=== PATIENT | male | born 1950 | race Caucasian/White ===

== ENCOUNTER 2017-11-08 01:34 | Inpatient (IN) ==
[2017-11-08] MEDS ORDERED: Acetaminophen 325 MG TABLET PO ONE (02:13)
[2017-11-08] MEDS ORDERED: 0.9 % Sodium Chloride 1,000 ML IVC ONE (02:13)
[2017-11-08 02:28] LABS: Basophils % 0.1 %; Hematocrit 39.6 % (37.5-50.1); Hemoglobin 13.8 g/dL (12.9-16.9); Immature Granulocytes % 0.5 % (0-4); Lymphocytes # 0.6 K/mcL (0.6-4.6); Lymphocytes % 4.3 %; Mean Corpuscular HGB Conc 34.8 g/dL (31.6-35.5); Mean Corpuscular Hemoglobin 30.7 pg (28.0-33.3); Mean Platelet Volume 11.3 fL (9.4-12.4); Monocytes # 0.9 K/mcL (0.0-1.3); Monocytes % 6.1 %; Neutrophils # 13.2 K/mcL (1.6-8.9); Platelet Count 177 K/mcL (140-400); Red Cell Distribution Width 13.4 % (11.5-14.5)
[2017-11-08 02:31] LABS: VBG HCO3 23 mEq/L (21-27); VBG PCO2 37 mmHg (41-51); VBG PO2 38 mmHg (25-50)
[2017-11-08 02:33] LABS: INR 1.2; Prothrombin Time 13.3 Seconds (9.4-12.1)
[2017-11-08 02:37] LABS: Bilirubin,Urine Small (Negative); Blood,Urine Negative (Negative); Clarity,Urine Clear (Clear); Color,Urine Dark Yellow (Yellow); Glucose,Urine (UA) 250 mg/dL (Normal); Ketones,Urine Negative (Negative); Leukocyte Esterase,Urine Negative (Negative); Nitrite,Urine Negative (Negative); Protein,Urine >=300 mg/dL (Neg-Trace); Specific Gravity,Urine 1.018 (1.010-1.025); Urobilinogen,Urine Normal (Normal)
[2017-11-08 02:38] LABS: Bacteria,Urine None Seen per hpf (None-Few); Hyaline Casts,Urine None Seen per lpf (None-Few); Squamous Epithelial Cell,Urine Moderate per lpf (None-Few); WBC,Urine 0-3 per hpf (0-3)
--- NOTE | 2017-11-08 02:38 | Emergency Department Note ---
Disposition Clinical Impression: Left lower lobe pneumonia Qualifiers: Pneumonia type: due to unspecified organism Qualified Code(s): J18.1 - Lobar pneumonia, unspecified organism Disposition: Admitted As Inpatient Condition: Good Referrals: Tano Lee MD [Primary Care Provider] - Forms: ED Satisfaction Letter Time of Disposition: 05:00 General Adult HPI - General Chief complaint: ED Weakness Stated complaint: gen. weakness Time Seen by Provider: 11/08/17 02:10 Source: patient, EMS Limitations: no limitations - History of Present Illness HPI Narrative: This is a 67-year-old male who has had a fever for a little more than 24 hours. He states prior to 24-26 hours ago, he was feeling fine. He reports nausea vomiting and diarrhea, although the diarrhea is not unusual for him. He denies having a cough. He has no dysuria. He has some epigastric abdominal pain, but he states this is unremarkable for him. Pain Scale: 0 - Related Data Home Medications Medication Instructions Recorded Confirmed Aspirin Enteric Coated [Aspirin EC] 81 mg PO QAM 10/21/14 01/02/16 Carvedilol [Coreg] 25 mg PO BID 10/21/14 01/02/16 Fenofibrate 160 mg PO QPM 10/21/14 01/02/16 Folic Acid 1 mg PO BID 10/21/14 01/02/16 Fosinopril Sodium 40 mg PO QPM 10/21/14 01/02/16 Levothyroxine Sodium [Synthroid] 100 mcg PO QAM 10/21/14 01/02/16 Terazosin [Hytrin] 10 mg PO DAILY 10/21/14 01/02/16 Albuterol Sulfate [Albuterol 2 puff IH Q4H PRN 12/12/15 01/02/16 Inhaler] Ergocalciferol (VITAMIN D2) 50,000 unit PO QWEEK 12/12/15 01/02/16 [Vitamin D2 (50,000 UNIT)] Furosemide [Lasix] 40 mg PO BID 12/12/15 01/02/16 Insulin DETEMIR [Levemir] 42 unit SQ BID 12/12/15 01/02/16 Isosorbide MONOnitrate (24 HR) 30 mg PO DAILY 12/12/15 01/02/16 [Imdur] Lactobacillus Acidophilus 1 mg PO DAILY 12/12/15 01/02/16 [Acidophilus Probiotic] Tiotropium [place] [Spiriva 8 gm IH DAILY 12/12/15 01/02/16 Respimat] Linagliptin [Tradjenta] 5 mg PO DAILY 01/02/16 01/02/16 Previous Rx's Medication Instructions Recorded Amlodipine [Norvasc] 10 mg PO QAM #0 tablet 10/22/14 Rosuvastatin [Crestor] 40 mg PO QPM tablet 10/22/14 Azithromycin [Zithromax] 500 mg PO Q24H #5 tablet 01/08/16 Budesonide/Formoterol 160/4.5 2 puff IH BIDR #1 inhaler 01/08/16 [Symbicort 160/4.5] Furosemide [Lasix] 40 mg PO DAILY #30 tab 01/08/16 GuaiFENesin ER [Mucinex] 1,200 mg PO BID #30 tbbp.12hr 01/08/16 Insulin LISPRO [Humalog Kwikpen 20 unit SQ TIDWM #10 insuln.pen 01/08/16 U-100] Ipratropium/Albuterol Neb [Duoneb] 3 ml IH [id number] #30 applic 01/08/16 predniSONE [PredniSONE] 40 mg PO DAILY #20 tablet 01/08/16 Azithromycin [Zithromax] 1 applic PO DAILY #6 tablet 04/19/16 PredniSONE [Deltasone] 20 mg PO DAILY #15 tablet 04/19/16 Azithromycin [Azithromycin 6-Tab 250 mg PO PER PKG DI #6 tab 06/20/17 Pack] predniSONE [PredniSONE] See Taper PO DAILY #18 tablet 06/20/17 Allergies Allergy/AdvReac Type Severity Reaction Status Date / Time niacin AdvReac Nausea Verified 04/08/17 11:17 All systems ED: reviewed and negative except as stated. Constitutional: Reports: fever, weakness Gastrointestinal: Reports: abdominal pain Past Medical History - Past Medical History Medical history: Reports: non-contributory, CHF, COPD, diabetes, hypertension, renal disease, thyroid disease Surgical history: Reports: knee replacement Psychiatric history: Reports: no psych history - Social History Smoking Status: Never smoker Smokeless Tobacco Status: No Alcohol use: Reports: none Drug use: Reports: none Physical Exam - General Limitations: no limitations General appearance: alert, in no apparent distress - Head Head exam: atraumatic, normocephalic, normal inspection - Eye Eye exam: Present: normal appearance, PERRL, EOMI - Chest Chest inspection: Present: normal inspection, symmetric chest wall rise - Respiratory Respiratory exam: Present: normal lung sounds bilaterally - Cardiovascular Cardiovascular exam: Present: regular rate, normal rhythm, normal heart sounds - Abdominal Exam Abdominal exam: Present: soft, tenderness Abdominal tenderness: Present: epigastrium - Extremities Exam Extremities exam: Present: normal inspection, full ROM. Absent: tenderness, pedal edema - Neurological Exam Neurological exam: Present: alert, oriented X3 - Psychiatric Psychiatric exam: Present: normal affect, normal mood - Skin Skin exam: Present: warm, dry, intact, normal color Course Vital Signs Temperature 102.7 F H 11/08/17 01:37 Pulse Rate 76 11/08/17 01:37 Respiratory Rate 28 11/08/17 01:37 Blood Pressure 171/70 11/08/17 01:37 O2 Sat by Pulse Oximetry 92 11/08/17 01:37 Temperature 100.3 F H 11/08/17 03:37 Pulse Rate 70 11/08/17 04:55 Respiratory Rate 1 11/08/17 04:55 Blood Pressure 127/66 11/08/17 04:55 O2 Sat by Pulse Oximetry 95 11/08/17 04:55 Oxygen Delivery Oxygen Delivery Nasal Cannula Medical Decision Making - [facility] Narrative Medical decision making narrative: This is a 67-year-old male with left lower lobe pneumonia has a fever. He was given ceftriaxone and azithromycin. - Lab Data Lab results narrative: CBC shows leukocytosis at 14.8 BMP shows slight hyponatremia but BUN elevated at 29 and creatinine elevated 1.7 Magnesium was low at 1.3 Troponin was slightly elevated at 0.08 Lipase was low UA was unremarkable Result diagrams: 11/08/17 02:00 11/08/17 02:00 Lab Results 11/08/17 11/08/17 11/08/17 Range/Units 02:00 02:00 02:00 WBC 14.8 H (4.3-11.1) K/mcL RBC 4.50 (4.19-5.50) M/mcL Hgb 13.8 (12.9-16.9) g/dL Hct 39.6 (37.5-50.1) % MCV 88.0 (83.0-100.0) fL MCH 30.7 (28.0-33.3) pg MCHC 34.8 (31.6-35.5) g/dL RDW 13.4 (11.5-14.5) % Plt Count 177 (140-400) K/mcL MPV 11.3 (9.4-12.4) fL Immature Gran % 0.5 (0-4) % Seg Neutrophils % 89.0 % Lymphocytes % 4.3 % Monocytes % 6.1 % Eosinophils % 0.0 % Basophils % 0.1 % Neutrophils # 13.2 H (1.6-8.9) K/mcL Lymphocytes # 0.6 (0.6-4.6) K/mcL Monocytes # 0.9 (0.0-1.3) K/mcL Eosinophils # 0.0 (0.0-0.6) K/mcL Basophils # 0.0 (0.0-0.2) K/mcL PT 13.3 H (9.4-12.1) Seconds INR 1.2 VBG pH (7.32-7.42) pH Units VBG pCO2 (41-51) mmHg VBG pO2 (25-50) mmHg VBG HCO3 (21-27) mEq/L Sodium (136-145) mEq/L Potassium (3.5-5.1) mEq/L Chloride (98-107) mEq/L Carbon Dioxide (23-29) mEq/L BUN (8-23) mg/dL Creatinine (0.70-1.30) mg/dL Est GFR ( Amer) (> 60) Est GFR (Non-Af Amer) (> 60) BUN/Creatinine Ratio (6-26) Glucose (70-105) mg/dL Calculated Osmolality (280-300) Lactic Acid 1.9 (0.5-2.2) mmol/L Calcium (8.6-10.3) mg/dL Phosphorus (2.7-4.5) mg/dL Magnesium (1.6-2.6) mg/dL Total Bilirubin (0.3-1.0) mg/dL AST (13-39) Units/L ALT (7-52) Units/L Alkaline Phosphatase (34-104) Units/L Troponin I (< 0.04) ng/mL Serum Total Protein (6.4-8.9) g/dL Albumin (3.5-5.7) g/dL Globulin (2.4-3.5) g/dL Albumin/Globulin Ratio (1.1-2.2) Lipase (11-82) Units/L Urine Color (Yellow) Urine Clarity (Clear) Urine pH (5.0-8.0) pH Units Ur Specific [place] (1.010-1.025) Urine Protein (Neg-Trace) mg/dL Urine Glucose (UA) (Normal) mg/dL Urine Ketones (Negative) mg/dL Urine Blood (Negative) Urine Nitrite (Negative) Urine Bilirubin (Negative) Urine Urobilinogen (Normal) mg/dL Ur Leukocyte Esterase (Negative) Urine Microscopic RBC (0-3) per hpf Urine Microscopic WBC (0-3) per hpf Ur Squamous Epith Cells (None-Few) per lpf Urine Bacteria (None-Few) per hpf Hyaline Casts (None-Few) per lpf Ur Culture Indicated? (NO) 11/08/17 11/08/17 11/08/17 Range/Units 02:00 02:28 02:28 WBC (4.3-11.1) K/mcL RBC (4.19-5.50) M/mcL Hgb (12.9-16.9) g/dL Hct (37.5-50.1) % MCV (83.0-100.0) fL MCH (28.0-33.3) pg MCHC (31.6-35.5) g/dL RDW (11.5-14.5) % Plt Count (140-400) K/mcL MPV (9.4-12.4) fL Immature Gran % (0-4) % Seg Neutrophils % % Lymphocytes % % Monocytes % % Eosinophils % % Basophils % % Neutrophils # (1.6-8.9) K/mcL Lymphocytes # (0.6-4.6) K/mcL Monocytes # (0.0-1.3) K/mcL Eosinophils # (0.0-0.6) K/mcL Basophils # (0.0-0.2) K/mcL PT (9.4-12.1) Seconds INR VBG pH 7.40 (7.32-7.42) pH Units VBG pCO2 37 L (41-51) mmHg VBG pO2 38 (25-50) mmHg VBG HCO3 23 (21-27) mEq/L Sodium 132 L (136-145) mEq/L Potassium 3.6 (3.5-5.1) mEq/L Chloride 100 (98-107) mEq/L Carbon Dioxide 22 L (23-29) mEq/L BUN 29 H (8-23) mg/dL Creatinine 1.79 H (0.70-1.30) mg/dL Est GFR ( Amer) 46 L (> 60) Est GFR (Non-Af Amer) 38 L (> 60) BUN/Creatinine Ratio 16 (6-26) Glucose 230 H (70-105) mg/dL Calculated Osmolality 287 (280-300) Lactic Acid (0.5-2.2) mmol/L Calcium 8.9 (8.6-10.3) mg/dL Phosphorus 2.4 L (2.7-4.5) mg/dL Magnesium 1.3 L (1.6-2.6) mg/dL Total Bilirubin 1.0 (0.3-1.0) mg/dL AST 42 H (13-39) Units/L ALT 27 (7-52) Units/L Alkaline Phosphatase 117 H (34-104) Units/L Troponin I 0.08 H* (< 0.04) ng/mL Serum Total Protein 7.2 (6.4-8.9) g/dL Albumin 3.5 (3.5-5.7) g/dL Globulin 3.7 H (2.4-3.5) g/dL Albumin/Globulin Ratio 0.9 L (1.1-2.2) Lipase 4 L (11-82) Units/L Urine Color Dark Yellow (Yellow) Urine Clarity Clear (Clear) Urine pH 6.0 (5.0-8.0) pH Units Ur Specific [place] 1.018 (1.010-1.025) Urine Protein >=300 H (Neg-Trace) mg/dL Urine Glucose (UA) 250 H (Normal) mg/dL Urine Ketones Negative (Negative) mg/dL Urine Blood Negative (Negative) Urine Nitrite Negative (Negative) Urine Bilirubin Small H (Negative) Urine Urobilinogen Normal (Normal) mg/dL Ur Leukocyte Esterase Negative (Negative) Urine Microscopic RBC 5-15 H (0-3) per hpf Urine Microscopic WBC 0-3 (0-3) per hpf Ur Squamous Epith Cells Moderate H (None-Few) per lpf Urine Bacteria None Seen (None-Few) per hpf Hyaline Casts None Seen (None-Few) per lpf Ur Culture Indicated? NO (NO) - Radiology Data Radiology results reviewed: Yes I reviewed the patient's radiology results. Chest x-ray shows left middle and lower lobe opacities consistent with pneumonia CT abdomen/pelvis with most consistent with left lower lobe pneumonia - EKG Data EKG #1 EKG attestation: Yes I reviewed and interpreted this EKG. EKG results narrative: EKG shows a sinus rhythm, 74 bpm, normal axis , large Q waves in inferior, normal ST and T waves
[2017-11-08 02:50] LABS: Albumin 3.5 g/dL (3.5-5.7); Albumin/Globulin Ratio 0.9 (1.1-2.2); Calcium 8.9 mg/dL (8.6-10.3); Globulin 3.7 g/dL (2.4-3.5); Magnesium 1.3 mg/dL (1.6-2.6); Phosphorous 2.4 mg/dL (2.7-4.5); Potassium 3.6 mEq/L (3.5-5.1); Total Protein 7.2 g/dL (6.4-8.9)
[2017-11-08 02:59] LABS: Troponin I 0.08 ng/mL (< 0.04)
[2017-11-08] MEDS ORDERED: cefTRIAXone 1,000 MG in Water for inj. (sterile) 20 ML 10 ML IVP ONE (04:21)
[2017-11-08] MEDS ORDERED: Azithromycin 250 MG TABLET PO ONE (04:22)
[2017-11-08] MEDS ORDERED: Naloxone 0.4 MG/ML INJ IVP PRN (07:48)
[2017-11-08] MEDS ORDERED: Ringers Solution, Lactated 1,000 ML IVC SCH (08:00)
[2017-11-08] MEDS ORDERED: D5% in Water 1,000 ML IVC PRN (08:17)
[2017-11-08] MEDS ORDERED: *HR* Dextrose 50 % in Water (Syg) 50 ML SYRINGE IVP PRN (08:17)
[2017-11-08] MEDS ORDERED: Dextrose Gel 15 GM/37.5 ML TUBE PO PRN ×2 (08:17)
--- NOTE | 2017-11-08 08:27 | Internal Med History&Physical ---
Date of Encounter: 11/08/17 Time of Encounter: 08:10 Internal Medicine - H&P: HPI Chief complaint: Fever, cough, nausea, vomiting Admitted From: Emergency Dept Plans for Post Hospital Care: Home History of present illness: Mr. Valencia is a 67 year old male patient with history of COPD, CHF, diabetes, hypertension and chronic kidney disease who presented to the ER with complaints of malaise, nausea, vomiting, cough and shortness of breath along with fevers. Symptoms started on Wednesday. Progressively getting worse. He denies any chest pain or palpitations. No sick contacts. No hemoptysis. Patient does have cough with mild sputum production. Denies any abdominal pain. No lower extremity swelling. No orthopnea or PND. Past Med Surg Social Fam HX - Past Medical History Attestation: Yes The following information was validated with the patient. Source: patient, old records reviewed Medical history: non-contributory, CHF, COPD, diabetes, hypertension, renal disease, thyroid disease Additional medical history: hernia Psychiatric history: no psych history - Past Surgical History Surgical History: knee replacement Additional surgical history: cardiac stent placement, finger surgry, hernia repair, iliac stent, colonoscopy, back surgery, wipple procedure - Social History Smoking Status: Never smoker Smokeless Tobacco Status: No Alcohol use: none Drug use: none - Family History Mother Living Status: Hx Family Cardiac Disorders: Yes Hx Family Respiratory Disorders: Yes Hx Family Cancer: No Hx Family GI Disorders: No Hx Family Genitourinary Disorders: No Hx Family Endocrine Disorder: No Hx Family Musculoskeletal Disorders: No Hx Family Neuromuscular Disorders: No Hx Family Neurologic Disorders: No Hx Family HEENT Disorders: No Hx Family Autoimmune Disorders: No Hx Family Reproductive Disorders: No Hx Family Psychosocial Disorders: No Hx Family Medical Disorders: No Father Living Status: Hx Family Cardiac Disorders: Yes Hx Family Respiratory Disorders: No Hx Family Cancer: No Hx Family GI Disorders: No Hx Family Genitourinary Disorders: Yes (dm) Hx Family Endocrine Disorder: No Hx Family Musculoskeletal Disorders: No Hx Family Neuromuscular Disorders: No Hx Family Neurologic Disorders: No Hx Family HEENT Disorders: No Hx Family Autoimmune Disorders: No Hx Family Reproductive Disorders: No Hx Family Psychosocial Disorders: No Hx Family Medical Disorders: No Internal Medicine - H&P: Meds Aspirin Enteric Coated [Aspirin EC] 81 mg PO QAM 10/21/14 [History] Carvedilol [Coreg] 25 mg PO BID 10/21/14 [History] Fenofibrate 160 mg PO QPM 10/21/14 [History] Folic Acid 1 mg PO BID 10/21/14 [History] Fosinopril Sodium 40 mg PO QPM 10/21/14 [History] Levothyroxine Sodium [Synthroid] 100 mcg PO QAM 10/21/14 [History] Terazosin [Hytrin] 10 mg PO DAILY 10/21/14 [History] Amlodipine [Norvasc] 10 mg PO QAM #0 tablet 10/22/14 [Rx] Rosuvastatin [Crestor] 40 mg PO QPM tablet 10/22/14 [Rx] Albuterol Sulfate [Albuterol Inhaler] 2 puff IH Q4H PRN 12/12/15 [History] Ergocalciferol (VITAMIN D2) [Vitamin D2 (50,000 UNIT)] 50,000 unit PO QWEEK [History] Furosemide [Lasix] 40 mg PO BID 12/12/15 [History] Insulin DETEMIR [Levemir] 42 unit SQ BID 12/12/15 [History] Isosorbide MONOnitrate (24 HR) [Imdur] 30 mg PO DAILY 12/12/15 [History] Lactobacillus Acidophilus [Acidophilus Probiotic] 1 mg PO DAILY 12/12/15 [ History] Tiotropium [place] [Spiriva Respimat] 8 gm IH DAILY 12/12/15 [History] Linagliptin [Tradjenta] 5 mg PO DAILY 01/02/16 [History] Azithromycin [Zithromax] 500 mg PO Q24H #5 tablet 01/08/16 [Rx] Budesonide/Formoterol 160/4.5 [Symbicort 160/4.5] 2 puff IH BIDR #1 inhaler [Rx] Furosemide [Lasix] 40 mg PO DAILY #30 tab 01/08/16 [Rx] GuaiFENesin ER [Mucinex] 1,200 mg PO BID #30 tbbp.12hr 01/08/16 [Rx] Insulin LISPRO [Humalog Kwikpen U-100] 20 unit SQ TIDWM #10 insuln.pen 01/08/16 [Rx] Ipratropium/Albuterol Neb [Duoneb] 3 ml IH [id number] #30 applic 01/08/16 [Rx] Azithromycin [Zithromax] 1 applic PO DAILY #6 tablet 04/19/16 [Rx] Azithromycin [Azithromycin 6-Tab Pack] 250 mg PO PER PKG DI #6 tab 06/20/17 [Rx] 3 Allergy/AdvReac Type Severity Reaction Status Date / Time niacin AdvReac Nausea Verified 04/08/17 11:17 All Systems PM: A 10-system review of systems was performed and is negative for pertinent findings except as documented above in the HPI. - Constitutional Constitutional: fever(s), no chills, no night sweats - EENT Eyes: no change in vision, no discharge, no pain, no photophobia Ears: no ear discharge, no ear pain, no tinnitus Nose, mouth and throat: no dysphagia, no nasal discharge, no neck pain, no sore throat - Cardiovascular Cardiovascular ROS IM: no chest pain, no diaphoresis, no dyspnea, no lightheadedness, no palpitations, no syncope - Respiratory Respiratory: cough, dyspnea, no wheezing, no excessive phlegm production - Gastrointestinal Gastrointestinal: nausea, vomiting, no abdominal pain, no diarrhea, no hematemesis, no hematochezia, no melena - Musculoskeletal Musculoskeletal ROS IM: no numbness, no tingling - Integumentary Integumentary IM: no rash, no unusual bruising - Neurological Neurological ROS: no confusion, no convulsions, no focal weakness, no numbness, no tingling, no tremor(s) - Hematologic/Lymphatic Hematologic/Lymphatic: no easy bruising - Constitutional Vitals: Temp Pulse Resp BP Pulse Ox 100 F H 70 16 152/61 94 11/08/17 07:10 11/08/17 07:10 11/08/17 07:10 11/08/17 07:10 11/08/17 07:10 General appearance: Present: cooperative, A&O X 3, answers questions appropriately Exam: . - Neck Neck exam general surgery: Present: supple, trachea midline. Absent: lymphadenopathy - Respiratory Respiratory exam: Present: prolonged expiratory phase, wheezes. Absent: accessory muscle use, rales, rhonchi Additional comments: Coarse breath sounds - Cardiovascular Cardiovascular exam: Present: RRR, +S1, +S2. Absent: diastolic murmur, gallop, rubs, systolic murmur - GI/Abdominal GI/Abdominal exam: Present: normal bowel sounds, soft, no peritoneal signs. Absent: distended, tenderness - Extremities Exam Extremities exam: Present: warm, radial pulses palpable and symmetrical. Absent : calf tenderness, cyanotic, pedal edema - Neurological Exam Neurological exam: Present: alert, CN II-XII intact, oriented X3, no focal deficits. Absent: facial droop, speech deficit Internal Med - H&P Results - Labs CBC & Chem 7: 11/08/17 02:00 11/08/17 02:00 - Impressions Impressions Abdomen CT 11/08/17 02:35 IMPRESSION: Findings suspicious for left lower lobe pneumonia versus aspiration sequela with small parapneumonic effusion. Ectatic abdominal aorta with fusiform aneurysmal dilatation up to around 4 cm. Recommend follow-up CTA in 1 year and vascular consultation if not already being followed. D/ / Paras Polanco / Paras Polanco Interpreting Provider: Paras Polanco Chest X-Ray 11/08/17 02:35 IMPRESSION: Increased opacities are seen within the left mid and lower lung, most consistent for pneumonia. Recommend short-term follow-up to document resolution. D/ / Anamaria Bowers MD / Anamaria Bowers MD Interpreting Provider: Anamaria Bowers MD - Assessment and plan (1) Sepsis Current Visit: Yes Status: Suspected Assessment and plan: Sepsis related to pneumonia and left lower lobe with parapneumonic effusion. Concern for possible aspiration. Will continue ceftriaxone and azithromycin. Add Flagyl. Follow blood culture results. Urine strep and Legionella antigens. Send sputum for culture. O2 supplementation as needed. IV antibiotics. DVT prophylaxis with subcutaneous heparin. Qualifiers: Sepsis type: Pneumococcus Qualified Code(s): A40.3 - Sepsis due to Streptococcus pneumoniae (2) Left lower lobe pneumonia Current Visit: Yes Status: Suspected Assessment and plan: Community-acquired. Concern for possible aspiration per CT findings. Continue IV antibiotics. Add Flagyl. Qualifiers: Pneumonia type: due to Pneumococcus Qualified Code(s): J13 - Pneumonia due to Streptococcus pneumoniae (3) CHF (congestive heart failure) Current Visit: Yes Status: Chronic Assessment and plan: Not in acute exacerbation. Hold Lasix due to worsening renal function. Will resume Lasix as renal function improves. Qualifiers: Heart failure type: diastolic Heart failure chronicity: chronic Qualified Code(s): I50.32 - Chronic diastolic (congestive) heart failure (4) COPD (chronic obstructive pulmonary disease) with emphysema Current Visit: Yes Status: Chronic Assessment and plan: Not in acute exacerbation. Continue bronchodilators. Qualifiers: Emphysema type: panlobular Qualified Code(s): J43.1 - Panlobular emphysema (5) CAD (coronary artery disease) Current Visit: Yes Status: Chronic Assessment and plan: Continue home medications. No chest pain at this time Qualifiers: Coronary Disease-Associated Artery/Lesion type: [place] artery [place] vs. transplanted heart: [place] heart Associated angina: without angina Qualified Code(s): I25.10 - Atherosclerotic heart disease of [place] coronary artery without angina pectoris (6) Chronic kidney disease, stage III (moderate) Current Visit: Yes Status: Chronic Assessment and plan: With slight worsening of renal function. Due to sepsis. Hold Lasix. Gentle IV hydration. (7) DM2 (diabetes mellitus, type 2) Current Visit: Yes Status: Chronic Assessment and plan: Elevated blood sugars. Place patient on sliding scale insulin and Levemir. Diabetic diet. 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 Resume home medications. Monitor blood pressure closely Qualifiers: Hypertension type: essential hypertension Qualified Code(s): I10 - Essential (primary) hypertension - Time Spent With Patient Total time spent is greater than 50% in coordination of care (as documented) at patient's floor/unit and/or counseling patient:
[2017-11-08] MEDS: MetroNIDAZOLE 500 MG/100 ML 500 MG/100 ML BAG IVPB SCH ×3 (09:21→23:09)
[2017-11-08] MEDS: Insulin DETEMIR 100 UNIT/ML X5UNITS SQ SCH ×2 (09:22→21:24)
[2017-11-08] MEDS ORDERED: Ondansetron 4 MG/2 ML VIAL IVP PRN (09:29)
[2017-11-08] MEDS: Aspirin Enteric Coated 81 MG Tablet PO SCH (11:09)
[2017-11-08] MEDS: Isosorbide MONOnitrate (24 HR) 30 MG TAB.ER.24H PO SCH (11:10)
[2017-11-08] MEDS: Folic Acid 1 MG TABLET PO SCH ×2 (11:10→20:10)
[2017-11-08] MEDS: amLODIPine 5 MG TABLET PO SCH (11:10)
[2017-11-08] MEDS: Lactobacillus 1 EACH CAP.SPRINK PO SCH (11:10)
[2017-11-08] MEDS: Budesonide/Formoterol 160/4.5 1 PUFF INH IH SCH ×2 (11:52→20:14)
[2017-11-08] MEDS: Acetaminophen 325 MG TABLET PO PRN ×2 (12:11→23:15)
[2017-11-08] MEDS: Insulin LISPRO 300 UNITS/3 ML VIAL SQ SCH ×3 (12:12→20:10)
[2017-11-08] MEDS: Fenofibrate 54 MG TABLET PO SCH (17:09)
[2017-11-08] MEDS: *HR* Heparin 5,000 UNIT/ML VIAL SQ SCH (17:09)
[2017-11-09] MEDS: *HR* Heparin 5,000 UNIT/ML VIAL SQ SCH ×2 (05:14→16:27)
[2017-11-09 06:48] LABS: Basophils % 0.2 %; Hematocrit 34.2 % (37.5-50.1); Immature Granulocytes % 0.6 % (0-4); Lymphocytes # 0.5 K/mcL (0.6-4.6); Mean Corpuscular HGB Conc 34.2 g/dL (31.6-35.5); Mean Corpuscular Hemoglobin 29.5 pg (28.0-33.3); Mean Corpuscular Volume 86.4 fL (83.0-100.0); Mean Platelet Volume 11.7 fL (9.4-12.4); Monocytes # 0.4 K/mcL (0.0-1.3); Monocytes % 3.7 %; Neutrophils # 10.9 K/mcL (1.6-8.9); Platelet Count 168 K/mcL (140-400); Red Blood Count 3.96 M/mcL (4.19-5.50); Red Cell Distribution Width 13.6 % (11.5-14.5); Segmented Neutrophils % 91.5 %
[2017-11-09 07:10] LABS: Potassium 3.8 mEq/L (3.5-5.1)
[2017-11-09 07:30] LABS: Hemoglobin 11.7 g/dL (12.9-16.9)
[2017-11-09] MEDS: Insulin LISPRO 300 UNITS/3 ML VIAL SQ SCH ×4 (07:52→22:00)
[2017-11-09] MEDS: Budesonide/Formoterol 160/4.5 1 PUFF INH IH SCH ×2 (08:00→19:55)
[2017-11-09] MEDS: Isosorbide MONOnitrate (24 HR) 30 MG TAB.ER.24H PO SCH (08:18)
[2017-11-09] MEDS: Azithromycin 250 MG TABLET PO SCH (08:18)
[2017-11-09] MEDS: Aspirin Enteric Coated 81 MG Tablet PO SCH (08:19)
[2017-11-09] MEDS: Lactobacillus 1 EACH CAP.SPRINK PO SCH (08:19)
[2017-11-09] MEDS: amLODIPine 5 MG TABLET PO SCH (08:19)
[2017-11-09] MEDS: Acetaminophen 325 MG TABLET PO PRN ×3 (08:19→20:44)
[2017-11-09] MEDS: MetroNIDAZOLE 500 MG/100 ML 500 MG/100 ML BAG IVPB SCH (08:19)
[2017-11-09] MEDS: Folic Acid 1 MG TABLET PO SCH ×2 (08:19→20:43)
[2017-11-09] MEDS ORDERED: cefTRIAXone 2,000 MG in 0.9 % Sodium Chloride Mini Bag 100 ML IVPB SCH (09:00)
[2017-11-09] MEDS: Insulin DETEMIR 100 UNIT/ML X5UNITS SQ SCH (09:19)
[2017-11-09] MEDS: Fenofibrate 54 MG TABLET PO SCH (16:27)
--- NOTE | 2017-11-09 17:16 | Internal Med Progress Note ---
Hospitalist Progress Note - Encounter Date of Encounter: 11/09/17 Time of Encounter: 10:10 - Subjective Interval History: Patient was seen and assessed at bedside at 10:10 AM. He is alert, awake, oriented. He is pleasant. He reports he is not sleeping well at night due to constant interruptions in his room, IV pump alarms, noise in the hallway. He denies fever, chills, diarrhea, nausea, vomiting, shortness of breath. He states that he is feeling well, we will revisit discharge tomorrow. - Exam Vitals: Temp Pulse Resp BP Pulse Ox 100.6 F H 70 15 137/61 93 11/09/17 15:33 11/09/17 15:33 11/09/17 15:33 11/09/17 15:33 11/09/17 15:33 Exam: General: Pt resting quietly on bed, no distress. Skin: pwd, no rashes, lesions, redness Neurological: Pt is alert and awake, oriented x 3, Speech is clear, PERRLA, EOMI , no nystagmus, no pronator drift. strength equal x 4 extremities HEENT: mucous mumbranes moist, no conjuctival pallor Neck: supple, no tracheal deviation, no lymphadenopathy, tenderness, no thyromegaly Heart: S1S2 heard without gallops, clicks, murmurs, no bradycardia or tachycardia, pt has no peripheral edema, pedal and radial pulses palpable bilaterally. Lungs: clear throughout with wheezing, and ronchi in posterior eduardo, respirations are unlabored. Abdomen: soft and non tender with bowel sound present, no hepatomegaly. Psych: Normal affect with good eye contact - Assessment and Plan (1) CAD (coronary artery disease) Current Visit: Yes Status: Chronic Assessment and Plan: Chronic. Patient denies chest pain. Continue home medications. Continue telemetry (2) DM2 (diabetes mellitus, type 2) Current Visit: Yes Status: Chronic Assessment and Plan: Chronic. Place patient on sliding scale insulin and Levemir. Diabetic diet. Accu-Cheks before meals at bedtime (3) HTN (hypertension) Current Visit: Yes Status: Chronic Assessment and Plan: Chronic. Well controlled. Resume home medications. (4) COPD (chronic obstructive pulmonary disease) with emphysema Current Visit: Yes Status: Chronic Assessment and Plan: No acute exacerbation. Plan as above pneumonia. (5) Chronic kidney disease, stage III (moderate) Current Visit: Yes Status: Chronic Assessment and Plan: 1.80/38, worsening over baseline, due to sepsis. Hold Lasix. Gentle IVF hydration. Monitor labs and avoid nephrotoxins (6) CHF (congestive heart failure) Current Visit: Yes Status: Chronic Assessment and Plan: No acute exacerbation. Hold Lasix due to worsening renal function. Will resume Lasix as renal function improves. No peripheral edema, lungs with wheezing and ronchi, pt with pneumonia. (7) Left lower lobe pneumonia Current Visit: Yes Status: Suspected Assessment and Plan: Community-acquired. Legionella antigen positive. Flagyl added by prior WOMEN'S STUDIES PROFESSOR after discussing with I.D. Concern for possible aspiration per CT findings. Continue IV antibiotics Rocephin 1gram IV daily, Zithromax 500mg IV daily, and Flagyl 500mg IV TID. Continue 02 as needed to maintain sats > 92%. Sepsis secondary to pneumonia- pt with fever today, leukocytosis is resolving REcheck labs tomorrow. (8) Sepsis Current Visit: Yes Status: Suspected Assessment and Plan: Sepsis related to pneumonia and left lower lobe with parapneumonic effusion. Concern for possible aspiration per CT. Continue ceftriaxone and azithromycin, and Flagyl as above. Follow blood culture results- still pending. Legionella antigen positive. Leukocytosis is resolving, fever mid afternoon today, no tachycardia or tachypnea. Monitor labs and vitals - Time Spent with Patient Total time spent is greater than 50% in coordination of care (as documented) at patient's floor/unit and/or counseling patient: less than 15 minutes Plan of Care Discussed with: patient Internal Medicine: Result - Labs CBC & Chem 7: 11/09/17 05:07 11/09/17 05:07 Labs: Short CBC 11/09/17 Range/Units 05:07 WBC 11.9 H (4.3-11.1) K/mcL Hgb 11.7 L D (12.9-16.9) g/dL Hct 34.2 L (37.5-50.1) % Plt Count 168 (140-400) K/mcL Neutrophils # 10.9 H (1.6-8.9) K/mcL BMP 11/09/17 05:07 Sodium 134 L Potassium 3.8 Chloride 102 Carbon Dioxide 25 BUN 35 H Creatinine 1.80 H Glucose 82 Calcium 8.0 L Cardiac Enzymes 11/08/17 11/09/17 Range/Units 16:55 15:04 Troponin I 0.10 H* 0.06 H* (< 0.04) ng/mL - ABG Interpretation ABG results: PT/INR, D-dimer PT 13.3 Seconds (9.4-12.1) H 11/08/17 02:00 Consult Discharge Plan - Plan Referrals: Tano Lee MD [Primary Care Provider] - 11/19/17 8:30 am (1) CAD (coronary artery disease) Qualifiers: Coronary Disease-Associated Artery/Lesion type: [place] artery [place] vs. transplanted heart: [place] heart Associated angina: without angina Qualified Code(s): I25.10 - Atherosclerotic heart disease of [place] coronary artery without angina pectoris (2) DM2 (diabetes mellitus, type 2) Qualifiers: Diabetes mellitus custodial insulin use: with terminal press operator use Diabetes mellitus complication status: with kidney complications Diabetes mellitus complication detail: with chronic kidney disease Chronic kidney disease stage: stage 3 (moderate) Qualified Code(s): E11.22 - Type 2 diabetes mellitus with diabetic chronic kidney disease; N18.3 - Chronic kidney disease, stage 3 ( moderate); Z79.4 - exterminator (current) use of insulin (3) HTN (hypertension) Qualifiers: Hypertension type: essential hypertension Qualified Code(s): I10 - Essential (primary) hypertension (4) COPD (chronic obstructive pulmonary disease) with emphysema Qualifiers: Emphysema type: panlobular Qualified Code(s): J43.1 - Panlobular emphysema (6) CHF (congestive heart failure) Qualifiers: Heart failure type: diastolic Heart failure chronicity: chronic Qualified Code(s): I50.32 - Chronic diastolic (congestive) heart failure (7) Left lower lobe pneumonia Qualifiers: Pneumonia type: due to Pneumococcus Qualified Code(s): J13 - Pneumonia due to Streptococcus pneumoniae (8) Sepsis Qualifiers: Sepsis type: Pneumococcus Qualified Code(s): A40.3 - Sepsis due to Streptococcus pneumoniae
[2017-11-09] MEDS ORDERED: 0.9 % Sodium Chloride 1,000 ML IVC SCH (17:30)
[2017-11-09] MEDS ORDERED: Acetaminophen IV 500 MG/50 ML INFUS..BTL IVPB ONE (22:37)
[2017-11-10 05:51] LABS: Basophils % 0.1 %; Hematocrit 36.6 % (37.5-50.1); Hemoglobin 12.6 g/dL (12.9-16.9); Immature Granulocytes % 0.7 % (0-4); Lymphocytes # 0.3 K/mcL (0.6-4.6); Lymphocytes % 2.8 %; Mean Corpuscular HGB Conc 34.4 g/dL (31.6-35.5); Mean Corpuscular Hemoglobin 30.1 pg (28.0-33.3); Mean Corpuscular Volume 87.6 fL (83.0-100.0); Mean Platelet Volume 11.6 fL (9.4-12.4); Monocytes # 0.3 K/mcL (0.0-1.3); Monocytes % 2.3 %; Neutrophils # 10.9 K/mcL (1.6-8.9); Platelet Count 196 K/mcL (140-400); Red Blood Count 4.18 M/mcL (4.19-5.50); Red Cell Distribution Width 13.6 % (11.5-14.5); Segmented Neutrophils % 94.1 %
[2017-11-10 06:05] LABS: Calcium 8.3 mg/dL (8.6-10.3); Potassium 3.9 mEq/L (3.5-5.1)
[2017-11-10] MEDS: *HR* Heparin 5,000 UNIT/ML VIAL SQ SCH ×2 (06:28→17:10)
--- NOTE | 2017-11-10 07:55 | Electrocardiograph Report ---
[place] [id number] Test Date: 2017-11-08 Pat Name: Johnson Valencia Department: [id number] Room: 3B35 Gender: M Top Cleaner: : 1950 Requested By: Rozina Brown Order Number: [id number] Reading MD: Mindy Crawley Measurements Intervals [place] Rate: 74 P: 82 WA: 191 QRS: -20 QRSD: 131 T: -12 QT: 393 QTc: 436 Interpretive Statements Sinus rhythm Probable left atrial enlargement Left ventricular hypertrophy Inferior infarct, old Anterior infarct, old Electronically Signed On 11-10-2017 7:54:16 EDT by Mindy Crawley
[2017-11-10] MEDS: Budesonide/Formoterol 160/4.5 1 PUFF INH IH SCH ×2 (08:19→20:41)
[2017-11-10] MEDS: Insulin LISPRO 300 UNITS/3 ML VIAL SQ SCH ×4 (09:15→22:00)
[2017-11-10] MEDS: Isosorbide MONOnitrate (24 HR) 30 MG TAB.ER.24H PO SCH (09:56)
[2017-11-10] MEDS: Folic Acid 1 MG TABLET PO SCH ×2 (09:56→21:49)
[2017-11-10] MEDS: Lactobacillus 1 EACH CAP.SPRINK PO SCH (09:56)
[2017-11-10] MEDS: Aspirin Enteric Coated 81 MG Tablet PO SCH (09:56)
[2017-11-10] MEDS: Azithromycin 250 MG TABLET PO SCH (09:56)
[2017-11-10] MEDS: amLODIPine 5 MG TABLET PO SCH (09:56)
--- NOTE | 2017-11-10 10:03 | Event Note ---
Date of Encounter: 11/10/17 Time of Encounter: 08:00 - Cardiology Event Note Message received from office. requested that cardiology stop by while patient is inpatient. I met with patient. Noted pneumonia, mild troponins. TTE with LVEF preserved. Patient denies chest pain. Patient has outpatient cardiology visit schedule for Wednesday, will re-schedule. Cardiology will continue to monitor patient in outpatient setting.
[2017-11-10] MEDS: Acetaminophen 325 MG TABLET PO PRN ×3 (10:25→23:38)
[2017-11-10] MEDS: Fenofibrate 54 MG TABLET PO SCH (17:08)
--- NOTE | 2017-11-10 18:30 | Internal Med Progress Note ---
Hospitalist Progress Note - Encounter Date of Encounter: 11/10/17 Time of Encounter: 10:50 - Subjective Interval History: Patient was seen and assessed at bedside at 10:50 AM. He is alert, awake, oriented. He is pleasant. Pt states that he wants to go home; we discussed the fact that he is still having fevers, pt was agreeable to stay. is at bedside, questions answered. He denies fever, chills, diarrhea, nausea, vomiting, shortness of breath. He states that he is feeling well, we will revisit discharge tomorrow. - Exam Vitals: Temp Pulse Resp BP Pulse Ox 102.5 F H 71 16 127/62 97 11/10/17 15:24 11/10/17 15:24 11/10/17 15:24 11/10/17 15:24 11/10/17 15:24 Exam: General: Pt resting quietly on bed, no distress. Skin: pwd, no rashes, lesions, redness Neurological: Pt is alert and awake, oriented x 3, Speech is clear, PERRLA, EOMI , no nystagmus, no pronator drift. strength equal x 4 extremities HEENT: mucous mumbranes moist, no conjuctival pallor Neck: supple, no tracheal deviation, no lymphadenopathy, tenderness, no thyromegaly Heart: S1S2 heard without gallops, clicks, murmurs, no bradycardia or tachycardia, pt has no peripheral edema, pedal and radial pulses palpable bilaterally. Lungs: wheezing right posterior lung eduardo, and no ronchi in posterior eduardo, respirations are unlabored. Abdomen: soft and non tender with bowel sound present, no hepatomegaly. Psych: Normal affect with good eye contact - Assessment and Plan (1) CAD (coronary artery disease) Current Visit: Yes Status: Chronic Assessment and Plan: Chronic. Patient denies chest pain. Continue home medications. Continue telemetry (2) DM2 (diabetes mellitus, type 2) Current Visit: Yes Status: Chronic Assessment and Plan: Chronic. Sliding scale insulin, Levemir at bedtime Diabetic diet. Accu-Cheks before meals at bedtime (3) HTN (hypertension) Current Visit: Yes Status: Chronic Assessment and Plan: Chronic. Well controlled. Resume home medications. (4) COPD (chronic obstructive pulmonary disease) with emphysema Current Visit: Yes Status: Chronic Assessment and Plan: No acute exacerbation. Plan as above pneumonia. (5) Chronic kidney disease, stage III (moderate) Current Visit: Yes Status: Chronic Assessment and Plan: 1.79/38, worsening over baseline, due to sepsis. Hold Lasix. Gentle IVF hydration. Monitor labs and avoid nephrotoxins I spoke with Myla Maher CNP, who sees pt in the office for nephrology, she is not concerned with his renal function as long as it is not worsening and pt can keep fluids down. (6) CHF (congestive heart failure) Current Visit: Yes Status: Chronic Assessment and Plan: No acute exacerbation. Continue to hold Lasix for renal function. Will resume Lasix as renal function improves. No peripheral edema, lungs with wheezing and ronchi, pt with pneumonia. (7) Left lower lobe pneumonia Current Visit: Yes Status: Suspected Assessment and Plan: Community-acquired. Legionella antigen positive. Flagyl added by prior ENVIRONMENTAL PROGRAM MANAGER after discussing with I.D, discontinued per recommendation of pharmacy on 11/09. Concern for possible aspiration per CT findings. Continue IV antibiotics Rocephin 1gram IV daily, Zithromax 500mg IV daily Continue 02 as needed to maintain sats > 92%. Sepsis secondary to pneumonia- pt with fever today, leukocytosis is resolving REcheck labs tomorrow. If pt remains stable overnight, will look at discharge tomorrow. (8) Sepsis Current Visit: Yes Status: Resolved Assessment and Plan: Resolved. Sepsis related to pneumonia and left lower lobe with parapneumonic effusion. Concern for possible aspiration per CT. Continue ceftriaxone and azithromycin, and Flagyl as above. Follow blood culture results- still pending. Legionella antigen positive. Leukocytosis is resolving, fever mid afternoon today, no tachycardia or tachypnea. Monitor labs and vitals - Time Spent with Patient Total time spent is greater than 50% in coordination of care (as documented) at patient's floor/unit and/or counseling patient: less than 15 minutes Plan of Care Discussed with: patient Internal Medicine: Result - Labs CBC & Chem 7: 11/10/17 05:02 11/10/17 05:02 Labs: Short CBC 11/10/17 Range/Units 05:02 WBC 11.6 H (4.3-11.1) K/mcL Hgb 12.6 L (12.9-16.9) g/dL Hct 36.6 L (37.5-50.1) % Plt Count 196 (140-400) K/mcL Neutrophils # 10.9 H (1.6-8.9) K/mcL BMP 11/10/17 05:02 Sodium 131 L Potassium 3.9 Chloride 101 Carbon Dioxide 23 BUN 33 H Creatinine 1.79 H Glucose 154 H Calcium 8.3 L - ABG Interpretation ABG results: PT/INR, D-dimer PT 13.3 Seconds (9.4-12.1) H 11/08/17 02:00 Consult Discharge Plan - Plan Referrals: Tano Lee MD [Primary Care Provider] - 11/19/17 8:30 am (1) CAD (coronary artery disease) Qualifiers: Coronary Disease-Associated Artery/Lesion type: [place] artery [place] vs. transplanted heart: [place] heart Associated angina: without angina Qualified Code(s): I25.10 - Atherosclerotic heart disease of [place] coronary artery without angina pectoris (2) DM2 (diabetes mellitus, type 2) Qualifiers: Diabetes mellitus [facility] insulin use: with wire drawing setter use Diabetes mellitus complication status: with kidney complications Diabetes mellitus complication detail: with chronic kidney disease Chronic kidney disease stage: stage 3 (moderate) Qualified Code(s): E11.22 - Type 2 diabetes mellitus with diabetic chronic kidney disease; N18.3 - Chronic kidney disease, stage 3 ( moderate); Z79.4 - penitentiary (current) use of insulin (3) HTN (hypertension) Qualifiers: Hypertension type: essential hypertension Qualified Code(s): I10 - Essential (primary) hypertension (4) COPD (chronic obstructive pulmonary disease) with emphysema Qualifiers: Emphysema type: panlobular Qualified Code(s): J43.1 - Panlobular emphysema (6) CHF (congestive heart failure) Qualifiers: Heart failure type: diastolic Heart failure chronicity: chronic Qualified Code(s): I50.32 - Chronic diastolic (congestive) heart failure (7) Left lower lobe pneumonia Qualifiers: Pneumonia type: due to Pneumococcus Qualified Code(s): J13 - Pneumonia due to Streptococcus pneumoniae (8) Sepsis Qualifiers: Sepsis type: Pneumococcus Qualified Code(s): A40.3 - Sepsis due to Streptococcus pneumoniae
[2017-11-10] MEDS: Pregabalin 50 MG CAPSULE PO SCH (21:49)
[2017-11-11] MEDS: Piperacillin/Tazobactam 3.375 GM in 0.9 % Sodium Chloride Mini Bag 100 ML IVPB SCH ×3 (00:37→15:27)
[2017-11-11 03:53] LABS: ABG Base Excess 0 mEq/L (-2 to 3); ABG HCO3 25 mEq/L (21-27); ABG Oxygen Saturation 85 % (95-98); ABG PCO2 42 mmHg (35-45); ABG PH 7.39 pH Units (7.32-7.45); ABG PO2 51 mmHg (85-104); ABG TCO2 26 mEq/L (20-26)
[2017-11-11] MEDS ORDERED: Furosemide 40 MG/4 ML VIAL IVP ONE (03:59)
[2017-11-11 04:03] LABS: Basophils % 0.1 %; Hematocrit 34.9 % (37.5-50.1); Hemoglobin 12.1 g/dL (12.9-16.9); Immature Granulocytes % 0.7 % (0-4); Lymphocytes # 0.4 K/mcL (0.6-4.6); Lymphocytes % 2.6 %; Mean Corpuscular HGB Conc 34.7 g/dL (31.6-35.5); Mean Corpuscular Hemoglobin 30.4 pg (28.0-33.3); Mean Corpuscular Volume 87.7 fL (83.0-100.0); Mean Platelet Volume 11.5 fL (9.4-12.4); Monocytes # 0.3 K/mcL (0.0-1.3); Monocytes % 2.3 %; Neutrophils # 12.9 K/mcL (1.6-8.9); Platelet Count 202 K/mcL (140-400); Red Blood Count 3.98 M/mcL (4.19-5.50); Red Cell Distribution Width 13.6 % (11.5-14.5); Segmented Neutrophils % 94.3 %
[2017-11-11 04:17] LABS: Calcium 8.3 mg/dL (8.6-10.3); Potassium 3.7 mEq/L (3.5-5.1)
[2017-11-11] MEDS: *HR* Heparin 5,000 UNIT/ML VIAL SQ SCH ×2 (06:15→17:02)
[2017-11-11] MEDS: Budesonide/Formoterol 160/4.5 1 PUFF INH IH SCH ×2 (07:47→20:29)
[2017-11-11] MEDS ORDERED: Isovue-370 500 ML INFUS..BTL IV ONE (07:49)
[2017-11-11] MEDS: Insulin LISPRO 300 UNITS/3 ML VIAL SQ SCH ×4 (08:00→20:29)
[2017-11-11] MEDS: Pregabalin 50 MG CAPSULE PO SCH ×2 (09:18→20:19)
[2017-11-11] MEDS: amLODIPine 5 MG TABLET PO SCH (09:18)
[2017-11-11] MEDS: Lactobacillus 1 EACH CAP.SPRINK PO SCH (09:18)
[2017-11-11] MEDS: Acetaminophen 325 MG TABLET PO PRN (09:18)
[2017-11-11] MEDS: Lisinopril 20 MG TABLET PO SCH (09:18)
[2017-11-11] MEDS: Fenofibrate 54 MG TABLET PO SCH (09:19)
[2017-11-11] MEDS: Azithromycin 250 MG TABLET PO SCH (09:19)
[2017-11-11] MEDS: Isosorbide MONOnitrate (24 HR) 30 MG TAB.ER.24H PO SCH (09:19)
[2017-11-11] MEDS: Aspirin Enteric Coated 81 MG Tablet PO SCH (09:19)
[2017-11-11] MEDS: Folic Acid 1 MG TABLET PO SCH ×2 (09:20→20:20)
--- NOTE | 2017-11-11 09:34 | Internal Med Progress Note ---
Hospitalist Progress Note - Encounter Date of Encounter: 11/11/17 Time of Encounter: 08:05 - Subjective Interval History: Patient was seen and assessed at bedside at 0805 AM. He is alert, awake, oriented and bipap. Overnight, pt began desatting and was placed on bipap, pt denies any change from his standpoint. He denies fever, chills, diarrhea, nausea , vomiting, shortness of breath. - Exam Vitals: Temp Pulse Resp BP Pulse Ox 99.7 F H 76 29 170/78 94 11/11/17 07:17 11/11/17 07:17 11/11/17 07:47 11/11/17 07:17 11/11/17 07:47 Exam: General: Pt resting quietly on bed, no distress, on bipap Skin: pwd, no rashes, lesions, redness Neurological: Pt is alert and awake, oriented x 3, Speech is clear HEENT: mucous mumbranes moist, no conjuctival pallor Neck: supple, no tracheal deviation, no lymphadenopathy, tenderness, no thyromegaly Heart: S1S2 heard without gallops, clicks, murmurs, no bradycardia or tachycardia, pt has no peripheral edema, pedal and radial pulses palpable bilaterally. Lungs: wheezing right posterior lung eduardo, ronchi heard in anterior chest, respirations are unlabored. Abdomen: soft and non tender with bowel sound present, no hepatomegaly. Psych: Normal affect with good eye contact - Assessment and Plan (1) CAD (coronary artery disease) Current Visit: Yes Status: Chronic Assessment and Plan: Chronic. Patient denies chest pain. Continue home medications. Continue telemetry (2) DM2 (diabetes mellitus, type 2) Current Visit: Yes Status: Chronic Assessment and Plan: Chronic. Continue SSI, Levemir at bedtime, diabetic diet, accuchecks achs. (3) HTN (hypertension) Current Visit: Yes Status: Chronic Assessment and Plan: Chronic. Well controlled. Resume home medications. (4) COPD (chronic obstructive pulmonary disease) with emphysema Current Visit: Yes Status: Chronic Assessment and Plan: Plan as above pneumonia. (5) Chronic kidney disease, stage III (moderate) Current Visit: Yes Status: Chronic Assessment and Plan: 11/11-1.54/45, returning to baseline Hold Lasix. Gentle IVF hydration. Monitor labs and avoid nephrotoxins 11/10-I spoke with Myla Maher CNP, who sees pt in the office for nephrology, she is not concerned with his renal function as long as it is not worsening and pt can keep fluids down. (6) CHF (congestive heart failure) Current Visit: Yes Status: Chronic Assessment and Plan: No acute exacerbation. Continue to hold Lasix for renal function. Will resume Lasix as renal function improves. No peripheral edema, lungs with wheezing and ronchi, pt with pneumonia. (7) Left lower lobe pneumonia Current Visit: Yes Status: Suspected Assessment and Plan: Community-acquired. Legionella antigen positive. Flagyl added by prior ONYX CHIP TERRAZZO WORKER after discussing with I.D, discontinued per recommendation of pharmacy on 11/09. Concern for possible aspiration per CT findings. Continue IV antibiotics Zosyn 3.375 mg TID, Zithromax 500mg IV daily Continue 02 as needed to maintain sats > 92%. Sepsis secondary to pneumonia- pt with fever x 24 hours, increased leukocytosis. Increased 02 demands and sats in the 80s overnight with 02. Pt placed on bipap. Chest xray overnight showed worsening opacities in the left lung. ABG WNL and d-dimer elevated. CTA chest completed and results pending. Pulmonology and ID consulted, I appreciate their recommendations. (8) Sepsis Current Visit: Yes Status: Resolved Assessment and Plan: Resolved. Sepsis related to pneumonia and left lower lobe with parapneumonic effusion. 11/11- Pt with fever, leukocytosis and pneumonia. No hypotension or tachycardia. Will continue to monitor pt closely for changes. Continue IV antibiotics, 02, bipap, telemetry, and IVF. - Time Spent with Patient Total time spent is greater than 50% in coordination of care (as documented) at patient's floor/unit and/or counseling patient: less than 15 minutes Plan of Care Discussed with: patient Internal Medicine: Result - Labs CBC & Chem 7: 11/11/17 03:15 11/11/17 03:15 Labs: Short CBC 11/11/17 Range/Units 03:15 WBC 13.6 H (4.3-11.1) K/mcL Hgb 12.1 L (12.9-16.9) g/dL Hct 34.9 L (37.5-50.1) % Plt Count 202 (140-400) K/mcL Neutrophils # 12.9 H (1.6-8.9) K/mcL BMP 11/11/17 03:15 Sodium 130 L Potassium 3.7 Chloride 100 Carbon Dioxide 23 BUN 31 H Creatinine 1.54 H Glucose 125 H Calcium 8.3 L - ABG Interpretation ABG results: ABG ABG pH 7.39 pH Units (7.32-7.45) 11/11/17 03:46 ABG pCO2 42 mmHg (35-45) 11/11/17 03:46 ABG pO2 51 mmHg (85-104) L 11/11/17 03:46 ABG O2 Saturation 85 % (95-98) L 11/11/17 03:46 PT/INR, D-dimer PT 13.3 Seconds (9.4-12.1) H 11/08/17 02:00 D-Dimer 2080 ng/mLFEU (0-500) H 11/11/17 04:21 - Impressions Impressions Chest X-Ray 11/11/17 01:53 IMPRESSION: Interval worsening of airspace opacities in the left lung, likely representing pneumonia. D/ / Anamaria Bowers MD / Anamaria Bowers MD Interpreting Provider: Anamaria Bowers MD Consult Discharge Plan - Plan Referrals: Tano Lee MD [Primary Care Provider] - 11/19/17 8:30 am (1) CAD (coronary artery disease) Qualifiers: Coronary Disease-Associated Artery/Lesion type: [place] artery [place] vs. transplanted heart: [place] heart Associated angina: without angina Qualified Code(s): I25.10 - Atherosclerotic heart disease of [place] coronary artery without angina pectoris (2) DM2 (diabetes mellitus, type 2) Qualifiers: Diabetes mellitus terminal gauger insulin use: with terminal gauger use Diabetes mellitus complication status: with kidney complications Diabetes mellitus complication detail: with chronic kidney disease Chronic kidney disease stage: stage 3 (moderate) Qualified Code(s): E11.22 - Type 2 diabetes mellitus with diabetic chronic kidney disease; N18.3 - Chronic kidney disease, stage 3 ( moderate); Z79.4 - long term (current) use of insulin (3) HTN (hypertension) Qualifiers: Hypertension type: essential hypertension Qualified Code(s): I10 - Essential (primary) hypertension (4) COPD (chronic obstructive pulmonary disease) with emphysema Qualifiers: Emphysema type: panlobular Qualified Code(s): J43.1 - Panlobular emphysema (6) CHF (congestive heart failure) Qualifiers: Heart failure type: diastolic Heart failure chronicity: chronic Qualified Code(s): I50.32 - Chronic diastolic (congestive) heart failure (7) Left lower lobe pneumonia Qualifiers: Pneumonia type: due to Pneumococcus Qualified Code(s): J13 - Pneumonia due to Streptococcus pneumoniae (8) Sepsis Qualifiers: Sepsis type: Pneumococcus Qualified Code(s): A40.3 - Sepsis due to Streptococcus pneumoniae
--- NOTE | 2017-11-11 11:27 | Pulmonology Consult Note ---
<LeegioKvng gorman M - Last Filed: 11/11/17 17:07> Date of Encounter: 11/11/17 Medications and Allergies Aspirin Enteric Coated [Aspirin EC] 81 mg PO QAM 10/21/14 [History] Terazosin [Hytrin] 10 mg PO HS 10/21/14 [History] Isosorbide MONOnitrate (24 HR) [Imdur] 30 mg PO DAILY 12/12/15 [History] Atorvastatin [Lipitor] 40 mg PO DAILY 11/09/17 [History] Carvedilol [Coreg] 25 mg PO BIDWM 11/09/17 [History] Fenofibrate Nanocrystallized [Triglide] 160 mg PO DAILY 11/09/17 [History] Folic Acid [Folic Acid] 0.8 mg PO BID 11/09/17 [History] Insulin Pump Cartridge [Insulin Pump] 1 device SQ AD 11/09/17 [History] Levothyroxine [Synthroid] 100 mcg PO 0630 11/09/17 [History] Lisinopril [Zestril] 40 mg PO DAILY 11/09/17 [History] Metformin HCl [Metformin HCl] 1,000 mg PO BIDWM 11/09/17 [History] Omeprazole [PriLOSEC] 20 mg PO DAILY 11/09/17 [History] Pregabalin [Lyrica] 100 mg PO BID 11/09/17 [History] amLODIPine [Norvasc] 5 mg PO DAILY 11/09/17 [History] 3 Allergy/AdvReac Type Severity Reaction Status Date / Time niacin AdvReac Nausea Verified 11/09/17 13:04 All Systems: The remainder of the systems were reviewed and are negative Physical Examination Vital Signs: Vital Signs, Last 4 Hours Temp Pulse Resp BP Pulse Ox 11/11/17 15:50 97.9 F 60 15 133/68 93 Results - Laboratory Findings CBC and BMP: 11/11/17 03:15 11/11/17 03:15 ABG ABG pH 7.39 pH Units (7.32-7.45) 11/11/17 03:46 ABG pCO2 42 mmHg (35-45) 11/11/17 03:46 ABG pO2 51 mmHg (85-104) L 11/11/17 03:46 ABG O2 Saturation 85 % (95-98) L 11/11/17 03:46 PT/INR, D-dimer PT 13.3 Seconds (9.4-12.1) H 11/08/17 02:00 D-Dimer 2080 ng/mLFEU (0-500) H 11/11/17 04:21 Abnormal lab findings: Abnormal lab results WBC 13.6 K/mcL (4.3-11.1) H 11/11/17 03:15 RBC 3.98 M/mcL (4.19-5.50) L 11/11/17 03:15 Hgb 12.1 g/dL (12.9-16.9) L 11/11/17 03:15 Hct 34.9 % (37.5-50.1) L 11/11/17 03:15 Neutrophils # 12.9 K/mcL (1.6-8.9) H 11/11/17 03:15 Lymphocytes # 0.4 K/mcL (0.6-4.6) L 11/11/17 03:15 PT 13.3 Seconds (9.4-12.1) H 11/08/17 02:00 D-Dimer 2080 ng/mLFEU (0-500) H 11/11/17 04:21 ABG pO2 51 mmHg (85-104) L 11/11/17 03:46 ABG O2 Saturation 85 % (95-98) L 11/11/17 03:46 VBG pCO2 37 mmHg (41-51) L 11/08/17 02:28 Sodium 130 mEq/L (136-145) L 11/11/17 03:15 BUN 31 mg/dL (8-23) H 11/11/17 03:15 Creatinine 1.54 mg/dL (0.70-1.30) H 11/11/17 03:15 Est GFR ( Amer) 55 (> 60) L 11/11/17 03:15 Est GFR (Non-Af Amer) 45 (> 60) L 11/11/17 03:15 Glucose 125 mg/dL (70-105) H 11/11/17 03:15 POC Glucose 149 mg/dL (70-99) H 11/11/17 15:50 Calculated Osmolality 278 (280-300) L 11/11/17 03:15 Calcium 8.3 mg/dL (8.6-10.3) L 11/11/17 03:15 Phosphorus 2.4 mg/dL (2.7-4.5) L 11/08/17 02:00 Magnesium 1.3 mg/dL (1.6-2.6) L 11/08/17 02:00 AST 42 Units/L (13-39) H 11/08/17 02:00 Alkaline Phosphatase 117 Units/L (34-104) H 11/08/17 02:00 Troponin I 0.06 ng/mL (< 0.04) H* 11/09/17 15:04 Globulin 3.7 g/dL (2.4-3.5) H 11/08/17 02:00 Albumin/Globulin Ratio 0.9 (1.1-2.2) L 11/08/17 02:00 Lipase 4 Units/L (11-82) L 11/08/17 02:00 Urine Protein >=300 mg/dL (Neg-Trace) H 11/08/17 02:28 Urine Glucose (UA) 250 mg/dL (Normal) H 11/08/17 02:28 Urine Bilirubin Small (Negative) H 11/08/17 02:28 Urine Microscopic RBC 5-15 per hpf (0-3) H 11/08/17 02:28 Ur Squamous Epith Cells Moderate per lpf (None-Few) H 11/08/17 02:28 - Microbiology Findings Microbiology Findings: Microbiology, Last 48 Hours 11/11/17 15:42 Blood Culture - Preliminary Peripheral Venipuncture Culture is incubating and being continuously monitored for growth. Final report to follow. 11/11/17 15:42 Blood Culture - Preliminary Peripheral Venipuncture Culture is incubating and being continuously monitored for growth. Final report to follow. 11/10/17 19:13 Sputum Culture - Final Sputum - Clinical Findings Intake & Output: Intake & Output 11/11/17 11/11/17 11/11/17 07:59 15:59 23:59 Intake Total 100 / 100 100 / 100 Output Total 150 / 150 Balance 100 / 100 -50 / -50 Weight 79.1 kg Consult Discharge Plan - Plan Referrals: Tano Lee MD [Primary Care Provider] - 11/19/17 8:30 am - Attending Attestation I examined this patient and my medical decision-making was reviewed with the Resident Physician. I agree with the documented findings, disposition and treatment plan as described except to the extent set forth below. Patient seen and examined. Labs, radiology, chart personally reviewed. Agree with resident's history and physical, assessment, plan with following comments: MANAGER TRANSMISSION: Patient follows commands, Pulmonary: Reviewed CT chest personally and there is significant volume loss which is not clear to be the reason however in the differential diagnosis would be mucous plugs, endobronchial lesion and infection and I have explained to the patient about bronchoscopy that is indicated.A bronchoscopy is recommended. The procedure , risks, benefits, complications, and expected outcomes have been reviewed. Benefits of diagnosis, as well as risks to include bleeding, infection , pneumothorax which may require surgical intervention, and in a small population. The patient is aware that sometimes test is nondiagnostic. Discussed with patient and agrees to proceed. I have discussed with primary team to transfer patient to [facility] due to his hypoxia and continue high flow oxygen therapy. Discussed the case with infectious disease team. Thank you for the consultation. <Layo Samano - Last Filed: 11/11/17 18:03> Date of Encounter: 11/11/17 Time of Encounter: 11: Assessment and Plan (1) Left lower lobe pneumonia Current Visit: Yes Status: Acute CXR and CT revealed consolidation in lower left lobe consistent with pneumonia Pt afebrile at time of exam, but was still complaining of chills and was very diaphoretic Positive legionella screen sputum culture not performed due to too many epithelial cells Vanc, zosyn, and azithromycin per ID Plan for bronchoscopy tomorrow Important for pt to clear airway secretions Incentive spirometer ordered Qualifiers: Pneumonia type: due to Pneumococcus Qualified Code(s): J13 - Pneumonia due to Streptococcus pneumoniae (2) COPD (chronic obstructive pulmonary disease) with emphysema Current Visit: Yes Status: Chronic Denies any history of smoking Continue Symbicort and albuterol Bronchoscopy as above for volume loss noted on CT Qualifiers: Emphysema type: panlobular Qualified Code(s): J43.1 - Panlobular emphysema History of Present Illness Consult date: 11/11/17 Requesting physician: Leigh Terry Reason for consult: pneumonia (legionella ) Chief complaint: shortness of breath History of present illness: Mr. Valencia is a 67M with PMH of COPD and CHF with preserved EF at 60% who presented to the ED on 11/08 for fevers, chills, malaise, cough and shortness of breath. CXR revealed opacities consistent with left sided pneumonia. CTA was negative for PE, but the consolidation in the left lower lobe consistent with pneumonia was appreciated again. Screen for legionella was positive. Today pt continue to complain of fever, chills, and diaphoresis. States his SOB and cough remain grossly unchanged at this time since admission to the hospital. Pt states symptoms began Wednesday (11/07) and got worse on Wednesday which lead to the ER. Pt did not have complaints of nausea, vomiting, or diarrhea at this time. It was reported that pt 02 sat decreased overnight and pt was placed on BiPap. Pt said he has a BiPAP at home, but admits to non-compliance as endorsed by his . Past Med Surg Social Fam HX - Past Medical History Medical history: non-contributory, CHF, COPD, diabetes, hypertension, renal disease, thyroid disease Additional medical history: hernia Psychiatric history: no psych history - Past Surgical History Surgical History: knee replacement Additional surgical history: cardiac stent placement, finger surgry, hernia repair, iliac stent, colonoscopy, back surgery, wipple procedure - Social History Smoking Status: Never smoker Smokeless Tobacco Status: No Alcohol use: none Drug use: none - Family History Mother Living Status: Hx Family Cardiac Disorders: Yes Hx Family Respiratory Disorders: Yes Hx Family Cancer: No Hx Family GI Disorders: No Hx Family Genitourinary Disorders: No Hx Family Endocrine Disorder: No Hx Family Musculoskeletal Disorders: No Hx Family Neuromuscular Disorders: No Hx Family Neurologic Disorders: No Hx Family HEENT Disorders: No Hx Family Autoimmune Disorders: No Hx Family Reproductive Disorders: No Hx Family Psychosocial Disorders: No Hx Family Medical Disorders: No Father Living Status: Hx Family Cardiac Disorders: Yes Hx Family Respiratory Disorders: No Hx Family Cancer: No Hx Family GI Disorders: No Hx Family Genitourinary Disorders: Yes (dm) Hx Family Endocrine Disorder: No Hx Family Musculoskeletal Disorders: No Hx Family Neuromuscular Disorders: No Hx Family Neurologic Disorders: No Hx Family HEENT Disorders: No Hx Family Autoimmune Disorders: No Hx Family Reproductive Disorders: No Hx Family Psychosocial Disorders: No Hx Family Medical Disorders: No All Systems: The remainder of the systems were reviewed and are negative - Constitutional Constitutional: chills, fatigue, fever(s) - Cardiovascular Cardiovascular: diaphoresis, dyspnea, no chest pain, no palpitations, no pedal edema - Respiratory Respiratory: cough, dyspnea, no hemoptysis, no wheezing, no excessive phlegm production - Gastrointestinal Gastrointestinal: no abdominal pain, no nausea, no vomiting - Neurological Neurological: no confusion, no dizziness, no numbness, no tingling Physical Examination Vital Signs: Vital Signs, Last 4 Hours Resp Pulse Ox 11/11/17 09:00 94 11/11/17 08:45 25 92 11/11/17 07:47 29 94 General appearance: asleep, other (very diaphoretic ) Eyes: nonicteric ENT: oropharynx moist Neck: supple, no lymphadenopathy, no JVD Effort: normal Inspection: normal Auscultation: left: diminished breath sounds (diminished in lower left lobe ) Percussion: bilateral: not dull Tactile fremitus: bilateral: normal Cardiovascular: regular rate and rhythm Gastrointestinal: soft, non-tender, non-distended Integumentary: normal Extremities: no cyanosis, no edema, no clubbing Musculoskeletal: no deformities normal mental status, non-focal exam mood appropriate Results - Laboratory Findings CBC and BMP: 11/11/17 03:15 11/11/17 03:15 ABG ABG pH 7.39 pH Units (7.32-7.45) 11/11/17 03:46 ABG pCO2 42 mmHg (35-45) 11/11/17 03:46 ABG pO2 51 mmHg (85-104) L 11/11/17 03:46 ABG O2 Saturation 85 % (95-98) L 11/11/17 03:46 PT/INR, D-dimer PT 13.3 Seconds (9.4-12.1) H 11/08/17 02:00 D-Dimer 2080 ng/mLFEU (0-500) H 11/11/17 04:21 Abnormal lab findings: Abnormal lab results WBC 13.6 K/mcL (4.3-11.1) H 11/11/17 03:15 RBC 3.98 M/mcL (4.19-5.50) L 11/11/17 03:15 Hgb 12.1 g/dL (12.9-16.9) L 11/11/17 03:15 Hct 34.9 % (37.5-50.1) L 11/11/17 03:15 Neutrophils # 12.9 K/mcL (1.6-8.9) H 11/11/17 03:15 Lymphocytes # 0.4 K/mcL (0.6-4.6) L 11/11/17 03:15 PT 13.3 Seconds (9.4-12.1) H 11/08/17 02:00 D-Dimer 2080 ng/mLFEU (0-500) H 11/11/17 04:21 ABG pO2 51 mmHg (85-104) L 11/11/17 03:46 ABG O2 Saturation 85 % (95-98) L 11/11/17 03:46 VBG pCO2 37 mmHg (41-51) L 11/08/17 02:28 Sodium 130 mEq/L (136-145) L 11/11/17 03:15 BUN 31 mg/dL (8-23) H 11/11/17 03:15 Creatinine 1.54 mg/dL (0.70-1.30) H 11/11/17 03:15 Est GFR ( Amer) 55 (> 60) L 11/11/17 03:15 Est GFR (Non-Af Amer) 45 (> 60) L 11/11/17 03:15 Glucose 125 mg/dL (70-105) H 11/11/17 03:15 POC Glucose 127 mg/dL (70-99) H 11/11/17 07:16 Calculated Osmolality 278 (280-300) L 11/11/17 03:15 Calcium 8.3 mg/dL (8.6-10.3) L 11/11/17 03:15 Phosphorus 2.4 mg/dL (2.7-4.5) L 11/08/17 02:00 Magnesium 1.3 mg/dL (1.6-2.6) L 11/08/17 02:00 AST 42 Units/L (13-39) H 11/08/17 02:00 Alkaline Phosphatase 117 Units/L (34-104) H 11/08/17 02:00 Troponin I 0.06 ng/mL (< 0.04) H* 11/09/17 15:04 Globulin 3.7 g/dL (2.4-3.5) H 11/08/17 02:00 Albumin/Globulin Ratio 0.9 (1.1-2.2) L 11/08/17 02:00 Lipase 4 Units/L (11-82) L 11/08/17 02:00 Urine Protein >=300 mg/dL (Neg-Trace) H 11/08/17 02:28 Urine Glucose (UA) 250 mg/dL (Normal) H 11/08/17 02:28 Urine Bilirubin Small (Negative) H 11/08/17 02:28 Urine Microscopic RBC 5-15 per hpf (0-3) H 11/08/17 02:28 Ur Squamous Epith Cells Moderate per lpf (None-Few) H 11/08/17 02:28 - Microbiology Findings Microbiology Findings: Microbiology, Last 48 Hours 11/10/17 19:13 Sputum Culture - Final Sputum - Diagnostic Findings Chest x-ray: report reviewed, image reviewed CT scan - chest: report reviewed, image reviewed - Clinical Findings Intake & Output: Intake & Output 11/10/17 11/11/17 11/11/17 23:59 07:59 15:59 Intake Total 100 / 100 Output Total 150 / 150 Balance 100 / 100 -150 / -150 Weight 79.1 kg
--- NOTE | 2017-11-11 14:18 | Infectious Disease Consult ---
Date of Encounter: 11/11/17 Time of Encounter: 11:00 Assessment and Plan (1) Sepsis Status: Acute Assessment and plan: The patient had three SIRS criteria plus ZAID on admission. Likely secondary to PNA. The patient continues to have leukocytosis, fevers, and tachypnea. Blood cultures drawn 11/08/17 are NGTD x 2 sets. Qualifiers: Sepsis type: Pneumococcus Qualified Code(s): A40.3 - Sepsis due to Streptococcus pneumoniae (2) Left lower lobe pneumonia Status: Acute Assessment and plan: Location: Left lower lobe. Causative organism: Likely Legionella, but concern for other organisms given the clinical picture. CXR 11/08/16 showed left middle and left lower lobe pneumonia. CT of the chest 11/11/17 showed left lower lobe infiltrate, negative for PE. Review of the CT scan reveals extensive consolidative changes. The patient had worsening leukocytosis today with hypoxia overnight requiring BIPAP. Legionalla urinary antigen positive. S. pneumo antigen negative. Sputum culture contaminated. Pulmonology consulted. Await recommendations. Not sure if the patient would benefit from bronch. Check RIP. Continue azithromycin 500mg PO Daily. Continue Zosyn 3.375 grams IV Q8H. Start Vancomycin IV. Pharmacy to dose. Goal trough ~15. Duration of treatment depends on the clinical picture. Monitor renal function and for drug toxicity and dose-adjust antibiotics. The patient would likely benefit from transfer to higher level of care, perhaps 2N or ICU, for closer monitoring. Qualifiers: Pneumonia type: due to unspecified organism Qualified Code(s): J18.1 - Lobar pneumonia, unspecified organism (3) Acute kidney injury Status: Resolved Assessment and plan: Likely secondary to sepsis. Appears back to baseline. Continue to trend. Dose-adjust antibiotics. Strict I's and O's. (4) Acute respiratory failure with hypoxia Status: Acute Assessment and plan: Likely secondary to PNA. Pulmonology consulted. Await recommendations. O2 per the pulmonology team. (5) CHF (congestive heart failure) Status: Chronic Qualifiers: Heart failure type: diastolic Heart failure chronicity: chronic Qualified Code(s): I50.32 - Chronic diastolic (congestive) heart failure (6) CAD (coronary artery disease) Status: Chronic Qualifiers: Coronary Disease-Associated Artery/Lesion type: [place] artery [place] vs. transplanted heart: [place] heart Associated angina: without angina Qualified Code(s): I25.10 - Atherosclerotic heart disease of [place] coronary artery without angina pectoris (7) HLD (hyperlipidemia) Status: Acute Qualifiers: Hyperlipidemia type: unspecified Qualified Code(s): E78.5 - Hyperlipidemia , unspecified (8) DM2 (diabetes mellitus, type 2) Status: Chronic Qualifiers: Diabetes mellitus penitentiary insulin use: with penitentiary use Diabetes mellitus complication status: with kidney complications Diabetes mellitus complication detail: with chronic kidney disease Chronic kidney disease stage : stage 3 (moderate) Qualified Code(s): E11.22 - Type 2 diabetes mellitus with diabetic chronic kidney disease; N18.3 - Chronic kidney disease, stage 3 ( moderate); Z79.4 - care home (current) use of insulin (9) Hypothyroidism Status: Chronic Qualifiers: Hypothyroidism type: unspecified Qualified Code(s): E03.9 - Hypothyroidism , unspecified (10) HTN (hypertension) Status: Chronic Qualifiers: Hypertension type: essential hypertension Qualified Code(s): I10 - Essential (primary) hypertension (11) GERD (gastroesophageal reflux disease) Status: Chronic Qualifiers: Esophagitis presence: without esophagitis Qualified Code(s): K21.9 - Gastro -esophageal reflux disease without esophagitis Infectious Disease HPI - Data of Consult Patient: new to practice Consult date: 11/11/17 Requesting Physician: Nasim Santamaria MD Primary Care Provider: Tano Lee MD - Consult Narrative Reason for consult: Legionella Pneumonia History of present illness: Mr. 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 Patient was admitted to the hospital November 08 for left lower lobe pneumonia. We are consulted November 11 for further recommendations for Legionella pneumonia. Briefly, the patient is a 67-year-old male with past medical history as stated above. The patient presented to the emergency department with a one-day history of fever, nausea, vomiting, diarrhea, and generalized weakness. Upon arrival to the ER, the patient was febrile with a temperature 102.7 and he was tachypneic. Her studies revealed a white blood cell count of 14.8 thousand with neutrophilic predominance. Lactic acid was normal. LFTs were normal. His renal function was mildly elevated at 1.79 from his baseline. Troponin was positive at 0.08. Lipase was negative. Urinalysis was negative. He had a chest x-ray that showed a left mid and left lower lobe pneumonia. CT abdomen and pelvis again showed left lower lobe pneumonia versus aspiration with small parapneumonic effusion. He was started empirically on Rocephin and Zithromax and admitted to the hospital for further evaluation. Since admission, the patient's has continued to have intermittent fevers. He had a Legionella urinary antigen that came back positive. Antibiotics were de- escalated to oral Zithromax. He had a sputum culture that was contaminated. Last night, the patient became hypoxic and tachypneic and febrile again with a MAXIMUM TEMPERATURE of 101. He was placed on BiPAP to maintain adequate oxygen saturations. He had a chest x-ray that showed worsening left lung opacities consistent with pneumonia. He has a CTA of the chest that was negative for PE, but did show the left lower lobe infiltrate. Currently, the patient is on IV Zosyn and oral Zithromax. We have been asked to evaluate and make further recommendations. During my exam today, the patient is on BiPAP which makes it difficult for him to provide any information, therefore, most of the information is obtained from his was at the bedside. She states that last Wednesday he was in his usual state of health until about 12:30 when he began to feel very tired and weak. She states he laid down and took a nap and when he woke up he was noted to be febrile. His symptoms continued to worsen through Wednesday, so she called the squad late Wednesday night/early Wednesday morning and brought him to the emergency department. She states that he was not complaining of any headache or neck pain , but was just generally weak. She states she has not had any upper respiratory tract symptoms including congestion, earache, or sore throat. She states she was not complaining of shortness of breath or cough. No chest pain. He began to have some nausea and vomiting on Wednesday and he has intermittent diarrhea related to his previous Whipple procedure that appears to be at baseline. She does tell me that he had C. difficile back in May of unclear etiology and was treated with 14 days of oral medication, but she is not sure which one. She states she is not complaining of any back or flank pain or extremity pain. No rashes or oral thrush. The patient lives at home with his . 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 They do have a dog. They recently traveled to [place] and stayed in a hotel. Patient's states that he was in and out of the pool, but she does not think he got a hot tub and does not think he got the ocean. He does use a nebulizer machine at home. He denies any sick contacts. He has no history of chronic infectious diseases. CC: Nasim Santamaria MD Past Med Surg Social Fam HX - Past Medical History Attestation: Yes The following information was validated with the patient. Source: patient, old records reviewed, nursing notes reviewed Medical history: non-contributory, CHF, COPD, diabetes, hypertension, renal disease, thyroid disease Additional medical history: hernia Psychiatric history: no psych history - Past Surgical History Surgical History: knee replacement Additional surgical history: cardiac stent placement, finger surgry, hernia repair, iliac stent, colonoscopy, back surgery, wipple procedure - Social History Smoking Status: Never smoker Smokeless Tobacco Status: No Alcohol use: none Drug use: none Occupational status: retired Current living situation: Home, With Family Activity Level: Independent ambulation Recent Out of Country Travel Within the Last 8 Weeks: No Exposure or Possible Exposure to Illness During Travel: No - Family History Mother Living Status: Hx Family Cardiac Disorders: Yes Hx Family Respiratory Disorders: Yes Hx Family Cancer: No Hx Family GI Disorders: No Hx Family Genitourinary Disorders: No Hx Family Endocrine Disorder: No Hx Family Musculoskeletal Disorders: No Hx Family Neuromuscular Disorders: No Hx Family Neurologic Disorders: No Hx Family HEENT Disorders: No Hx Family Autoimmune Disorders: No Hx Family Reproductive Disorders: No Hx Family Psychosocial Disorders: No Hx Family Medical Disorders: No Father Living Status: Hx Family Cardiac Disorders: Yes Hx Family Respiratory Disorders: No Hx Family Cancer: No Hx Family GI Disorders: No Hx Family Genitourinary Disorders: Yes (dm) Hx Family Endocrine Disorder: No Hx Family Musculoskeletal Disorders: No Hx Family Neuromuscular Disorders: No Hx Family Neurologic Disorders: No Hx Family HEENT Disorders: No Hx Family Autoimmune Disorders: No Hx Family Reproductive Disorders: No Hx Family Psychosocial Disorders: No Hx Family Medical Disorders: No Infectious Disease-CN:Meds Aspirin Enteric Coated [Aspirin EC] 81 mg PO QAM 10/21/14 [History] Terazosin [Hytrin] 10 mg PO HS 10/21/14 [History] Isosorbide MONOnitrate (24 HR) [Imdur] 30 mg PO DAILY 12/12/15 [History] Atorvastatin [Lipitor] 40 mg PO DAILY 11/09/17 [History] Carvedilol [Coreg] 25 mg PO BIDWM 11/09/17 [History] Fenofibrate Nanocrystallized [Triglide] 160 mg PO DAILY 11/09/17 [History] Folic Acid [Folic Acid] 0.8 mg PO BID 11/09/17 [History] Insulin Pump Cartridge [Insulin Pump] 1 device SQ AD 11/09/17 [History] Levothyroxine [Synthroid] 100 mcg PO 0630 11/09/17 [History] Lisinopril [Zestril] 40 mg PO DAILY 11/09/17 [History] Metformin HCl [Metformin HCl] 1,000 mg PO BIDWM 11/09/17 [History] Omeprazole [PriLOSEC] 20 mg PO DAILY 11/09/17 [History] Pregabalin [Lyrica] 100 mg PO BID 11/09/17 [History] amLODIPine [Norvasc] 5 mg PO DAILY 11/09/17 [History] 3 Allergy/AdvReac Type Severity Reaction Status Date / Time niacin AdvReac Nausea Verified 11/09/17 13:04 All systems: reviewed and no additional remarkable complaints except as stated Exam - Constitutional Vitals: Temp Pulse Resp BP Pulse Ox 98.0 F 57 16 108/57 97 11/11/17 11:50 11/11/17 11:50 11/11/17 11:50 11/11/17 11:50 11/11/17 11:50 General appearance: average body habitus, cooperative, no acute distress - Head Head exam: Present: atraumatic, normal inspection, normocephalic - Eye Eye exam: Present: EOMI, normal appearance, PERRL Pupils: Present: normal accommodation - ENT ENT exam: Present: mucous membranes dry - Neck Neck exam: Present: normal inspection - Respiratory Respiratory exam: Present: CTAB. Absent: rales, respiratory distress, rhonchi, wheezes - Cardiovascular Cardiovascular exam: Present: RRR, +S1, +S2 - GI/Abdominal GI/Abdominal exam: Present: normal bowel sounds, soft. Absent: distended, tenderness - Extremities Exam Extremities exam: Present: normal inspection. Absent: joint swelling, pedal edema, tenderness - Neurological Exam Neurological exam: Present: alert, oriented X3, no focal deficits - Psychiatric Psychiatric exam: Present: normal affect, normal mood - Skin Skin exam: Present: dry, intact, normal color, warm Infectious Disease CN: Results - Labs CBC & Chem 7: 11/12/17 07:35 11/12/17 07:35 Cultures: Cultures 11/10/17 19:13 Sputum Culture - Final Sputum Consult Discharge Plan - Plan Referrals: Tano Lee MD [Primary Care Provider] - 11/19/17 8:30 am - Attending Attestation This is an addendum to original report dictated by Nancy Medina CNP. Please refer to Seth note for full details. Patient is 67-year-old gentleman with past medical history mentioned below presented to [facility] with fevers, nausea, vomiting, diarrhea and generalized weakness. Patient apparently apparently was on vacation at [place] 2 weeks prior to admission. There were no stating tell they were staying time- share [facility]. On admission patient was noted to be septic. There was left lower lobe pneumonia. Urine legionella came back positive. His CT scan was done and it is pretty impressive for left lung findings. I did call pulmonary and discuss the CT with them. At this point for his legionella pneumonia with persistent. And acute kidney injury I recommend: Causative organism: Likely Legionella, but concern for other organisms given the clinical picture. CXR 11/08/16 showed left middle and left lower lobe pneumonia. CT of the chest 11/11/17 showed left lower lobe infiltrate, negative for PE. Review of the CT scan reveals extensive consolidative changes. The patient had worsening leukocytosis today with hypoxia overnight requiring BIPAP. Legionalla urinary antigen positive. S. pneumo antigen negative. Sputum culture contaminated. Pulmonology consulted. Await recommendations. Not sure if the patient would benefit from bronch. Check RIP. Continue azithromycin 500mg PO Daily. Continue Zosyn 3.375 grams IV Q8H. Start Vancomycin IV. Pharmacy to dose. Goal trough ~15. Duration of treatment depends on the clinical picture. Monitor renal function and for drug toxicity and dose-adjust antibiotics. The patient would likely benefit from transfer to higher level of care, perhaps or ICU, for closer monitoring.
[2017-11-11 18:42] LABS: Adenovirus Not Detected (Not Detect); Bordetella Pertussis Not Detected (Not Detect); Chlamydophila pneumoniae Not Detected (Not Detect); Coronavirus 229E Not Detected (Not Detect); Coronavirus HKU1 Not Detected (Not Detect); Coronavirus NL63 Not Detected (Not Detect); Coronavirus OC43 Not Detected (Not Detect); Human Metapneumovirus Not Detected (Not Detect); Human Rhinovirus/Enterovirus Not Detected (Not Detect); Influenza A Subtype 2009 H1 Not Detected (Not Detect); Influenza A Untypeable Not Detected (Not Detect); Influenza B Not Detected (Not Detect); Mycoplasma pneumoniae Not Detected (Not Detect); Parainfluenza Virus 1 Not Detected (Not Detect); Parainfluenza Virus 2 Not Detected (Not Detect); Parainfluenza Virus 3 Not Detected (Not Detect); Parainfluenza Virus 4 Not Detected (Not Detect); Respiratory Syncytial Virus Not Detected (Not Detect)
[2017-11-11] MEDS: *HR* HYDROcodone/Acet 5/325 mg TABLET PO PRN (20:20)
[2017-11-12] MEDS: Piperacillin/Tazobactam 3.375 GM in 0.9 % Sodium Chloride Mini Bag 100 ML IVPB SCH ×3 (00:13→16:29)
[2017-11-12] MEDS: Acetaminophen 325 MG TABLET PO PRN (00:14)
[2017-11-12] MEDS: *HR* HYDROcodone/Acet 5/325 mg TABLET PO PRN ×2 (05:31→20:58)
[2017-11-12 07:48] LABS: Basophils % 0.1 %; Eosinophils % 0.1 %; Hematocrit 36.5 % (37.5-50.1); Hemoglobin 12.8 g/dL (12.9-16.9); Immature Granulocytes % 1.1 % (0-4); Lymphocytes # 0.4 K/mcL (0.6-4.6); Mean Corpuscular HGB Conc 35.1 g/dL (31.6-35.5); Mean Corpuscular Hemoglobin 30.5 pg (28.0-33.3); Mean Corpuscular Volume 86.9 fL (83.0-100.0); Mean Platelet Volume 10.9 fL (9.4-12.4); Monocytes # 0.5 K/mcL (0.0-1.3); Monocytes % 3.8 %; Neutrophils # 11.3 K/mcL (1.6-8.9); Platelet Count 211 K/mcL (140-400); Red Cell Distribution Width 13.7 % (11.5-14.5); Segmented Neutrophils % 91.9 %
[2017-11-12 08:06] LABS: Calcium 8.5 mg/dL (8.6-10.3); Potassium 3.5 mEq/L (3.5-5.1)
[2017-11-12] MEDS: Budesonide/Formoterol 160/4.5 1 PUFF INH IH SCH ×2 (08:27→20:14)
[2017-11-12] MEDS: Insulin LISPRO 300 UNITS/3 ML VIAL SQ SCH ×4 (08:38→21:03)
--- NOTE | 2017-11-12 10:04 | Infectious Disease Progress No ---
Date of Encounter: 11/12/17 Time of Encounter: 08:50 - Assessment and Plan (1) Sepsis Current Visit: Yes Status: Acute The patient had three SIRS criteria plus ZAID on admission. Likely secondary to PNA. Improved. WBC trending down today. Tachypnea improved. Tmax 100.8 in the last 24 hours. Blood cultures drawn 11/08/17 are NGTD x 2 sets. Repeat blood cultures 11/11/17 are pending x 2 sets. Qualifiers: Sepsis type: Pneumococcus Qualified Code(s): A40.3 - Sepsis due to Streptococcus pneumoniae (2) Left lower lobe pneumonia Current Visit: Yes Status: Acute Location: Left lower lobe. Causative organism: Likely Legionella, but concern for other organisms given the clinical picture. CXR 11/08/16 showed left middle and left lower lobe pneumonia. CT of the chest 11/11/17 showed left lower lobe infiltrate, negative for PE. Review of the CT scan reveals extensive consolidative changes. Clinically improved this morning. Currently off BIPAP. Legionalla urinary antigen positive. S. pneumo antigen negative. Sputum culture contaminated. Pulmonology consulted. Planning for bronch later today. Check RIP. --> negative. Continue azithromycin 500mg PO Daily. Continue Zosyn 3.375 grams IV Q8H. Continue Vancomycin IV. Pharmacy to dose. Goal trough ~15. Duration of treatment depends on the clinical picture. Monitor renal function and for drug toxicity and dose-adjust antibiotics. Qualifiers: Pneumonia type: due to unspecified organism Qualified Code(s): J18.1 - Lobar pneumonia, unspecified organism (3) Acute kidney injury Current Visit: No Status: Resolved Likely secondary to sepsis. Appears back to baseline. Continue to trend. Dose-adjust antibiotics. Strict I's and O's. (4) Acute respiratory failure with hypoxia Current Visit: No Status: Acute Likely secondary to PNA. Pulmonology consulted. Bronch later today. O2 per the pulmonology team. (5) CHF (congestive heart failure) Current Visit: Yes Status: Chronic Qualifiers: Heart failure type: diastolic Heart failure chronicity: chronic Qualified Code(s): I50.32 - Chronic diastolic (congestive) heart failure (6) CAD (coronary artery disease) Current Visit: Yes Status: Chronic Qualifiers: Coronary Disease-Associated Artery/Lesion type: three affiliated artery [place] vs. transplanted heart: three affiliated heart Associated angina: without angina Qualified Code(s): I25.10 - Atherosclerotic heart disease of three affiliated coronary artery without angina pectoris (7) HLD (hyperlipidemia) Current Visit: No Status: Acute Qualifiers: Hyperlipidemia type: unspecified Qualified Code(s): E78.5 - Hyperlipidemia , unspecified (8) DM2 (diabetes mellitus, type 2) Current Visit: Yes Status: Chronic Qualifiers: Diabetes mellitus meterman insulin use: with longterm use Diabetes mellitus complication status: with kidney complications Diabetes mellitus complication detail: with chronic kidney disease Chronic kidney disease stage : stage 3 (moderate) Qualified Code(s): E11.22 - Type 2 diabetes mellitus with diabetic chronic kidney disease; N18.3 - Chronic kidney disease, stage 3 ( moderate); Z79.4 - USP (current) use of insulin (9) Hypothyroidism Current Visit: No Status: Chronic Qualifiers: Hypothyroidism type: unspecified Qualified Code(s): E03.9 - Hypothyroidism , unspecified (10) HTN (hypertension) Current Visit: Yes Status: Chronic Qualifiers: Hypertension type: essential hypertension Qualified Code(s): I10 - Essential (primary) hypertension (11) GERD (gastroesophageal reflux disease) Current Visit: No Status: Chronic Qualifiers: Esophagitis presence: without esophagitis Qualified Code(s): K21.9 - Gastro -esophageal reflux disease without esophagitis - Subjective Interval history: Patient seen and examined. No acute events noted overnight. Patient off BIPAP, awake, and alert. States overall he feels better. Reports some fevers overnight , but denies chills or rigors. Denies chest pain or shortness of breath, but does report a moist cough. Denies nausea, vomiting, or diarrhea. Denies abdominal pain or urinary complaints. He is currently NPO for bronch later today , but he does feel hungry. Denies oral thrush or skin lesions. Infect Dis PN-Objective Data - Labs CBC & Chem 7: 11/12/17 07:35 11/12/17 07:35 Labs: Laboratory Results - last 24 hr 11/11/17 11/11/17 11/11/17 11:54 15:50 17:00 WBC RBC Hgb Hct MCV MCH MCHC RDW Plt Count MPV Immature Gran % Seg Neutrophils % Lymphocytes % Monocytes % Eosinophils % Basophils % Neutrophils # Lymphocytes # Monocytes # Eosinophils # Basophils # Sodium Potassium Chloride Carbon Dioxide BUN Creatinine Est GFR ( Amer) Est GFR (Non-Af Amer) BUN/Creatinine Ratio Glucose POC Glucose 147 H 149 H Calculated Osmolality Calcium Chlamy pneumoniae PCR Not Detected Adenovirus (PCR) Not Detected B. pertussis DNA (PCR) Not Detected B.parapertussis DNA PCR Not Detected Coronavirus OC43 (PCR) Not Detected Coronavirus HKU1 (PCR) Not Detected Coronavirus 229E (PCR) Not Detected Coronavirus NL63 (PCR) Not Detected Human Metapneumovir PCR Not Detected Influenza A (H1) PCR Not Detected Influ A (H1N1) PCR Not Detected Influenza A (H3) PCR Not Detected Influenza A Untype (PCR) Not Detected Influenza Type B (PCR) Not Detected M.pneumoniae DNA (PCR) Not Detected Parainfluenza 1 (PCR) Not Detected Parainfluenza 2 (PCR) Not Detected Parainfluenza 3 (PCR) Not Detected Parainfluenza 4 (PCR) Not Detected RSV (PCR) Not Detected Entero/Rhino (PCR) Not Detected 11/11/17 11/11/17 11/12/17 20:09 23:46 07:35 WBC 12.3 H RBC 4.20 Hgb 12.8 L Hct 36.5 L MCV 86.9 MCH 30.5 MCHC 35.1 RDW 13.7 Plt Count 211 MPV 10.9 Immature Gran % 1.1 Seg Neutrophils % 91.9 Lymphocytes % 3.0 Monocytes % 3.8 Eosinophils % 0.1 Basophils % 0.1 Neutrophils # 11.3 H Lymphocytes # 0.4 L Monocytes # 0.5 Eosinophils # 0.0 Basophils # 0.0 Sodium Potassium Chloride Carbon Dioxide BUN Creatinine Est GFR ( Amer) Est GFR (Non-Af Amer) BUN/Creatinine Ratio Glucose POC Glucose 258 H 198 H Calculated Osmolality Calcium Chlamy pneumoniae PCR Adenovirus (PCR) B. pertussis DNA (PCR) B.parapertussis DNA PCR Coronavirus OC43 (PCR) Coronavirus HKU1 (PCR) Coronavirus 229E (PCR) Coronavirus NL63 (PCR) Human Metapneumovir PCR Influenza A (H1) PCR Influ A (H1N1) PCR Influenza A (H3) PCR Influenza A Untype (PCR) Influenza Type B (PCR) M.pneumoniae DNA (PCR) Parainfluenza 1 (PCR) Parainfluenza 2 (PCR) Parainfluenza 3 (PCR) Parainfluenza 4 (PCR) RSV (PCR) Entero/Rhino (PCR) 11/12/17 07:35 WBC RBC Hgb Hct MCV MCH MCHC RDW Plt Count MPV Immature Gran % Seg Neutrophils % Lymphocytes % Monocytes % Eosinophils % Basophils % Neutrophils # Lymphocytes # Monocytes # Eosinophils # Basophils # Sodium 131 L Potassium 3.5 Chloride 98 Carbon Dioxide 25 BUN 35 H Creatinine 1.82 H Est GFR ( Amer) 45 L Est GFR (Non-Af Amer) 37 L BUN/Creatinine Ratio 19 Glucose 178 H POC Glucose Calculated Osmolality 284 Calcium 8.5 L Chlamy pneumoniae PCR Adenovirus (PCR) B. pertussis DNA (PCR) B.parapertussis DNA PCR Coronavirus OC43 (PCR) Coronavirus HKU1 (PCR) Coronavirus 229E (PCR) Coronavirus NL63 (PCR) Human Metapneumovir PCR Influenza A (H1) PCR Influ A (H1N1/09) PCR Influenza A (H3) PCR Influenza A Untype (PCR) Influenza Type B (PCR) M.pneumoniae DNA (PCR) Parainfluenza 1 (PCR) Parainfluenza 2 (PCR) Parainfluenza 3 (PCR) Parainfluenza 4 (PCR) RSV (PCR) Entero/Rhino (PCR) Cultures: Cultures 11/11/17 15:42 Blood Culture - Preliminary Peripheral Venipuncture Culture is incubating and being continuously monitored for growth. Final report to follow. 11/11/17 15:42 Blood Culture - Preliminary Peripheral Venipuncture Culture is incubating and being continuously monitored for growth. Final report to follow. 11/10/17 19:13 Sputum Culture - Final Sputum Serology 11/11/17 Range/Units 17:00 Chlamy pneumoniae PCR Not Detected (Not Detect) Adenovirus (PCR) Not Detected (Not Detect) B. pertussis DNA (PCR) Not Detected (Not Detect) B.parapertussis DNA PCR Not Detected (Not Detect) Coronavirus OC43 (PCR) Not Detected (Not Detect) Coronavirus HKU1 (PCR) Not Detected (Not Detect) Coronavirus 229E (PCR) Not Detected (Not Detect) Coronavirus NL63 (PCR) Not Detected (Not Detect) Human Metapneumovir PCR Not Detected (Not Detect) Influenza A (H1) PCR Not Detected (Not Detect) Influ A (H1N1/09) PCR Not Detected (Not Detect) Influenza A (H3) PCR Not Detected (Not Detect) Influenza A Untype (PCR) Not Detected (Not Detect) Influenza Type B (PCR) Not Detected (Not Detect) M.pneumoniae DNA (PCR) Not Detected (Not Detect) Parainfluenza 1 (PCR) Not Detected (Not Detect) Parainfluenza 2 (PCR) Not Detected (Not Detect) Parainfluenza 3 (PCR) Not Detected (Not Detect) Parainfluenza 4 (PCR) Not Detected (Not Detect) RSV (PCR) Not Detected (Not Detect) Entero/Rhino (PCR) Not Detected (Not Detect) - Impressions Impressions Chest CTA 11/11/17 07:49 IMPRESSION: Negative CTA for pulmonary embolus. Consolidative infiltrate left lower lobe with small pleural effusions slightly larger on the left than the right. 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 Left renal cyst. D/ / 11/11/2017 10:15:37 Antoni Blood MD / Cora Rodriguez Interpreting Provider: Antoni Blood MD Exam - Constitutional Vitals: Temp Pulse Resp BP Pulse Ox 98.2 F 67 16 158/80 96 11/12/17 07:23 11/12/17 07:23 11/12/17 08:31 11/12/17 07:23 11/12/17 08:31 General appearance: average body habitus, cooperative, no acute distress - Head Head exam: Present: atraumatic, normal inspection, normocephalic - Eye Eye exam: Present: EOMI, normal appearance, PERRL Pupils: Present: normal accommodation - ENT ENT exam: Present: mucous membranes moist - Neck Neck exam: Present: normal inspection - Respiratory Respiratory exam: Present: decreased breath sounds (Bilateral bases). Absent: rales, rhonchi, wheezes - Cardiovascular Cardiovascular exam: Present: RRR, +S1, +S2 - GI/Abdominal GI/Abdominal exam: Present: normal bowel sounds, soft. Absent: distended, tenderness - Extremities Exam Extremities exam: Present: normal inspection. Absent: joint swelling, pedal edema, tenderness - Neurological Exam Neurological exam: Present: alert, oriented X3, no focal deficits - Psychiatric Psychiatric exam: Present: normal affect, normal mood - Skin Skin exam: Present: dry, intact, normal color, warm Consult Discharge Plan - Plan Referrals: Tano Lee MD [Primary Care Provider] - 11/19/17 8:30 am - Attending Attestation I examined this patient and my medical decision-making was reviewed with Nancy Medina CNP. I agree with the documented findings, disposition and treatment plan as described except to the extent set forth below.
--- NOTE | 2017-11-12 10:47 | Internal Med Progress Note ---
Hospitalist Progress Note - Encounter Date of Encounter: 11/12/17 Time of Encounter: 10:40 - Subjective Interval History: Today is the first time I have evaluated this patient. Patient seen and evaluated at bedside with the brother. The patient has required intermittent high flow nasal cannula and CPAP overnight. This am pt hypoxic in low to mid 80s on HFNC at 8L. Placed on CPAP at 70% FIO2 with improvement in pulse ox to 88-90 percent. Pt denies any specific complaints. He does not feel short of breath. Denies chest pain, nausea, vomiting, diarrhea. Patient states that he is not actively coughing. Bronchoscopy today scheudled. Discussed with patient if need arrises for intubation the patient is okay with this. - Exam Vitals: Temp Pulse Resp BP Pulse Ox 98.2 F 67 16 158/80 96 11/12/17 07:23 11/12/17 07:23 11/12/17 08:31 11/12/17 07:23 11/12/17 08:31 Exam: Constitutional: No acute distress, Alert appears comfortable Psych: AAO x 3 Cardio: regular rate and rhythm, +s1s2, no murmurs Resp: decreased breath sounds, no wheezes, occasional rhonci LLL Abd: soft, non tender/non distended Extremities: no clubbing/cyanosis/edema appreciated Neuro: no focal deficits appreciated Lymph: no cervical/supraclavicular adenopahty apprecitated - Assessment and Plan (1) Acute respiratory failure with hypoxia Current Visit: Yes Status: Acute Assessment and Plan: Patient with acute hypoxic respiratory failure requiring high flow nasal cannula and noninvasive ventilation -Secondary to severe pneumonia -Repeat ABG now may need to put on BiPAP -Currently on CPAP with pressure of 8 and 70% FIO2 -Continue ABX; vanco/zosyn/azithromycin -Legionella positive -may need ICU if hypoxia worsens -okay with intubation if needed -broncoscopy today -pulm recs appreciated (2) Severe sepsis Current Visit: Yes Status: Acute Assessment and Plan: Patient with severe sepsis with end organ dysfunction involving respiratory and renal dysfunction -Secondary to extensive pneumonia -Legionella positive other cultures negative to date -Remains febrile -Continue vancomycin and Zosyn and azithromycin -ID following (3) Left lower lobe pneumonia Current Visit: Yes Status: Acute Assessment and Plan: - Legionella antigen positive --Concern for possible aspiration per CT findings. -Continue IV antibiotics Zosyn, Zosyn, azithromycin -Continue 02 as needed to maintain sats > 88 in light of COPD hx -Severe sepsis 2/2 pna -Increased 02 demands and sats in the low to mid 80s today -continue HFNC/Non invasive ventilation -CTA revealed LLL consolidation -Pulm and ID followoing, apreciate recs -follow cultures (4) Chronic kidney disease, stage III (moderate) Current Visit: Yes Status: Chronic Assessment and Plan: ZAID with CKD stage III likely 2/2 ATN due to sepsis Cr similar to admission but intially improved and now worsening check bladder scan due to BPH and current workup for possible TURP check UA with urine studies hold lisinopril for now in light of worsening renal fxn pharmacy to renally dose ABX (5) CAD (coronary artery disease) Current Visit: Yes Status: Chronic Assessment and Plan: Chronic. Patient denies chest pain. Continue home medications. Continue telemetry (6) DM2 (diabetes mellitus, type 2) Current Visit: Yes Status: Chronic Assessment and Plan: Chronic. Continue SSI, Levemir at bedtime, diabetic diet, accuchecks achs. (7) HTN (hypertension) Current Visit: Yes Status: Chronic Assessment and Plan: Chronic. Well controlled. Resume home medications. (8) COPD (chronic obstructive pulmonary disease) with emphysema Current Visit: Yes Status: Chronic Assessment and Plan: Plan as above pneumonia. no copd exacerbation (9) CHF (congestive heart failure) Current Visit: Yes Status: Chronic Assessment and Plan: No acute exacerbation. Continue to hold Lasix for renal function. not decompensated DVT Prophylaxis: Heparin SQ - Time Spent with Patient Total time spent is greater than 50% in coordination of care (as documented) at patient's floor/unit and/or counseling patient: 25 - 35 minutes Plan of Care Discussed with: family Internal Medicine: Result - Labs CBC & Chem 7: 11/12/17 07:35 11/12/17 07:35 Labs: Short CBC 11/12/17 Range/Units 07:35 WBC 12.3 H (4.3-11.1) K/mcL Hgb 12.8 L (12.9-16.9) g/dL Hct 36.5 L (37.5-50.1) % Plt Count 211 (140-400) K/mcL Neutrophils # 11.3 H (1.6-8.9) K/mcL BMP 11/12/17 07:35 Sodium 131 L Potassium 3.5 Chloride 98 Carbon Dioxide 25 BUN 35 H Creatinine 1.82 H Glucose 178 H Calcium 8.5 L - ABG Interpretation ABG results: ABG ABG pH 7.39 pH Units (7.32-7.45) 11/11/17 03:46 ABG pCO2 42 mmHg (35-45) 11/11/17 03:46 ABG pO2 51 mmHg (85-104) L 11/11/17 03:46 ABG O2 Saturation 85 % (95-98) L 11/11/17 03:46 PT/INR, D-dimer PT 13.3 Seconds (9.4-12.1) H 11/08/17 02:00 D-Dimer 2080 ng/mLFEU (0-500) H 11/11/17 04:21 Consult Discharge Plan - Plan Referrals: Tano Lee MD [Primary Care Provider] - 11/19/17 8:30 am (3) Left lower lobe pneumonia Qualifiers: Pneumonia type: due to unspecified organism Qualified Code(s): J18.1 - Lobar pneumonia, unspecified organism (5) CAD (coronary artery disease) Qualifiers: Coronary Disease-Associated Artery/Lesion type: [place] artery [place] vs. transplanted heart: [place] heart Associated angina: without angina Qualified Code(s): I25.10 - Atherosclerotic heart disease of [place] coronary artery without angina pectoris (6) DM2 (diabetes mellitus, type 2) Qualifiers: Diabetes mellitus buttermaker insulin use: with buttermaker use Diabetes mellitus complication status: with kidney complications Diabetes mellitus complication detail: with chronic kidney disease Chronic kidney disease stage: stage 3 (moderate) Qualified Code(s): E11.22 - Type 2 diabetes mellitus with diabetic chronic kidney disease; N18.3 - Chronic kidney disease, stage 3 ( moderate); Z79.4 - longterm (current) use of insulin (7) HTN (hypertension) Qualifiers: Hypertension type: essential hypertension Qualified Code(s): I10 - Essential (primary) hypertension (8) COPD (chronic obstructive pulmonary disease) with emphysema Qualifiers: Emphysema type: panlobular Qualified Code(s): J43.1 - Panlobular emphysema (9) CHF (congestive heart failure) Qualifiers: Heart failure type: diastolic Heart failure chronicity: chronic Qualified Code(s): I50.32 - Chronic diastolic (congestive) heart failure
[2017-11-12] MEDS ORDERED: Lidocaine -MPF 2% 2 ML VIAL ONE (11:11)
[2017-11-12] MEDS ORDERED: *HR* Propofol 200 MG/20 ML VIAL IVP ONE (11:11)
[2017-11-12] MEDS ORDERED: Propofol 500 MG/50 ML INFUS..BTL ONE (11:11)
[2017-11-12 11:13] LABS: ABG Base Excess 1 mEq/L (-2 to 3); ABG HCO3 26 mEq/L (21-27); ABG Oxygen Saturation 94 % (95-98); ABG PCO2 40 mmHg (35-45); ABG PH 7.42 pH Units (7.32-7.45); ABG PO2 71 mmHg (85-104); ABG TCO2 27 mEq/L (20-26); Blood Gas PEEP 8 cm H2O
--- NOTE | 2017-11-12 12:21 | Anesthesia Evaluation PreOp ---
Date of Encounter: 11/12/17 Time of Encounter: 13:07 - Past History Planned Operation: BRONCHOSCOPY Cardiac History: CHF, HTN, Cardiac Stent (1998), Other (EXCELLENT EXCERCISE TOLERANCE, PVD, AORTI ILIAC STENTS 2000) Pulmonary History: COPD, Other (LLL PNEUMONIA) GRUBBER History: Denies Any Significant HX Other Medical History: Renal (CKD 3), Diabetes Type II, Thyroid, GERD, Other ( SEVERE SEPSIS) Anesthesia History: No Prior Anesthetic Complications, Past Anesthesia Alcohol Use: none Drug use: none Medications and Allergies Aspirin Enteric Coated [Aspirin EC] 81 mg PO QAM 10/21/14 [History] Terazosin [Hytrin] 10 mg PO HS 10/21/14 [History] Isosorbide MONOnitrate (24 HR) [Imdur] 30 mg PO DAILY 12/12/15 [History] Atorvastatin [Lipitor] 40 mg PO DAILY 11/09/17 [History] Carvedilol [Coreg] 25 mg PO BIDWM 11/09/17 [History] Fenofibrate Nanocrystallized [Triglide] 160 mg PO DAILY 11/09/17 [History] Folic Acid [Folic Acid] 0.8 mg PO BID 11/09/17 [History] Insulin Pump Cartridge [Insulin Pump] 1 device SQ AD 11/09/17 [History] Levothyroxine [Synthroid] 100 mcg PO 0630 11/09/17 [History] Lisinopril [Zestril] 40 mg PO DAILY 11/09/17 [History] Metformin HCl [Metformin HCl] 1,000 mg PO BIDWM 11/09/17 [History] Omeprazole [PriLOSEC] 20 mg PO DAILY 11/09/17 [History] Pregabalin [Lyrica] 100 mg PO BID 11/09/17 [History] amLODIPine [Norvasc] 5 mg PO DAILY 11/09/17 [History] 3 Allergy/AdvReac Type Severity Reaction Status Date / Time niacin AdvReac Nausea Verified 11/09/17 13:04 - Meds/Allergy Pre-op Review Medications Reviewed: Yes Allergies Reviewed: Yes Anesthesia Results - Labs 11/12/17 07:35 11/12/17 07:35 Laboratory Last Values PT 13.3 Seconds (9.4-12.1) H 11/08/17 02:00 INR 1.2 11/08/17 02:00 D-Dimer 2080 ng/mLFEU (0-500) H 11/11/17 04:21 Sample Site R Radial 11/11/17 03:46 ABG pH 7.42 pH Units (7.32-7.45) 11/12/17 11:09 ABG pCO2 40 mmHg (35-45) 11/12/17 11:09 ABG pO2 71 mmHg (85-104) L 11/12/17 11:09 ABG HCO3 26 mEq/L (21-27) 11/12/17 11:09 ABG Total CO2 27 mEq/L (20-26) H 11/12/17 11:09 ABG O2 Saturation 94 % (95-98) L 11/12/17 11:09 ABG Base Excess 1 mEq/L (-2 to 3) 11/12/17 11:09 VBG pH 7.40 pH Units (7.32-7.42) 11/08/17 02:28 VBG pCO2 37 mmHg (41-51) L 11/08/17 02:28 VBG pO2 38 mmHg (25-50) 11/08/17 02:28 VBG HCO3 23 mEq/L (21-27) 11/08/17 02:28 O2 Delivery Device BiPAP 11/12/17 11:09 Inspired O2 70.0 (1-15=lpm [id number]=%) 11/12/17 11:09 PEEP 8 cm H2O 11/12/17 11:09 Est GFR ( Amer) 45 (> 60) L 11/12/17 07:35 Est GFR (Non-Af Amer) 37 (> 60) L 11/12/17 07:35 Lactic Acid 1.9 mmol/L (0.5-2.2) 11/08/17 02:00 Calcium 8.5 mg/dL (8.6-10.3) L 11/12/17 07:35 Phosphorus 2.4 mg/dL (2.7-4.5) L 11/08/17 02:00 Magnesium 1.3 mg/dL (1.6-2.6) L 11/08/17 02:00 Total Bilirubin 1.0 mg/dL (0.3-1.0) 11/08/17 02:00 AST 42 Units/L (13-39) H 11/08/17 02:00 ALT 27 Units/L (7-52) 11/08/17 02:00 Alkaline Phosphatase 117 Units/L (34-104) H 11/08/17 02:00 Troponin I 0.06 ng/mL (< 0.04) H* 11/09/17 15:04 Serum Total Protein 7.2 g/dL (6.4-8.9) 11/08/17 02:00 Albumin 3.5 g/dL (3.5-5.7) 11/08/17 02:00 Globulin 3.7 g/dL (2.4-3.5) H 11/08/17 02:00 Lipase 4 Units/L (11-82) L 11/08/17 02:00 Chlamy pneumoniae PCR Not Detected (Not Detect) 11/11/17 17:00 Adenovirus (PCR) Not Detected (Not Detect) 11/11/17 17:00 B. pertussis DNA (PCR) Not Detected (Not Detect) 11/11/17 17:00 B.parapertussis DNA PCR Not Detected (Not Detect) 11/11/17 17:00 Coronavirus OC43 (PCR) Not Detected (Not Detect) 11/11/17 17:00 Coronavirus HKU1 (PCR) Not Detected (Not Detect) 11/11/17 17:00 Coronavirus 229E (PCR) Not Detected (Not Detect) 11/11/17 17:00 Coronavirus NL63 (PCR) Not Detected (Not Detect) 11/11/17 17:00 Human Metapneumovir PCR Not Detected (Not Detect) 11/11/17 17:00 Influenza A (H1) PCR Not Detected (Not Detect) 11/11/17 17:00 Influ A (H1N1/09) PCR Not Detected (Not Detect) 11/11/17 17:00 Influenza A (H3) PCR Not Detected (Not Detect) 11/11/17 17:00 Influenza A Untype (PCR) Not Detected (Not Detect) 11/11/17 17:00 Influenza Type B (PCR) Not Detected (Not Detect) 11/11/17 17:00 M.pneumoniae DNA (PCR) Not Detected (Not Detect) 11/11/17 17:00 Parainfluenza 1 (PCR) Not Detected (Not Detect) 11/11/17 17:00 Parainfluenza 2 (PCR) Not Detected (Not Detect) 11/11/17 17:00 Parainfluenza 3 (PCR) Not Detected (Not Detect) 11/11/17 17:00 Parainfluenza 4 (PCR) Not Detected (Not Detect) 11/11/17 17:00 RSV (PCR) Not Detected (Not Detect) 11/11/17 17:00 Entero/Rhino (PCR) Not Detected (Not Detect) 11/11/17 17:00 - Imaging Additional studies: CT CHEST 11/11: Consolidative infiltrate left lower lobe with small pleural effusions slightly larger on the left than the right. TTE 11/08: LVEF 60%. Normal LV chamber size and function. Mild segmental left ventricular systolic dysfunction. Pseudnormal left ventricular diastolic function. Normal right ventricular structure and function. Unable to estimate RVSP due to lack of TR jet. No obvious significant valvular dysfunction. Anesthesia Exam Vital Signs/O2 Sat/Glucose, Most Recent Temp Pulse Resp BP Pulse Ox 98.0 F 76 18 142/75 92 11/12/17 11:13 11/12/17 11:13 11/12/17 11:13 11/12/17 11:13 11/12/17 11:13 Blood Glucose* 176 Height: 1.78 m Weight: 82 kg NPO (# of Hours): 8 - HEENT Pupil (Motor): Pupils equal Mallampati: II Teeth: Normal Oral Opening: Greater than 3 - Cardiac Rhythm: Regular - Pulmonary Breath Sounds: bilateral Clear Respiratory Effort: Asymmetrical (DECREASED BREATH SOUNDS LLL, LML) Anesthesia Assess/Plan ASA Score: 4 Modified Vaibhav Scale for Level of Consciousness: Cooperative, oriented, and tranquil Anesthetic Plan: General Monitoring Plan: Standard Monitors Recovery Plan: PACU
[2017-11-12] MEDS ORDERED: Dexamethasone 4 MG/ML VIAL ONE (12:23)
[2017-11-12] MEDS ORDERED: *HR* Succinylcholine 200 MG/10 ML VIAL IVP ONE (12:23)
[2017-11-12] MEDS ORDERED: Ondansetron 4 MG/2 ML VIAL ONE (12:23)
[2017-11-12] MEDS ORDERED: Lidocaine Viscous Oral Soln 15 ML SOLUTION ONE (12:39)
[2017-11-12] MEDS: Pregabalin 50 MG CAPSULE PO SCH ×2 (13:46→20:57)
[2017-11-12] MEDS: Folic Acid 1 MG TABLET PO SCH ×2 (13:46→20:58)
[2017-11-12] MEDS ORDERED: Levalbuterol Neb 1.25 MG/3 ML IH ONE (14:08)
[2017-11-12] MEDS ORDERED: Ipratropium/Albuterol Neb 3 ML IH ONE (14:58)
[2017-11-12] MEDS ORDERED: Ipratropium/Albuterol Neb 3 ML ONE (14:58)
--- NOTE | 2017-11-12 15:27 | Anesthesia Evaluation Post Op ---
Date of Encounter: 11/12/17 Time of Encounter: 15:25 - Vital Signs Vital Signs: Vital Signs/O2 Sat, Most Current Temp Pulse Resp BP Pulse Ox 101.8 F H 73 24 134/76 87 11/12/17 14:33 11/12/17 14:53 11/12/17 14:53 11/12/17 14:53 11/12/17 14:53 - Lungs Lungs: Clear Ascult./Percussion - Airway Airway: Non-obstructed - Cardiovascular Regular Rate, Baseline Rhythm - Mental Status Mental Status: Alert & Oriented, Answers Appropriately - Pain Pain Scale: 0 Pain Scale used: Numeric (1 - 10) - Nausea Vomiting Nausea Vomiting: Not Present - Hydration Hydration: Tolerates oral liquids, Ice chips, Has not voided Notes: 11/12/17 15:26 8 liters o2, baseline 02 saturation - Discharge PostOp Status: Transfer Patient to floor
[2017-11-12] MEDS: Fenofibrate 54 MG TABLET PO SCH (16:27)
[2017-11-12] MEDS: amLODIPine 5 MG TABLET PO SCH (16:28)
[2017-11-12] MEDS: Aspirin Enteric Coated 81 MG Tablet PO SCH (16:28)
[2017-11-12] MEDS: Lactobacillus 1 EACH CAP.SPRINK PO SCH (16:28)
[2017-11-12] MEDS: Azithromycin 250 MG TABLET PO SCH (16:28)
[2017-11-12] MEDS: Isosorbide MONOnitrate (24 HR) 30 MG TAB.ER.24H PO SCH (16:29)
[2017-11-12 21:56] LABS: Bilirubin,Urine Negative (Negative); Blood,Urine Negative (Negative); Clarity,Urine Clear (Clear); Color,Urine Yellow (Yellow); Glucose,Urine (UA) 250 mg/dL (Normal); Ketones,Urine Negative (Negative); Leukocyte Esterase,Urine Negative (Negative); Nitrite,Urine Negative (Negative); Protein,Urine 100 mg/dL (Neg-Trace); Specific Gravity,Urine > 1.030 (1.010-1.025); Urobilinogen,Urine Normal (Normal)
[2017-11-12 22:02] LABS: Bacteria,Urine None Seen per hpf (None-Few); Hyaline Casts,Urine None Seen per lpf (None-Few); Protein/Creatinine Ratio,Urine 0.97 mg/mg (0.00-0.20); Sodium, Urine 16.4 mEq/L; Squamous Epithelial Cell,Urine Moderate per lpf (None-Few); WBC,Urine 0-3 per hpf (0-3)
[2017-11-12] MEDS ORDERED: 0.9 % Sodium Chloride 1,000 ML IVC ONE (23:59)
--- NOTE | 2017-11-13 00:40 | Event Note ---
Date of Encounter: 11/13/17 Time of Encounter: 00:32 67-year-old male admitted for multifocal pneumonia secondary to Legionella. Was contacted as patient's temperature was 95.4 degrees. Blood pressure was 101 /51, heart rate 48. Patient is on BiPAP setting 98%. Went downstairs to assess patient he is alert and awake oriented 3 reports he is fatigued. Otherwise he does not have any complaints. Patient was sinus bradycardic on exam and had rhonchi bilaterally and lungs. Abdomen is soft nontender nondistended. He did not have lower extremity edema. EKG was ordered and showed sinus bradycardia without ST-T wave changes. Patient likely has hypothermia secondary to sepsis from pneumonia. Ordered bear hugger and 1 L normal saline, lactic acid.
[2017-11-13 00:46] LABS: Basophils % 0.1 %; Hematocrit 33.2 % (37.5-50.1); Hemoglobin 11.5 g/dL (12.9-16.9); Immature Granulocytes % 3.5 % (0-4); Lymphocytes # 0.4 K/mcL (0.6-4.6); Lymphocytes % 4.4 %; Mean Corpuscular HGB Conc 34.6 g/dL (31.6-35.5); Mean Corpuscular Hemoglobin 30.3 pg (28.0-33.3); Mean Corpuscular Volume 87.4 fL (83.0-100.0); Mean Platelet Volume 10.8 fL (9.4-12.4); Monocytes # 0.4 K/mcL (0.0-1.3); Monocytes % 4.4 %; Neutrophils # 7.2 K/mcL (1.6-8.9); Platelet Count 227 K/mcL (140-400); Red Cell Distribution Width 13.9 % (11.5-14.5); Segmented Neutrophils % 87.6 %
[2017-11-13 01:04] LABS: Albumin 2.3 g/dL (3.5-5.7); Albumin/Globulin Ratio 0.8 (1.1-2.2); Bilirubin,Direct 0.3 mg/dL (0.0-0.2); Bilirubin,Indirect 0.2 mg/dL (0.0-1.2); Bilirubin,Total 0.5 mg/dL (0.3-1.0); Calcium 8.3 mg/dL (8.6-10.3); Globulin 2.8 g/dL (2.4-3.5); Magnesium 1.9 mg/dL (1.6-2.6); Potassium 3.5 mEq/L (3.5-5.1); Total Protein 5.1 g/dL (6.4-8.9)
[2017-11-13] MEDS: Piperacillin/Tazobactam 3.375 GM in 0.9 % Sodium Chloride Mini Bag 100 ML IVPB SCH ×3 (03:29→16:22)
[2017-11-13] MEDS: *HR* Heparin 5,000 UNIT/ML VIAL SQ SCH ×2 (05:39→16:56)
[2017-11-13] MEDS: Azithromycin 250 MG TABLET PO SCH (08:09)
[2017-11-13] MEDS: Lactobacillus 1 EACH CAP.SPRINK PO SCH (08:09)
[2017-11-13] MEDS: Pregabalin 50 MG CAPSULE PO SCH ×2 (08:09→20:53)
[2017-11-13] MEDS: Fenofibrate 54 MG TABLET PO SCH (08:09)
[2017-11-13] MEDS: Isosorbide MONOnitrate (24 HR) 30 MG TAB.ER.24H PO SCH (08:10)
[2017-11-13] MEDS: amLODIPine 5 MG TABLET PO SCH (08:10)
[2017-11-13] MEDS: Folic Acid 1 MG TABLET PO SCH ×2 (08:10→20:53)
[2017-11-13] MEDS: Aspirin Enteric Coated 81 MG Tablet PO SCH (08:10)
[2017-11-13] MEDS: Insulin LISPRO 300 UNITS/3 ML VIAL SQ SCH ×4 (08:10→20:53)
[2017-11-13] MEDS: Budesonide/Formoterol 160/4.5 1 PUFF INH IH SCH ×2 (08:36→20:29)
--- NOTE | 2017-11-13 10:34 | Internal Med Progress Note ---
Hospitalist Progress Note - Encounter Date of Encounter: 11/13/17 Time of Encounter: 10:31 - Subjective Interval History: Today is the first time I have evaluated this patient. Patient seen and evaluated at bedside with the brother. The patient continues to alternate between BiPAP and high flow nasal cannula between 8 and 10 L/m. Upon evaluation the patient had his oxygen off to shave and pulse ox was 85% I put his oxygen back on with increase in saturation to 90%. Overnight the patient had sinus bradycardia and hypothermia. He was evaluated and given 1 L of IV fluids and had a lactic checked which was normal and was put on Haritha hugger. Patient's beta angel was held and heart rate is currently improved. Patient's temperature is normal on Haritha hugger. Patient states he feels much better than yesterday after bronchoscopy. Patient states he continues to cough but is not producing much sputum. Patient denies any chest pain, nausea, vomiting, abdominal pain, chills, headache or neck pain. - Exam Vitals: Temp Pulse Resp BP Pulse Ox 97.5 F L 52 20 121/59 91 11/13/17 07:01 11/13/17 07:01 11/13/17 07:01 11/13/17 07:01 11/13/17 08:27 Exam: Constitutional: No acute distress, Alert appears comfortable on high flow nasal cannula, initially with oxygen removed when I entered room Psych: AAO x 3 Cardio: regular rate and rhythm, +s1s2, no murmurs Resp: Increased air movement with rhonchi throughout worse in left lobe Abd: soft, non tender/non distended Extremities: no clubbing/cyanosis/edema appreciated Neuro: no focal deficits appreciated Lymph: no cervical/supraclavicular adenopahty apprecitated - Assessment and Plan (1) Acute respiratory failure with hypoxia Current Visit: Yes Status: Acute Assessment and Plan: Patient with acute hypoxic respiratory failure requiring high flow nasal cannula and noninvasive ventilation -Secondary to severe pneumonia -Currently on HFNC @ 10lmp; alternating between HFNC and BPAP -Continue ABX; vanco/zosyn/azithromycin -Legionella positive -bronchoscopy yesterday with large amount of mucus removed and cx sent; gram stain negative; lots of WBCs but no bacteria -appears clinically improved however oxygen requriment up to 10L on HFNC -may need to move to ICU if decompenates; okay with intubation if needed (2) Severe sepsis Current Visit: Yes Status: Acute Assessment and Plan: Patient with severe sepsis with end organ dysfunction involving respiratory and renal dysfunction -Secondary to extensive pneumonia -Legionella positive other cultures negative to date -Remains febrile -Continue vancomycin and Zosyn and azithromycin -ID following -follow bronch culture -hypothermic overnight; resolved with IVF and haritha hugger (3) Left lower lobe pneumonia Current Visit: Yes Status: Acute Assessment and Plan: - Legionella antigen positive --Concern for possible aspiration per CT findings. -Continue IV antibiotics Zosyn, Zosyn, azithromycin -Continue 02 as needed to maintain sats > 88 in light of COPD hx -Severe sepsis 2/2 pna -Increased 02 demands up to 10LMP HFNC currently -continue HFNC/Non invasive ventilation; wean as tolerated -CTA revealed LLL consolidation -Pulm and ID followoing, apreciate recs -follow cultures; bronch gram stain negative (4) Chronic kidney disease, stage III (moderate) Current Visit: Yes Status: Chronic Assessment and Plan: -ZAID with CKD stage III -likely 2/2 ATN due to sepsis -Cr similar to admission but intially improved with worsening and slight improvement again today to 1.62 -FeNa pre renal at 0.2%; given IVF overnight -Non nephrotic range proteinuria -check UA with urine studies -continue to hold lisinopril for now in light of worsening renal fxn -pharmacy to renally dose ABX (5) CAD (coronary artery disease) Current Visit: Yes Status: Chronic (6) DM2 (diabetes mellitus, type 2) Current Visit: Yes Status: Chronic Assessment and Plan: Chronic. Continue SSI, Levemir at bedtime, diabetic diet, accuchecks achs. (7) HTN (hypertension) Current Visit: Yes Status: Chronic Assessment and Plan: Chronic. -lisinopril held 2/2 worsening renal fxn -BB held 2/2 bradycardia (8) COPD (chronic obstructive pulmonary disease) with emphysema Current Visit: Yes Status: Chronic Assessment and Plan: Plan as above pneumonia. no copd exacerbation (9) CHF (congestive heart failure) Current Visit: Yes Status: Chronic Assessment and Plan: -No acute exacerbation. -Continue to hold Lasix for renal function. -not decompensated -echo with ef 60% - Time Spent with Patient Total time spent is greater than 50% in coordination of care (as documented) at patient's floor/unit and/or counseling patient: 25 - 35 minutes Plan of Care Discussed with: family Internal Medicine: Result - Labs CBC & Chem 7: 11/13/17 00:33 11/13/17 00:33 Labs: Short CBC 11/13/17 Range/Units 00:33 WBC 8.3 (4.3-11.1) K/mcL Hgb 11.5 L (12.9-16.9) g/dL Hct 33.2 L (37.5-50.1) % Plt Count 227 (140-400) K/mcL Neutrophils # 7.2 (1.6-8.9) K/mcL BMP 11/13/17 00:33 Sodium 131 L Potassium 3.5 Chloride 100 Carbon Dioxide 25 BUN 34 H Creatinine 1.62 H Glucose 351 H Calcium 8.3 L Liver Function 11/13/17 Range/Units 00:33 Total Bilirubin 0.5 (0.3-1.0) mg/dL Direct Bilirubin 0.3 H (0.0-0.2) mg/dL AST 55 H (13-39) Units/L ALT 34 (7-52) Units/L Alkaline Phosphatase 188 H (34-104) Units/L Albumin 2.3 L (3.5-5.7) g/dL Urine 11/12/17 Range/Units 21:41 Urine Color Yellow (Yellow) Urine Clarity Clear (Clear) Urine pH 6.0 (5.0-8.0) pH Units Ur Specific [place] > 1.030 H (1.010-1.025) Urine Protein 100 H (Neg-Trace) mg/dL Urine Glucose (UA) 250 H (Normal) mg/dL - ABG Interpretation ABG results: ABG ABG pH 7.42 pH Units (7.32-7.45) 11/12/17 11:09 ABG pCO2 40 mmHg (35-45) 11/12/17 11:09 ABG pO2 71 mmHg (85-104) L 11/12/17 11:09 ABG O2 Saturation 94 % (95-98) L 11/12/17 11:09 PT/INR, D-dimer PT 13.3 Seconds (9.4-12.1) H 11/08/17 02:00 D-Dimer 2080 ng/mLFEU (0-500) H 11/11/17 04:21 - Impressions Impressions Chest X-Ray 11/12/17 14:35 IMPRESSION: Progressive opacification of the left hemithorax with leftward mediastinal shift, likely due to combination of effusion and atelectasis. D/ / Teddy Saavedra MD / Teddy Saavedra MD Interpreting Provider: Teddy Saavedra MD Consult Discharge Plan - Plan Referrals: Tano Lee MD [Primary Care Provider] - 11/19/17 8:30 am (3) Left lower lobe pneumonia Qualifiers: Pneumonia type: due to unspecified organism Qualified Code(s): J18.1 - Lobar pneumonia, unspecified organism (5) CAD (coronary artery disease) Qualifiers: Coronary Disease-Associated Artery/Lesion type: [place] artery [place] vs. transplanted heart: [place] heart Associated angina: without angina Qualified Code(s): I25.10 - Atherosclerotic heart disease of [place] coronary artery without angina pectoris (6) DM2 (diabetes mellitus, type 2) Qualifiers: Diabetes mellitus intermediate insulin use: with aerospace quality engineer use Diabetes mellitus complication status: with kidney complications Diabetes mellitus complication detail: with chronic kidney disease Chronic kidney disease stage: stage 3 (moderate) Qualified Code(s): E11.22 - Type 2 diabetes mellitus with diabetic chronic kidney disease; N18.3 - Chronic kidney disease, stage 3 ( moderate); Z79.4 - bed and breakfast cook (current) use of insulin (7) HTN (hypertension) Qualifiers: Hypertension type: essential hypertension Qualified Code(s): I10 - Essential (primary) hypertension (8) COPD (chronic obstructive pulmonary disease) with emphysema Qualifiers: Emphysema type: panlobular Qualified Code(s): J43.1 - Panlobular emphysema (9) CHF (congestive heart failure) Qualifiers: Heart failure type: diastolic Heart failure chronicity: chronic Qualified Code(s): I50.32 - Chronic diastolic (congestive) heart failure
--- NOTE | 2017-11-13 10:52 | Pulmonology Progress Note ---
Date of Encounter: 11/13/17 Time of Encounter: 08:25 Assessment and Plan (1) Acute respiratory failure with hypoxia Current Visit: No Status: Acute This is multifactorial and he has consolidative changes with atelectasis of the left lower lobe which is causing shunting and hypoxemia. Status post bronchoscopy with removal of mucous plugs and clinically feels better even though patient is requiring high flow oxygen. Patient was encouraged to participate with aggressive incentive spirometry and mobilization is recommended. Bronchodilators. Chest x-ray tomorrow. (2) Left lower lobe pneumonia Current Visit: Yes Status: Acute Qualifiers: Pneumonia type: due to unspecified organism Qualified Code(s): J18.1 - Lobar pneumonia, unspecified organism (3) Multiple tracheobronchial mucus plugs Current Visit: Yes Status: Resolved Subjective Principal diagnosis: Dyspnea Interval history: Patient is feeling better this morning after bronchoscopy. However he continue requiring high flow oxygen. Objective PUL Vital signs: Last Vital Signs Temp 97.5 F L 11/13/17 07:01 Pulse 52 11/13/17 07:01 Resp 20 11/13/17 07:01 BP 121/59 11/13/17 07:01 Pulse Ox 90 11/13/17 10:39 General: Patient is in no acute distress. HEENT: Normocephalic atraumatic, pupils are equal round and reactive to light and accommodation, anicteric sclera, nares is patent, mucous membranes moist, no JVD, trachea is midline Cardiovascular: Normal sinus rhythm, S1 and S2 audible, no murmur or rubs Respiratory: Clear to auscultation right side, diminished but better air movement in the left side. No acute distress. No wheezing. Patient not using accessory muscles. Abdomen: Soft, nontender, nondistended, positive bowel sounds in all 4 quadrants Extremities: Warm, dry, trace lower extremity edema. Normal capillary refill. Neuro: Alert and oriented and follows commands. Grossly no neuro deficits. Skin: Warm to touch : No obvious abnormalities. Psych: Normal Results - Laboratory Findings CBC and BMP: 11/13/17 00:33 11/13/17 00:33 ABG ABG pH 7.42 pH Units (7.32-7.45) 11/12/17 11:09 ABG pCO2 40 mmHg (35-45) 11/12/17 11:09 ABG pO2 71 mmHg (85-104) L 11/12/17 11:09 ABG O2 Saturation 94 % (95-98) L 11/12/17 11:09 PT/INR, D-dimer PT 13.3 Seconds (9.4-12.1) H 11/08/17 02:00 D-Dimer 2080 ng/mLFEU (0-500) H 11/11/17 04:21 Abnormal lab findings: Abnormal lab results RBC 3.80 M/mcL (4.19-5.50) L 11/13/17 00:33 Hgb 11.5 g/dL (12.9-16.9) L 11/13/17 00:33 Hct 33.2 % (37.5-50.1) L 11/13/17 00:33 Lymphocytes # 0.4 K/mcL (0.6-4.6) L 11/13/17 00:33 PT 13.3 Seconds (9.4-12.1) H 11/08/17 02:00 D-Dimer 2080 ng/mLFEU (0-500) H 11/11/17 04:21 ABG pO2 71 mmHg (85-104) L 11/12/17 11:09 ABG Total CO2 27 mEq/L (20-26) H 11/12/17 11:09 ABG O2 Saturation 94 % (95-98) L 11/12/17 11:09 VBG pCO2 37 mmHg (41-51) L 11/08/17 02:28 Sodium 131 mEq/L (136-145) L 11/13/17 00:33 BUN 34 mg/dL (8-23) H 11/13/17 00:33 Creatinine 1.62 mg/dL (0.70-1.30) H 11/13/17 00:33 Est GFR ( Amer) 52 (> 60) L 11/13/17 00:33 Est GFR (Non-Af Amer) 43 (> 60) L 11/13/17 00:33 Glucose 351 mg/dL (70-105) H 11/13/17 00:33 POC Glucose 176 mg/dL (70-99) H 11/12/17 11:33 Calcium 8.3 mg/dL (8.6-10.3) L 11/13/17 00:33 Direct Bilirubin 0.3 mg/dL (0.0-0.2) H 11/13/17 00:33 AST 55 Units/L (13-39) H 11/13/17 00:33 Alkaline Phosphatase 188 Units/L (34-104) H 11/13/17 00:33 Troponin I 0.06 ng/mL (< 0.04) H* 11/09/17 15:04 Serum Total Protein 5.1 g/dL (6.4-8.9) L 11/13/17 00:33 Albumin 2.3 g/dL (3.5-5.7) L 11/13/17 00:33 Albumin/Globulin Ratio 0.8 (1.1-2.2) L 11/13/17 00:33 Lipase 4 Units/L (11-82) L 11/08/17 02:00 Ur Specific [place] > 1.030 (1.010-1.025) H 11/12/17 21:41 Urine Protein 100 mg/dL (Neg-Trace) H 11/12/17 21:41 Urine Glucose (UA) 250 mg/dL (Normal) H 11/12/17 21:41 Urine Microscopic RBC 3-5 per hpf (0-3) H 11/12/17 21:41 Ur Squamous Epith Cells Moderate per lpf (None-Few) H 11/12/17 21:41 Protein/Creatinin Ratio 0.97 mg/mg (0.00-0.20) H 11/12/17 21:41 Urine Total Protein 100 mg/dL (1-14) H 11/12/17 21:41 - Microbiology Findings Microbiology Findings: Microbiology, Last 48 Hours 11/12/17 13:46 Respiratory Culture - Preliminary Left Lower Lobe Lung 11/11/17 15:42 Blood Culture - Preliminary Peripheral Venipuncture Culture is incubating and being continuously monitored for growth. Final report to follow. 11/11/17 15:42 Blood Culture - Preliminary Peripheral Venipuncture Culture is incubating and being continuously monitored for growth. Final report to follow. - Clinical Findings Intake & Output: Intake & Output 11/12/17 11/13/17 11/13/17 23:59 07:59 15:59 Intake Total 100 / 100 100 / 100 240 / 240 Output Total 200 / 200 200 / 200 Balance -100 / -100 -100 / -100 240 / 240 Weight 82.9 kg Consult Discharge Plan - Plan Referrals: Tano Lee MD [Primary Care Provider] - 11/19/17 8:30 am
[2017-11-13] MEDS: Lisinopril 20 MG TABLET PO SCH (19:18)
[2017-11-14] MEDS: Piperacillin/Tazobactam 3.375 GM in 0.9 % Sodium Chloride Mini Bag 100 ML IVPB SCH ×4 (00:16→23:37)
[2017-11-14] MEDS ORDERED: Saline Nasal Spray 44 ML BOTTLE NS PRN (00:37)
[2017-11-14] MEDS: *HR* Heparin 5,000 UNIT/ML VIAL SQ SCH ×2 (05:45→16:45)
[2017-11-14 06:56] LABS: Basophils % 0.1 %; Eosinophils % 0.3 %; Hematocrit 36.3 % (37.5-50.1); Hemoglobin 12.6 g/dL (12.9-16.9); Immature Granulocytes % 1.3 % (0-4); Lymphocytes # 0.7 K/mcL (0.6-4.6); Lymphocytes % 5.9 %; Mean Corpuscular HGB Conc 34.7 g/dL (31.6-35.5); Mean Corpuscular Hemoglobin 30.2 pg (28.0-33.3); Mean Corpuscular Volume 87.1 fL (83.0-100.0); Mean Platelet Volume 10.9 fL (9.4-12.4); Monocytes # 0.8 K/mcL (0.0-1.3); Monocytes % 6.3 %; Neutrophils # 10.3 K/mcL (1.6-8.9); Platelet Count 309 K/mcL (140-400); Red Blood Count 4.17 M/mcL (4.19-5.50); Segmented Neutrophils % 86.1 %
[2017-11-14] MEDS: Insulin LISPRO 300 UNITS/3 ML VIAL SQ SCH ×4 (09:25→20:51)
[2017-11-14 09:26] LABS: BUN/Creatinine Ratio 21 (6-26); Blood Urea Nitrogen 27 mg/dL (8-23); Calcium 8.6 mg/dL (8.6-10.3); Carbon Dioxide 28 mEq/L (23-29); Chloride 103 mEq/L (98-107); Glucose 222 mg/dL (70-105); Osmolality,Calculated 294 (280-300); Potassium 3.6 mEq/L (3.5-5.1); Sodium 136 mEq/L (136-145); eGFR For Non-African Americans 56 (> 60)
[2017-11-14] MEDS: Azithromycin 250 MG TABLET PO SCH (09:27)
[2017-11-14] MEDS: Fenofibrate 54 MG TABLET PO SCH (09:27)
[2017-11-14] MEDS: amLODIPine 5 MG TABLET PO SCH (09:27)
[2017-11-14] MEDS: Aspirin Enteric Coated 81 MG Tablet PO SCH (09:27)
[2017-11-14] MEDS: Lactobacillus 1 EACH CAP.SPRINK PO SCH (09:27)
[2017-11-14] MEDS: Pregabalin 50 MG CAPSULE PO SCH ×2 (09:29→20:51)
[2017-11-14] MEDS: Isosorbide MONOnitrate (24 HR) 30 MG TAB.ER.24H PO SCH (09:29)
[2017-11-14] MEDS: Folic Acid 1 MG TABLET PO SCH ×2 (09:29→20:51)
--- NOTE | 2017-11-14 10:36 | Pulmonology Progress Note ---
Date of Encounter: 11/14/17 Time of Encounter: 10:05 Assessment and Plan (1) Acute respiratory failure with hypoxia Current Visit: No Status: Acute This is multifactorial and he has consolidative changes with atelectasis of the left lower lobe which is causing shunting and hypoxemia. Status post bronchoscopy with removal of mucous plugs and clinically feels better even though patient is requiring high flow oxygen. Patient was encouraged to participate with aggressive incentive spirometry and mobilization is recommended. Bronchodilators. Chest x-ray tomorrow. 11/14 patient clinically and also chest x-ray looks better, however he continue requiring higher level of FiO2. Explained to the respiratory therapist to try high flow oxygen and hopefully that way he will be able to mobilize which will improve atelectasis and his hypoxia. Continue non-invasive ventilation in between and incentive spirometry. (2) Left lower lobe pneumonia Current Visit: Yes Status: Acute Patient is on broad-spectrum antibiotics and hopefully next 24 hours and stop some antibiotics tapered down. Qualifiers: Pneumonia type: due to unspecified organism Qualified Code(s): J18.1 - Lobar pneumonia, unspecified organism (3) Multiple tracheobronchial mucus plugs Current Visit: Yes Status: Resolved Subjective Principal diagnosis: Dyspnea Interval history: Overall patient denies any significant changes and is able to breathe better and he wants to walk and move around. Patient still requiring noninvasive ventilation for hypoxia. Objective PUL Vital signs: Last Vital Signs Temp 97.9 F 11/14/17 07:32 Pulse 70 11/14/17 09:40 Resp 18 11/14/17 07:32 BP 145/83 11/14/17 07:32 Pulse Ox 88 11/14/17 07:32 General: Patient is in no acute distress. HEENT: Normocephalic atraumatic, pupils are equal round and reactive to light and accommodation, anicteric sclera, nares is patent, mucous membranes moist, no JVD, trachea is midline Cardiovascular: Normal sinus rhythm, S1 and S2 audible, no murmur or rubs Respiratory: Clear to auscultation in the right side and some improvement in air movement in the left side. No acute distress. No wheezing. Patient not using accessory muscles. Abdomen: Soft, nontender, nondistended, positive bowel sounds in all 4 quadrants Extremities: Warm, dry, trace lower extremity edema. Normal capillary refill. Neuro: Alert and oriented and follows commands. Grossly no neuro deficits. Skin: Warm to touch : No obvious abnormalities. Psych: Normal Results - Laboratory Findings CBC and BMP: 11/14/17 06:10 11/14/17 06:10 ABG ABG pH 7.42 pH Units (7.32-7.45) 11/12/17 11:09 ABG pCO2 40 mmHg (35-45) 11/12/17 11:09 ABG pO2 71 mmHg (85-104) L 11/12/17 11:09 ABG O2 Saturation 94 % (95-98) L 11/12/17 11:09 PT/INR, D-dimer PT 13.3 Seconds (9.4-12.1) H 11/08/17 02:00 D-Dimer 2080 ng/mLFEU (0-500) H 11/11/17 04:21 Abnormal lab findings: Abnormal lab results WBC 11.9 K/mcL (4.3-11.1) H 11/14/17 06:10 RBC 4.17 M/mcL (4.19-5.50) L 11/14/17 06:10 Hgb 12.6 g/dL (12.9-16.9) L 11/14/17 06:10 Hct 36.3 % (37.5-50.1) L 11/14/17 06:10 Neutrophils # 10.3 K/mcL (1.6-8.9) H 11/14/17 06:10 PT 13.3 Seconds (9.4-12.1) H 11/08/17 02:00 D-Dimer 2080 ng/mLFEU (0-500) H 11/11/17 04:21 ABG pO2 71 mmHg (85-104) L 11/12/17 11:09 ABG Total CO2 27 mEq/L (20-26) H 11/12/17 11:09 ABG O2 Saturation 94 % (95-98) L 11/12/17 11:09 VBG pCO2 37 mmHg (41-51) L 11/08/17 02:28 BUN 27 mg/dL (8-23) H 11/14/17 06:10 Est GFR (Non-Af Amer) 56 (> 60) L 11/14/17 06:10 Glucose 222 mg/dL (70-105) H 11/14/17 06:10 POC Glucose 249 mg/dL (70-99) H 11/13/17 20:41 Direct Bilirubin 0.3 mg/dL (0.0-0.2) H 11/13/17 00:33 AST 55 Units/L (13-39) H 11/13/17 00:33 Alkaline Phosphatase 188 Units/L (34-104) H 11/13/17 00:33 Troponin I 0.06 ng/mL (< 0.04) H* 11/09/17 15:04 Serum Total Protein 5.1 g/dL (6.4-8.9) L 11/13/17 00:33 Albumin 2.3 g/dL (3.5-5.7) L 11/13/17 00:33 Albumin/Globulin Ratio 0.8 (1.1-2.2) L 11/13/17 00:33 Lipase 4 Units/L (11-82) L 11/08/17 02:00 Ur Specific [place] > 1.030 (1.010-1.025) H 11/12/17 21:41 Urine Protein 100 mg/dL (Neg-Trace) H 11/12/17 21:41 Urine Glucose (UA) 250 mg/dL (Normal) H 11/12/17 21:41 Urine Microscopic RBC 3-5 per hpf (0-3) H 11/12/17 21:41 Ur Squamous Epith Cells Moderate per lpf (None-Few) H 11/12/17 21:41 Protein/Creatinin Ratio 0.97 mg/mg (0.00-0.20) H 11/12/17 21:41 Urine Total Protein 100 mg/dL (1-14) H 11/12/17 21:41 Vancomycin Trough 11 mcg/mL (5-10) H 11/13/17 15:04 - Microbiology Findings Microbiology Findings: Microbiology, Last 48 Hours 11/12/17 13:46 Acid Fast Stain - Final Left Lower Lobe Lung 11/12/17 13:46 Respiratory Culture - Preliminary Left Lower Lobe Lung - Diagnostic Findings Chest x-ray: report reviewed, image reviewed - Clinical Findings Intake & Output: Intake & Output 11/13/17 11/14/17 11/14/17 23:59 07:59 15:59 Intake Total 340 / 340 450 / 450 360 / 360 Output Total 200 / 200 175 / 175 150 / 150 Balance 140 / 140 275 / 275 210 / 210 Weight 83.4 kg Consult Discharge Plan - Plan Referrals: Tano Lee MD [Primary Care Provider] - 11/19/17 8:30 am
--- NOTE | 2017-11-14 10:38 | Internal Med Progress Note ---
Hospitalist Progress Note - Encounter Date of Encounter: 11/14/17 Time of Encounter: 10:36 - Subjective Interval History: Patient seen and examined at bedside. Patient had no acute overnight events . Upon evaluation the patient's oxygen saturation was 80% however the patient had removed his oxygen again to blow his nose. I emphasized again that the patient should not remove his oxygen and how dangerous this could be. The patient was put back on oxygen and saturations improved to 85% and was put back on BiPAP. Patient was later this am transitioned to high flow oxygen therapy. Patient states that he feels better and is coughing frequently but not producing much sputum. Patient denies any chest pain, nausea, vomiting, diarrhea, fevers, chills. Discussed with pulmonology who agreed with hi flow oxygen therapy. - Exam Vitals: Temp Pulse Resp BP Pulse Ox 97.9 F 70 18 145/83 88 11/14/17 07:32 11/14/17 09:40 11/14/17 07:32 11/14/17 07:32 11/14/17 07:32 Exam: Constitutional: No acute distress, Alert appears comfortable Psych: AAO x 3 Cardio: regular rate and rhythm, +s1s2, no murmurs Resp: ronchi throughout especially in left lower lobe; good air movement Abd: soft, non tender/non distended Extremities: no clubbing/cyanosis/edema appreciated Neuro: no focal deficits appreciated - Assessment and Plan (1) Acute respiratory failure with hypoxia Current Visit: Yes Status: Acute Assessment and Plan: Patient with acute hypoxic respiratory failure requiring high flow nasal cannula and noninvasive ventilation -Secondary to severe pneumonia -remained on HFNC yesterday at 10lpm -put on bibap briefly this AM; now on hi flow oxygen thereapy with fio2 of 40% -Continue ABX; vanco/zosyn/azithromycin -Legionella positive -bronchoscopy yesterday with large amount of mucus removed and cx sent; gram stain negative; lots of WBCs but no bacteria -cxr reviewed today improved from prior but still with significant opacification of left hemithorax but better aeration of upper lobes; read as improved by radiology -cxr in am -pulm following -incetive spirometry encouraged (2) Severe sepsis Current Visit: Yes Status: Acute Assessment and Plan: Patient with severe sepsis with end organ dysfunction involving respiratory and renal dysfunction -Secondary to extensive pneumonia -Legionella positive other cultures negative to date -Continue vancomycin and Zosyn and azithromycin -ID following -bronch cx with no growth -now afebrile and hypothermia has resolved (3) Left lower lobe pneumonia Current Visit: Yes Status: Acute Assessment and Plan: - Legionella antigen positive --Concern for possible aspiration per CT findings. -Continue IV antibiotics Zosyn, Zosyn, azithromycin -Continue 02 as needed to maintain sats > 88 in light of COPD hx -Severe sepsis 2/2 pna -Increased 02 demands; now on hi flow oxygen therapy -continue HFNC/Non invasive ventilation; wean as tolerated -CTA revealed LLL consolidation -Pulm and ID followoing, apreciate recs -cultures remain negative -cxr today slightly improved; check in am -encouraged incentive spirometry and ambulation (4) Chronic kidney disease, stage III (moderate) Current Visit: Yes Status: Chronic Assessment and Plan: -ZAID with CKD stage III -likely 2/2 ATN due to sepsis -Cr similar to admission but intially improved with worsening; improved to 1.29 today -FeNa pre renal at 0.2%; given IVF -Non nephrotic range proteinuria -continue to hold lisinopril for now in light of worsening renal fxn -pharmacy to renally dose ABX (5) CAD (coronary artery disease) Current Visit: Yes Assessment and Plan: Chronic. Patient denies chest pain. Continue home medications. Continue telemetry (6) DM2 (diabetes mellitus, type 2) Current Visit: Yes Status: Chronic Assessment and Plan: Chronic. Continue SSI, Levemir at bedtime, diabetic diet, accuchecks achs. (7) HTN (hypertension) Current Visit: Yes Status: Chronic Assessment and Plan: Chronic. -lisinopril held 2/2 worsening renal fxn -BB held 2/2 bradycardia (8) COPD (chronic obstructive pulmonary disease) with emphysema Current Visit: Yes Status: Chronic Assessment and Plan: Plan as above pneumonia. no copd exacerbation (9) CHF (congestive heart failure) Current Visit: Yes Status: Chronic Assessment and Plan: -No acute exacerbation. -Continue to hold Lasix for renal function. -not decompensated -echo with ef 60% DVT Prophylaxis: Heparin SQ - Summary of Assessment and Plan Summary of Assessment and Plan: -Discussed with pulmonology; chest x-ray with slight improvement but still significant left-sided opacification. Encourage incentive spirometry and ambulation. -hi flow oxygen therapy and BiPAP if needed -Remains very high risk for complications and deterioration -Monitor very closely - Time Spent with Patient Total time spent is greater than 50% in coordination of care (as documented) at patient's floor/unit and/or counseling patient: 25 - 35 minutes Plan of Care Discussed with: patient Internal Medicine: Result - Labs CBC & Chem 7: 11/14/17 06:10 11/14/17 06:10 Labs: Short CBC 11/14/17 Range/Units 06:10 WBC 11.9 H (4.3-11.1) K/mcL Hgb 12.6 L (12.9-16.9) g/dL Hct 36.3 L (37.5-50.1) % Plt Count 309 (140-400) K/mcL Neutrophils # 10.3 H (1.6-8.9) K/mcL BMP 11/14/17 06:10 Sodium 136 Potassium 3.6 Chloride 103 Carbon Dioxide 28 BUN 27 H Creatinine 1.29 Glucose 222 H Calcium 8.6 - ABG Interpretation ABG results: ABG ABG pH 7.42 pH Units (7.32-7.45) 11/12/17 11:09 ABG pCO2 40 mmHg (35-45) 11/12/17 11:09 ABG pO2 71 mmHg (85-104) L 11/12/17 11:09 ABG O2 Saturation 94 % (95-98) L 11/12/17 11:09 PT/INR, D-dimer PT 13.3 Seconds (9.4-12.1) H 11/08/17 02:00 D-Dimer 2080 ng/mLFEU (0-500) H 11/11/17 04:21 - Impressions Impressions Chest X-Ray 11/14/17 07:00 IMPRESSION: Improving multifocal airspace opacification and pleural effusion in the left hemithorax. Improving airspace disease along the right hemidiaphragm Developing airspace disease right apex Continued follow-up recommended. D/ / Anthony Jay / Anthony Jay Interpreting Provider: Anthony Jay Consult Discharge Plan - Plan Referrals: Tano Lee MD [Primary Care Provider] - 11/19/17 8:30 am (3) Left lower lobe pneumonia Qualifiers: Qualified Code(s): J18.1 - Lobar pneumonia, unspecified organism (5) CAD (coronary artery disease) Qualifiers: Qualified Code(s): I25.10 - Atherosclerotic heart disease of [place] coronary artery without angina pectoris (6) DM2 (diabetes mellitus, type 2) Qualifiers: Qualified Code(s): E11.22 - Type 2 diabetes mellitus with diabetic chronic kidney disease; N18.3 - Chronic kidney disease, stage 3 (moderate); Z79.4 - intermediate (current) use of insulin (7) HTN (hypertension) Qualifiers: Qualified Code(s): I10 - Essential (primary) hypertension (8) COPD (chronic obstructive pulmonary disease) with emphysema Qualifiers: Qualified Code(s): J43.1 - Panlobular emphysema (9) CHF (congestive heart failure) Qualifiers: Qualified Code(s): I50.32 - Chronic diastolic (congestive) heart failure
[2017-11-14] MEDS: Budesonide/Formoterol 160/4.5 1 PUFF INH IH SCH ×2 (11:46→20:31)
[2017-11-15 03:15] LABS: Basophils % 0.1 %; Eosinophils # 0.1 K/mcL (0.0-0.6); Eosinophils % 1.3 %; Hematocrit 35.1 % (37.5-50.1); Hemoglobin 12.1 g/dL (12.9-16.9); Immature Granulocytes % 1.7 % (0-4); Lymphocytes # 0.8 K/mcL (0.6-4.6); Lymphocytes % 8.9 %; Mean Corpuscular HGB Conc 34.5 g/dL (31.6-35.5); Mean Corpuscular Hemoglobin 29.4 pg (28.0-33.3); Mean Corpuscular Volume 85.4 fL (83.0-100.0); Mean Platelet Volume 10.5 fL (9.4-12.4); Monocytes # 0.8 K/mcL (0.0-1.3); Monocytes % 9.6 %; Neutrophils # 6.8 K/mcL (1.6-8.9); Platelet Count 298 K/mcL (140-400); Red Blood Count 4.11 M/mcL (4.19-5.50); Red Cell Distribution Width 13.7 % (11.5-14.5); Segmented Neutrophils % 78.4 %
[2017-11-15 03:35] LABS: BUN/Creatinine Ratio 18 (6-26); Blood Urea Nitrogen 21 mg/dL (8-23); Calcium 8.2 mg/dL (8.6-10.3); Carbon Dioxide 26 mEq/L (23-29); Chloride 102 mEq/L (98-107); Glucose 196 mg/dL (70-105); Magnesium 1.5 mg/dL (1.6-2.6); Osmolality,Calculated 286 (280-300); Phosphorous 1.9 mg/dL (2.7-4.5); Potassium 3.3 mEq/L (3.5-5.1); Sodium 134 mEq/L (136-145); eGFR For Non-African Americans > 60 (> 60)
[2017-11-15] MEDS: *HR* Heparin 5,000 UNIT/ML VIAL SQ SCH ×2 (06:38→16:17)
[2017-11-15] MEDS: Budesonide/Formoterol 160/4.5 1 PUFF INH IH SCH ×2 (07:41→20:06)
[2017-11-15] MEDS: Azithromycin 250 MG TABLET PO SCH (09:10)
[2017-11-15] MEDS: Pregabalin 50 MG CAPSULE PO SCH ×2 (09:10→21:41)
[2017-11-15] MEDS: Fenofibrate 54 MG TABLET PO SCH (09:10)
[2017-11-15] MEDS: Aspirin Enteric Coated 81 MG Tablet PO SCH (09:10)
[2017-11-15] MEDS: Isosorbide MONOnitrate (24 HR) 30 MG TAB.ER.24H PO SCH (09:10)
[2017-11-15] MEDS: amLODIPine 5 MG TABLET PO SCH (09:10)
[2017-11-15] MEDS: Lactobacillus 1 EACH CAP.SPRINK PO SCH (09:11)
[2017-11-15] MEDS: Insulin LISPRO 300 UNITS/3 ML VIAL SQ SCH ×4 (09:11→21:40)
[2017-11-15] MEDS: Folic Acid 1 MG TABLET PO SCH ×2 (09:11→21:42)
[2017-11-15] MEDS: Piperacillin/Tazobactam 3.375 GM in 0.9 % Sodium Chloride Mini Bag 100 ML IVPB SCH ×2 (09:12→16:17)
[2017-11-15] MEDS ORDERED: Magnesium Oxide 400 MG TABLET PO ONE (11:00)
--- NOTE | 2017-11-15 11:38 | Pulmonology Progress Note ---
Date of Encounter: 11/15/17 Time of Encounter: 11:37 Assessment and Plan (1) Acute respiratory failure with hypoxia Current Visit: Yes Status: Acute Continue high flow nasal cannula oxygen I suspect that both the right and FiO2 can be weaned over the course of the day and I have instructed the staff to decrease this as long as oxygen saturation is above 88% (2) Left lower lobe pneumonia Current Visit: Yes Status: Acute The patient had a urine antigen positive for Legionella and has been on atypical coverage with azithromycin which is appropriate. He will need at least 7 days of treatment for this and possibly longer based upon clinical course. I would not stop atypical coverage at this time He was brought in because of severity of pneumonia in 2 Zosyn and vancomycin. He is status post bronchoscopy and cultures from that were negative for any organism as of yet. Because of these results I recommend stopping vancomycin as is no clear indication of the patient has MRSA infection. In my estimation is just is reasonable to continue respiratory fluoroquinolone ( levaquin) at this point for a total treatment of 8-10 days from initiation of antimicrobials as opposed to having to antibiotics (or 3) given of the cultures have been negative and his overall improvement. Would be helpful to get the recommendations from the infectious disease service regarding this. Qualifiers: Pneumonia type: due to unspecified organism Qualified Code(s): J18.1 - Lobar pneumonia, unspecified organism (3) COPD (chronic obstructive pulmonary disease) with emphysema Current Visit: Yes Status: Chronic Continue bronchodilators and Symbicort. Qualifiers: Emphysema type: panlobular Qualified Code(s): J43.1 - Panlobular emphysema (4) Multiple tracheobronchial mucus plugs Current Visit: Yes Status: Resolved Continue aggressive bronchopulmonary toileting will add chest percussive therapy today to the left side Subjective Principal diagnosis: Dyspnea Interval history: Mr Valencia states that in general he is feeling better. In fact he is asking when he can "go home" he remains on high flow nasal cannula delivery at the 50s 60 L and minutes, 60% FiO2 and oxygen saturation has been 96-98% while I was in the room.. He is able to get out of the bed and into the chair yesterday and his been diligent about using incentive spirometer which I encouraged him to continue to use Objective PUL Vital signs: Last Vital Signs Temp 98.0 F 11/15/17 11:25 Pulse 73 11/15/17 11:25 Resp 20 11/15/17 11:25 BP 126/67 11/15/17 11:25 Pulse Ox 95 11/15/17 11:25 General appearance: no acute distress Eyes: nonicteric ENT: oropharynx moist Auscultation: left: diminished breath sounds, bilateral: rhonchi Cardiovascular: regular rate and rhythm Gastrointestinal: normoactive bowel sounds Integumentary: normal Extremities: no cyanosis, no edema, no clubbing Musculoskeletal: no deformities normal mental status, non-focal exam mood appropriate Results - Laboratory Findings CBC and BMP: 11/15/17 02:55 11/15/17 02:55 ABG ABG pH 7.42 pH Units (7.32-7.45) 11/12/17 11:09 ABG pCO2 40 mmHg (35-45) 11/12/17 11:09 ABG pO2 71 mmHg (85-104) L 11/12/17 11:09 ABG O2 Saturation 94 % (95-98) L 11/12/17 11:09 PT/INR, D-dimer PT 13.3 Seconds (9.4-12.1) H 11/08/17 02:00 D-Dimer 2080 ng/mLFEU (0-500) H 11/11/17 04:21 Abnormal lab findings: Abnormal lab results RBC 4.11 M/mcL (4.19-5.50) L 11/15/17 02:55 Hgb 12.1 g/dL (12.9-16.9) L 11/15/17 02:55 Hct 35.1 % (37.5-50.1) L 11/15/17 02:55 PT 13.3 Seconds (9.4-12.1) H 11/08/17 02:00 D-Dimer 2080 ng/mLFEU (0-500) H 11/11/17 04:21 ABG pO2 71 mmHg (85-104) L 11/12/17 11:09 ABG Total CO2 27 mEq/L (20-26) H 11/12/17 11:09 ABG O2 Saturation 94 % (95-98) L 11/12/17 11:09 VBG pCO2 37 mmHg (41-51) L 11/08/17 02:28 Sodium 134 mEq/L (136-145) L 11/15/17 02:55 Potassium 3.3 mEq/L (3.5-5.1) L 11/15/17 02:55 Glucose 196 mg/dL (70-105) H 11/15/17 02:55 POC Glucose 223 mg/dL (70-99) H 11/14/17 19:57 Calcium 8.2 mg/dL (8.6-10.3) L 11/15/17 02:55 Phosphorus 1.9 mg/dL (2.7-4.5) L 11/15/17 02:55 Magnesium 1.5 mg/dL (1.6-2.6) L 11/15/17 02:55 Direct Bilirubin 0.3 mg/dL (0.0-0.2) H 11/13/17 00:33 AST 55 Units/L (13-39) H 11/13/17 00:33 Alkaline Phosphatase 188 Units/L (34-104) H 11/13/17 00:33 Troponin I 0.06 ng/mL (< 0.04) H* 11/09/17 15:04 Serum Total Protein 5.1 g/dL (6.4-8.9) L 11/13/17 00:33 Albumin 2.3 g/dL (3.5-5.7) L 11/13/17 00:33 Albumin/Globulin Ratio 0.8 (1.1-2.2) L 11/13/17 00:33 Lipase 4 Units/L (11-82) L 11/08/17 02:00 Ur Specific [place] > 1.030 (1.010-1.025) H 11/12/17 21:41 Urine Protein 100 mg/dL (Neg-Trace) H 11/12/17 21:41 Urine Glucose (UA) 250 mg/dL (Normal) H 11/12/17 21:41 Urine Microscopic RBC 3-5 per hpf (0-3) H 11/12/17 21:41 Ur Squamous Epith Cells Moderate per lpf (None-Few) H 11/12/17 21:41 Protein/Creatinin Ratio 0.97 mg/mg (0.00-0.20) H 11/12/17 21:41 Urine Total Protein 100 mg/dL (1-14) H 11/12/17 21:41 Vancomycin Trough 20 mcg/mL (5-10) H 11/15/17 02:55 - Microbiology Findings Microbiology Findings: Microbiology, Last 48 Hours 11/12/17 13:46 Respiratory Culture - Final Left Lower Lobe Lung 11/12/17 13:46 Acid Fast Stain - Final Left Lower Lobe Lung - Diagnostic Findings Chest x-ray: report reviewed, image reviewed - Clinical Findings Intake & Output: Intake & Output 11/14/17 11/15/17 11/15/17 23:59 07:59 15:59 Intake Total 1390 / 1390 340 / 340 Output Total 250 / 250 795 / 795 Balance 1140 / 1140 -455 / -455 Weight 84.1 kg Consult Discharge Plan - Plan Referrals: Tano Lee MD [Primary Care Provider] - 11/19/17 8:30 am
--- NOTE | 2017-11-15 12:53 | Internal Med Progress Note ---
Hospitalist Progress Note - Encounter Date of Encounter: 11/15/17 Time of Encounter: 12:50 - Subjective Interval History: Patient seen and examined at bedside. Patient had no acute overnight events . Remains on high flow oxygen therapy. on 50-60 lpm and 60% fio2 earlier this am; now at 40lpm and 50% fio2 with saturation of 97%. Patient states that he feels much better this morning. Patient sitting in chair and has been ambulating in room. Patient states he has been using incentive spirometer frequently. Patient admits to cough with very little sputum production. Patient denies chest pain, nausea, vomiting, diarrhea. Patient's been afebrile. - Exam Vitals: Temp Pulse Resp BP Pulse Ox 98.0 F 73 20 126/67 95 11/15/17 11:25 11/15/17 11:25 11/15/17 11:25 11/15/17 11:25 11/15/17 11:25 Exam: Constitutional: No acute distress, Alert appears comfortable Psych: AAO x 3 Cardio: regular rate and rhythm, +s1s2, no murmurs Resp: Coarse breath sounds throughout vastly Improved from yesterday Abd: soft, non tender/non distended Extremities: no clubbing/cyanosis/edema appreciated Neuro: no focal deficits appreciated - Assessment and Plan (1) Acute respiratory failure with hypoxia Current Visit: Yes Status: Acute Assessment and Plan: Patient with acute hypoxic respiratory failure requiring high flow nasal cannula and noninvasive ventilation -Secondary to severe pneumonia -doing well on hi flow oxygen thereapy with fio2 of 50% currently with flow of 40lpm; titrate down to saturation of 88-92% -Continue ABX; vanco/zosyn/azithromycin- likely change to levaquin alone soon; all culutres negative -Legionella positive -bronchoscopy 11/13 with large amount of mucus removed and cx sent; gram stain negative; lots of WBCs but no bacteria -cxr reviewed today improved from prior but still with significant opacification of left hemithorax -pulm following -incetive spirometry encouraged (2) Severe sepsis Current Visit: Yes Status: Acute Assessment and Plan: Patient with severe sepsis with end organ dysfunction involving respiratory and renal dysfunction -Secondary to extensive pneumonia -Legionella positive other cultures negative to date -Continue vancomycin and Zosyn and azithromycin; possibly change to levquin alone soon; d/w ID tomorrow -ID following -bronch cx with no growth -now afebrile and hypothermia has resolved (3) Left lower lobe pneumonia Current Visit: Yes Status: Acute Assessment and Plan: - Legionella antigen positive --Concern for possible aspiration per CT findings. -Continue IV antibiotics Zosyn, Zosyn, azithromycin; consider deesclation soon -Continue 02 as needed to maintain sats > 88 in light of COPD hx -Severe sepsis 2/2 pna -now on hi flow oxygen therapy with decreasing oxygen requirments -CTA revealed LLL consolidation -Pulm and ID followoing, apreciate recs -cultures remain negative -cxr today slightly improved; check in am -encouraged incentive spirometry and ambulation (4) Chronic kidney disease, stage III (moderate) Current Visit: Yes Status: Chronic Assessment and Plan: -ZAID with CKD stage III -likely 2/2 ATN due to sepsis -Cr similar to admission but intially improved with worsening; improved to 1.14 today -FeNa pre renal at 0.2%; given IVF -Non nephrotic range proteinuria -continue to hold lisinopril for now -pharmacy to renally dose ABX (5) CAD (coronary artery disease) Current Visit: Yes Assessment and Plan: Chronic. Patient denies chest pain. Continue home medications. Continue telemetry (6) DM2 (diabetes mellitus, type 2) Current Visit: Yes Status: Chronic Assessment and Plan: Chronic. Continue SSI, Levemir at bedtime, diabetic diet, accuchecks achs. (7) HTN (hypertension) Current Visit: Yes Status: Chronic Assessment and Plan: Chronic. -lisinopril held 2/2 worsening renal fxn -BB held 2/2 bradycardia (8) COPD (chronic obstructive pulmonary disease) with emphysema Current Visit: Yes Status: Chronic Assessment and Plan: Plan as above pneumonia. no copd exacerbation (9) CHF (congestive heart failure) Current Visit: Yes Status: Chronic Assessment and Plan: -No acute exacerbation. -Continue to hold Lasix for renal function. -not decompensated -echo with ef 60% DVT Prophylaxis: Heparin SQ - Summary of Assessment and Plan Summary of Assessment and Plan: -Deescalate Abx soon -Encourage incentive spirometry and ambulation. -hi flow oxygen therapy and wean as tolerated; oxygen requirements improving -Remains very high risk for complications and deterioration - Time Spent with Patient Total time spent is greater than 50% in coordination of care (as documented) at patient's floor/unit and/or counseling patient: 25 - 35 minutes Plan of Care Discussed with: family Internal Medicine: Result - Labs CBC & Chem 7: 11/15/17 02:55 11/15/17 02:55 Labs: Short CBC 11/15/17 Range/Units 02:55 WBC 8.6 (4.3-11.1) K/mcL Hgb 12.1 L (12.9-16.9) g/dL Hct 35.1 L (37.5-50.1) % Plt Count 298 (140-400) K/mcL Neutrophils # 6.8 (1.6-8.9) K/mcL BMP 11/15/17 02:55 Sodium 134 L Potassium 3.3 L Chloride 102 Carbon Dioxide 26 BUN 21 Creatinine 1.14 Glucose 196 H Calcium 8.2 L - ABG Interpretation ABG results: ABG ABG pH 7.42 pH Units (7.32-7.45) 11/12/17 11:09 ABG pCO2 40 mmHg (35-45) 11/12/17 11:09 ABG pO2 71 mmHg (85-104) L 11/12/17 11:09 ABG O2 Saturation 94 % (95-98) L 11/12/17 11:09 PT/INR, D-dimer PT 13.3 Seconds (9.4-12.1) H 11/08/17 02:00 D-Dimer 2080 ng/mLFEU (0-500) H 11/11/17 04:21 - Impressions Impressions Chest X-Ray 11/15/17 06:00 IMPRESSION: Slightly improved aeration of the left upper lobe. Majority of the left hemithorax remains opacified. Continued follow-up is recommended. D/ / 11/15/2017 09:10:43 Tarik Chavarria MD / Cora Rodriguez Interpreting Provider: Tarik Chavarria MD Consult Discharge Plan - Plan Referrals: Tano Lee MD [Primary Care Provider] - 11/19/17 8:30 am (3) Left lower lobe pneumonia Qualifiers: Pneumonia type: due to unspecified organism Qualified Code(s): J18.1 - Lobar pneumonia, unspecified organism (5) CAD (coronary artery disease) Qualifiers: Coronary Disease-Associated Artery/Lesion type: [place] artery [place] vs. transplanted heart: [place] heart Associated angina: without angina Qualified Code(s): I25.10 - Atherosclerotic heart disease of [place] coronary artery without angina pectoris (6) DM2 (diabetes mellitus, type 2) Qualifiers: Diabetes mellitus [employer] insulin use: with [employer] use Diabetes mellitus complication status: with kidney complications Diabetes mellitus complication detail: with chronic kidney disease Chronic kidney disease stage: stage 3 (moderate) Qualified Code(s): E11.22 - Type 2 diabetes mellitus with diabetic chronic kidney disease; N18.3 - Chronic kidney disease, stage 3 ( moderate); Z79.4 - [place] (current) use of insulin (7) HTN (hypertension) Qualifiers: Hypertension type: essential hypertension Qualified Code(s): I10 - Essential (primary) hypertension (8) COPD (chronic obstructive pulmonary disease) with emphysema Qualifiers: Emphysema type: panlobular Qualified Code(s): J43.1 - Panlobular emphysema (9) CHF (congestive heart failure) Qualifiers: Heart failure type: diastolic Heart failure chronicity: chronic Qualified Code(s): I50.32 - Chronic diastolic (congestive) heart failure
[2017-11-16] MEDS: Piperacillin/Tazobactam 3.375 GM in 0.9 % Sodium Chloride Mini Bag 100 ML IVPB SCH ×4 (00:19→23:53)
[2017-11-16 04:29] LABS: Basophils % 0.2 %; Eosinophils # 0.2 K/mcL (0.0-0.6); Eosinophils % 1.9 %; Hematocrit 34.5 % (37.5-50.1); Immature Granulocytes % 1.8 % (0-4); Lymphocytes # 0.8 K/mcL (0.6-4.6); Lymphocytes % 8.4 %; Mean Corpuscular HGB Conc 34.8 g/dL (31.6-35.5); Mean Corpuscular Hemoglobin 29.4 pg (28.0-33.3); Mean Corpuscular Volume 84.6 fL (83.0-100.0); Mean Platelet Volume 10.6 fL (9.4-12.4); Monocytes # 0.7 K/mcL (0.0-1.3); Monocytes % 7.8 %; Neutrophils # 7.3 K/mcL (1.6-8.9); Platelet Count 295 K/mcL (140-400); Red Blood Count 4.08 M/mcL (4.19-5.50); Red Cell Distribution Width 13.6 % (11.5-14.5); Segmented Neutrophils % 79.9 %
[2017-11-16 04:44] LABS: BUN/Creatinine Ratio 17 (6-26); Blood Urea Nitrogen 16 mg/dL (8-23); Calcium 8.1 mg/dL (8.6-10.3); Carbon Dioxide 26 mEq/L (23-29); Chloride 102 mEq/L (98-107); Glucose 200 mg/dL (70-105); Magnesium 1.4 mg/dL (1.6-2.6); Osmolality,Calculated 289 (280-300); Phosphorous 2.4 mg/dL (2.7-4.5); Potassium 3.3 mEq/L (3.5-5.1); Sodium 136 mEq/L (136-145); eGFR For Non-African Americans > 60 (> 60)
[2017-11-16] MEDS: *HR* Heparin 5,000 UNIT/ML VIAL SQ SCH ×2 (06:33→16:16)
[2017-11-16] MEDS: Budesonide/Formoterol 160/4.5 1 PUFF INH IH SCH ×2 (07:57→19:39)
[2017-11-16] MEDS: Isosorbide MONOnitrate (24 HR) 30 MG TAB.ER.24H PO SCH (08:39)
[2017-11-16] MEDS: amLODIPine 5 MG TABLET PO SCH (08:39)
[2017-11-16] MEDS: Pregabalin 50 MG CAPSULE PO SCH ×2 (08:39→20:51)
[2017-11-16] MEDS: Aspirin Enteric Coated 81 MG Tablet PO SCH (08:39)
[2017-11-16] MEDS: Lactobacillus 1 EACH CAP.SPRINK PO SCH (08:39)
[2017-11-16] MEDS: Folic Acid 1 MG TABLET PO SCH ×2 (08:40→20:52)
[2017-11-16] MEDS: Azithromycin 250 MG TABLET PO SCH (08:40)
[2017-11-16] MEDS: Fenofibrate 54 MG TABLET PO SCH (08:46)
[2017-11-16] MEDS: Insulin LISPRO 300 UNITS/3 ML VIAL SQ SCH ×4 (08:48→16:40)
--- NOTE | 2017-11-16 08:51 | Pulmonology Progress Note ---
<Kvng Mcclure M - Last Filed: 11/16/17 11:33> Date of Encounter: 11/16/17 Assessment and Plan (1) Acute respiratory failure with hypoxia Current Visit: No Status: Acute (2) Left lower lobe pneumonia Current Visit: Yes Status: Acute Qualifiers: Pneumonia type: due to unspecified organism Qualified Code(s): J18.1 - Lobar pneumonia, unspecified organism (3) Multiple tracheobronchial mucus plugs Current Visit: Yes Status: Resolved Objective PUL Vital signs: Last Vital Signs Temp 98.1 F 11/16/17 11:08 Pulse 64 11/16/17 11:08 Resp 16 11/16/17 11:08 BP 141/85 11/16/17 11:08 Pulse Ox 94 11/16/17 11:08 Results - Laboratory Findings CBC and BMP: 11/16/17 03:59 11/16/17 03:59 ABG ABG pH 7.42 pH Units (7.32-7.45) 11/12/17 11:09 ABG pCO2 40 mmHg (35-45) 11/12/17 11:09 ABG pO2 71 mmHg (85-104) L 11/12/17 11:09 ABG O2 Saturation 94 % (95-98) L 11/12/17 11:09 PT/INR, D-dimer PT 13.3 Seconds (9.4-12.1) H 11/08/17 02:00 D-Dimer 2080 ng/mLFEU (0-500) H 11/11/17 04:21 Abnormal lab findings: Abnormal lab results RBC 4.08 M/mcL (4.19-5.50) L 11/16/17 03:59 Hgb 12.0 g/dL (12.9-16.9) L 11/16/17 03:59 Hct 34.5 % (37.5-50.1) L 11/16/17 03:59 PT 13.3 Seconds (9.4-12.1) H 11/08/17 02:00 D-Dimer 2080 ng/mLFEU (0-500) H 11/11/17 04:21 ABG pO2 71 mmHg (85-104) L 11/12/17 11:09 ABG Total CO2 27 mEq/L (20-26) H 11/12/17 11:09 ABG O2 Saturation 94 % (95-98) L 11/12/17 11:09 VBG pCO2 37 mmHg (41-51) L 11/08/17 02:28 Potassium 3.3 mEq/L (3.5-5.1) L 11/16/17 03:59 Glucose 200 mg/dL (70-105) H 11/16/17 03:59 POC Glucose 269 mg/dL (70-99) H 11/15/17 15:33 Calcium 8.1 mg/dL (8.6-10.3) L 11/16/17 03:59 Phosphorus 2.4 mg/dL (2.7-4.5) L 11/16/17 03:59 Magnesium 1.4 mg/dL (1.6-2.6) L 11/16/17 03:59 Direct Bilirubin 0.3 mg/dL (0.0-0.2) H 11/13/17 00:33 AST 55 Units/L (13-39) H 11/13/17 00:33 Alkaline Phosphatase 188 Units/L (34-104) H 11/13/17 00:33 Troponin I 0.06 ng/mL (< 0.04) H* 11/09/17 15:04 Serum Total Protein 5.1 g/dL (6.4-8.9) L 11/13/17 00:33 Albumin 2.3 g/dL (3.5-5.7) L 11/13/17 00:33 Albumin/Globulin Ratio 0.8 (1.1-2.2) L 11/13/17 00:33 Lipase 4 Units/L (11-82) L 11/08/17 02:00 Ur Specific [place] > 1.030 (1.010-1.025) H 11/12/17 21:41 Urine Protein 100 mg/dL (Neg-Trace) H 11/12/17 21:41 Urine Glucose (UA) 250 mg/dL (Normal) H 11/12/17 21:41 Urine Microscopic RBC 3-5 per hpf (0-3) H 11/12/17 21:41 Ur Squamous Epith Cells Moderate per lpf (None-Few) H 11/12/17 21:41 Protein/Creatinin Ratio 0.97 mg/mg (0.00-0.20) H 11/12/17 21:41 Urine Total Protein 100 mg/dL (1-14) H 11/12/17 21:41 Vancomycin Trough 20 mcg/mL (5-10) H 11/15/17 02:55 - Microbiology Findings Microbiology Findings: Microbiology, Last 48 Hours 11/12/17 13:46 Acid Fast Stain - Final Left Lower Lobe Lung 11/12/17 13:46 Respiratory Culture - Final Left Lower Lobe Lung - Clinical Findings Intake & Output: Intake & Output 11/15/17 11/16/17 11/16/17 23:59 07:59 15:59 Intake Total 100 / 100 200 / 200 490 / 490 Output Total 900 / 900 1400 / 1400 200 / 200 Balance -800 / -800 -1200 / -1200 290 / 290 Consult Discharge Plan - Plan Referrals: Tano Lee MD [Primary Care Provider] - 11/19/17 8:30 am - Attending Attestation I examined this patient and my medical decision-making was reviewed with the Resident Physician. I agree with the documented findings, disposition and treatment plan as described except to the extent set forth below. Patient seen and examined. Labs, radiology, chart personally reviewed. Agree with resident's history and physical, assessment, plan with following comments: PIPE COVERER: Patient follows commands, Pulmonary: Acceptable oxygenation and ventilation and clinically patient had some improvement we will continue to wean off FiO2 and encourage mobilization. Incentive spirometry is important. Cardiovascular: stable Heme: DVT prophylaxis per routine ID: Continue antibiotics and plan to de-escalation. Infectious disease is following up and I believe de-escalation will be reasonable. We will continue follow-up and reviewed chest x-ray with improvement in aeration. <Layo Samano - Last Filed: 11/16/17 14:27> Date of Encounter: 11/16/17 Time of Encounter: 08:49 Assessment and Plan (1) Acute and chronic respiratory failure with hypoxia Current Visit: No Status: Acute Pt currently on high flow NC with FiO2 at 40% Continue to wean with SpO2 target >88% to regular NC at home. Discussed this with both pt and nurse. Discussed using home O2 in a short term maintenance capacity upon discharge rather than as rescue (2) Left lower lobe pneumonia Current Visit: Yes Status: Acute s/p bronchoscopy on 11/12 AFB and GMS cultures negative CXR fron 11/15 showed mild improvement of aeration on Left side with continued lower opacification Day 9 of Azithromycin Day 6 of Vancomycin Day 6 of Zosyn abx per infectious disease recommendations Continue chest percussive therapy to left side Qualifiers: Pneumonia type: due to unspecified organism Qualified Code(s): J18.1 - Lobar pneumonia, unspecified organism (3) COPD (chronic obstructive pulmonary disease) with emphysema Current Visit: Yes Status: Chronic Continue Symbicort and Albuterol Qualifiers: Emphysema type: panlobular Qualified Code(s): J43.1 - Panlobular emphysema Subjective Principal diagnosis: Dyspnea Interval history: No acute events overnight. Pt states he is feeling much better and wants to go home. Tolerating FiO2 weaning well. Currently at 40% during this encounter. Pt denies any chest pain, fever, chills, nausea, vomiting, numbness, or tingling. States he uses O2 at home intermittently when he feels he needs to use it. Objective PUL Vital signs: Last Vital Signs Temp 98.4 F 11/16/17 07:11 Pulse 67 11/16/17 07:11 Resp 16 11/16/17 07:57 BP 176/86 11/16/17 07:11 Pulse Ox 95 11/16/17 07:57 General appearance: no acute distress Eyes: nonicteric ENT: oropharynx moist Neck: supple, no lymphadenopathy, no JVD Effort: normal Auscultation: left: diminished breath sounds (left lower ), bilateral: rales ( upper lobes bilaterally ) Percussion: bilateral: not dull Tactile fremitus: bilateral: normal Cardiovascular: regular rate and rhythm, murmur noted (+2 systolic murmur) Gastrointestinal: soft, non-tender, non-distended Integumentary: normal Extremities: no cyanosis, no edema, no clubbing, pink and warm Musculoskeletal: no deformities normal mental status, non-focal exam mood appropriate, affect normal Results - Laboratory Findings CBC and BMP: 11/16/17 03:59 11/16/17 03:59 ABG ABG pH 7.42 pH Units (7.32-7.45) 11/12/17 11:09 ABG pCO2 40 mmHg (35-45) 11/12/17 11:09 ABG pO2 71 mmHg (85-104) L 11/12/17 11:09 ABG O2 Saturation 94 % (95-98) L 11/12/17 11:09 PT/INR, D-dimer PT 13.3 Seconds (9.4-12.1) H 11/08/17 02:00 D-Dimer 2080 ng/mLFEU (0-500) H 11/11/17 04:21 Abnormal lab findings: Abnormal lab results RBC 4.08 M/mcL (4.19-5.50) L 11/16/17 03:59 Hgb 12.0 g/dL (12.9-16.9) L 11/16/17 03:59 Hct 34.5 % (37.5-50.1) L 11/16/17 03:59 PT 13.3 Seconds (9.4-12.1) H 11/08/17 02:00 D-Dimer 2080 ng/mLFEU (0-500) H 11/11/17 04:21 ABG pO2 71 mmHg (85-104) L 11/12/17 11:09 ABG Total CO2 27 mEq/L (20-26) H 11/12/17 11:09 ABG O2 Saturation 94 % (95-98) L 11/12/17 11:09 VBG pCO2 37 mmHg (41-51) L 11/08/17 02:28 Potassium 3.3 mEq/L (3.5-5.1) L 11/16/17 03:59 Glucose 200 mg/dL (70-105) H 11/16/17 03:59 POC Glucose 269 mg/dL (70-99) H 11/15/17 15:33 Calcium 8.1 mg/dL (8.6-10.3) L 11/16/17 03:59 Phosphorus 2.4 mg/dL (2.7-4.5) L 11/16/17 03:59 Magnesium 1.4 mg/dL (1.6-2.6) L 11/16/17 03:59 Direct Bilirubin 0.3 mg/dL (0.0-0.2) H 11/13/17 00:33 AST 55 Units/L (13-39) H 11/13/17 00:33 Alkaline Phosphatase 188 Units/L (34-104) H 11/13/17 00:33 Troponin I 0.06 ng/mL (< 0.04) H* 11/09/17 15:04 Serum Total Protein 5.1 g/dL (6.4-8.9) L 11/13/17 00:33 Albumin 2.3 g/dL (3.5-5.7) L 11/13/17 00:33 Albumin/Globulin Ratio 0.8 (1.1-2.2) L 11/13/17 00:33 Lipase 4 Units/L (11-82) L 11/08/17 02:00 Ur Specific [place] > 1.030 (1.010-1.025) H 11/12/17 21:41 Urine Protein 100 mg/dL (Neg-Trace) H 11/12/17 21:41 Urine Glucose (UA) 250 mg/dL (Normal) H 11/12/17 21:41 Urine Microscopic RBC 3-5 per hpf (0-3) H 11/12/17 21:41 Ur Squamous Epith Cells Moderate per lpf (None-Few) H 11/12/17 21:41 Protein/Creatinin Ratio 0.97 mg/mg (0.00-0.20) H 11/12/17 21:41 Urine Total Protein 100 mg/dL (1-14) H 11/12/17 21:41 Vancomycin Trough 20 mcg/mL (5-10) H 11/15/17 02:55 - Microbiology Findings Microbiology Findings: Microbiology, Last 48 Hours 11/12/17 13:46 Acid Fast Stain - Final Left Lower Lobe Lung 11/12/17 13:46 Respiratory Culture - Final Left Lower Lobe Lung - Diagnostic Findings Chest x-ray: report reviewed, image reviewed - Clinical Findings Intake & Output: Intake & Output 11/15/17 11/16/17 11/16/17 23:59 07:59 15:59 Intake Total 100 / 100 100 / 100 Output Total 900 / 900 1400 / 1400 Balance -800 / -800 -1300 / -1300
[2017-11-16] MEDS ORDERED: Potassium Chloride Elixir 20 MEQ/15 ML UDC PO ONE (15:15)
--- NOTE | 2017-11-16 15:44 | Internal Med Progress Note ---
Hospitalist Progress Note - Encounter Date of Encounter: 11/16/17 Time of Encounter: 15:36 - Subjective Interval History: Patient seen and evaluated at bedside. Reports improvement in his respiratory status, still requiring high flow at 40%. Denies shortness of breath, chest pain. Lightheadedness, dizziness, blood in the stool or in the sputum. - Exam Vitals: Temp Pulse Resp BP Pulse Ox 98.1 F 64 16 141/85 94 11/16/17 11:25 11/16/17 11:25 11/16/17 11:25 11/16/17 11:11/16/17 11:25 Exam: General: Alert and oriented. No acute distress Cardiovascular: Normal S1 & S2, no rubs, murmurs or gallops. No JVD. Lungs: Rales and crackles on auscultation in the left lower lobe. Clear to auscultation the right lung. Abdomen: Soft, non-tender, no rigidity. Extremities: No edema or tenderness, no joint swelling or clubbing. Neurological: Normal cognition and motor skills. Rest of the physical exam is non contributory - Assessment and Plan (1) Acute respiratory failure with hypoxia Current Visit: Yes Status: Acute Assessment and Plan: Patient is to be on high flow 40%. O2 sat of 94%. No respiratory distress. Plan: - Continue with high flow oxygen. Titrate as per toy mechanic recommendation. - 6 minute walk. (2) Left lower lobe pneumonia Current Visit: Yes Status: Acute Assessment and Plan: Legionella positive in the urine. Plan: - Patient on multiple antibiotics, vancomycin, Azythromycin, ceftriaxone. - We will discuss with ID de-escalating to levofloxacin. - Chest PT. - Continue incentive spirometry - Repeat chest x-ray in the morning - Follow up final blood cultures result (3) CAD (coronary artery disease) Current Visit: Yes Assessment and Plan: Plan: -On aspirin, statin and fenofibrate (4) DM2 (diabetes mellitus, type 2) Current Visit: Yes Status: Chronic Assessment and Plan: Blood sugars sub-optimally controlled. Patient at home on an insulin pump. Plan: - Will start patient on Levemir 5 units - Continue lispro sliding scale - Lispro 3 units before meals - will monitor for adjustment if needed (5) HTN (hypertension) Current Visit: Yes Status: Chronic Assessment and Plan: Blood pressure suboptimally controlled Plan: - On amlodipine 5 mg by mouth daily - will start low-dose furosemide 20 mg BID (6) COPD (chronic obstructive pulmonary disease) with emphysema Current Visit: Yes Status: Chronic Assessment and Plan: Crackles on the left lower lobe. Most likely due to resolving pneumonia. Plan: - Continue Symbicort - On guaifenesin (7) Chronic kidney disease, stage III (moderate) Current Visit: Yes Status: Resolved Assessment and Plan: Kidney function has improved. Plan: - Avoid nephrotoxic medications - Started on low dose lasix for better BP control (8) CHF (congestive heart failure) Current Visit: Yes Status: Chronic Assessment and Plan: Not in acute exacerbation Plan: - Continue carvedilol and isosorbide. (9) Hypokalemia Current Visit: Yes Status: Acute Assessment and Plan: Plan: - Electrolytes replace. (10) Hypomagnesemia Current Visit: Yes Status: Acute Assessment and Plan: Plan: - Electrolyte replaced DVT Prophylaxis: Chemical and mechanical DVT prophylaxis. On heparin 5000 unit subcutaneous every 12 hours - Summary of Assessment and Plan Summary of Assessment and Plan: Hypoxemic respiratory failure requiring high flow of 40%. With O2 sat 92%. - Time Spent with Patient Total time spent is greater than 50% in coordination of care (as documented) at patient's floor/unit and/or counseling patient: Greater than 35 minutes Plan of Care Discussed with: patient Internal Medicine: Result - Labs CBC & Chem 7: 11/16/17 03:59 11/16/17 03:59 Labs: Short CBC 11/16/17 Range/Units 03:59 WBC 9.1 (4.3-11.1) K/mcL Hgb 12.0 L (12.9-16.9) g/dL Hct 34.5 L (37.5-50.1) % Plt Count 295 (140-400) K/mcL Neutrophils # 7.3 (1.6-8.9) K/mcL BMP 11/16/17 03:59 Sodium 136 Potassium 3.3 L Chloride 102 Carbon Dioxide 26 BUN 16 Creatinine 0.94 Glucose 200 H Calcium 8.1 L - ABG Interpretation ABG results: ABG ABG pH 7.42 pH Units (7.32-7.45) 11/12/17 11:09 ABG pCO2 40 mmHg (35-45) 11/12/17 11:09 ABG pO2 71 mmHg (85-104) L 11/12/17 11:09 ABG O2 Saturation 94 % (95-98) L 11/12/17 11:09 PT/INR, D-dimer PT 13.3 Seconds (9.4-12.1) H 11/08/17 02:00 D-Dimer 2080 ng/mLFEU (0-500) H 11/11/17 04:21 - Impressions Impressions Chest X-Ray 11/15/17 06:00 IMPRESSION: Slightly improved aeration of the left upper lobe. Majority of the left hemithorax remains opacified. Continued follow-up is recommended. D/ / 11/15/2017 09:10:43 Tarik Chavarria MD / Cora Rodriguez Interpreting Provider: Tarik Chavarria MD Consult Discharge Plan - Plan Referrals: Tano Lee MD [Primary Care Provider] - 11/19/17 8:30 am (2) Left lower lobe pneumonia Qualifiers: Pneumonia type: due to unspecified organism Qualified Code(s): J18.1 - Lobar pneumonia, unspecified organism (3) CAD (coronary artery disease) Qualifiers: Coronary Disease-Associated Artery/Lesion type: [place] artery [place] vs. transplanted heart: [place] heart Associated angina: without angina Qualified Code(s): I25.10 - Atherosclerotic heart disease of [place] coronary artery without angina pectoris (4) DM2 (diabetes mellitus, type 2) Qualifiers: Diabetes mellitus assisted insulin use: with oysterman use Diabetes mellitus complication status: with kidney complications Diabetes mellitus complication detail: with chronic kidney disease Chronic kidney disease stage: stage 3 (moderate) Qualified Code(s): E11.22 - Type 2 diabetes mellitus with diabetic chronic kidney disease; N18.3 - Chronic kidney disease, stage 3 ( moderate); Z79.4 - MCC (current) use of insulin (5) HTN (hypertension) Qualifiers: Hypertension type: essential hypertension Qualified Code(s): I10 - Essential (primary) hypertension (6) COPD (chronic obstructive pulmonary disease) with emphysema Qualifiers: Emphysema type: panlobular Qualified Code(s): J43.1 - Panlobular emphysema (8) CHF (congestive heart failure) Qualifiers: Heart failure type: diastolic Heart failure chronicity: chronic Qualified Code(s): I50.32 - Chronic diastolic (congestive) heart failure
--- NOTE | 2017-11-16 18:27 | Infectious Disease Progress No ---
Date of Encounter: 11/16/17 Time of Encounter: 10:25 - Assessment and Plan (1) Sepsis Current Visit: Yes Status: Acute The patient had three SIRS criteria plus ZAID on admission. Likely secondary to PNA. Improved. WBC normal. Tachypnea improved. Afebrile. Blood cultures drawn 11/08/17 are negative x 2 sets. Repeat blood cultures 11/11/17 are NGTD x 2 sets. Qualifiers: Sepsis type: Pneumococcus Qualified Code(s): A40.3 - Sepsis due to Streptococcus pneumoniae (2) Left lower lobe pneumonia Current Visit: Yes Status: Acute Location: Left lower lobe. Causative organism: Likely Legionella, but concern for other organisms given the clinical picture. CXR 11/08/16 showed left middle and left lower lobe pneumonia. CT of the chest 11/11/17 showed left lower lobe infiltrate, negative for PE. Review of the CT scan reveals extensive consolidative changes. Clinically improved this morning. Currently off BIPAP. Legion[place] urinary antigen positive. S. pneumo antigen negative. Sputum culture contaminated. Pulmonology consulted. Status post bronch 11/12/17. Procedure note reviewed. Copious mucopurulent secretions and mucous plugs. BAL cultures are negative. Check RIP. --> negative. Continue azithromycin 500mg PO Daily. Continue Zosyn 3.375 grams IV Q8H. Continue Vancomycin IV. Pharmacy to dose. Goal trough ~15. Duration of treatment depends on the clinical picture. Monitor renal function and for drug toxicity and dose-adjust antibiotics. Qualifiers: Pneumonia type: due to unspecified organism Qualified Code(s): J18.1 - Lobar pneumonia, unspecified organism (3) Acute kidney injury Current Visit: No Status: Resolved Likely secondary to sepsis. Appears back to baseline. Continue to trend. Dose-adjust antibiotics. Strict I's and O's. (4) Acute respiratory failure with hypoxia Current Visit: No Status: Acute Likely secondary to PNA. Pulmonology consulted. Status post bronch 11/12/17. O2 per the pulmonology team. (5) CHF (congestive heart failure) Current Visit: Yes Status: Chronic Qualifiers: Heart failure type: diastolic Heart failure chronicity: chronic Qualified Code(s): I50.32 - Chronic diastolic (congestive) heart failure (6) CAD (coronary artery disease) Current Visit: Yes Status: Chronic Qualifiers: Coronary Disease-Associated Artery/Lesion type: [place] artery [place] vs. transplanted heart: [place] heart Associated angina: without angina Qualified Code(s): I25.10 - Atherosclerotic heart disease of [place] coronary artery without angina pectoris (7) HLD (hyperlipidemia) Current Visit: No Status: Acute Qualifiers: Hyperlipidemia type: unspecified Qualified Code(s): E78.5 - Hyperlipidemia , unspecified (8) DM2 (diabetes mellitus, type 2) Current Visit: Yes Status: Chronic Qualifiers: Diabetes mellitus group home insulin use: with group home use Diabetes mellitus complication status: with kidney complications Diabetes mellitus complication detail: with chronic kidney disease Chronic kidney disease stage : stage 3 (moderate) Qualified Code(s): E11.22 - Type 2 diabetes mellitus with diabetic chronic kidney disease; N18.3 - Chronic kidney disease, stage 3 ( moderate); Z79.4 - terminal operator (current) use of insulin (9) Hypothyroidism Current Visit: No Status: Chronic Qualifiers: Hypothyroidism type: unspecified Qualified Code(s): E03.9 - Hypothyroidism , unspecified (10) HTN (hypertension) Current Visit: Yes Status: Chronic Qualifiers: Hypertension type: essential hypertension Qualified Code(s): I10 - Essential (primary) hypertension (11) GERD (gastroesophageal reflux disease) Current Visit: No Status: Chronic Qualifiers: Esophagitis presence: without esophagitis Qualified Code(s): K21.9 - Gastro -esophageal reflux disease without esophagitis - Subjective Interval history: Patient seen and examined. No acute events noted overnight. Patient currently on HFNCO2. States overall he feels better. Denies fevers, chills or rigors. States he is tired and isn't getting much sleep. Denies chest pain or shortness of breath, but does report a moist cough. Denies nausea, vomiting, or diarrhea. Denies abdominal pain or urinary complaints. Reports appetite is improved. Denies oral thrush or skin lesions. Infect Dis PN-Objective Data - Labs CBC & Chem 7: 11/16/17 03:59 11/16/17 03:59 Labs: Laboratory Results - last 24 hr 11/15/17 11/15/17 11/16/17 07:27 11:24 03:59 WBC 9.1 RBC 4.08 L Hgb 12.0 L Hct 34.5 L MCV 84.6 MCH 29.4 MCHC 34.8 RDW 13.6 Plt Count 295 MPV 10.6 Immature Gran % 1.8 Seg Neutrophils % 79.9 Lymphocytes % 8.4 Monocytes % 7.8 Eosinophils % 1.9 Basophils % 0.2 Neutrophils # 7.3 Lymphocytes # 0.8 Monocytes # 0.7 Eosinophils # 0.2 Basophils # 0.0 Sodium Potassium Chloride Carbon Dioxide BUN Creatinine Est GFR ( Amer) Est GFR (Non-Af Amer) BUN/Creatinine Ratio Glucose POC Glucose 194 H 265 H Calculated Osmolality Calcium Phosphorus Magnesium 11/16/17 11/16/17 03:59 16:06 WBC RBC Hgb Hct MCV MCH MCHC RDW Plt Count MPV Immature Gran % Seg Neutrophils % Lymphocytes % Monocytes % Eosinophils % Basophils % Neutrophils # Lymphocytes # Monocytes # Eosinophils # Basophils # Sodium 136 Potassium 3.3 L Chloride 102 Carbon Dioxide 26 BUN 16 Creatinine 0.94 Est GFR ( Amer) > 60 Est GFR (Non-Af Amer) > 60 BUN/Creatinine Ratio 17 Glucose 200 H POC Glucose 319 H Calculated Osmolality 289 Calcium 8.1 L Phosphorus 2.4 L Magnesium 1.4 L Cultures: Cultures 11/11/17 15:42 Blood Culture - Final Peripheral Venipuncture No growth. Final report. 11/11/17 15:42 Blood Culture - Final Peripheral Venipuncture No growth. Final report. 11/12/17 13:46 Acid Fast Stain - Final Left Lower Lobe Lung 11/12/17 13:46 Respiratory Culture - Final Left Lower Lobe Lung 11/10/17 19:13 Sputum Culture - Final Sputum Serology 11/12/17 11/12/17 11/11/17 Range/Units 21:41 21:41 17:00 Urine Color Yellow (Yellow) Urine Clarity Clear (Clear) Urine pH 6.0 (5.0-8.0) pH Units Ur Specific [place] > 1.030 H (1.010-1.025) Urine Protein 100 H (Neg-Trace) mg/dL Urine Glucose (UA) 250 H (Normal) mg/dL Urine Ketones Negative (Negative) mg/dL Urine Blood Negative (Negative) Urine Nitrite Negative (Negative) Urine Bilirubin Negative (Negative) Urine Urobilinogen Normal (Normal) mg/dL Ur Leukocyte Esterase Negative (Negative) Urine Microscopic RBC 3-5 H (0-3) per hpf Urine Microscopic WBC 0-3 (0-3) per hpf Ur Squamous Epith Cells Moderate H (None-Few) per lpf Urine Bacteria None Seen (None-Few) per hpf Hyaline Casts None Seen (None-Few) per lpf Urine Creatinine 103 mg/dL Protein/Creatinin Ratio 0.97 H (0.00-0.20) mg/mg Urine Sodium 16.4 mEq/L Urine Total Protein 100 H (1-14) mg/dL Chlamy pneumoniae PCR Not Detected (Not Detect) Adenovirus (PCR) Not Detected (Not Detect) B. pertussis DNA (PCR) Not Detected (Not Detect) B.parapertussis DNA PCR Not Detected (Not Detect) Coronavirus OC43 (PCR) Not Detected (Not Detect) Coronavirus HKU1 (PCR) Not Detected (Not Detect) Coronavirus 229E (PCR) Not Detected (Not Detect) Coronavirus NL63 (PCR) Not Detected (Not Detect) Human Metapneumovir PCR Not Detected (Not Detect) Influenza A (H1) PCR Not Detected (Not Detect) Influ A (H1N1/09) PCR Not Detected (Not Detect) Influenza A (H3) PCR Not Detected (Not Detect) Influenza A Untype (PCR) Not Detected (Not Detect) Influenza Type B (PCR) Not Detected (Not Detect) M.pneumoniae DNA (PCR) Not Detected (Not Detect) Parainfluenza 1 (PCR) Not Detected (Not Detect) Parainfluenza 2 (PCR) Not Detected (Not Detect) Parainfluenza 3 (PCR) Not Detected (Not Detect) Parainfluenza 4 (PCR) Not Detected (Not Detect) RSV (PCR) Not Detected (Not Detect) Entero/Rhino (PCR) Not Detected (Not Detect) - Impressions Impressions Chest X-Ray 11/15/17 06:00 IMPRESSION: Slightly improved aeration of the left upper lobe. Majority of the left hemithorax remains opacified. Continued follow-up is recommended. D/ / 11/15/2017 09:10:43 Tarik Chavarria MD / Cora Rodriguez Interpreting Provider: Tarik Chavarria MD Exam - Constitutional Vitals: Temp Pulse Resp BP Pulse Ox 98.8 F 80 17 129/87 93 11/16/17 16:30 11/16/17 16:30 11/16/17 16:30 11/16/17 16:30 11/16/17 16:30 General appearance: average body habitus, cooperative, no acute distress - Head Head exam: Present: atraumatic, normal inspection, normocephalic - Eye Eye exam: Present: EOMI, normal appearance, PERRL Pupils: Present: normal accommodation - ENT ENT exam: Present: mucous membranes moist - Neck Neck exam: Present: normal inspection - Respiratory Respiratory exam: Present: rhonchi (throughout). Absent: rales, respiratory distress, tachypnea - Cardiovascular Cardiovascular exam: Present: RRR, +S1, +S2 - GI/Abdominal GI/Abdominal exam: Present: normal bowel sounds, soft. Absent: distended, tenderness - Extremities Exam Extremities exam: Present: normal inspection. Absent: joint swelling, pedal edema, tenderness - Neurological Exam Neurological exam: Present: alert, oriented X3, no focal deficits - Psychiatric Psychiatric exam: Present: normal affect, normal mood - Skin Skin exam: Present: dry, intact, normal color, warm Consult Discharge Plan - Plan Referrals: Tano Lee MD [Primary Care Provider] - 11/19/17 8:30 am
[2017-11-16] MEDS: Furosemide 20 MG TABLET PO SCH (18:56)
[2017-11-16] MEDS: Magnesium Oxide 400 MG TABLET PO SCH (20:52)
[2017-11-16] MEDS ORDERED: Insulin DETEMIR 100 UNIT/ML X5UNITS SQ SCH (21:00)
--- NOTE | 2017-11-16 22:03 | Electrocardiograph Report ---
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
[2017-11-17 05:49] LABS: Basophils % 0.1 %; Eosinophils # 0.2 K/mcL (0.0-0.6); Eosinophils % 2.3 %; Hematocrit 35.7 % (37.5-50.1); Hemoglobin 12.6 g/dL (12.9-16.9); Immature Granulocytes % 3.2 % (0-4); Lymphocytes # 0.9 K/mcL (0.6-4.6); Lymphocytes % 9.1 %; Mean Corpuscular HGB Conc 35.3 g/dL (31.6-35.5); Mean Corpuscular Hemoglobin 30.2 pg (28.0-33.3); Mean Corpuscular Volume 85.6 fL (83.0-100.0); Mean Platelet Volume 10.4 fL (9.4-12.4); Monocytes # 0.8 K/mcL (0.0-1.3); Monocytes % 7.9 %; Neutrophils # 7.4 K/mcL (1.6-8.9); Platelet Count 326 K/mcL (140-400); Red Blood Count 4.17 M/mcL (4.19-5.50); Red Cell Distribution Width 13.6 % (11.5-14.5); Segmented Neutrophils % 77.4 %
[2017-11-17 06:10] LABS: BUN/Creatinine Ratio 17 (6-26); Blood Urea Nitrogen 15 mg/dL (8-23); Calcium 8.4 mg/dL (8.6-10.3); Carbon Dioxide 30 mEq/L (23-29); Chloride 100 mEq/L (98-107); Glucose 209 mg/dL (70-105); Magnesium 1.5 mg/dL (1.6-2.6); Osmolality,Calculated 287 (280-300); Potassium 3.3 mEq/L (3.5-5.1); Sodium 135 mEq/L (136-145); eGFR For Non-African Americans > 60 (> 60)
[2017-11-17] MEDS: Furosemide 20 MG TABLET PO SCH (06:17)
[2017-11-17] MEDS: *HR* Heparin 5,000 UNIT/ML VIAL SQ SCH (06:18)
[2017-11-17] MEDS ORDERED: Potassium Chloride Elixir 20 MEQ/15 ML UDC PO ONE (07:31)
[2017-11-17] MEDS: Budesonide/Formoterol 160/4.5 1 PUFF INH IH SCH (07:38)
[2017-11-17] MEDS ORDERED: Insulin DETEMIR 100 UNIT/ML X5UNITS SQ SCH (07:45)
--- NOTE | 2017-11-17 08:26 | Pulmonology Progress Note ---
<Layo Samano - Last Filed: 11/17/17 09:41> Date of Encounter: 11/17/17 Time of Encounter: 09:41 Assessment and Plan (1) Acute and chronic respiratory failure with hypoxia Current Visit: No Status: Acute Pt currently on 3lpm via NC which is what he uses intermittently at home Discussed using home O2 in a short term maintenance capacity upon discharge rather than as rescue Pt expressed concerns about what to do if his home compressor breaks, 6 minute walk test to qualify for home O2 could be considered (2) Left lower lobe pneumonia Current Visit: Yes Status: Acute s/p bronchoscopy on 11/12 AFB and GMS cultures negative CXR fron 11/15 showed mild improvement of aeration on Left side with continued lower opacification CXR from 11/17 showed no interval change Blood cultures 11/08 and 11/11 x2 are negative Sputum culture 11/10 negative AFB and GMS from bronch negative Day 10 of Azithromycin Day 7 of Vancomycin Day 7 of Zosyn abx per infectious disease recommendations Lung sounds improved with increased air movement Continue chest percussive therapy to left side Qualifiers: Pneumonia type: due to unspecified organism Qualified Code(s): J18.1 - Lobar pneumonia, unspecified organism (3) COPD (chronic obstructive pulmonary disease) with emphysema Current Visit: Yes Status: Chronic Continue Symbicort and Albuterol Qualifiers: Emphysema type: panlobular Qualified Code(s): J43.1 - Panlobular emphysema Subjective Principal diagnosis: Dyspnea Interval history: No acute events overnight. Pt states he is feeling much better and wants to go home. Tolerated O2 weaning well. Currently on 3lpm via NC during this encounter with O2 sat at 92%. Pt denies any chest pain, fever, chills, nausea, vomiting, numbness, or tingling. Objective PUL Vital signs: Last Vital Signs Temp 99.3 F 11/17/17 07:36 Pulse 75 11/17/17 07:36 Resp 16 11/17/17 07:39 BP 167/93 11/17/17 07:36 Pulse Ox 95 11/17/17 07:39 General appearance: no acute distress Eyes: nonicteric ENT: oropharynx moist Neck: supple, no lymphadenopathy, no JVD Effort: normal Auscultation: bilateral: rales (upper>lower ) Percussion: bilateral: not dull Tactile fremitus: bilateral: normal Cardiovascular: murmur noted (+2 systolic murmur) Integumentary: normal Extremities: no cyanosis, no edema, no clubbing, pink and warm Musculoskeletal: no deformities, ROM normal Gait: normal posture normal mental status, non-focal exam mood appropriate, affect normal Results - Laboratory Findings CBC and BMP: 11/17/17 04:47 11/17/17 04:47 ABG ABG pH 7.42 pH Units (7.32-7.45) 11/12/17 11:09 ABG pCO2 40 mmHg (35-45) 11/12/17 11:09 ABG pO2 71 mmHg (85-104) L 11/12/17 11:09 ABG O2 Saturation 94 % (95-98) L 11/12/17 11:09 PT/INR, D-dimer PT 13.3 Seconds (9.4-12.1) H 11/08/17 02:00 D-Dimer 2080 ng/mLFEU (0-500) H 11/11/17 04:21 Abnormal lab findings: Abnormal lab results RBC 4.17 M/mcL (4.19-5.50) L 11/17/17 04:47 Hgb 12.6 g/dL (12.9-16.9) L 11/17/17 04:47 Hct 35.7 % (37.5-50.1) L 11/17/17 04:47 PT 13.3 Seconds (9.4-12.1) H 11/08/17 02:00 D-Dimer 2080 ng/mLFEU (0-500) H 11/11/17 04:21 ABG pO2 71 mmHg (85-104) L 11/12/17 11:09 ABG Total CO2 27 mEq/L (20-26) H 11/12/17 11:09 ABG O2 Saturation 94 % (95-98) L 11/12/17 11:09 VBG pCO2 37 mmHg (41-51) L 11/08/17 02:28 Sodium 135 mEq/L (136-145) L 11/17/17 04:47 Potassium 3.3 mEq/L (3.5-5.1) L 11/17/17 04:47 Carbon Dioxide 30 mEq/L (23-29) H 11/17/17 04:47 Glucose 209 mg/dL (70-105) H 11/17/17 04:47 POC Glucose 231 mg/dL (70-99) H 11/16/17 19:36 Calcium 8.4 mg/dL (8.6-10.3) L 11/17/17 04:47 Phosphorus 2.4 mg/dL (2.7-4.5) L 11/16/17 03:59 Magnesium 1.5 mg/dL (1.6-2.6) L 11/17/17 04:47 Direct Bilirubin 0.3 mg/dL (0.0-0.2) H 11/13/17 00:33 AST 55 Units/L (13-39) H 11/13/17 00:33 Alkaline Phosphatase 188 Units/L (34-104) H 11/13/17 00:33 Troponin I 0.06 ng/mL (< 0.04) H* 11/09/17 15:04 Serum Total Protein 5.1 g/dL (6.4-8.9) L 11/13/17 00:33 Albumin 2.3 g/dL (3.5-5.7) L 11/13/17 00:33 Albumin/Globulin Ratio 0.8 (1.1-2.2) L 11/13/17 00:33 Lipase 4 Units/L (11-82) L 11/08/17 02:00 Ur Specific [place] > 1.030 (1.010-1.025) H 11/12/17 21:41 Urine Protein 100 mg/dL (Neg-Trace) H 11/12/17 21:41 Urine Glucose (UA) 250 mg/dL (Normal) H 11/12/17 21:41 Urine Microscopic RBC 3-5 per hpf (0-3) H 11/12/17 21:41 Ur Squamous Epith Cells Moderate per lpf (None-Few) H 11/12/17 21:41 Protein/Creatinin Ratio 0.97 mg/mg (0.00-0.20) H 11/12/17 21:41 Urine Total Protein 100 mg/dL (1-14) H 11/12/17 21:41 Vancomycin Trough 20 mcg/mL (5-10) H 11/15/17 02:55 - Microbiology Findings Microbiology Findings: Microbiology, Last 48 Hours 11/11/17 15:42 Blood Culture - Final Peripheral Venipuncture No growth. Final report. 11/11/17 15:42 Blood Culture - Final Peripheral Venipuncture No growth. Final report. 11/12/17 13:46 Acid Fast Stain - Final Left Lower Lobe Lung 11/12/17 13:46 Respiratory Culture - Final Left Lower Lobe Lung - Diagnostic Findings Chest x-ray: report reviewed, image reviewed - Clinical Findings Intake & Output: Intake & Output 11/16/17 11/17/17 11/17/17 23:59 07:59 15:59 Intake Total 670 / 670 Output Total 1090 / 1090 750 / 750 Balance -420 / -420 -750 / -750 Weight 83.7 kg Consult Discharge Plan - Plan Instructions: Azithromycin (By mouth), Magnesium Oxide (By mouth), Chronic Obstructive Pulmonary Disease (DC), Sepsis (DC) Referrals: Kvng Mcclure MD [Partnered Physician] - (Office will call you with appt. ) Sarah Pruitt [Advanced Practice Nurse] - 11/25/17 2:30 pm Prescriptions: Azithromycin [Zithromax] 500 mg PO DAILY 5 Days #5 tablet Magnesium Oxide [Magnesium] 400 mg PO BID 10 Days #20 tablet <Kvng Mcclure - Last Filed: 11/17/17 16:04> Date of Encounter: 11/17/17 Assessment and Plan (1) Acute respiratory failure with hypoxia Current Visit: No Status: Acute (2) Left lower lobe pneumonia Current Visit: Yes Status: Acute Qualifiers: Qualified Code(s): J18.1 - Lobar pneumonia, unspecified organism (3) Multiple tracheobronchial mucus plugs Current Visit: Yes Status: Resolved Objective PUL Vital signs: Last Vital Signs Temp 97.8 F 11/17/17 12:15 Pulse 77 11/17/17 12:15 Resp 16 11/17/17 12:15 BP 135/85 11/17/17 12:15 Pulse Ox 97 11/17/17 15:23 Results - Laboratory Findings CBC and BMP: 11/17/17 04:47 11/17/17 04:47 ABG ABG pH 7.42 pH Units (7.32-7.45) 11/12/17 11:09 ABG pCO2 40 mmHg (35-45) 11/12/17 11:09 ABG pO2 71 mmHg (85-104) L 11/12/17 11:09 ABG O2 Saturation 94 % (95-98) L 11/12/17 11:09 PT/INR, D-dimer PT 13.3 Seconds (9.4-12.1) H 11/08/17 02:00 D-Dimer 2080 ng/mLFEU (0-500) H 11/11/17 04:21 Abnormal lab findings: Abnormal lab results RBC 4.17 M/mcL (4.19-5.50) L 11/17/17 04:47 Hgb 12.6 g/dL (12.9-16.9) L 11/17/17 04:47 Hct 35.7 % (37.5-50.1) L 11/17/17 04:47 PT 13.3 Seconds (9.4-12.1) H 11/08/17 02:00 D-Dimer 2080 ng/mLFEU (0-500) H 11/11/17 04:21 ABG pO2 71 mmHg (85-104) L 11/12/17 11:09 ABG Total CO2 27 mEq/L (20-26) H 11/12/17 11:09 ABG O2 Saturation 94 % (95-98) L 11/12/17 11:09 VBG pCO2 37 mmHg (41-51) L 11/08/17 02:28 Sodium 135 mEq/L (136-145) L 11/17/17 04:47 Potassium 3.3 mEq/L (3.5-5.1) L 11/17/17 04:47 Carbon Dioxide 30 mEq/L (23-29) H 11/17/17 04:47 Glucose 209 mg/dL (70-105) H 11/17/17 04:47 POC Glucose 231 mg/dL (70-99) H 11/16/17 19:36 Calcium 8.4 mg/dL (8.6-10.3) L 11/17/17 04:47 Phosphorus 2.4 mg/dL (2.7-4.5) L 11/16/17 03:59 Magnesium 1.5 mg/dL (1.6-2.6) L 11/17/17 04:47 Direct Bilirubin 0.3 mg/dL (0.0-0.2) H 11/13/17 00:33 AST 55 Units/L (13-39) H 11/13/17 00:33 Alkaline Phosphatase 188 Units/L (34-104) H 11/13/17 00:33 Troponin I 0.06 ng/mL (< 0.04) H* 11/09/17 15:04 Serum Total Protein 5.1 g/dL (6.4-8.9) L 11/13/17 00:33 Albumin 2.3 g/dL (3.5-5.7) L 11/13/17 00:33 Albumin/Globulin Ratio 0.8 (1.1-2.2) L 11/13/17 00:33 Lipase 4 Units/L (11-82) L 11/08/17 02:00 Ur Specific [place] > 1.030 (1.010-1.025) H 11/12/17 21:41 Urine Protein 100 mg/dL (Neg-Trace) H 11/12/17 21:41 Urine Glucose (UA) 250 mg/dL (Normal) H 11/12/17 21:41 Urine Microscopic RBC 3-5 per hpf (0-3) H 11/12/17 21:41 Ur Squamous Epith Cells Moderate per lpf (None-Few) H 11/12/17 21:41 Protein/Creatinin Ratio 0.97 mg/mg (0.00-0.20) H 11/12/17 21:41 Urine Total Protein 100 mg/dL (1-14) H 11/12/17 21:41 Vancomycin Trough 20 mcg/mL (5-10) H 11/15/17 02:55 - Microbiology Findings Microbiology Findings: Microbiology, Last 48 Hours 11/11/17 15:42 Blood Culture - Final Peripheral Venipuncture No growth. Final report. 11/11/17 15:42 Blood Culture - Final Peripheral Venipuncture No growth. Final report. 11/12/17 13:46 Acid Fast Stain - Final Left Lower Lobe Lung - Clinical Findings Intake & Output: Intake & Output 11/17/17 11/17/17 11/17/17 07:59 15:59 23:59 Intake Total 100 / 100 950 / 950 Output Total 750 / 750 325 / 325 Balance -650 / -650 625 / 625 Weight 83.7 kg - Attending Attestation I examined this patient and my medical decision-making was reviewed with the Resident Physician. I agree with the documented findings, disposition and treatment plan as described except to the extent set forth below. Patient seen and examined. Labs, radiology, chart personally reviewed. 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 Discussed with primary team that patient to be modified for oxygen with 6 minute walk and continue incentive spirometry when he is discharged home. I have also explained to patient can follow-up as outpatient and if he does not feel better then we can see him sooner in the clinic. Otherwise follow-up in 1-2 months would be reasonable. Thank you for consultation.
[2017-11-17] MEDS: Piperacillin/Tazobactam 3.375 GM in 0.9 % Sodium Chloride Mini Bag 100 ML IVPB SCH (08:51)
[2017-11-17] MEDS: Magnesium Oxide 400 MG TABLET PO SCH (08:51)
[2017-11-17] MEDS: amLODIPine 5 MG TABLET PO SCH (08:52)
[2017-11-17] MEDS: Folic Acid 1 MG TABLET PO SCH (08:52)
[2017-11-17] MEDS: Fenofibrate 54 MG TABLET PO SCH (08:52)
[2017-11-17] MEDS: Isosorbide MONOnitrate (24 HR) 30 MG TAB.ER.24H PO SCH (08:52)
[2017-11-17] MEDS: Azithromycin 250 MG TABLET PO SCH (08:52)
[2017-11-17] MEDS: Pregabalin 50 MG CAPSULE PO SCH (08:53)
[2017-11-17] MEDS: Aspirin Enteric Coated 81 MG Tablet PO SCH (08:53)
[2017-11-17] MEDS: Lactobacillus 1 EACH CAP.SPRINK PO SCH (08:53)
[2017-11-17] MEDS: Insulin LISPRO 300 UNITS/3 ML VIAL SQ SCH ×4 (09:00→12:15)
[2017-11-17] MEDS ORDERED: Lisinopril 20 MG TABLET PO SCH (11:15)
[2017-11-17 11:21] VITALS: BP 135/85
--- NOTE | 2017-11-17 15:05 | Discharge Summary ---
- NOTES TO OUTPATIENT PROVIDER Notes to Outpatient Provider: Follow-up with primary care within a week. Repeat chest x-ray after 1 month of completing antibiotic therapy. Follow-up with pulmonology within a month Orders not resulted at time of discharge: Pending orders 11/12/17 12:00 BAL Flow Cytometry Routine 11/12/17 13:46 AFB Culture, Respiratory [TB] Routine AFB Smear [TB] Routine Fungal Culture [MYC] Routine Date of Encounter: 11/17/17 Time of Encounter: 15:02 - Discharge Diagnosis (1) Left lower lobe pneumonia Priority: Primary Status: Acute Qualifiers: Pneumonia type: due to unspecified organism Qualified Code(s): J18.1 - Lobar pneumonia, unspecified organism (2) Acute respiratory failure with hypoxia Priority: Secondary Status: Resolved Assessment and Plan: On litter of O2 by nasal cannula (3) CAD (coronary artery disease) Priority: Secondary Qualifiers: Coronary Disease-Associated Artery/Lesion type: [place] artery [place] vs. transplanted heart: [place] heart Associated angina: without angina Qualified Code(s): I25.10 - Atherosclerotic heart disease of [place] coronary artery without angina pectoris (4) DM2 (diabetes mellitus, type 2) Priority: Secondary Status: Chronic Qualifiers: Diabetes mellitus marketing development specialist insulin use: with snf use Diabetes mellitus complication status: with kidney complications Diabetes mellitus complication detail: with chronic kidney disease Chronic kidney disease stage : stage 3 (moderate) Qualified Code(s): E11.22 - Type 2 diabetes mellitus with diabetic chronic kidney disease; N18.3 - Chronic kidney disease, stage 3 ( moderate); Z79.4 - senior care (current) use of insulin (5) HTN (hypertension) Priority: Secondary Status: Chronic Qualifiers: Hypertension type: essential hypertension Qualified Code(s): I10 - Essential (primary) hypertension (6) COPD (chronic obstructive pulmonary disease) with emphysema Priority: Secondary Status: Chronic Qualifiers: Emphysema type: panlobular Qualified Code(s): J43.1 - Panlobular emphysema (7) CHF (congestive heart failure) Priority: Secondary Status: Chronic Qualifiers: Heart failure type: diastolic Heart failure chronicity: chronic Qualified Code(s): I50.32 - Chronic diastolic (congestive) heart failure (8) Hypokalemia Priority: Secondary Status: Resolved (9) Hypomagnesemia Priority: Secondary Status: Resolved (10) Acute kidney injury Priority: Secondary Status: Resolved (11) Chronic respiratory failure with hypoxia Priority: Secondary Status: Chronic Assessment and Plan: On 2 L of home oxygen. Hospital course: Mr. Valencia is a 67 year old male significant for CHF, COPD, diabetes, hypertension , renal disease, and thyroid disease. Patient presented to the emergency room complaining of productive cough associated with shortness of breath, malaise. Patient found to have a left lung collapse. Underwent bronchoscopy. Tested for TB. afB negative 3. Patient treated for pneumonia with broad-spectrum antibiotic. Urine positive for Legionella. Left lung collapse resoled after bronchoscopy. Patient saturating more than 97 % on 2 L of oxygen by nasal cannula. Discussed with pulmonology and they agree on patient being discharged home on following up with them within a month. Patient to continue Zithromax for 5 more days. Patient hemodynamically stable to be discharged home. - Time Spent with Patient Total time spent providing and/or coordinating discharge services: Greater than 30 minutes - Discharge Medications Prescriptions: Azithromycin [Zithromax] 500 mg PO DAILY 5 Days #5 tablet Magnesium Oxide [Magnesium] 400 mg PO BID 10 Days #20 tablet Home Medications: Aspirin Enteric Coated [Aspirin EC] 81 mg PO QAM 10/21/14 [History] Terazosin [Hytrin] 10 mg PO HS 10/21/14 [History] Isosorbide MONOnitrate (24 HR) [Imdur] 30 mg PO DAILY 12/12/15 [History] Atorvastatin [Lipitor] 40 mg PO DAILY 11/09/17 [History] Carvedilol [Coreg] 25 mg PO BIDWM 11/09/17 [History] Fenofibrate Nanocrystallized [Triglide] 160 mg PO DAILY 11/09/17 [History] Folic Acid [Folic Acid] 0.8 mg PO BID 11/09/17 [History] Insulin Pump Cartridge [Insulin Pump] 1 device SQ AD 11/09/17 [History] Levothyroxine [Synthroid] 100 mcg PO 0630 11/09/17 [History] Lisinopril [Zestril] 40 mg PO DAILY 11/09/17 [History] Metformin HCl [Metformin HCl] 1,000 mg PO BIDWM 11/09/17 [History] Omeprazole [PriLOSEC] 20 mg PO DAILY 11/09/17 [History] Pregabalin [Lyrica] 100 mg PO BID 11/09/17 [History] amLODIPine [Norvasc] 5 mg PO DAILY 11/09/17 [History] Azithromycin [Zithromax] 500 mg PO DAILY 5 Days #5 tablet 11/17/17 [Rx] Magnesium Oxide [Magnesium] 400 mg PO BID 10 Days #20 tablet 11/17/17 [Rx] Saline Nasal [place] [[place] Nasal [place]] 2 spray NS Q2H PRN bottle 11/17/17 [Rx] Allergies/Adverse Reactions: 3 Allergy/AdvReac Type Severity Reaction Status Date / Time niacin AdvReac Nausea Verified 11/09/17 13:04 Date of admission: 11/08/17 10:22 Primary care physician: Tano Lee MD Consults: 11/11/17 09:28 Consult to Pulmonology [CONS] Routine Consulting Provider: [facility] [place] Reason for Consult: Legionella pneumonia. Pt has been getting IV Zithromax, Flagyl was started and discontinued. Zosyn added last evening. Pt has been febrile since yesterday and began desatting overnight. He is on bipap now. Elevated d- dimer this a.m., Chest CTA completed and results pending. Recommendations, please. Time Notified: 09:30 Call Completed: Yes 11/11/17 10:55 Consult to Infectious Diseases [CONS] Routine Consulting Provider: Infectious Disease [place] Reason for Consult: Legionella Time Notified: 10:55 Call Completed: Yes - Constitutional Vitals: Temp Pulse Resp BP Pulse Ox 97.8 F 77 16 135/85 97 11/17/17 12:15 11/17/17 12:15 11/17/17 12:15 11/17/17 12:15 11/17/17 12:15 General appearance: Present: cooperative, A&O X 3, answers questions appropriately Exam: General: Alert and oriented. No acute distress Cardiovascular: Normal S1 & S2, no rubs, murmurs or gallops. No JVD. Lungs: Clear to auscultation bilaterally, no crackles, wheezing, or rales. Good air entry bilaterally. Abdomen: Soft, non-tender, no rigidity. Extremities: No edema or tenderness, no joint swelling or clubbing. Neurological: Normal cognition and motor skills. Rest of the physical exam is non contributory - Patient Status Disposition: Home, Self-Care Condition: Good Functional capacity at discharge: independent ambulation Overall status at discharge: patient is progressing back to baseline - Discharge Instructions Follow Up With: Sarah Pruitt [Advanced Practice Nurse] - 11/25/17 2:30 pm - Diet and Activity Activity: resume usual activities as tolerated Diet: advance to your usual diet, diabetic diet
[2017-11-17] MEDS ORDERED: Aminoglycoside Consult 1 EACH MC ONE (15:59)
--- NOTE | 2017-11-17 16:04 | Infectious Disease Progress No ---
Date of Encounter: 11/17/17 Time of Encounter: 11:30 - Assessment and Plan (1) Sepsis Status: Acute The patient had three SIRS criteria plus ZAID on admission. Likely secondary to PNA. Improved. WBC normal. Tachypnea improved. Afebrile. Blood cultures drawn 11/08/17 are negative x 2 sets. Repeat blood cultures 11/11/17 are negative x 2 sets. Qualifiers: Sepsis type: Pneumococcus Qualified Code(s): A40.3 - Sepsis due to Streptococcus pneumoniae (2) Left lower lobe pneumonia Status: Acute Location: Left lower lobe. Causative organism: Likely Legionella. CXR 11/08/16 showed left middle and left lower lobe pneumonia. CT of the chest 11/11/17 showed left lower lobe infiltrate, negative for PE. Review of the CT scan reveals extensive consolidative changes. Clinically improved this morning. Currently on nasal cannula at 2LPM. Legionalla urinary antigen positive. S. pneumo antigen negative. Sputum culture contaminated. Pulmonology consulted. Status post bronch 11/12/17. Procedure note reviewed. Copious mucopurulent secretions and mucous plugs. BAL cultures are negative. Check RIP. --> negative. Repeat CXR shows some improvement. Recommend continued follow-up with pulmonary. Continue azithromycin 500mg PO Daily. (day 9) Discontinue Vanc and Zosyn. Duration of treatment depends on the clinical picture, but likely a total of 14 days of azithromycin. Monitor renal function and for drug toxicity and dose-adjust antibiotics. Qualifiers: Pneumonia type: due to unspecified organism Qualified Code(s): J18.1 - Lobar pneumonia, unspecified organism (3) Acute kidney injury Status: Resolved Likely secondary to sepsis. Appears back to baseline. Continue to trend. Dose-adjust antibiotics. Strict I's and O's. (4) Acute respiratory failure with hypoxia Status: Acute Likely secondary to PNA. Pulmonology consulted. Status post bronch 11/12/17. O2 per the pulmonology team. (5) CHF (congestive heart failure) Status: Chronic Qualifiers: Heart failure type: diastolic Heart failure chronicity: chronic Qualified Code(s): I50.32 - Chronic diastolic (congestive) heart failure (6) CAD (coronary artery disease) Status: Chronic Qualifiers: Coronary Disease-Associated Artery/Lesion type: [place] artery [place] vs. transplanted heart: [place] heart Associated angina: without angina Qualified Code(s): I25.10 - Atherosclerotic heart disease of [place] coronary artery without angina pectoris (7) HLD (hyperlipidemia) Status: Acute Qualifiers: Hyperlipidemia type: unspecified Qualified Code(s): E78.5 - Hyperlipidemia , unspecified (8) DM2 (diabetes mellitus, type 2) Status: Chronic Qualifiers: Diabetes mellitus shelter insulin use: with shelter use Diabetes mellitus complication status: with kidney complications Diabetes mellitus complication detail: with chronic kidney disease Chronic kidney disease stage : stage 3 (moderate) Qualified Code(s): E11.22 - Type 2 diabetes mellitus with diabetic chronic kidney disease; N18.3 - Chronic kidney disease, stage 3 ( moderate); 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 No acute events noted overnight. Patient currently on nasal cannula at 2LPM. States overall he feels better. Denies fevers, chills or rigors. States he is tired and isn't getting much sleep. Denies chest pain or shortness of breath or cough. Denies nausea, vomiting, or constipation. Reports chronically loose stools that are at baseline. Denies abdominal pain or urinary complaints. Reports appetite is improved. Denies oral thrush or skin lesions. Infect Dis PN-Objective Data - Labs CBC & Chem 7: 11/17/17 04:47 11/17/17 04:47 Labs: Laboratory Results - last 24 hr 11/15/17 11/16/17 11/16/17 21:17 07:15 11:11 WBC RBC Hgb Hct MCV MCH MCHC RDW Plt Count MPV Immature Gran % Seg Neutrophils % Lymphocytes % Monocytes % Eosinophils % Basophils % Neutrophils # Lymphocytes # Monocytes # Eosinophils # Basophils # Sodium Potassium Chloride Carbon Dioxide BUN Creatinine Est GFR ( Amer) Est GFR (Non-Af Amer) BUN/Creatinine Ratio Glucose POC Glucose 183 H 175 H 259 H Calculated Osmolality Calcium Magnesium 11/16/17 11/16/17 11/17/17 16:06 19:36 04:47 WBC 9.5 RBC 4.17 L Hgb 12.6 L Hct 35.7 L MCV 85.6 MCH 30.2 MCHC 35.3 RDW 13.6 Plt Count 326 MPV 10.4 Immature Gran % 3.2 Seg Neutrophils % 77.4 Lymphocytes % 9.1 Monocytes % 7.9 Eosinophils % 2.3 Basophils % 0.1 Neutrophils # 7.4 Lymphocytes # 0.9 Monocytes # 0.8 Eosinophils # 0.2 Basophils # 0.0 Sodium Potassium Chloride Carbon Dioxide BUN Creatinine Est GFR ( Amer) Est GFR (Non-Af Amer) BUN/Creatinine Ratio Glucose POC Glucose 319 H 231 H Calculated Osmolality Calcium Magnesium 11/17/17 04:47 WBC RBC Hgb Hct MCV MCH MCHC RDW Plt Count MPV Immature Gran % Seg Neutrophils % Lymphocytes % Monocytes % Eosinophils % Basophils % Neutrophils # Lymphocytes # Monocytes # Eosinophils # Basophils # Sodium 135 L Potassium 3.3 L Chloride 100 Carbon Dioxide 30 H BUN 15 Creatinine 0.88 Est GFR ( Amer) > 60 Est GFR (Non-Af Amer) > 60 BUN/Creatinine Ratio 17 Glucose 209 H POC Glucose Calculated Osmolality 287 Calcium 8.4 L Magnesium 1.5 L Cultures: Cultures 11/11/17 15:42 Blood Culture - Final Peripheral Venipuncture No growth. Final report. 11/11/17 15:42 Blood Culture - Final Peripheral Venipuncture No growth. Final report. 11/12/17 13:46 Acid Fast Stain - Final Left Lower Lobe Lung 11/12/17 13:46 Respiratory Culture - Final Left Lower Lobe Lung 11/10/17 19:13 Sputum Culture - Final Sputum Serology 11/12/17 11/12/17 11/11/17 Range/Units 21:41 21:41 17:00 Urine Color Yellow (Yellow) Urine Clarity Clear (Clear) Urine pH 6.0 (5.0-8.0) pH Units Ur Specific [place] > 1.030 H (1.010-1.025) Urine Protein 100 H (Neg-Trace) mg/dL Urine Glucose (UA) 250 H (Normal) mg/dL Urine Ketones Negative (Negative) mg/dL Urine Blood Negative (Negative) Urine Nitrite Negative (Negative) Urine Bilirubin Negative (Negative) Urine Urobilinogen Normal (Normal) mg/dL Ur Leukocyte Esterase Negative (Negative) Urine Microscopic RBC 3-5 H (0-3) per hpf Urine Microscopic WBC 0-3 (0-3) per hpf Ur Squamous Epith Cells Moderate H (None-Few) per lpf Urine Bacteria None Seen (None-Few) per hpf Hyaline Casts None Seen (None-Few) per lpf Urine Creatinine 103 mg/dL Protein/Creatinin Ratio 0.97 H (0.00-0.20) mg/mg Urine Sodium 16.4 mEq/L Urine Total Protein 100 H (1-14) mg/dL Chlamy pneumoniae PCR Not Detected (Not Detect) Adenovirus (PCR) Not Detected (Not Detect) B. pertussis DNA (PCR) Not Detected (Not Detect) B.parapertussis DNA PCR Not Detected (Not Detect) Coronavirus OC43 (PCR) Not Detected (Not Detect) Coronavirus HKU1 (PCR) Not Detected (Not Detect) Coronavirus 229E (PCR) Not Detected (Not Detect) Coronavirus NL63 (PCR) Not Detected (Not Detect) Human Metapneumovir PCR Not Detected (Not Detect) Influenza A (H1) PCR Not Detected (Not Detect) Influ A (H1N1/09) PCR Not Detected (Not Detect) Influenza A (H3) PCR Not Detected (Not Detect) Influenza A Untype (PCR) Not Detected (Not Detect) Influenza Type B (PCR) Not Detected (Not Detect) M.pneumoniae DNA (PCR) Not Detected (Not Detect) Parainfluenza 1 (PCR) Not Detected (Not Detect) Parainfluenza 2 (PCR) Not Detected (Not Detect) Parainfluenza 3 (PCR) Not Detected (Not Detect) Parainfluenza 4 (PCR) Not Detected (Not Detect) RSV (PCR) Not Detected (Not Detect) Entero/Rhino (PCR) Not Detected (Not Detect) - Impressions Impressions Chest X-Ray 11/17/17 04:00 IMPRESSION: No significant interval change in dense airspace consolidation of the majority of the left lung, and a small left pleural effusion. D/ / Josr Trujillo MD / Josr Trujillo MD Interpreting Provider: Josr Trujillo MD Exam - Constitutional Vitals: Temp Pulse Resp BP Pulse Ox 97.8 F 77 16 135/85 97 11/17/17 12:15 11/17/17 12:15 11/17/17 12:15 11/17/17 12:15 11/17/17 15:23 General appearance: average body habitus, cooperative, no acute distress - Head Head exam: Present: atraumatic, normal inspection, normocephalic - Eye Eye exam: Present: EOMI, normal appearance, PERRL Pupils: Present: normal accommodation - ENT ENT exam: Present: mucous membranes moist - Neck Neck exam: Present: normal inspection - Respiratory Respiratory exam: Present: rales (left base). Absent: respiratory distress, rhonchi, wheezes - Cardiovascular Cardiovascular exam: Present: RRR, +S1, +S2 - GI/Abdominal GI/Abdominal exam: Present: normal bowel sounds, soft. Absent: distended, tenderness - Extremities Exam Extremities exam: Present: normal inspection. Absent: joint swelling, pedal edema, tenderness - Neurological Exam Neurological exam: Present: alert, oriented X3, no focal deficits - Psychiatric Psychiatric exam: Present: normal affect, normal mood - Skin Skin exam: Present: dry, intact, normal color, warm Consult Discharge Plan - Plan Instructions: Azithromycin (By mouth), Magnesium Oxide (By mouth), Chronic Obstructive Pulmonary Disease (DC), Sepsis (DC) Referrals: Kvng Mcclure MD [Partnered Physician] - (Office will call you with appt. ) Sarah Pruitt [Advanced Practice Nurse] - 11/25/17 2:30 pm Prescriptions: Azithromycin [Zithromax] 500 mg PO DAILY 5 Days #5 tablet Magnesium Oxide [Magnesium] 400 mg PO BID 10 Days #20 tablet - Attending Attestation I examined this patient and my medical decision-making was reviewed with the Resident Physician. I agree with the documented findings, disposition and treatment plan as described except to the extent set forth below.
== END 2017-11-17 16:00 | disposition home or self-care (01) | DRG 853 ==
LOC: EMEROOARM 01:34 → 3BNU 01:34 → SUATTDRO 10:22 → 2NNU 11-11 19:12
PROVIDERS: ADMIT Family Medicine; ATTEND Internal Medicine

== ENCOUNTER 2018-12-22 10:36 | Inpatient (IN) ==
[2018-12-22] MEDS ORDERED: CeFAZolin Syr 2,000MG/20 ML 2,000 MG/20 ML SYRINGE IVPB ONE (11:16)
[2018-12-22] MEDS ORDERED: *HR* Remifentanil 2 MG VIAL IVP ONE (11:27)
[2018-12-22] MEDS ORDERED: *HR* Propofol 200 MG/20 ML VIAL IVP ONE (11:27)
[2018-12-22] MEDS ORDERED: *HR* Midazolam HCl 2 MG/2 ML VIAL ONE (11:27)
[2018-12-22] MEDS ORDERED: *HR* FentaNYL (PF) 100 MCG/2 ML VIAL ONE ×2 (11:27→13:58)
[2018-12-22] MEDS ORDERED: Ondansetron 4 MG/2 ML VIAL ONE ×2 (11:28→16:34)
[2018-12-22] MEDS ORDERED: Lidocaine -MPF 2% 2 ML VIAL ONE (11:28)
[2018-12-22] MEDS ORDERED: EPHEDrine 50 MG/ML VIAL ONE (11:28)
[2018-12-22] MEDS ORDERED: *HR* Phenylephrine 10 MG/ML VIAL ONE (11:28)
[2018-12-22] MEDS ORDERED: *HR* Heparin 5,000 UNIT/ML VIAL ONE (11:28)
[2018-12-22] MEDS ORDERED: *HR* Rocuronium Bromide 50 MG/5 ML VIAL ONE ×2 (11:28→15:04)
[2018-12-22] MEDS ORDERED: Lidocaine HCL 4 ML Topical Solution (Laryng-O-Jet Kit Sterile Pak) TP ONE (11:28)
[2018-12-22] MEDS ORDERED: Ringers Solution, Lactated 1,000 ML IVC SCH (11:30)
[2018-12-22] MEDS ORDERED: Heparin 1,000 UNITS/500 mL 0 ML ONE (11:52)
[2018-12-22] MEDS ORDERED: Acetaminophen IV 1,000 MG/100 ML INFUS..BTL IVPB ONE (11:56)
[2018-12-22] MEDS ORDERED: *HR* Labetalol 20 MG/4 ML SYRINGE IVP PRN ×2 (11:56→18:19)
[2018-12-22] MEDS ORDERED: Famotidine 20 MG/2 ML VIAL IVP ONE (11:56)
[2018-12-22] MEDS ORDERED: *HR* Promethazine 25 MG/ML VIAL IVP PRN (11:56)
[2018-12-22] MEDS ORDERED: *HR* HYDROmorphone (PF) 1 MG/ML SYRINGE IVP PRN (11:56)
[2018-12-22] MEDS ORDERED: Albuterol 2.5 MG/3 ML NEBULIZER IH PRN (11:56)
[2018-12-22] MEDS ORDERED: *HR* OxyCODONE Immed Rel 5 MG TABLET PO PRN ×2 (11:56→18:19)
[2018-12-22] MEDS ORDERED: Ondansetron 4 MG/2 ML VIAL IVP ONE (11:56)
[2018-12-22] MEDS ORDERED: Bupivacaine-MPF 0.25% 10 ML VIAL ONE (13:10)
[2018-12-22] MEDS ORDERED: Protamine Sulfate 50 MG/5 ML VIAL IVP ONE (13:10)
[2018-12-22] MEDS ORDERED: Heparin 1,000 UNITS/500 mL 1,000 ML ONE (13:11)
[2018-12-22] MEDS ORDERED: Vancomycin 1,000 MG, Sodium Chloride IRRigation 1,000 ML IR ONE (14:00)
[2018-12-22] MEDS ORDERED: Calcium Gluconate 1,000 MG/10 ML VIAL ONE (14:15)
[2018-12-22] MEDS ORDERED: Neostigmine Methylsulfate 3 MG/3 ML SYRINGE ONE (16:29)
[2018-12-22] MEDS ORDERED: Ondansetron 4 MG/2 ML VIAL IVP PRN (18:19)
[2018-12-22] MEDS ORDERED: D5% in Water 1,000 ML IVC PRN (18:19)
[2018-12-22] MEDS ORDERED: Acetaminophen 325 MG TABLET PO PRN (18:19)
[2018-12-22] MEDS ORDERED: Dextrose Gel 15 GM/37.5 ML TUBE PO PRN ×2 (18:19)
[2018-12-22] MEDS ORDERED: Naloxone 0.4 MG/ML INJ IVP PRN (18:19)
[2018-12-22] MEDS ORDERED: *HR* HYDROcodone/Acet 5/325 mg TABLET PO PRN (18:19)
[2018-12-22] MEDS ORDERED: *HR* Dextrose 50 % in Water (Syg) 50 ML SYRINGE IVP PRN (18:19)
[2018-12-22] MEDS ORDERED: 0.9 % Sodium Chloride 1,000 ML IVC SCH (18:19)
[2018-12-22] MEDS: *HR* Metoprolol 5 MG/5 ML VIAL IVP SCH ×2 (18:54→23:23)
[2018-12-22 19:37] LABS: Basophils % 0.6 %; Eosinophils # 0.2 K/mcL (0.0-0.6); Eosinophils % 2.7 %; Hematocrit 32.4 % (37.5-50.1); Hemoglobin 10.5 g/dL (12.9-16.9); Immature Granulocytes % 0.4 % (0-4); Lymphocytes # 1.6 K/mcL (0.6-4.6); Lymphocytes % 23.1 %; Mean Corpuscular HGB Conc 32.4 g/dL (31.6-35.5); Mean Corpuscular Hemoglobin 28.6 pg (28.0-33.3); Mean Corpuscular Volume 88.3 fL (83.0-100.0); Mean Platelet Volume 11.2 fL (9.4-12.4); Monocytes # 0.6 K/mcL (0.0-1.3); Neutrophils # 4.6 K/mcL (1.6-8.9); Platelet Count 145 K/mcL (140-400); Red Blood Count 3.67 M/mcL (4.19-5.50); Red Cell Distribution Width 16.2 % (11.5-14.5); Segmented Neutrophils % 65.2 %
[2018-12-22] MEDS: Insulin LISPRO 300 UNITS/3 ML VIAL SQ SCH (19:48)
[2018-12-22] MEDS: Pregabalin 50 MG CAPSULE PO SCH (20:07)
[2018-12-22] MEDS: Folic Acid 1 MG TABLET PO SCH (20:07)
[2018-12-22] MEDS ORDERED: Insulin LISPRO 300 UNITS/3 ML VIAL SQ SCH (21:00)
[2018-12-23] MEDS: *HR* Metoprolol 5 MG/5 ML VIAL IVP SCH (05:36)
[2018-12-23] MEDS ORDERED: *HR* Heparin 5,000 UNIT/ML VIAL SQ SCH ×2 (06:00)
[2018-12-23 07:25] VITALS: BP 146/87
[2018-12-23] MEDS: Insulin LISPRO 300 UNITS/3 ML VIAL SQ SCH (08:36)
[2018-12-23] MEDS: Folic Acid 1 MG TABLET PO SCH (08:41)
[2018-12-23] MEDS: Pregabalin 50 MG CAPSULE PO SCH (08:41)
[2018-12-23] MEDS ORDERED: Lisinopril 20 MG TABLET PO SCH (09:00)
[2018-12-23] MEDS ORDERED: Aspirin Enteric Coated 81 MG Tablet PO SCH (09:00)
[2018-12-23] MEDS ORDERED: Isosorbide MONOnitrate (24 HR) 30 MG TAB.ER.24H PO SCH (09:00)
[2018-12-23] MEDS ORDERED: amLODIPine 5 MG TABLET PO SCH (09:00)
== END 2018-12-23 11:09 | disposition home or self-care (01) | DRG 38 ==
LOC: SAMDAY 10:36 → 2NNU 18:50
PROVIDERS: ADMIT Surgery; ATTEND Surgery

== ENCOUNTER 2019-01-27 11:34 | Inpatient (IN) ==
[2019-01-27 12:29] LABS: Basophils # 0.1 K/mcL (0.0-0.2); Basophils % 0.8 %; Eosinophils # 0.2 K/mcL (0.0-0.6); Eosinophils % 3.2 %; Hemoglobin 12.8 g/dL (12.9-16.9); Immature Granulocytes % 0.4 % (0-4); Lymphocytes # 1.2 K/mcL (0.6-4.6); Lymphocytes % 16.4 %; Mean Corpuscular HGB Conc 33.7 g/dL (31.6-35.5); Mean Corpuscular Hemoglobin 28.9 pg (28.0-33.3); Mean Corpuscular Volume 85.8 fL (83.0-100.0); Mean Platelet Volume 12.1 fL (9.4-12.4); Monocytes # 0.6 K/mcL (0.0-1.3); Monocytes % 7.7 %; Neutrophils # 5.3 K/mcL (1.6-8.9); Platelet Count 170 K/mcL (140-400); Red Blood Count 4.43 M/mcL (4.19-5.50); Segmented Neutrophils % 71.5 %; White Blood Count 7.4 K/mcL (4.3-11.1)
[2019-01-27 12:54] LABS: BUN/Creatinine Ratio 21 (6-26); Blood Urea Nitrogen 29 mg/dL (8-23); Calcium 9.1 mg/dL (8.6-10.3); Carbon Dioxide 22 mEq/L (23-29); Chloride 107 mEq/L (98-107); Glucose 169 mg/dL (70-105); Osmolality,Calculated 298 (280-300); Potassium 4.3 mEq/L (3.5-5.1); Sodium 139 mEq/L (136-145); Troponin I 0.03 ng/mL (< 0.04); eGFR For African Americans > 60 (> 60); eGFR For Non-African Americans 51 (> 60)
[2019-01-27] MEDS ORDERED: Nitroglycerin 1 INCH/GM PACKET TP ONE (14:19)
[2019-01-27] MEDS ORDERED: Furosemide 40 MG/4 ML VIAL IVP ONE (14:19)
[2019-01-27] MEDS ORDERED: Naloxone 0.4 MG/ML INJ IVP PRN (14:44)
[2019-01-27] MEDS ORDERED: Ondansetron 4 MG/2 ML VIAL IVP PRN (14:44)
[2019-01-27] MEDS ORDERED: Ondansetron ODT 4 MG TAB.RAPDIS SL PRN (14:44)
[2019-01-27] MEDS ORDERED: *HR* Dextrose 50 % in Water (Syg) 50 ML SYRINGE IVP PRN (21:30)
[2019-01-27] MEDS ORDERED: D5% in Water 1,000 ML IVC PRN (21:30)
[2019-01-27] MEDS ORDERED: Dextrose Gel 15 GM/37.5 ML TUBE PO PRN ×2 (21:30)
[2019-01-27] MEDS: Pregabalin 50 MG CAPSULE PO SCH (22:07)
[2019-01-28 06:40] LABS: Basophils # 0.1 K/mcL (0.0-0.2); Basophils % 1.1 %; Eosinophils # 0.3 K/mcL (0.0-0.6); Eosinophils % 4.8 %; Hematocrit 33.8 % (37.5-50.1); Immature Granulocytes % 0.2 % (0-4); Lymphocytes # 1.2 K/mcL (0.6-4.6); Lymphocytes % 19.1 %; Mean Corpuscular HGB Conc 32.2 g/dL (31.6-35.5); Mean Corpuscular Hemoglobin 28.5 pg (28.0-33.3); Mean Corpuscular Volume 88.3 fL (83.0-100.0); Mean Platelet Volume 11.8 fL (9.4-12.4); Monocytes # 0.6 K/mcL (0.0-1.3); Monocytes % 9.9 %; Neutrophils # 4.2 K/mcL (1.6-8.9); Platelet Count 134 K/mcL (140-400); Red Blood Count 3.83 M/mcL (4.19-5.50); Red Cell Distribution Width 15.9 % (11.5-14.5); Segmented Neutrophils % 64.9 %; White Blood Count 6.4 K/mcL (4.3-11.1)
[2019-01-28 06:41] LABS: Hemoglobin 10.9 g/dL (12.9-16.9)
[2019-01-28 06:58] LABS: BUN/Creatinine Ratio 20 (6-26); Blood Urea Nitrogen 29 mg/dL (8-23); Calcium 8.5 mg/dL (8.6-10.3); Carbon Dioxide 26 mEq/L (23-29); Chloride 106 mEq/L (98-107); Glucose 160 mg/dL (70-105); Osmolality,Calculated 297 (280-300); Potassium 3.7 mEq/L (3.5-5.1); Sodium 139 mEq/L (136-145); eGFR For African Americans > 60 (> 60); eGFR For Non-African Americans 50 (> 60)
[2019-01-28] MEDS: Insulin LISPRO 300 UNITS/3 ML VIAL SQ SCH ×4 (08:08→21:38)
[2019-01-28] MEDS: amLODIPine 5 MG TABLET PO SCH (08:08)
[2019-01-28] MEDS: Aspirin Enteric Coated 81 MG Tablet PO SCH (08:09)
[2019-01-28] MEDS: Isosorbide MONOnitrate (24 HR) 30 MG TAB.ER.24H PO SCH (08:09)
[2019-01-28] MEDS: Pregabalin 50 MG CAPSULE PO SCH ×2 (08:09→21:43)
[2019-01-28] MEDS ORDERED: Furosemide 40 MG/4 ML VIAL IVP SCH (09:00)
[2019-01-28] MEDS: *HR* Heparin 5,000 UNIT/ML VIAL SQ SCH (17:40)
[2019-01-28] MEDS: INSULIN PUMP PO SCH (17:42)
[2019-01-29] MEDS: *HR* Heparin 5,000 UNIT/ML VIAL SQ SCH ×2 (06:16→16:41)
[2019-01-29] MEDS: Insulin LISPRO 300 UNITS/3 ML VIAL SQ SCH ×4 (08:48→21:43)
[2019-01-29] MEDS: amLODIPine 5 MG TABLET PO SCH (08:49)
[2019-01-29] MEDS: Pregabalin 50 MG CAPSULE PO SCH ×2 (08:50→21:47)
[2019-01-29] MEDS: Aspirin Enteric Coated 81 MG Tablet PO SCH (08:50)
[2019-01-29] MEDS: Isosorbide MONOnitrate (24 HR) 30 MG TAB.ER.24H PO SCH (08:50)
[2019-01-29] MEDS: hydrALAZINE 25 MG TABLET PO SCH ×2 (08:51→16:45)
[2019-01-29] MEDS: INSULIN PUMP PO SCH (08:52)
[2019-01-29] MEDS ORDERED: Spironolactone 25 MG TABLET PO SCH (11:30)
[2019-01-29 13:02] LABS: Calcium 8.5 mg/dL (8.6-10.3); Magnesium 1.7 mg/dL (1.6-2.6); Potassium 4.2 mEq/L (3.5-5.1)
[2019-01-29] MEDS: Ipratropium/Albuterol Neb 3 ML IH SCH ×2 (18:17→22:20)
[2019-01-30 03:02] LABS: Calcium 8.2 mg/dL (8.6-10.3); Magnesium 1.8 mg/dL (1.6-2.6)
[2019-01-30] MEDS: Ipratropium/Albuterol Neb 3 ML IH SCH ×2 (03:50→09:49)
[2019-01-30] MEDS: *HR* Heparin 5,000 UNIT/ML VIAL SQ SCH (05:53)
[2019-01-30] MEDS: hydrALAZINE 25 MG TABLET PO SCH ×2 (05:53→11:30)
[2019-01-30] MEDS: Insulin LISPRO 300 UNITS/3 ML VIAL SQ SCH (08:59)
[2019-01-30 11:27] VITALS: BP 174/77
[2019-01-30] MEDS: amLODIPine 5 MG TABLET PO SCH (11:30)
[2019-01-30] MEDS: Aspirin Enteric Coated 81 MG Tablet PO SCH (11:30)
[2019-01-30] MEDS: Isosorbide MONOnitrate (24 HR) 30 MG TAB.ER.24H PO SCH (11:30)
[2019-01-30] MEDS: Pregabalin 50 MG CAPSULE PO SCH (11:30)
== END 2019-01-30 14:23 | disposition home or self-care (01) | DRG 286 ==
LOC: EMEROOARM 11:34 → 3BNU 11:34 → SUATTDRO 14:39 → 3BNU 15:09
PROVIDERS: ADMIT Internal Medicine; ATTEND Internal Medicine

== ENCOUNTER 2019-02-24 09:00 | Observation (INO) ==
[2019-02-24 09:45] LABS: Hematocrit 34.6 % (37.5-50.1); Hemoglobin 10.9 g/dL (12.9-16.9); Mean Corpuscular HGB Conc 31.5 g/dL (31.6-35.5); Mean Corpuscular Hemoglobin 28.5 pg (28.0-33.3); Mean Corpuscular Volume 90.6 fL (83.0-100.0); Mean Platelet Volume 11.9 fL (9.4-12.4); Platelet Count 147 K/mcL (140-400); Red Blood Count 3.82 M/mcL (4.19-5.50); Red Cell Distribution Width 15.5 % (11.5-14.5); White Blood Count 6.7 K/mcL (4.3-11.1)
[2019-02-24 09:55] LABS: Alanine Aminotransferase 19 Units/L (7-52); Albumin 3.5 g/dL (3.5-5.7); Albumin/Globulin Ratio 1.2 (1.1-2.2); Alkaline Phosphatase 358 Units/L (34-104); Aspartate Amino Transferase 23 Units/L (13-39); BUN/Creatinine Ratio 22 (6-26); Bilirubin,Total 0.6 mg/dL (0.3-1.0); Blood Urea Nitrogen 35 mg/dL (8-23); Calcium 8.5 mg/dL (8.6-10.3); Carbon Dioxide 25 mEq/L (23-29); Chloride 107 mEq/L (98-107); Globulin 2.9 g/dL (2.4-3.5); Glucose 151 mg/dL (70-105); Osmolality,Calculated 301 (280-300); Potassium 4.2 mEq/L (3.5-5.1); Sodium 140 mEq/L (136-145); Total Protein 6.4 g/dL (6.4-8.9); eGFR For African Americans 53 (> 60); eGFR For Non-African Americans 43 (> 60)
[2019-02-24 10:40] LABS: Troponin I < 0.03 ng/mL (< 0.04)
[2019-02-24] MEDS ORDERED: Aspirin 81 MG TAB.CHEW PO ONE (10:41)
[2019-02-24] MEDS ORDERED: Naloxone 0.4 MG/ML INJ IVP PRN (10:55)
[2019-02-24] MEDS ORDERED: *HR* Dextrose 50 % in Water (Syg) 50 ML SYRINGE IVP PRN (12:11)
[2019-02-24] MEDS ORDERED: Dextrose Gel 15 GM/37.5 ML TUBE PO PRN ×2 (12:11)
[2019-02-24] MEDS ORDERED: D5% in Water 1,000 ML IVC PRN (12:11)
[2019-02-24] MEDS ORDERED: NON-FORMULARY MEDICATION 1 EACH EACH (Subcutaneous Insulin Pump [T:Slim] 1 EACH) MC SCH (13:30)
[2019-02-24] MEDS: hydrALAZINE 25 MG TABLET PO SCH ×2 (15:31→23:35)
[2019-02-24] MEDS: carvediloL 25 MG TABLET PO SCH (15:33)
[2019-02-24] MEDS ORDERED: FOLIC ACID 800 MCG PO SCH (21:00)
[2019-02-24] MEDS: Ketorolac OPTH Soln 5 ML BOTTLE BOTH EYES SCH (23:36)
[2019-02-24] MEDS: PrednisoLONE Acetate 1% Opth 5 ML BOTTLE BOTH EYES SCH (23:36)
[2019-02-24] MEDS: Pregabalin 50 MG CAPSULE PO SCH (23:40)
[2019-02-25] MEDS ORDERED: Furosemide 20 MG/2 ML VIAL IVP ONE (00:07)
[2019-02-25] MEDS ORDERED: *HR* Heparin 5,000 UNIT/ML VIAL SQ SCH (06:00)
[2019-02-25 06:20] LABS: Basophils # 0.1 K/mcL (0.0-0.2); Basophils % 0.9 %; Eosinophils # 0.2 K/mcL (0.0-0.6); Eosinophils % 2.8 %; Hematocrit 31.1 % (37.5-50.1); Hemoglobin 9.8 g/dL (12.9-16.9); Immature Granulocytes % 0.3 % (0-4); Lymphocytes # 1.1 K/mcL (0.6-4.6); Lymphocytes % 17.1 %; Mean Corpuscular HGB Conc 31.5 g/dL (31.6-35.5); Mean Corpuscular Hemoglobin 28.2 pg (28.0-33.3); Mean Corpuscular Volume 89.6 fL (83.0-100.0); Mean Platelet Volume 12.4 fL (9.4-12.4); Monocytes # 0.8 K/mcL (0.0-1.3); Neutrophils # 4.2 K/mcL (1.6-8.9); Platelet Count 137 K/mcL (140-400); Red Blood Count 3.47 M/mcL (4.19-5.50); Red Cell Distribution Width 15.6 % (11.5-14.5); Segmented Neutrophils % 65.9 %; White Blood Count 6.3 K/mcL (4.3-11.1)
[2019-02-25 06:41] LABS: Calcium 8.1 mg/dL (8.6-10.3); Potassium 4.2 mEq/L (3.5-5.1)
[2019-02-25] MEDS: hydrALAZINE 25 MG TABLET PO SCH (08:42)
[2019-02-25] MEDS: carvediloL 25 MG TABLET PO SCH (08:42)
[2019-02-25] MEDS: Ketorolac OPTH Soln 5 ML BOTTLE BOTH EYES SCH (08:42)
[2019-02-25] MEDS: PrednisoLONE Acetate 1% Opth 5 ML BOTTLE BOTH EYES SCH (08:43)
[2019-02-25] MEDS: Pregabalin 50 MG CAPSULE PO SCH (08:46)
[2019-02-25] MEDS ORDERED: Aspirin Enteric Coated 81 MG Tablet PO SCH ×2 (09:00)
[2019-02-25] MEDS ORDERED: Furosemide 40 MG TABLET PO SCH (09:00)
[2019-02-25] MEDS ORDERED: Isosorbide MONOnitrate (24 HR) 30 MG TAB.ER.24H PO SCH (09:00)
[2019-02-25] MEDS ORDERED: Folic Acid 1 MG TABLET PO SCH (09:00)
[2019-02-25] MEDS ORDERED: amLODIPine 5 MG TABLET PO SCH (09:00)
[2019-02-25] MEDS ORDERED: Aspirin 81 MG TAB.CHEW PO ONE (10:41)
[2019-02-25 11:10] LABS: Chol/HDL Ratio 1.9 (0-4.9); Cholesterol 86 mg/dL (< 200); HDL Cholesterol 45 mg/dL (40-59); LDL Cholesterol,Calculated 27 mg/dL (0-99); Triglycerides 72 mg/dL (< 150)
[2019-02-25 11:13] VITALS: BP 140/71
[2019-02-25 11:30] LABS: Estimated Average Glucose 157 mg/dl
== END 2019-02-25 15:06 | disposition home or self-care (01) ==
LOC: EMEROOARM 09:00 → 2ANU 09:00 → SUATTDRO 10:58 → 2ANU 11:43
PROVIDERS: ADMIT Internal Medicine; ATTEND Internal Medicine

== ENCOUNTER 2019-03-09 08:33 | Inpatient (IN) ==
[2019-03-09 09:12] LABS: Basophils % 0.5 %; Eosinophils # 0.2 K/mcL (0.0-0.6); Eosinophils % 2.5 %; Hematocrit 33.5 % (37.5-50.1); Hemoglobin 10.6 g/dL (12.9-16.9); Immature Granulocytes % 0.7 % (0-4); Lymphocytes # 0.7 K/mcL (0.6-4.6); Lymphocytes % 11.7 %; Mean Corpuscular HGB Conc 31.6 g/dL (31.6-35.5); Mean Corpuscular Hemoglobin 28.2 pg (28.0-33.3); Mean Corpuscular Volume 89.1 fL (83.0-100.0); Mean Platelet Volume 12.1 fL (9.4-12.4); Monocytes # 0.5 K/mcL (0.0-1.3); Monocytes % 8.7 %; Neutrophils # 4.5 K/mcL (1.6-8.9); Platelet Count 113 K/mcL (140-400); Red Blood Count 3.76 M/mcL (4.19-5.50); Red Cell Distribution Width 15.4 % (11.5-14.5); Segmented Neutrophils % 75.9 %
[2019-03-09 09:33] LABS: Calcium 8.7 mg/dL (8.6-10.3); Potassium 4.4 mEq/L (3.5-5.1); Troponin I 0.03 ng/mL (< 0.04)
[2019-03-09] MEDS ORDERED: Furosemide 40 MG/4 ML VIAL IVP ONE (10:27)
[2019-03-09] MEDS ORDERED: Naloxone 0.4 MG/ML INJ IVP PRN (13:29)
[2019-03-09] MEDS ORDERED: Ondansetron 4 MG/2 ML VIAL IVP PRN (13:29)
[2019-03-09] MEDS ORDERED: Azithromycin 500 MG in D5% in Water 250 ML IVPB SCH (14:00)
[2019-03-09] MEDS: Nitroglycerin 0.4 MG TAB.SUBL SL SCH ×2 (14:40→14:56)
[2019-03-09] MEDS: predniSONE 20 MG TABLET PO SCH (14:42)
[2019-03-09] MEDS: hydrALAZINE 25 MG TABLET PO SCH ×2 (14:43→20:32)
[2019-03-09] MEDS ORDERED: D5% in Water 1,000 ML IVC PRN (15:07)
[2019-03-09] MEDS ORDERED: *HR* Dextrose 50 % in Water (Syg) 50 ML SYRINGE IVP PRN (15:07)
[2019-03-09] MEDS ORDERED: Dextrose Gel 15 GM/37.5 ML TUBE PO PRN ×2 (15:07)
[2019-03-09] MEDS: Ipratropium/Albuterol Neb 3 ML IH SCH ×2 (16:24→21:20)
[2019-03-09] MEDS ORDERED: Insulin LISPRO 300 UNITS/3 ML VIAL SQ SCH ×2 (16:30→21:00)
[2019-03-09 16:32] LABS: ABG Base Excess 3 mEq/L (-2 to 3); ABG HCO3 31 mEq/L (21-27); ABG Oxygen Saturation 82 % (95-98); ABG PCO2 67 mmHg (35-45); ABG PH 7.28 pH Units (7.32-7.45); ABG PO2 54 mmHg (85-104); ABG TCO2 33 mEq/L (20-26)
[2019-03-09] MEDS: *HR* Heparin 5,000 UNIT/ML VIAL SQ SCH (18:58)
[2019-03-09] MEDS: carvediloL 25 MG TABLET PO SCH (18:58)
[2019-03-09] MEDS: Pregabalin 50 MG CAPSULE PO SCH (20:31)
[2019-03-09] MEDS: Folic Acid 1 MG TABLET PO SCH (20:32)
[2019-03-09] MEDS: Ketorolac OPTH Soln 5 ML BOTTLE BOTH EYES SCH (20:34)
[2019-03-09] MEDS: PrednisoLONE Acetate 1% Opth 5 ML BOTTLE BOTH EYES SCH (20:34)
[2019-03-09] MEDS ORDERED: Furosemide 40 MG/4 ML VIAL IVP SCH (21:00)
[2019-03-09] MEDS: Budesonide/Formoterol 80/4.5 1 PUFF INH IH SCH (21:19)
[2019-03-10] MEDS: Ipratropium/Albuterol Neb 3 ML IH SCH ×4 (03:36→21:48)
[2019-03-10] MEDS: *HR* Heparin 5,000 UNIT/ML VIAL SQ SCH ×2 (06:37→17:33)
[2019-03-10 06:59] LABS: Basophils % 0.2 %; Hematocrit 29.5 % (37.5-50.1); Hemoglobin 9.4 g/dL (12.9-16.9); Immature Granulocytes % 0.6 % (0-4); Lymphocytes # 0.7 K/mcL (0.6-4.6); Lymphocytes % 13.8 %; Mean Corpuscular HGB Conc 31.9 g/dL (31.6-35.5); Mean Corpuscular Volume 87.8 fL (83.0-100.0); Mean Platelet Volume 12.8 fL (9.4-12.4); Monocytes # 0.6 K/mcL (0.0-1.3); Monocytes % 11.2 %; Neutrophils # 3.6 K/mcL (1.6-8.9); Platelet Count 103 K/mcL (140-400); Red Blood Count 3.36 M/mcL (4.19-5.50); Red Cell Distribution Width 15.1 % (11.5-14.5); Segmented Neutrophils % 74.2 %; White Blood Count 4.9 K/mcL (4.3-11.1)
[2019-03-10 07:08] LABS: Albumin/Globulin Ratio 1.1 (1.1-2.2); Bilirubin,Total 0.4 mg/dL (0.3-1.0); Calcium 8.2 mg/dL (8.6-10.3); Globulin 2.8 g/dL (2.4-3.5); Potassium 4.4 mEq/L (3.5-5.1); Total Protein 5.8 g/dL (6.4-8.9)
[2019-03-10] MEDS: Pregabalin 50 MG CAPSULE PO SCH ×2 (08:03→23:08)
[2019-03-10] MEDS: Aspirin Enteric Coated 81 MG Tablet PO SCH (08:03)
[2019-03-10] MEDS: Isosorbide MONOnitrate (24 HR) 30 MG TAB.ER.24H PO SCH (08:03)
[2019-03-10] MEDS: hydrALAZINE 25 MG TABLET PO SCH ×3 (08:03→23:08)
[2019-03-10] MEDS: predniSONE 20 MG TABLET PO SCH (08:03)
[2019-03-10] MEDS: Folic Acid 1 MG TABLET PO SCH ×2 (08:04→23:08)
[2019-03-10] MEDS: carvediloL 25 MG TABLET PO SCH ×2 (08:04→17:33)
[2019-03-10 08:50] LABS: VBG HCO3 28 mEq/L (21-27); VBG PCO2 62 mmHg (41-51); VBG PH 7.27 pH Units (7.32-7.42); VBG PO2 112 mmHg (25-50)
[2019-03-10] MEDS ORDERED: Furosemide 40 MG/4 ML VIAL IVP SCH (09:00)
[2019-03-10] MEDS: Budesonide/Formoterol 80/4.5 1 PUFF INH IH SCH ×2 (10:31→21:48)
[2019-03-10] MEDS: PrednisoLONE Acetate 1% Opth 5 ML BOTTLE BOTH EYES SCH ×2 (13:02→23:14)
[2019-03-10] MEDS: Ketorolac OPTH Soln 5 ML BOTTLE BOTH EYES SCH ×2 (13:02→23:16)
[2019-03-10] MEDS: Azithromycin 250 MG TABLET PO SCH (13:05)
[2019-03-10] MEDS: Subcutaneous Insulin Pump SQ SCH (20:03)
[2019-03-11 00:35] LABS: ABG Base Excess 3 mEq/L (-2 to 3); ABG HCO3 29 mEq/L (21-27); ABG Oxygen Saturation 83 % (95-98); ABG PCO2 50 mmHg (35-45); ABG PH 7.36 pH Units (7.32-7.45); ABG PO2 49 mmHg (85-104); ABG TCO2 30 mEq/L (20-26)
[2019-03-11 02:11] LABS: Calcium 8.4 mg/dL (8.6-10.3); Magnesium 1.8 mg/dL (1.6-2.6); Potassium 4.2 mEq/L (3.5-5.1)
[2019-03-11] MEDS: Ipratropium/Albuterol Neb 3 ML IH SCH ×4 (04:00→22:43)
[2019-03-11] MEDS: *HR* Heparin 5,000 UNIT/ML VIAL SQ SCH ×2 (06:36→18:10)
[2019-03-11] MEDS: Isosorbide MONOnitrate (24 HR) 30 MG TAB.ER.24H PO SCH (09:43)
[2019-03-11] MEDS: hydrALAZINE 25 MG TABLET PO SCH ×3 (09:43→20:10)
[2019-03-11] MEDS: predniSONE 20 MG TABLET PO SCH (09:43)
[2019-03-11] MEDS: carvediloL 25 MG TABLET PO SCH ×2 (09:43→18:09)
[2019-03-11] MEDS: Pregabalin 50 MG CAPSULE PO SCH ×2 (09:43→20:10)
[2019-03-11] MEDS: Folic Acid 1 MG TABLET PO SCH ×2 (09:43→20:10)
[2019-03-11] MEDS: Furosemide 40 MG/4 ML VIAL IVP SCH ×2 (09:44→18:09)
[2019-03-11] MEDS: Azithromycin 250 MG TABLET PO SCH (09:44)
[2019-03-11] MEDS: Aspirin Enteric Coated 81 MG Tablet PO SCH (09:44)
[2019-03-11] MEDS: Subcutaneous Insulin Pump SQ SCH (09:49)
[2019-03-11] MEDS: PrednisoLONE Acetate 1% Opth 5 ML BOTTLE BOTH EYES SCH ×2 (10:27→20:12)
[2019-03-11] MEDS: Ketorolac OPTH Soln 5 ML BOTTLE BOTH EYES SCH ×2 (10:27→20:12)
[2019-03-11] MEDS: Budesonide/Formoterol 80/4.5 1 PUFF INH IH SCH ×2 (10:58→22:43)
[2019-03-12] MEDS: Ipratropium/Albuterol Neb 3 ML IH SCH ×4 (04:00→22:20)
[2019-03-12] MEDS: *HR* Heparin 5,000 UNIT/ML VIAL SQ SCH ×2 (05:27→17:16)
[2019-03-12 06:51] LABS: Hematocrit 29.9 % (37.5-50.1); Hemoglobin 9.4 g/dL (12.9-16.9); Mean Corpuscular HGB Conc 31.4 g/dL (31.6-35.5); Mean Corpuscular Hemoglobin 27.7 pg (28.0-33.3); Mean Corpuscular Volume 88.2 fL (83.0-100.0); Mean Platelet Volume 12.9 fL (9.4-12.4); Platelet Count 111 K/mcL (140-400); Red Blood Count 3.39 M/mcL (4.19-5.50); Red Cell Distribution Width 14.6 % (11.5-14.5); White Blood Count 5.8 K/mcL (4.3-11.1)
[2019-03-12 07:15] LABS: Calcium 8.7 mg/dL (8.6-10.3); Potassium 3.8 mEq/L (3.5-5.1)
[2019-03-12] MEDS: Budesonide/Formoterol 80/4.5 1 PUFF INH IH SCH ×2 (08:48→22:20)
[2019-03-12] MEDS: Azithromycin 250 MG TABLET PO SCH (09:08)
[2019-03-12] MEDS: predniSONE 20 MG TABLET PO SCH (09:09)
[2019-03-12] MEDS: Isosorbide MONOnitrate (24 HR) 30 MG TAB.ER.24H PO SCH (09:09)
[2019-03-12] MEDS: Furosemide 40 MG/4 ML VIAL IVP SCH ×2 (09:09→17:16)
[2019-03-12] MEDS: Folic Acid 1 MG TABLET PO SCH ×2 (09:09→21:55)
[2019-03-12] MEDS: Aspirin Enteric Coated 81 MG Tablet PO SCH (09:09)
[2019-03-12] MEDS: hydrALAZINE 25 MG TABLET PO SCH ×3 (09:09→21:56)
[2019-03-12] MEDS: Pregabalin 50 MG CAPSULE PO SCH ×2 (09:09→21:54)
[2019-03-12] MEDS: PrednisoLONE Acetate 1% Opth 5 ML BOTTLE BOTH EYES SCH ×2 (09:10→21:58)
[2019-03-12] MEDS: Ketorolac OPTH Soln 5 ML BOTTLE BOTH EYES SCH ×2 (09:10→21:56)
[2019-03-12] MEDS: carvediloL 25 MG TABLET PO SCH ×2 (09:10→17:17)
[2019-03-12] MEDS: Subcutaneous Insulin Pump SQ SCH ×2 (09:11→15:19)
[2019-03-12] MEDS ORDERED: Insulin Human Regular 10 UNIT in 0.9 % Sodium Chloride 10 ML IV ONE (22:40)
[2019-03-13] MEDS ORDERED: Insulin DETEMIR 100 UNIT/ML X5UNITS SQ ONE (01:22)
[2019-03-13 02:07] LABS: Calcium 8.4 mg/dL (8.6-10.3); Potassium 3.6 mEq/L (3.5-5.1)
[2019-03-13] MEDS ORDERED: Insulin Human Regular 10 UNIT in 0.9 % Sodium Chloride 10 ML IV ONE (03:25)
[2019-03-13] MEDS: Ipratropium/Albuterol Neb 3 ML IH SCH ×4 (03:25→21:25)
[2019-03-13] MEDS: *HR* Heparin 5,000 UNIT/ML VIAL SQ SCH ×2 (05:41→17:04)
[2019-03-13] MEDS ORDERED: Furosemide 40 MG/4 ML VIAL IVP SCH (08:00)
[2019-03-13] MEDS ORDERED: Furosemide 40 MG/4 ML VIAL IVP ONE (08:59)
[2019-03-13] MEDS: Azithromycin 250 MG TABLET PO SCH (09:04)
[2019-03-13] MEDS: Pregabalin 50 MG CAPSULE PO SCH ×2 (09:06→19:50)
[2019-03-13] MEDS: predniSONE 20 MG TABLET PO SCH (09:06)
[2019-03-13] MEDS: Isosorbide MONOnitrate (24 HR) 30 MG TAB.ER.24H PO SCH (09:06)
[2019-03-13] MEDS: Aspirin Enteric Coated 81 MG Tablet PO SCH (09:07)
[2019-03-13] MEDS: hydrALAZINE 25 MG TABLET PO SCH ×3 (09:07→19:50)
[2019-03-13] MEDS: carvediloL 25 MG TABLET PO SCH ×2 (09:07→17:03)
[2019-03-13] MEDS: Folic Acid 1 MG TABLET PO SCH ×2 (09:07→19:50)
[2019-03-13] MEDS: PrednisoLONE Acetate 1% Opth 5 ML BOTTLE BOTH EYES SCH ×2 (09:13→19:49)
[2019-03-13] MEDS: Ketorolac OPTH Soln 5 ML BOTTLE BOTH EYES SCH ×2 (09:28→19:49)
[2019-03-13] MEDS: Budesonide/Formoterol 80/4.5 1 PUFF INH IH SCH ×2 (10:29→21:25)
[2019-03-13] MEDS: Subcutaneous Insulin Pump SQ SCH (13:50)
[2019-03-13] MEDS: Furosemide 40 MG TABLET PO SCH (17:03)
[2019-03-14] MEDS: Ipratropium/Albuterol Neb 3 ML IH SCH ×2 (03:47→09:27)
[2019-03-14] MEDS: *HR* Heparin 5,000 UNIT/ML VIAL SQ SCH (06:11)
[2019-03-14 07:52] LABS: Calcium 8.8 mg/dL (8.6-10.3); Magnesium 1.9 mg/dL (1.6-2.6); Potassium 3.5 mEq/L (3.5-5.1)
[2019-03-14] MEDS: Furosemide 40 MG TABLET PO SCH (08:19)
[2019-03-14] MEDS: Azithromycin 250 MG TABLET PO SCH (08:19)
[2019-03-14] MEDS: Pregabalin 50 MG CAPSULE PO SCH (08:19)
[2019-03-14] MEDS: Folic Acid 1 MG TABLET PO SCH (08:19)
[2019-03-14] MEDS: hydrALAZINE 25 MG TABLET PO SCH (08:19)
[2019-03-14] MEDS: predniSONE 20 MG TABLET PO SCH (08:19)
[2019-03-14] MEDS: carvediloL 25 MG TABLET PO SCH (08:19)
[2019-03-14] MEDS: Aspirin Enteric Coated 81 MG Tablet PO SCH (08:20)
[2019-03-14] MEDS: Isosorbide MONOnitrate (24 HR) 30 MG TAB.ER.24H PO SCH (08:20)
[2019-03-14] MEDS: PrednisoLONE Acetate 1% Opth 5 ML BOTTLE BOTH EYES SCH (08:22)
[2019-03-14] MEDS: Ketorolac OPTH Soln 5 ML BOTTLE BOTH EYES SCH (08:22)
[2019-03-14] MEDS: Budesonide/Formoterol 80/4.5 1 PUFF INH IH SCH (09:28)
[2019-03-14 09:39] VITALS: BP 163/77
== END 2019-03-14 11:22 | disposition home or self-care (01) | DRG 291 ==
LOC: 2ANU 08:33 → EMEROOARM 08:33 → SUATTDRO 11:21 → 2ANU 12:05
PROVIDERS: ADMIT Internal Medicine; ATTEND Internal Medicine

== ENCOUNTER 2019-05-10 09:51 | Inpatient (IN) ==
[2019-05-10] MEDS ORDERED: methylPREDNISolone 125 MG/2 ML VIAL IVP ONE (10:07)
[2019-05-10] MEDS ORDERED: Ipratropium/Albuterol Neb 3 ML IH ONE (10:07)
[2019-05-10] MEDS ORDERED: Albuterol 2.5 MG/3 ML NEBULIZER IH ONE (10:07)
[2019-05-10 10:41] LABS: Basophils % 0.3 %; Eosinophils # 0.1 K/mcL (0.0-0.6); Eosinophils % 0.9 %; Hematocrit 33.1 % (37.5-50.1); Hemoglobin 10.2 g/dL (12.9-16.9); Immature Granulocytes % 0.6 % (0-4); Lymphocytes # 0.8 K/mcL (0.6-4.6); Lymphocytes % 9.3 %; Mean Corpuscular HGB Conc 30.8 g/dL (31.6-35.5); Mean Corpuscular Hemoglobin 25.3 pg (28.0-33.3); Mean Corpuscular Volume 82.1 fL (83.0-100.0); Mean Platelet Volume 11.8 fL (9.4-12.4); Monocytes # 0.9 K/mcL (0.0-1.3); Monocytes % 10.5 %; Neutrophils # 6.9 K/mcL (1.6-8.9); Platelet Count 132 K/mcL (140-400); Red Blood Count 4.03 M/mcL (4.19-5.50); Red Cell Distribution Width 15.8 % (11.5-14.5); Segmented Neutrophils % 78.4 %; White Blood Count 8.8 K/mcL (4.3-11.1)
[2019-05-10 11:02] LABS: Albumin 3.7 g/dL (3.5-5.7); Bilirubin,Direct 0.3 mg/dL (0.0-0.2); Bilirubin,Indirect 0.4 mg/dL (0.0-1.0); Bilirubin,Total 0.7 mg/dL (0.3-1.0); Globulin 3.7 g/dL (2.4-3.5); Potassium 3.9 mEq/L (3.5-5.1); Total Protein 7.4 g/dL (6.4-8.9); Troponin I 0.03 ng/mL (< 0.04)
[2019-05-10] MEDS ORDERED: cefTRIAXone 1,000 MG in Water for inj. (sterile) 10 ML IVP ONE (11:18)
[2019-05-10] MEDS ORDERED: Azithromycin 500 MG in 0.9 % Sodium Chloride 250 ML IVPB ONE (11:57)
[2019-05-10] MEDS ORDERED: Naloxone 0.4 MG/ML INJ IVP PRN (12:09)
[2019-05-10] MEDS ORDERED: Ondansetron 4 MG/2 ML VIAL IVP PRN (12:09)
[2019-05-10] MEDS ORDERED: Dextrose Gel 15 GM/37.5 ML TUBE PO PRN ×2 (12:27)
[2019-05-10] MEDS ORDERED: D5% in Water 1,000 ML IVC PRN (12:27)
[2019-05-10] MEDS ORDERED: *HR* Dextrose 50 % in Water (Syg) 50 ML SYRINGE IVP PRN (12:27)
[2019-05-10 15:12] LABS: Adenovirus Not Detected (Not Detect); Bordetella Pertussis Not Detected (Not Detect); Chlamydophila pneumoniae Not Detected (Not Detect); Coronavirus 229E Not Detected (Not Detect); Coronavirus HKU1 Not Detected (Not Detect); Coronavirus NL63 Not Detected (Not Detect); Coronavirus OC43 Not Detected (Not Detect); Human Metapneumovirus Not Detected (Not Detect); Human Rhinovirus/Enterovirus DETECTED (Not Detect); Influenza A Subtype 2009 H1 Not Detected (Not Detect); Influenza B Not Detected (Not Detect); Mycoplasma pneumoniae Not Detected (Not Detect); Parainfluenza Virus 1 Not Detected (Not Detect); Parainfluenza Virus 2 Not Detected (Not Detect); Parainfluenza Virus 3 Not Detected (Not Detect); Parainfluenza Virus 4 Not Detected (Not Detect); Respiratory Syncytial Virus Not Detected (Not Detect)
[2019-05-10] MEDS: Ipratropium/Albuterol Neb 3 ML IH SCH ×2 (15:28→20:17)
[2019-05-10] MEDS ORDERED: Insulin LISPRO 300 UNITS/3 ML VIAL SQ SCH (16:30)
[2019-05-10] MEDS: carvediloL 25 MG TABLET PO SCH (16:53)
[2019-05-10] MEDS: hydrALAZINE 25 MG TABLET PO SCH ×2 (16:53→20:55)
[2019-05-10] MEDS: MethylPREDNISolone 40 MG/ML VIAL IVP SCH (16:54)
[2019-05-10] MEDS: Furosemide 40 MG TABLET PO SCH (16:54)
[2019-05-10] MEDS: *HR* Heparin 5,000 UNIT/ML VIAL SQ SCH (16:54)
[2019-05-10] MEDS: Ketorolac OPTH Soln 5 ML BOTTLE BOTH EYES SCH (16:55)
[2019-05-10] MEDS: PrednisoLONE Acetate 1% Opth 5 ML BOTTLE BOTH EYES SCH (16:56)
[2019-05-10] MEDS: Budesonide/Formoterol 80/4.5 1 PUFF INH IH SCH (20:17)
[2019-05-10] MEDS: Pregabalin 50 MG CAPSULE PO SCH (20:56)
[2019-05-10] MEDS ORDERED: Insulin DETEMIR 100 UNIT/ML X5UNITS SQ SCH (21:00)
[2019-05-11] MEDS: Ipratropium/Albuterol Neb 3 ML IH SCH ×7 (00:03→23:22)
[2019-05-11] MEDS: MethylPREDNISolone 40 MG/ML VIAL IVP SCH ×2 (04:52→17:58)
[2019-05-11] MEDS: *HR* Heparin 5,000 UNIT/ML VIAL SQ SCH ×2 (04:53→17:57)
[2019-05-11 07:06] LABS: Hematocrit 28.5 % (37.5-50.1); Immature Granulocytes % 0.7 % (0-4); Lymphocytes # 0.4 K/mcL (0.6-4.6); Lymphocytes % 5.7 %; Mean Corpuscular HGB Conc 31.6 g/dL (31.6-35.5); Mean Corpuscular Hemoglobin 26.1 pg (28.0-33.3); Mean Corpuscular Volume 82.6 fL (83.0-100.0); Mean Platelet Volume 12.4 fL (9.4-12.4); Monocytes # 0.2 K/mcL (0.0-1.3); Monocytes % 2.3 %; Neutrophils # 6.2 K/mcL (1.6-8.9); Platelet Count 116 K/mcL (140-400); Red Blood Count 3.45 M/mcL (4.19-5.50); Red Cell Distribution Width 15.6 % (11.5-14.5); Segmented Neutrophils % 91.3 %; White Blood Count 6.8 K/mcL (4.3-11.1)
[2019-05-11] MEDS: Budesonide/Formoterol 80/4.5 1 PUFF INH IH SCH ×2 (07:21→19:43)
[2019-05-11 07:26] LABS: Calcium 8.5 mg/dL (8.6-10.3); Magnesium 1.9 mg/dL (1.6-2.6); Potassium 4.3 mEq/L (3.5-5.1)
[2019-05-11] MEDS: cefTRIAXone 1,000 MG in Water for inj. (sterile) 10 ML IVP SCH (09:46)
[2019-05-11] MEDS: hydrALAZINE 25 MG TABLET PO SCH ×3 (09:46→20:42)
[2019-05-11] MEDS: Furosemide 40 MG TABLET PO SCH ×2 (09:46→17:56)
[2019-05-11] MEDS: lisinopriL 5 MG TABLET PO SCH (09:46)
[2019-05-11] MEDS: Azithromycin 250 MG TABLET PO SCH (09:47)
[2019-05-11] MEDS: Pregabalin 50 MG CAPSULE PO SCH ×2 (09:47→20:42)
[2019-05-11] MEDS: carvediloL 25 MG TABLET PO SCH ×2 (09:47→17:56)
[2019-05-11] MEDS: amLODIPine 5 MG TABLET PO SCH (09:47)
[2019-05-11] MEDS: Isosorbide MONOnitrate (24 HR) 30 MG TAB.ER.24H PO SCH (09:47)
[2019-05-11] MEDS: Insulin LISPRO 300 UNITS/3 ML VIAL SQ SCH ×2 (09:47→14:09)
[2019-05-11] MEDS: Ketorolac OPTH Soln 5 ML BOTTLE BOTH EYES SCH ×2 (09:48→20:46)
[2019-05-11] MEDS: PrednisoLONE Acetate 1% Opth 5 ML BOTTLE BOTH EYES SCH ×2 (09:48→20:46)
[2019-05-11 10:31] LABS: Acinetobacter baumannii by PCR Not Detected (Not Detect); Candida albicans by PCR Not Detected (Not Detect); Candida glabrata by PCR Not Detected (Not Detect); Enterobacter cloacae Cmplx PCR Not Detected (Not Detect); Enterobacteriaceae by PCR Not Detected (Not Detect); Enterococcus by PCR Not Detected (Not Detect); Escherichia coli by PCR Not Detected (Not Detect); Klebsiella oxytoca by PCR Not Detected (Not Detect); Klebsiella pneumoniae by PCR Not Detected (Not Detect); Proteus by PCR Not Detected (Not Detect); Pseudomonas aeruginosa by PCR Not Detected (Not Detect); Serratia marcescens by PCR Not Detected (Not Detect); Streptococcus agalactiae(B)PCR Not Detected (Not Detect); Streptococcus by PCR Not Detected (Not Detect); Streptococcus pneumoniae PCR Not Detected (Not Detect); Streptococcus pyogenes (A) PCR Not Detected (Not Detect); blaKPC Carbapenem-Resist Gene Not Detected (Not Detect); mecA Methicillin-Resist Gene Not Detected (Not Detect); vanA/B Vancomycin-Resist Genes Not Detected (Not Detect)
[2019-05-11 10:32] LABS: Candida krusei by PCR Not Detected (Not Detect); Candida parapsilosis by PCR Not Detected (Not Detect); Candida tropicalis by PCR Not Detected (Not Detect)
[2019-05-11] MEDS ORDERED: Insulin DETEMIR 100 UNIT/ML X5UNITS SQ ONE (14:49)
[2019-05-11] MEDS ORDERED: Insulin LISPRO 300 UNITS/3 ML VIAL SQ SCH (21:00)
[2019-05-12] MEDS: Ipratropium/Albuterol Neb 3 ML IH SCH ×5 (03:45→20:13)
[2019-05-12 04:44] LABS: Basophils % 0.1 %; Hematocrit 29.7 % (37.5-50.1); Hemoglobin 9.1 g/dL (12.9-16.9); Immature Granulocytes % 0.8 % (0-4); Lymphocytes # 0.4 K/mcL (0.6-4.6); Lymphocytes % 3.7 %; Mean Corpuscular HGB Conc 30.6 g/dL (31.6-35.5); Mean Corpuscular Hemoglobin 25.2 pg (28.0-33.3); Mean Corpuscular Volume 82.3 fL (83.0-100.0); Mean Platelet Volume 12.1 fL (9.4-12.4); Monocytes # 0.5 K/mcL (0.0-1.3); Monocytes % 3.9 %; Platelet Count 126 K/mcL (140-400); Red Blood Count 3.61 M/mcL (4.19-5.50); Red Cell Distribution Width 15.4 % (11.5-14.5); Segmented Neutrophils % 91.5 %
[2019-05-12 04:45] LABS: Neutrophils # 10.6 K/mcL (1.6-8.9); White Blood Count 11.6 K/mcL (4.3-11.1)
[2019-05-12 05:08] LABS: Albumin 3.2 g/dL (3.5-5.7); Albumin/Globulin Ratio 1.1 (1.1-2.2); Bilirubin,Total 0.3 mg/dL (0.3-1.0); Calcium 8.4 mg/dL (8.6-10.3); Phosphorous 5.1 mg/dL (2.7-4.5); Potassium 4.1 mEq/L (3.5-5.1); Total Protein 6.2 g/dL (6.4-8.9)
[2019-05-12] MEDS: *HR* Heparin 5,000 UNIT/ML VIAL SQ SCH ×3 (05:15→21:12)
[2019-05-12] MEDS: Budesonide/Formoterol 80/4.5 1 PUFF INH IH SCH ×2 (07:34→20:13)
[2019-05-12 07:53] LABS: Staphylococcus aureus by PCR Not Detected (Not Detect); Staphylococcus by PCR DETECTED (Not Detect)
[2019-05-12] MEDS: PrednisoLONE Acetate 1% Opth 5 ML BOTTLE BOTH EYES SCH ×2 (09:00→20:50)
[2019-05-12] MEDS: Ketorolac OPTH Soln 5 ML BOTTLE BOTH EYES SCH ×2 (09:22→20:49)
[2019-05-12] MEDS: cefTRIAXone 1,000 MG in Water for inj. (sterile) 10 ML IVP SCH (09:42)
[2019-05-12] MEDS: Insulin LISPRO 300 UNITS/3 ML VIAL SQ SCH ×4 (09:43→20:53)
[2019-05-12] MEDS: lisinopriL 5 MG TABLET PO SCH (09:44)
[2019-05-12] MEDS: predniSONE 20 MG TABLET PO SCH (09:44)
[2019-05-12] MEDS: hydrALAZINE 25 MG TABLET PO SCH ×3 (09:44→20:53)
[2019-05-12] MEDS: Furosemide 40 MG TABLET PO SCH ×2 (09:44→18:15)
[2019-05-12] MEDS: Azithromycin 250 MG TABLET PO SCH (09:45)
[2019-05-12] MEDS: carvediloL 25 MG TABLET PO SCH ×2 (09:45→18:15)
[2019-05-12] MEDS: Pregabalin 50 MG CAPSULE PO SCH ×2 (09:45→20:53)
[2019-05-12] MEDS: Isosorbide MONOnitrate (24 HR) 30 MG TAB.ER.24H PO SCH (09:45)
[2019-05-12] MEDS: amLODIPine 5 MG TABLET PO SCH (09:45)
[2019-05-13] MEDS: Ipratropium/Albuterol Neb 3 ML IH SCH ×6 (00:01→20:02)
[2019-05-13] MEDS: Insulin LISPRO 300 UNITS/3 ML VIAL SQ SCH ×7 (00:17→23:46)
[2019-05-13 06:47] LABS: Basophils % 0.1 %; Hematocrit 32.1 % (37.5-50.1); Immature Granulocytes % 1.2 % (0-4); Lymphocytes # 0.8 K/mcL (0.6-4.6); Lymphocytes % 6.7 %; Mean Corpuscular HGB Conc 31.2 g/dL (31.6-35.5); Mean Corpuscular Hemoglobin 25.7 pg (28.0-33.3); Mean Corpuscular Volume 82.5 fL (83.0-100.0); Mean Platelet Volume 12.9 fL (9.4-12.4); Monocytes # 0.6 K/mcL (0.0-1.3); Monocytes % 5.1 %; Neutrophils # 9.9 K/mcL (1.6-8.9); Nucleated Red Blood Cells 0.2 /100 WBC (0); Platelet Count 145 K/mcL (140-400); Red Blood Count 3.89 M/mcL (4.19-5.50); Red Cell Distribution Width 15.5 % (11.5-14.5); Segmented Neutrophils % 86.9 %; White Blood Count 11.4 K/mcL (4.3-11.1)
[2019-05-13 07:04] LABS: Calcium 8.9 mg/dL (8.6-10.3); Magnesium 1.8 mg/dL (1.6-2.6); Phosphorous 4.4 mg/dL (2.7-4.5); Potassium 3.7 mEq/L (3.5-5.1)
[2019-05-13] MEDS: Budesonide/Formoterol 80/4.5 1 PUFF INH IH SCH ×2 (07:36→20:01)
[2019-05-13] MEDS: Azithromycin 250 MG TABLET PO SCH (08:03)
[2019-05-13] MEDS: hydrALAZINE 25 MG TABLET PO SCH ×3 (08:04→21:26)
[2019-05-13] MEDS: Pregabalin 50 MG CAPSULE PO SCH ×2 (08:04→21:26)
[2019-05-13] MEDS: lisinopriL 5 MG TABLET PO SCH (08:04)
[2019-05-13] MEDS: amLODIPine 5 MG TABLET PO SCH (08:04)
[2019-05-13] MEDS: predniSONE 20 MG TABLET PO SCH (08:04)
[2019-05-13] MEDS: Furosemide 40 MG TABLET PO SCH (08:04)
[2019-05-13] MEDS: cefTRIAXone 1,000 MG in Water for inj. (sterile) 10 ML IVP SCH (08:05)
[2019-05-13] MEDS: Isosorbide MONOnitrate (24 HR) 30 MG TAB.ER.24H PO SCH (08:05)
[2019-05-13] MEDS: carvediloL 25 MG TABLET PO SCH ×2 (08:05→17:34)
[2019-05-13] MEDS: Ketorolac OPTH Soln 5 ML BOTTLE BOTH EYES SCH ×2 (08:24→21:24)
[2019-05-13] MEDS: PrednisoLONE Acetate 1% Opth 5 ML BOTTLE BOTH EYES SCH ×2 (08:24→21:24)
[2019-05-13] MEDS: *HR* Heparin 5,000 UNIT/ML VIAL SQ SCH ×2 (17:29→21:24)
[2019-05-14] MEDS: Ipratropium/Albuterol Neb 3 ML IH SCH ×3 (03:48→07:45)
[2019-05-14] MEDS: Insulin LISPRO 300 UNITS/3 ML VIAL SQ SCH ×2 (04:04→08:18)
[2019-05-14 07:28] VITALS: BP 126/72
[2019-05-14 07:33] LABS: Basophils % 0.2 %; Eosinophils % 0.1 %; Hematocrit 31.2 % (37.5-50.1); Hemoglobin 9.6 g/dL (12.9-16.9); Lymphocytes % 10.4 %; Mean Corpuscular HGB Conc 30.8 g/dL (31.6-35.5); Mean Corpuscular Hemoglobin 25.3 pg (28.0-33.3); Mean Corpuscular Volume 82.3 fL (83.0-100.0); Mean Platelet Volume 12.5 fL (9.4-12.4); Monocytes # 0.8 K/mcL (0.0-1.3); Monocytes % 8.6 %; Neutrophils # 7.7 K/mcL (1.6-8.9); Nucleated Red Blood Cells 0.2 /100 WBC (0); Platelet Count 129 K/mcL (140-400); Red Blood Count 3.79 M/mcL (4.19-5.50); Red Cell Distribution Width 15.6 % (11.5-14.5); Segmented Neutrophils % 78.7 %; White Blood Count 9.7 K/mcL (4.3-11.1)
[2019-05-14] MEDS: Budesonide/Formoterol 80/4.5 1 PUFF INH IH SCH (07:45)
[2019-05-14 07:54] LABS: Calcium 8.5 mg/dL (8.6-10.3); Potassium 4.4 mEq/L (3.5-5.1)
[2019-05-14] MEDS: Pregabalin 50 MG CAPSULE PO SCH (08:07)
[2019-05-14] MEDS: hydrALAZINE 25 MG TABLET PO SCH (08:07)
[2019-05-14] MEDS: Azithromycin 250 MG TABLET PO SCH (08:08)
[2019-05-14] MEDS: amLODIPine 5 MG TABLET PO SCH (08:08)
[2019-05-14] MEDS: carvediloL 25 MG TABLET PO SCH (08:08)
[2019-05-14] MEDS: predniSONE 20 MG TABLET PO SCH (08:08)
[2019-05-14] MEDS: Isosorbide MONOnitrate (24 HR) 30 MG TAB.ER.24H PO SCH (08:08)
[2019-05-14] MEDS: Ketorolac OPTH Soln 5 ML BOTTLE BOTH EYES SCH (08:21)
[2019-05-14] MEDS: PrednisoLONE Acetate 1% Opth 5 ML BOTTLE BOTH EYES SCH (08:21)
[2019-05-14] MEDS ORDERED: Aminoglycoside Consult 1 EACH MC ONE (11:01)
== END 2019-05-14 11:02 | disposition home or self-care (01) ==
LOC: 3BNU 09:51 → EMEROOARM 09:51 → SUATTDRO 12:09 → 3BNU 13:44
PROVIDERS: ADMIT Internal Medicine; ATTEND Internal Medicine

== ENCOUNTER 2019-09-19 10:51 | Inpatient (IN) ==
[2019-09-19 11:56] LABS: Hematocrit 36.9 % (37.5-50.1); Hemoglobin 11.3 g/dL (12.9-16.9); Immature Platelets 7.6 % (1.1-6.1); Mean Corpuscular HGB Conc 30.6 g/dL (31.6-35.5); Mean Corpuscular Hemoglobin 26.7 pg (28.0-33.3); Mean Corpuscular Volume 87.2 fL (83.0-100.0); Platelet Count 105 K/mcL (140-400); Red Blood Count 4.23 M/mcL (4.19-5.50); Red Cell Distribution Width 24.6 % (11.5-14.5); White Blood Count 5.5 K/mcL (4.3-11.1)
[2019-09-19 12:20] LABS: BUN/Creatinine Ratio 28 (6-26); Blood Urea Nitrogen 52 mg/dL (8-23); Carbon Dioxide 26 mEq/L (23-29); Chloride 108 mEq/L (98-107); Glucose 121 mg/dL (70-105); Osmolality,Calculated 305 (280-300); Potassium 4.8 mEq/L (3.5-5.1); Sodium 140 mEq/L (136-145); Troponin I < 0.03 ng/mL (< 0.04); eGFR For African Americans 44 (> 60); eGFR For Non-African Americans 36 (> 60)
[2019-09-19 12:31] LABS: Anisocytosis 3+ (Not Present); Hypochromasia Present (Not Present); Monocytes # 0.6 K/mcL (0.0-1.3); Platelet Estimate Decreased (Normal); Target Cells 1+ (Not Present)
[2019-09-19] MEDS ORDERED: Furosemide 40 MG/4 ML VIAL IVP ONE (12:53)
[2019-09-19] MEDS ORDERED: Naloxone 0.4 MG/ML INJ IVP PRN (16:03)
[2019-09-19 17:03] LABS: INR 1.1; Prothrombin Time 12.8 Seconds (9.4-12.1)
[2019-09-19 17:18] LABS: Albumin 3.2 g/dL (3.5-5.7); Albumin/Globulin Ratio 1.1 (1.1-2.2); Bilirubin,Total 0.5 mg/dL (0.3-1.0); Globulin 2.8 g/dL (2.4-3.5); Potassium 4.6 mEq/L (3.5-5.1)
[2019-09-19] MEDS: Pregabalin 50 MG CAPSULE PO SCH (19:49)
[2019-09-19] MEDS: Furosemide 40 MG/4 ML VIAL IVP SCH (19:49)
[2019-09-19] MEDS: hydrALAZINE 25 MG TABLET PO SCH (19:49)
[2019-09-19] MEDS: carvediloL 25 MG TABLET PO SCH (20:00)
[2019-09-19] MEDS ORDERED: Furosemide 40 MG in 0.9 % Sodium Chloride 50 ML IV SCH (21:00)
[2019-09-20 03:25] LABS: Basophils % 0.8 %; Eosinophils # 0.2 K/mcL (0.0-0.6); Eosinophils % 3.7 %; Hematocrit 35.4 % (37.5-50.1); Hemoglobin 10.8 g/dL (12.9-16.9); Immature Granulocytes % 0.4 % (0-4); Immature Platelets 7.4 % (1.1-6.1); Lymphocytes # 0.9 K/mcL (0.6-4.6); Lymphocytes % 17.4 %; Mean Corpuscular HGB Conc 30.5 g/dL (31.6-35.5); Mean Corpuscular Volume 88.5 fL (83.0-100.0); Mean Platelet Volume 11.5 fL (9.4-12.4); Monocytes # 0.5 K/mcL (0.0-1.3); Monocytes % 10.5 %; Neutrophils # 3.5 K/mcL (1.6-8.9); Red Cell Distribution Width 24.6 % (11.5-14.5); Segmented Neutrophils % 67.2 %; White Blood Count 5.2 K/mcL (4.3-11.1)
[2019-09-20 03:42] LABS: Platelet Count 97 K/mcL (140-400)
[2019-09-20 03:45] LABS: Calcium 8.2 mg/dL (8.6-10.3); Potassium 4.3 mEq/L (3.5-5.1)
[2019-09-20 03:53] LABS: Anisocytosis 1+ (Not Present); Hypochromasia Present (Not Present); Platelet Estimate Slight Decrease (Normal)
[2019-09-20] MEDS: *HR* Heparin 5,000 UNIT/ML VIAL SQ SCH ×2 (05:39→16:57)
[2019-09-20] MEDS: Furosemide 40 MG/4 ML VIAL IVP SCH ×2 (09:01→23:54)
[2019-09-20] MEDS: carvediloL 25 MG TABLET PO SCH ×2 (09:01→20:56)
[2019-09-20] MEDS: Pregabalin 50 MG CAPSULE PO SCH (09:02)
[2019-09-20] MEDS: hydrALAZINE 25 MG TABLET PO SCH ×3 (09:03→21:34)
[2019-09-20] MEDS: amLODIPine 5 MG TABLET PO SCH (09:03)
[2019-09-20] MEDS: Isosorbide MONOnitrate (24 HR) 30 MG TAB.ER.24H PO SCH (09:03)
[2019-09-20] MEDS ORDERED: Furosemide 40 MG/4 ML VIAL IVP ONE (09:10)
[2019-09-20] MEDS ORDERED: *HR* Dextrose 50 % in Water (Vial) 50 ML VIAL IVP PRN (13:23)
[2019-09-20] MEDS ORDERED: D5% in Water 1,000 ML IVC PRN (13:23)
[2019-09-20] MEDS ORDERED: Dextrose Gel 15 GM/37.5 ML TUBE PO PRN ×2 (13:23)
[2019-09-20 15:40] LABS: Calcium 8.2 mg/dL (8.6-10.3); Potassium 4.5 mEq/L (3.5-5.1)
[2019-09-20] MEDS ORDERED: Albumin 25% 25gram/100mL 25 GM/100 ML IV.SOLN IVPB ONE (18:36)
[2019-09-20] MEDS ORDERED: Albumin 25% 12.5gm/50mL 12.5 GM/50 ML IV.SOLN IVPB ONE (18:37)
[2019-09-20 21:25] LABS: RBC,Peritoneal Fluid 2000 RBC/mcL
[2019-09-20 21:35] LABS: Amylase,Peritoneal Fluid < 10 Units/L (No Ref Range); Glucose,Peritoneal Fluid 130 mg/dL (No Ref Range); LDH,Peritoneal Fluid 75 Units/L (No Ref Range); Total Protein,Peritoneal Fluid 3.4 g/dL
[2019-09-20 22:35] LABS: Appearance of Peritoneal Fl CLEAR (Clear); Basophils,Peritoneal Fluid 0 %; Eosinophils,Peritoneal Fluid 0 %
[2019-09-21 02:02] LABS: Basophils % 0.4 %; Eosinophils # 0.2 K/mcL (0.0-0.6); Eosinophils % 3.3 %; Hematocrit 34.1 % (37.5-50.1); Hemoglobin 10.2 g/dL (12.9-16.9); Immature Granulocytes % 0.2 % (0-4); Lymphocytes # 0.9 K/mcL (0.6-4.6); Lymphocytes % 18.2 %; Mean Corpuscular HGB Conc 29.9 g/dL (31.6-35.5); Mean Corpuscular Hemoglobin 26.8 pg (28.0-33.3); Mean Corpuscular Volume 89.7 fL (83.0-100.0); Mean Platelet Volume 11.3 fL (9.4-12.4); Monocytes # 0.6 K/mcL (0.0-1.3); Monocytes % 12.4 %; Red Cell Distribution Width 24.1 % (11.5-14.5); Segmented Neutrophils % 65.5 %; White Blood Count 4.8 K/mcL (4.3-11.1)
[2019-09-21 02:03] LABS: Neutrophils # 3.1 K/mcL (1.6-8.9); Platelet Count 95 K/mcL (140-400)
[2019-09-21 02:08] LABS: Potassium 4.1 mEq/L (3.5-5.1)
[2019-09-21 02:24] LABS: Anisocytosis 1+ (Not Present); Hypochromasia Present (Not Present); Platelet Estimate Slight Decrease (Normal)
[2019-09-21] MEDS: *HR* Heparin 5,000 UNIT/ML VIAL SQ SCH ×2 (05:21→17:48)
[2019-09-21] MEDS: Furosemide 40 MG/4 ML VIAL IVP SCH ×2 (09:13)
[2019-09-21] MEDS: amLODIPine 5 MG TABLET PO SCH (09:14)
[2019-09-21] MEDS: hydrALAZINE 25 MG TABLET PO SCH ×3 (09:14→20:52)
[2019-09-21] MEDS: carvediloL 25 MG TABLET PO SCH ×2 (09:14→17:48)
[2019-09-21] MEDS: Isosorbide MONOnitrate (24 HR) 30 MG TAB.ER.24H PO SCH (09:15)
[2019-09-21] MEDS: Furosemide 40 MG TABLET PO SCH (17:48)
[2019-09-21] MEDS ORDERED: Pregabalin 50 MG CAPSULE PO SCH (21:00)
[2019-09-22] MEDS: *HR* Heparin 5,000 UNIT/ML VIAL SQ SCH (05:27)
[2019-09-22 08:03] LABS: Immature Granulocytes % 0.2 % (0-4); Red Blood Count 4.17 M/mcL (4.19-5.50)
[2019-09-22 08:05] LABS: Basophils % 0.9 %; Eosinophils # 0.2 K/mcL (0.0-0.6); Eosinophils % 4.2 %; Hematocrit 36.8 % (37.5-50.1); Hemoglobin 11.2 g/dL (12.9-16.9); Immature Platelets 8.1 % (1.1-6.1); Lymphocytes # 0.8 K/mcL (0.6-4.6); Lymphocytes % 18.4 %; Mean Corpuscular HGB Conc 30.4 g/dL (31.6-35.5); Mean Corpuscular Hemoglobin 26.9 pg (28.0-33.3); Mean Corpuscular Volume 88.2 fL (83.0-100.0); Monocytes # 0.5 K/mcL (0.0-1.3); Monocytes % 11.1 %; Neutrophils # 2.9 K/mcL (1.6-8.9); Platelet Count 103 K/mcL (140-400); Red Cell Distribution Width 23.7 % (11.5-14.5); Segmented Neutrophils % 65.2 %; White Blood Count 4.5 K/mcL (4.3-11.1)
[2019-09-22 08:15] LABS: Calcium 8.2 mg/dL (8.6-10.3); Potassium 4.1 mEq/L (3.5-5.1)
[2019-09-22] MEDS: amLODIPine 5 MG TABLET PO SCH (08:59)
[2019-09-22] MEDS: hydrALAZINE 25 MG TABLET PO SCH (08:59)
[2019-09-22] MEDS: Furosemide 40 MG TABLET PO SCH (08:59)
[2019-09-22] MEDS: carvediloL 25 MG TABLET PO SCH (09:00)
[2019-09-22] MEDS: Isosorbide MONOnitrate (24 HR) 30 MG TAB.ER.24H PO SCH (09:00)
[2019-09-22 09:17] LABS: Anisocytosis 1+ (Not Present); Platelet Estimate Slight Decrease (Normal); Poikilocytosis 1+ (Not Present)
[2019-09-22 11:17] VITALS: BP 138/70
[2019-09-23 05:17] LABS: Fluid Source for Albumin ASCITES FLUID
== END 2019-09-22 12:13 | disposition home or self-care (01) | DRG 291 ==
LOC: EMEROOARM 10:51 → 2ANU 10:51 → SUATTDRO 17:41 → 2ANU 18:21
PROVIDERS: ADMIT Internal Medicine; ATTEND Internal Medicine

== ENCOUNTER 2019-11-24 16:33 | Observation (INO) ==
[2019-11-24 18:56] LABS: Bilirubin,Urine Negative (Negative); Blood,Urine Negative (Negative); Clarity,Urine Clear (Clear); Color,Urine Yellow (Yellow); Glucose,Urine (UA) Normal (Normal); Ketones,Urine Negative (Negative); Leukocyte Esterase,Urine Negative (Negative); Nitrite,Urine Negative (Negative); Protein,Urine Trace mg/dL (Neg-Trace); Urobilinogen,Urine Normal (Normal)
[2019-11-24 19:19] LABS: Hemoglobin 10.7 g/dL (12.9-16.9); Immature Platelets 7.5 % (1.1-6.1); Mean Corpuscular HGB Conc 31.5 g/dL (31.6-35.5); Mean Corpuscular Hemoglobin 28.6 pg (28.0-33.3); Mean Corpuscular Volume 90.9 fL (83.0-100.0); Mean Platelet Volume 11.8 fL (9.4-12.4); Red Blood Count 3.74 M/mcL (4.19-5.50); Red Cell Distribution Width 18.4 % (11.5-14.5); White Blood Count 5.9 K/mcL (4.3-11.1)
[2019-11-24 19:38] LABS: Albumin 3.4 g/dL (3.5-5.7); Albumin/Globulin Ratio 1.1 (1.1-2.2); Bilirubin,Total 0.7 mg/dL (0.3-1.0); Calcium 8.3 mg/dL (8.6-10.3); Potassium 6.5 mEq/L (3.5-5.1); Total Protein 6.4 g/dL (6.4-8.9)
[2019-11-24] MEDS ORDERED: Calcium Gluconate 1gm/50mL BAG IVPB ONE (20:05)
[2019-11-24] MEDS ORDERED: Insulin Human Regular 10 UNIT in 0.9 % Sodium Chloride 10 ML IV ONE (20:15)
[2019-11-24] MEDS ORDERED: *HR* Dextrose 50 % in Water (Vial) 50 ML VIAL IVP ONE (20:15)
[2019-11-24] MEDS ORDERED: Albuterol 2.5 MG/3 ML NEBULIZER AER ONE (20:15)
[2019-11-24] MEDS ORDERED: Sodium Bicarbonate 50 MEQ/50 ML VIAL IVP ONE (20:15)
[2019-11-24] MEDS ORDERED: Sodium Bicarbonate 50 MEQ/50 ML VIAL ONE (20:31)
[2019-11-24] MEDS ORDERED: Naloxone 0.4 MG/ML INJ IVP PRN (21:39)
[2019-11-24] MEDS ORDERED: *HR* Promethazine 25 MG/ML VIAL IVP PRN (21:39)
[2019-11-24] MEDS ORDERED: Acetaminophen 325 MG TABLET PO PRN (21:39)
[2019-11-24] MEDS: 0.9 % Sodium Chloride 1,000 ML IVC SCH (22:40)
[2019-11-24] MEDS: (Subcutaneous Insulin Pump [T:Slim] 1 EACH) MC SCH (23:52)
[2019-11-25 02:21] LABS: Hematocrit 32.7 % (37.5-50.1); Immature Platelets 6.8 % (1.1-6.1); Mean Corpuscular HGB Conc 30.6 g/dL (31.6-35.5); Mean Corpuscular Hemoglobin 28.2 pg (28.0-33.3); Mean Corpuscular Volume 92.4 fL (83.0-100.0); Mean Platelet Volume 12.5 fL (9.4-12.4); Red Blood Count 3.54 M/mcL (4.19-5.50); Red Cell Distribution Width 18.3 % (11.5-14.5)
[2019-11-25 02:35] LABS: Calcium 8.1 mg/dL (8.6-10.3); Magnesium 2.1 mg/dL (1.6-2.6); Phosphorous 5.7 mg/dL (2.7-4.5); Potassium 6.4 mEq/L (3.5-5.1)
[2019-11-25] MEDS ORDERED: Calcium Gluconate 1gm/50mL 1 GM/50 ML BAG IVPB ONE (04:00)
[2019-11-25] MEDS ORDERED: Sodium Bicarbonate 50 MEQ/50 ML VIAL IVP ONE (07:50)
[2019-11-25] MEDS ORDERED: Insulin Human Regular 10 UNIT in 0.9 % Sodium Chloride 10 ML IV ONE (07:51)
[2019-11-25] MEDS ORDERED: *HR* Dextrose 50 % in Water (Vial) 50 ML VIAL IVP ONE (07:51)
[2019-11-25] MEDS ORDERED: carvediloL 25 MG TABLET PO SCH (08:00)
[2019-11-25] MEDS ORDERED: Furosemide 40 MG TABLET PO SCH (09:00)
[2019-11-25] MEDS ORDERED: SODIUM ZIRCONIUM CYCLOSILICATE 5 GM POWD.PACK PO SCH (09:00)
[2019-11-25] MEDS ORDERED: amLODIPine 5 MG TABLET PO SCH (09:00)
[2019-11-25] MEDS ORDERED: hydrALAZINE 25 MG TABLET PO SCH (09:00)
[2019-11-25] MEDS ORDERED: Pregabalin 50 MG CAPSULE PO SCH (09:00)
[2019-11-25] MEDS ORDERED: Isosorbide MONOnitrate (24 HR) 30 MG TAB.ER.24H PO SCH (09:00)
[2019-11-25] MEDS: (Subcutaneous Insulin Pump [T:Slim] 1 EACH) MC SCH (09:10)
[2019-11-25] MEDS ORDERED: D5% in Water 1,000 ML IVC PRN (09:37)
[2019-11-25] MEDS ORDERED: Dextrose Gel 15 GM/37.5 ML TUBE PO PRN ×2 (09:37)
[2019-11-25] MEDS ORDERED: *HR* Dextrose 50 % in Water (Vial) 50 ML VIAL IVP PRN (09:37)
[2019-11-25 11:18] VITALS: BP 122/52
[2019-11-25] MEDS ORDERED: Insulin LISPRO 300 UNITS/3 ML VIAL SQ SCH ×2 (11:30→21:00)
[2019-11-25] MEDS: 0.9 % Sodium Chloride 1,000 ML IVC SCH (12:05)
== END 2019-11-25 14:12 | disposition home or self-care (01) ==
LOC: EMEROOARM 16:33 → 2ANU 16:33
PROVIDERS: ADMIT Internal Medicine; ATTEND Internal Medicine

== ENCOUNTER 2020-03-27 09:52 | Inpatient (IN) ==
[2020-03-27] MEDS ORDERED: Furosemide 40 MG/4 ML VIAL IVP ONE (10:28)
[2020-03-27 11:11] LABS: Nucleated Red Blood Cells 0.4 /100 WBC (0)
[2020-03-27 11:12] LABS: Basophils % 0.1 %; Eosinophils # 0.2 K/mcL (0.0-0.6); Eosinophils % 2.2 %; Hematocrit 19.2 % (37.5-50.1); Immature Granulocytes % 1.4 % (0-4); Lymphocytes # 0.9 K/mcL (0.6-4.6); Lymphocytes % 11.6 %; Mean Corpuscular HGB Conc 29.7 g/dL (31.6-35.5); Mean Corpuscular Hemoglobin 28.5 pg (28.0-33.3); Mean Platelet Volume 10.4 fL (9.4-12.4); Monocytes % 12.3 %; Neutrophils # 5.9 K/mcL (1.6-8.9); Platelet Count 214 K/mcL (140-400); Segmented Neutrophils % 72.4 %; White Blood Count 8.1 K/mcL (4.3-11.1)
[2020-03-27 11:15] LABS: INR 1.3; Prothrombin Time 14.5 Seconds (9.4-12.1)
[2020-03-27 11:18] LABS: Activated Partial Thrombo Time 36.1 Seconds (26.0-36.0)
[2020-03-27 11:30] LABS: Troponin I < 0.03 ng/mL (< 0.04)
[2020-03-27 11:32] LABS: Alanine Aminotransferase 21 Units/L (7-52); Albumin 2.7 g/dL (3.5-5.7); Albumin/Globulin Ratio 0.9 (1.1-2.2); Alkaline Phosphatase 460 Units/L (34-104); Aspartate Amino Transferase 13 Units/L (13-39); BUN/Creatinine Ratio 45 (6-26); Bilirubin,Direct 0.1 mg/dL (0.0-0.2); Bilirubin,Indirect 0.2 mg/dL (0.0-1.0); Bilirubin,Total 0.3 mg/dL (0.3-1.0); Blood Urea Nitrogen 92 mg/dL (8-23); Calcium 7.6 mg/dL (8.6-10.3); Carbon Dioxide 21 mEq/L (23-29); Chloride 109 mEq/L (98-107); Globulin 2.9 g/dL (2.4-3.5); Glucose 235 mg/dL (70-105); Osmolality,Calculated 318 (280-300); Potassium 4.6 mEq/L (3.5-5.1); Sodium 136 mEq/L (136-145); Total Protein 5.6 g/dL (6.4-8.9); eGFR For African Americans 39 (> 60); eGFR For Non-African Americans 32 (> 60)
[2020-03-27 11:44] LABS: Hemoglobin 5.7 g/dL (12.9-16.9)
[2020-03-27 11:59] LABS: Hypochromasia Present (Not Present); Platelet Estimate Normal (Normal); Polychromasia 1+ (Not Present)
[2020-03-27] MEDS: Albumin 25% 25gram/100mL 25 GM/100 ML IV.SOLN IVC SCH ×2 (13:23→15:10)
[2020-03-27] MEDS ORDERED: 0.9 % Sodium Chloride 250 ML ONE (13:55)
[2020-03-27] MEDS ORDERED: Ondansetron 4 MG/2 ML VIAL IVP PRN (16:08)
[2020-03-27] MEDS ORDERED: Naloxone 0.4 MG/ML INJ IVP PRN (16:08)
[2020-03-27] MEDS ORDERED: *HR* Dextrose 50 % in Water (Vial) 50 ML VIAL IVP PRN (16:19)
[2020-03-27] MEDS ORDERED: Dextrose Gel 15 GM/37.5 ML TUBE PO PRN ×2 (16:19)
[2020-03-27] MEDS ORDERED: D5% in Water 1,000 ML IVC PRN (16:19)
[2020-03-27] MEDS ORDERED: Insulin LISPRO 300 UNITS/3 ML VIAL SUBQ SCH ×2 (16:30→21:00)
[2020-03-27] MEDS: Pantoprazole 40 MG VIAL IVP SCH (17:44)
[2020-03-27 18:15] LABS: Hematocrit 21.7 % (37.5-50.1); Hemoglobin 6.6 g/dL (12.9-16.9)
[2020-03-28] MEDS: Albumin 25% 25gram/100mL 25 GM/100 ML IV.SOLN IVPB SCH ×4 (00:15→23:40)
[2020-03-28 04:56] LABS: Basophils % 0.3 %; Eosinophils # 0.3 K/mcL (0.0-0.6); Eosinophils % 4.3 %; Hematocrit 23.2 % (37.5-50.1); Hemoglobin 7.2 g/dL (12.9-16.9); Immature Granulocytes % 0.4 % (0-4); Lymphocytes % 12.9 %; Mean Corpuscular Volume 93.5 fL (83.0-100.0); Mean Platelet Volume 10.4 fL (9.4-12.4); Monocytes # 0.9 K/mcL (0.0-1.3); Monocytes % 12.2 %; Neutrophils # 5.2 K/mcL (1.6-8.9); Platelet Count 206 K/mcL (140-400); Red Blood Count 2.48 M/mcL (4.19-5.50); Red Cell Distribution Width 14.8 % (11.5-14.5); Segmented Neutrophils % 69.9 %; White Blood Count 7.5 K/mcL (4.3-11.1)
[2020-03-28 05:15] LABS: Calcium 8.1 mg/dL (8.6-10.3); Potassium 4.1 mEq/L (3.5-5.1)
[2020-03-28] MEDS: Pantoprazole 40 MG VIAL IVP SCH ×2 (05:43→17:34)
[2020-03-28] MEDS: Furosemide 40 MG/4 ML VIAL IVP SCH (08:22)
[2020-03-28] MEDS: Folic Acid 1 MG TABLET PO SCH ×2 (08:22→20:00)
[2020-03-28] MEDS: Famotidine 20 MG TABLET PO SCH (08:22)
[2020-03-28] MEDS: Cholecalciferol (D-3) 1,000 UNIT (25MCG) TABLET PO SCH (08:22)
[2020-03-28] MEDS ORDERED: Metoclopramide 10 MG/2 ML VIAL IVP ONE (09:37)
[2020-03-28] MEDS ORDERED: *HR* Propofol 200 MG/20 ML VIAL IVP ONE (09:46)
[2020-03-28] MEDS ORDERED: Lidocaine -MPF 2% 5 ML VIAL SQ ONE (09:46)
[2020-03-28 18:45] LABS: Hematocrit 22.7 % (37.5-50.1); Hemoglobin 7.1 g/dL (12.9-16.9)
[2020-03-28] MEDS: Sucralfate 1 GM TABLET PO SCH (20:00)
[2020-03-29] MEDS: Pantoprazole 40 MG VIAL IVP SCH ×2 (05:21→17:07)
[2020-03-29 08:46] LABS: Basophils % 0.4 %; Eosinophils # 0.2 K/mcL (0.0-0.6); Hematocrit 23.5 % (37.5-50.1); Hemoglobin 7.3 g/dL (12.9-16.9); Immature Granulocytes % 0.5 % (0-4); Lymphocytes # 0.6 K/mcL (0.6-4.6); Lymphocytes % 8.3 %; Mean Corpuscular HGB Conc 31.1 g/dL (31.6-35.5); Mean Corpuscular Hemoglobin 29.3 pg (28.0-33.3); Mean Corpuscular Volume 94.4 fL (83.0-100.0); Mean Platelet Volume 10.3 fL (9.4-12.4); Monocytes # 0.9 K/mcL (0.0-1.3); Monocytes % 12.2 %; Neutrophils # 5.6 K/mcL (1.6-8.9); Platelet Count 203 K/mcL (140-400); Red Blood Count 2.49 M/mcL (4.19-5.50); Red Cell Distribution Width 14.9 % (11.5-14.5); Segmented Neutrophils % 75.6 %; White Blood Count 7.4 K/mcL (4.3-11.1)
[2020-03-29 08:51] LABS: Calcium 8.7 mg/dL (8.6-10.3); Potassium 4.3 mEq/L (3.5-5.1)
[2020-03-29] MEDS: Cholecalciferol (D-3) 1,000 UNIT (25MCG) TABLET PO SCH (09:02)
[2020-03-29] MEDS: Famotidine 20 MG TABLET PO SCH (09:02)
[2020-03-29] MEDS: Folic Acid 1 MG TABLET PO SCH ×2 (09:02→20:34)
[2020-03-29] MEDS: Furosemide 40 MG/4 ML VIAL IVP SCH (09:02)
[2020-03-29] MEDS: Albumin 25% 25gram/100mL 25 GM/100 ML IV.SOLN IVPB SCH ×3 (09:03→23:30)
[2020-03-29] MEDS: Cyanocobalamin (B-12) 1,000 MCG TABLET PO SCH (09:06)
[2020-03-29 13:41] LABS: RBC,Peritoneal Fluid < 2000 RBC/mcL
[2020-03-29 14:00] LABS: Total Protein,Peritoneal Fluid 3.6 g/dL
[2020-03-29 15:16] LABS: Appearance of Peritoneal Fl HAZY (Clear)
[2020-03-29 15:19] LABS: Basophils,Peritoneal Fluid 0 %; Eosinophils,Peritoneal Fluid 0 %
[2020-03-29] MEDS: Sucralfate 1 GM TABLET PO SCH (20:34)
[2020-03-30 02:03] LABS: Basophils % 0.3 %; Eosinophils # 0.2 K/mcL (0.0-0.6); Eosinophils % 2.5 %; Hematocrit 21.7 % (37.5-50.1); Hemoglobin 6.7 g/dL (12.9-16.9); Immature Granulocytes % 0.4 % (0-4); Lymphocytes # 0.8 K/mcL (0.6-4.6); Lymphocytes % 10.9 %; Mean Corpuscular HGB Conc 30.9 g/dL (31.6-35.5); Mean Corpuscular Hemoglobin 29.3 pg (28.0-33.3); Mean Corpuscular Volume 94.8 fL (83.0-100.0); Mean Platelet Volume 10.3 fL (9.4-12.4); Monocytes % 13.4 %; Neutrophils # 5.3 K/mcL (1.6-8.9); Nucleated Red Blood Cells 0.3 /100 WBC (0); Platelet Count 197 K/mcL (140-400); Red Blood Count 2.29 M/mcL (4.19-5.50); Red Cell Distribution Width 14.9 % (11.5-14.5); Segmented Neutrophils % 72.5 %; White Blood Count 7.3 K/mcL (4.3-11.1)
[2020-03-30 02:14] LABS: Albumin 3.4 g/dL (3.5-5.7); Albumin/Globulin Ratio 1.4 (1.1-2.2); Bilirubin,Total 0.5 mg/dL (0.3-1.0); Calcium 8.2 mg/dL (8.6-10.3); Globulin 2.5 g/dL (2.4-3.5); Potassium 4.2 mEq/L (3.5-5.1); Total Protein 5.9 g/dL (6.4-8.9)
[2020-03-30] MEDS: Pantoprazole 40 MG VIAL IVP SCH (05:47)
[2020-03-30] MEDS ORDERED: 0.9 % Sodium Chloride 250 ML ONE (08:37)
[2020-03-30] MEDS: Albumin 25% 25gram/100mL 25 GM/100 ML IV.SOLN IVPB SCH (09:08)
[2020-03-30] MEDS: Furosemide 40 MG/4 ML VIAL IVP SCH (09:09)
[2020-03-30] MEDS: Folic Acid 1 MG TABLET PO SCH ×2 (09:09→22:15)
[2020-03-30] MEDS: Famotidine 20 MG TABLET PO SCH (09:09)
[2020-03-30] MEDS: Cholecalciferol (D-3) 1,000 UNIT (25MCG) TABLET PO SCH (09:10)
[2020-03-30] MEDS ORDERED: Acetaminophen 325 MG TABLET PO PRN (09:29)
[2020-03-30 20:39] LABS: Hematocrit 26.3 % (37.5-50.1); Mean Corpuscular HGB Conc 30.4 g/dL (31.6-35.5); Mean Corpuscular Hemoglobin 28.9 pg (28.0-33.3); Mean Corpuscular Volume 94.9 fL (83.0-100.0); Mean Platelet Volume 9.8 fL (9.4-12.4); Platelet Count 193 K/mcL (140-400); Red Blood Count 2.77 M/mcL (4.19-5.50); Red Cell Distribution Width 14.9 % (11.5-14.5); White Blood Count 8.4 K/mcL (4.3-11.1)
[2020-03-30 21:05] LABS: VBG Ionized Calcium 0.94 mmol/L (1.15-1.35)
[2020-03-30] MEDS ORDERED: Calcium Gluconate 1gm/50mL 1 GM/50 ML BAG IVPB PRN (21:26)
[2020-03-30] MEDS: Sucralfate 1 GM TABLET PO SCH (22:15)
[2020-03-30] MEDS ORDERED: Perflutren Lipid Microsphere 1.3 ML in 0.9 % Sodium Chloride 8.7 ML IVP PRN (22:40)
[2020-03-30] MEDS: Ipratropium/Albuterol Neb 3 ML IH PRN (22:48)
[2020-03-31 01:20] LABS: Hematocrit 26.2 % (37.5-50.1); Hemoglobin 7.9 g/dL (12.9-16.9)
[2020-03-31 01:42] LABS: Calcium 8.7 mg/dL (8.6-10.3); Potassium 4.3 mEq/L (3.5-5.1)
[2020-03-31] MEDS: Famotidine 20 MG TABLET PO SCH (10:22)
[2020-03-31] MEDS: Folic Acid 1 MG TABLET PO SCH ×2 (10:22→20:28)
[2020-03-31] MEDS: Furosemide 40 MG/4 ML VIAL IVP SCH (10:22)
[2020-03-31] MEDS: Cholecalciferol (D-3) 1,000 UNIT (25MCG) TABLET PO SCH (10:22)
[2020-03-31 15:27] LABS: Fluid Source for Albumin PERITONEAL
[2020-03-31] MEDS: Sucralfate 1 GM TABLET PO SCH (20:28)
[2020-04-01 04:00] LABS: Hematocrit 27.7 % (37.5-50.1); Hemoglobin 8.3 g/dL (12.9-16.9)
[2020-04-01 04:14] LABS: Calcium 8.7 mg/dL (8.6-10.3); Potassium 4.3 mEq/L (3.5-5.1)
[2020-04-01 04:15] LABS: Magnesium 1.9 mg/dL (1.6-2.6); Phosphorous 3.9 mg/dL (2.7-4.5)
[2020-04-01 04:29] LABS: Thyroid Stimulating Hormone 1.972 mcIU/mL (0.340-5.600)
[2020-04-01] MEDS: Ipratropium/Albuterol Neb 3 ML IH PRN (06:20)
[2020-04-01] MEDS ORDERED: Magnesium Sulfate 1 GM/102 ML PIGGYBACK IVPB ONE (08:41)
[2020-04-01] MEDS ORDERED: Pantoprazole 40 MG VIAL IVP SCH (08:44)
[2020-04-01] MEDS: Folic Acid 1 MG TABLET PO SCH (08:53)
[2020-04-01] MEDS: Cholecalciferol (D-3) 1,000 UNIT (25MCG) TABLET PO SCH (08:53)
[2020-04-01] MEDS: Famotidine 20 MG TABLET PO SCH (08:54)
[2020-04-01] MEDS: Furosemide 40 MG/4 ML VIAL IVP SCH (08:54)
[2020-04-01] MEDS: Cyanocobalamin (B-12) 1,000 MCG TABLET PO SCH (09:52)
[2020-04-01 12:03] VITALS: BP 152/82
[2020-04-01] MEDS ORDERED: INSULIN PUMP SQ PRN (14:00)
[2020-04-01] MEDS ORDERED: carvediloL 25 MG TABLET PO SCH (17:00)
== END 2020-04-01 16:22 | disposition home or self-care (01) | DRG 377 ==
LOC: 2NNU 09:52 → EMEROOARM 09:52 → 2NNU 16:57 → SUATTDRO 19:17 → CDU 03-28 11:53 → 3ANU 03-29 06:49
PROVIDERS: ADMIT Internal Medicine; ATTEND Family Medicine

== ENCOUNTER 2020-04-09 14:52 | Inpatient (IN) ==
[2020-04-09 15:28] LABS: Hemoglobin 7.9 g/dL (12.9-16.9); Immature Granulocytes % 0.7 % (0-4); Mean Corpuscular Volume 96.2 fL (83.0-100.0); Nucleated Red Blood Cells 0.2 /100 WBC (0)
[2020-04-09 15:29] LABS: Basophils % 0.2 %; Eosinophils # 0.3 K/mcL (0.0-0.6); Eosinophils % 3.2 %; Hematocrit 27.6 % (37.5-50.1); Lymphocytes # 0.6 K/mcL (0.6-4.6); Lymphocytes % 5.9 %; Mean Corpuscular HGB Conc 28.6 g/dL (31.6-35.5); Mean Corpuscular Hemoglobin 27.5 pg (28.0-33.3); Mean Platelet Volume 10.5 fL (9.4-12.4); Monocytes # 0.8 K/mcL (0.0-1.3); Monocytes % 8.8 %; Neutrophils # 7.8 K/mcL (1.6-8.9); Platelet Count 235 K/mcL (140-400); Red Blood Count 2.87 M/mcL (4.19-5.50); Segmented Neutrophils % 81.2 %; White Blood Count 9.6 K/mcL (4.3-11.1)
[2020-04-09 15:38] LABS: VBG HCO3 27 mEq/L (21-27); VBG PCO2 71 mmHg (41-51); VBG PH 7.19 pH Units (7.32-7.42); VBG PO2 44 mmHg (25-50)
[2020-04-09 15:50] LABS: Albumin 3.5 g/dL (3.5-5.7); Bilirubin,Total 0.6 mg/dL (0.3-1.0); Calcium 8.9 mg/dL (8.6-10.3); Globulin 3.6 g/dL (2.4-3.5); Potassium 4.6 mEq/L (3.5-5.1); Total Protein 7.1 g/dL (6.4-8.9); Troponin I 0.03 ng/mL (< 0.04)
[2020-04-09 15:51] LABS: INR 1.4; Prothrombin Time 15.5 Seconds (9.4-12.1)
[2020-04-09] MEDS ORDERED: Piperacillin/Tazobactam 3.375 GM in 0.9 % Sodium Chloride Mini Bag 100 ML IVPB ONE (15:52)
[2020-04-09 15:53] LABS: Activated Partial Thrombo Time 38.8 Seconds (26.0-36.0)
[2020-04-09] MEDS ORDERED: Vancomycin 1,250 MG/262.5 ML IV.SOLN IVPB ONE (16:00)
[2020-04-09 16:13] LABS: Hypochromasia Present (Not Present)
[2020-04-09] MEDS ORDERED: Ondansetron 4 MG/2 ML VIAL IVP PRN (16:36)
[2020-04-09] MEDS ORDERED: *HR* HYDROcodone/Acet 5/325 mg TABLET PO PRN (16:36)
[2020-04-09] MEDS ORDERED: Naloxone 0.4 MG/ML INJ IVP PRN (16:36)
[2020-04-09] MEDS ORDERED: D5% in Water 1,000 ML IVC PRN (17:56)
[2020-04-09] MEDS ORDERED: Dextrose Gel 15 GM/37.5 ML TUBE PO PRN ×2 (17:56)
[2020-04-09] MEDS ORDERED: *HR* Dextrose 50 % in Water (Vial) 50 ML VIAL IVP PRN (17:56)
[2020-04-09 18:17] LABS: ABG Base Excess -1 mEq/L (-2 to 3); ABG HCO3 27 mEq/L (21-27); ABG Oxygen Saturation 90 % (95-98); ABG PCO2 62 mmHg (35-45); ABG PH 7.25 pH Units (7.32-7.45); ABG PO2 70 mmHg (85-104); ABG TCO2 29 mEq/L (20-26)
[2020-04-09] MEDS: Ipratropium/Albuterol Neb 3 ML IH SCH ×2 (20:18→23:05)
[2020-04-09 21:22] LABS: ABG Base Excess 1 mEq/L (-2 to 3); ABG HCO3 28 mEq/L (21-27); ABG Oxygen Saturation 90 % (95-98); ABG PCO2 62 mmHg (35-45); ABG PH 7.27 pH Units (7.32-7.45); ABG PO2 68 mmHg (85-104); ABG TCO2 30 mEq/L (20-26)
[2020-04-09] MEDS: levoFLOXacin 750 MG/150 ML 750 MG/150 ML BAG IVPB SCH (21:34)
[2020-04-09] MEDS: Sucralfate 1 GM TABLET PO SCH (21:35)
[2020-04-09] MEDS: Lactulose Oral Soln 20 GM/30 ML UDC PO SCH (21:35)
[2020-04-09] MEDS: *HR* Heparin 5,000 UNIT/ML VIAL SQ SCH (21:35)
[2020-04-09] MEDS: Bumetanide 1 MG/4 ML VIAL IVP SCH (21:45)
[2020-04-09] MEDS: carvediloL 25 MG TABLET PO SCH (21:46)
[2020-04-09] MEDS: Insulin DETEMIR 100 UNIT/ML X5UNITS SUBQ SCH (23:45)
[2020-04-10 01:41] LABS: Basophils % 0.2 %; Nucleated Red Blood Cells 0.2 /100 WBC (0)
[2020-04-10 01:42] LABS: Eosinophils # 0.3 K/mcL (0.0-0.6); Eosinophils % 3.4 %; Hematocrit 25.4 % (37.5-50.1); Hemoglobin 7.5 g/dL (12.9-16.9); Immature Granulocytes % 0.6 % (0-4); Lymphocytes # 0.6 K/mcL (0.6-4.6); Lymphocytes % 7.2 %; Mean Corpuscular HGB Conc 29.5 g/dL (31.6-35.5); Mean Corpuscular Volume 94.8 fL (83.0-100.0); Monocytes # 0.9 K/mcL (0.0-1.3); Monocytes % 11.1 %; Neutrophils # 6.2 K/mcL (1.6-8.9); Platelet Count 204 K/mcL (140-400); Red Blood Count 2.68 M/mcL (4.19-5.50); Segmented Neutrophils % 77.5 %
[2020-04-10 01:55] LABS: Hypochromasia Present (Not Present); Platelet Estimate Normal (Normal)
[2020-04-10 02:01] LABS: Calcium 8.6 mg/dL (8.6-10.3); Magnesium 1.9 mg/dL (1.6-2.6); Phosphorous 4.9 mg/dL (2.7-4.5); Potassium 4.4 mEq/L (3.5-5.1)
[2020-04-10] MEDS: Ipratropium/Albuterol Neb 3 ML IH SCH ×5 (04:04→20:15)
[2020-04-10] MEDS: *HR* Heparin 5,000 UNIT/ML VIAL SQ SCH ×2 (06:46→17:02)
[2020-04-10] MEDS: Insulin LISPRO 300 UNITS/3 ML VIAL SUBQ SCH ×3 (07:57→16:59)
[2020-04-10] MEDS: Lactulose Oral Soln 20 GM/30 ML UDC PO SCH ×2 (07:57→22:03)
[2020-04-10] MEDS: carvediloL 25 MG TABLET PO SCH ×2 (07:58→17:17)
[2020-04-10] MEDS: Bumetanide 1 MG/4 ML VIAL IVP SCH ×2 (07:58→17:16)
[2020-04-10] MEDS: Isosorbide MONOnitrate (24 HR) 30 MG TAB.ER.24H PO SCH (07:58)
[2020-04-10] MEDS: Famotidine 20 MG TABLET PO SCH (07:58)
[2020-04-10 11:26] LABS: ABG Base Excess 4 mEq/L (-2 to 3); ABG HCO3 31 mEq/L (21-27); ABG Oxygen Saturation 83 % (95-98); ABG PCO2 63 mmHg (35-45); ABG PO2 54 mmHg (85-104); ABG TCO2 33 mEq/L (20-26)
[2020-04-10] MEDS: Cyanocobalamin (B-12) 1,000 MCG TABLET PO SCH (17:00)
[2020-04-10] MEDS: MethylPREDNISolone 40 MG/ML VIAL IVP SCH (17:16)
[2020-04-10] MEDS ORDERED: MethylPREDNISolone 40 MG/ML VIAL IVP SCH (17:34)
[2020-04-10 18:40] LABS: Albumin 3.4 g/dL (3.5-5.7); Albumin/Globulin Ratio 0.9 (1.1-2.2); Bilirubin,Total 0.6 mg/dL (0.3-1.0); Globulin 3.6 g/dL (2.4-3.5)
[2020-04-10 19:05] LABS: Amylase,Pleural Fluid < 10 Units/L (No Ref Range); Glucose,Pleural Fluid 140 mg/dL (No Ref Range); LDH,Pleural Fluid 347 Units/L (No Ref Range); Total Protein,Pleural Fluid 3.1 g/dL
[2020-04-10] MEDS: Folic Acid 1 MG TABLET PO SCH (22:00)
[2020-04-10] MEDS: Sucralfate 1 GM TABLET PO SCH (22:01)
[2020-04-10] MEDS: Insulin DETEMIR 100 UNIT/ML X5UNITS SUBQ SCH (22:03)
[2020-04-11] MEDS: Ipratropium/Albuterol Neb 3 ML IH SCH ×7 (00:13→23:43)
[2020-04-11 02:27] LABS: Basophils % 0.3 %; Eosinophils % 0.2 %; Hematocrit 24.7 % (37.5-50.1); Hemoglobin 7.4 g/dL (12.9-16.9); Immature Granulocytes % 0.8 % (0-4); Lymphocytes # 0.3 K/mcL (0.6-4.6); Lymphocytes % 4.4 %; Mean Corpuscular Hemoglobin 27.7 pg (28.0-33.3); Mean Corpuscular Volume 92.5 fL (83.0-100.0); Mean Platelet Volume 10.5 fL (9.4-12.4); Monocytes # 0.1 K/mcL (0.0-1.3); Monocytes % 1.2 %; Nucleated Red Blood Cells 0.5 /100 WBC (0); Platelet Count 194 K/mcL (140-400); Red Blood Count 2.67 M/mcL (4.19-5.50); Red Cell Distribution Width 15.1 % (11.5-14.5); Segmented Neutrophils % 93.1 %; White Blood Count 6.4 K/mcL (4.3-11.1)
[2020-04-11 02:41] LABS: Calcium 8.6 mg/dL (8.6-10.3); Potassium 4.6 mEq/L (3.5-5.1)
[2020-04-11] MEDS: *HR* Heparin 5,000 UNIT/ML VIAL SQ SCH (06:26)
[2020-04-11] MEDS: MethylPREDNISolone 40 MG/ML VIAL IVP SCH ×2 (06:27→17:17)
[2020-04-11] MEDS: Insulin LISPRO 300 UNITS/3 ML VIAL SUBQ SCH ×3 (09:10→17:19)
[2020-04-11] MEDS ORDERED: *HR* FentaNYL (PF) 100 MCG/2 ML VIAL IVP PRN (09:33)
[2020-04-11] MEDS ORDERED: Ondansetron 4 MG/2 ML VIAL IVP PRN (09:33)
[2020-04-11] MEDS: Ringers Solution, Lactated 1,000 ML IVC SCH (10:30)
[2020-04-11] MEDS ORDERED: *HR* FentaNYL (PF) 100 MCG/2 ML VIAL ONE (10:39)
[2020-04-11] MEDS ORDERED: *HR* Succinylcholine 200 MG/10 ML VIAL IVP ONE (10:42)
[2020-04-11] MEDS ORDERED: Lidocaine -MPF 4% 5 ML AMPUL ONE (10:42)
[2020-04-11] MEDS ORDERED: Ondansetron 4 MG/2 ML VIAL ONE (10:42)
[2020-04-11] MEDS ORDERED: Lidocaine -MPF 2% 2 ML VIAL ONE (10:42)
[2020-04-11] MEDS: Famotidine 20 MG TABLET PO SCH (12:44)
[2020-04-11] MEDS: carvediloL 25 MG TABLET PO SCH ×2 (12:44→17:17)
[2020-04-11] MEDS: Isosorbide MONOnitrate (24 HR) 30 MG TAB.ER.24H PO SCH (12:45)
[2020-04-11] MEDS: Folic Acid 1 MG TABLET PO SCH ×2 (12:45→20:20)
[2020-04-11] MEDS: Lactulose Oral Soln 20 GM/30 ML UDC PO SCH ×2 (12:45→20:20)
[2020-04-11] MEDS: Vancomycin 1,250 MG/262.5 ML IV.SOLN IVPB SCH (12:46)
[2020-04-11 13:09] LABS: % Iron Saturation 5 % (20-55); Iron 13 mcg/dL (65-175); Transferrin 183 mg/dL (203-362)
[2020-04-11 13:43] LABS: Folate > 22.3 ng/mL (3.0-16.0); Vitamin B12 > 1500 pg/mL (250-1100)
[2020-04-11 15:02] LABS: Source of Body Fluid bal lt.lower lobe
[2020-04-11] MEDS: levoFLOXacin 750 MG/150 ML 750 MG/150 ML BAG IVPB SCH (17:17)
[2020-04-11] MEDS: Insulin DETEMIR 100 UNIT/ML X5UNITS SUBQ SCH (20:21)
[2020-04-11] MEDS: Sucralfate 1 GM TABLET PO SCH (20:21)
[2020-04-11 21:44] LABS: Appearance of Body Fluid Clear (Clear); Volume of Body Fluid 16 mL
[2020-04-11] MEDS: Bumetanide 1 MG/4 ML VIAL IVP SCH (22:30)
[2020-04-12 02:53] LABS: Basophils % 0.1 %; Hematocrit 24.1 % (37.5-50.1); Hemoglobin 7.2 g/dL (12.9-16.9); Immature Granulocytes % 0.6 % (0-4); Lymphocytes # 0.3 K/mcL (0.6-4.6); Lymphocytes % 3.1 %; Mean Corpuscular HGB Conc 29.9 g/dL (31.6-35.5); Mean Corpuscular Hemoglobin 27.9 pg (28.0-33.3); Mean Corpuscular Volume 93.4 fL (83.0-100.0); Mean Platelet Volume 10.4 fL (9.4-12.4); Monocytes # 0.6 K/mcL (0.0-1.3); Monocytes % 6.3 %; Neutrophils # 7.9 K/mcL (1.6-8.9); Nucleated Red Blood Cells 0.6 /100 WBC (0); Platelet Count 201 K/mcL (140-400); Red Blood Count 2.58 M/mcL (4.19-5.50); Red Cell Distribution Width 15.1 % (11.5-14.5); Segmented Neutrophils % 89.9 %; White Blood Count 8.8 K/mcL (4.3-11.1)
[2020-04-12 03:12] LABS: Calcium 8.3 mg/dL (8.6-10.3); Potassium 5.2 mEq/L (3.5-5.1)
[2020-04-12] MEDS: Ipratropium/Albuterol Neb 3 ML IH SCH ×6 (04:06→23:01)
[2020-04-12] MEDS: MethylPREDNISolone 40 MG/ML VIAL IVP SCH (05:33)
[2020-04-12] MEDS: Ringers Solution, Lactated 1,000 ML IVC SCH (05:33)
[2020-04-12] MEDS: Insulin LISPRO 300 UNITS/3 ML VIAL SUBQ SCH ×3 (07:42→15:58)
[2020-04-12] MEDS: carvediloL 25 MG TABLET PO SCH ×2 (08:20→17:18)
[2020-04-12] MEDS: Folic Acid 1 MG TABLET PO SCH ×2 (08:20→20:36)
[2020-04-12] MEDS: Isosorbide MONOnitrate (24 HR) 30 MG TAB.ER.24H PO SCH (08:20)
[2020-04-12] MEDS: Famotidine 20 MG TABLET PO SCH (08:20)
[2020-04-12] MEDS: Lactulose Oral Soln 20 GM/30 ML UDC PO SCH ×2 (08:46→20:36)
[2020-04-12] MEDS ORDERED: Bumetanide 1 MG/4 ML VIAL IVP SCH (09:00)
[2020-04-12] MEDS: Vancomycin 1,250 MG/262.5 ML IV.SOLN IVPB SCH (11:03)
[2020-04-12] MEDS ORDERED: Vancomycin 1,000 MG, 0.9 % Sodium Chloride 1,000 ML IR ONE (13:56)
[2020-04-12] MEDS: Cyanocobalamin (B-12) 1,000 MCG TABLET PO SCH (15:33)
[2020-04-12 19:50] LABS: Fluid Source for Bilirubin PLEURAL FLUID
[2020-04-12] MEDS: Sucralfate 1 GM TABLET PO SCH (20:36)
[2020-04-12] MEDS: Insulin DETEMIR 100 UNIT/ML X5UNITS SUBQ SCH (20:44)
[2020-04-13 02:27] LABS: Fluid Source for Albumin PLEURAL
[2020-04-13] MEDS: Ringers Solution, Lactated 1,000 ML IVC SCH ×2 (02:55→22:31)
[2020-04-13] MEDS: Ipratropium/Albuterol Neb 3 ML IH SCH ×6 (03:03→23:50)
[2020-04-13 03:54] LABS: Basophils % 0.1 %; Hematocrit 25.5 % (37.5-50.1); Hemoglobin 7.5 g/dL (12.9-16.9); Immature Granulocytes % 0.8 % (0-4); Lymphocytes # 0.5 K/mcL (0.6-4.6); Lymphocytes % 4.2 %; Mean Corpuscular HGB Conc 29.4 g/dL (31.6-35.5); Mean Corpuscular Hemoglobin 27.2 pg (28.0-33.3); Mean Corpuscular Volume 92.4 fL (83.0-100.0); Mean Platelet Volume 10.5 fL (9.4-12.4); Monocytes # 1.2 K/mcL (0.0-1.3); Monocytes % 9.3 %; Neutrophils # 10.9 K/mcL (1.6-8.9); Nucleated Red Blood Cells 0.8 /100 WBC (0); Platelet Count 192 K/mcL (140-400); Red Blood Count 2.76 M/mcL (4.19-5.50); Red Cell Distribution Width 15.3 % (11.5-14.5); Segmented Neutrophils % 85.6 %; White Blood Count 12.7 K/mcL (4.3-11.1)
[2020-04-13 04:15] LABS: Uric Acid 13.3 mg/dL (2.3-7.6)
[2020-04-13 04:16] LABS: Calcium 8.1 mg/dL (8.6-10.3); Potassium 4.4 mEq/L (3.5-5.1)
[2020-04-13 05:22] LABS: Hepatitis B Surface Antigen Nonreactive (Nonreactive)
[2020-04-13 05:51] LABS: Hepatitis C Virus Antibody Nonreactive (Nonreactive)
[2020-04-13 05:52] LABS: Hepatitis B Core IgM Nonreactive (Nonreactive)
[2020-04-13 05:53] LABS: Hepatitis A Antibody IgM Nonreactive (Nonreactive)
[2020-04-13 06:03] LABS: Bilirubin,Urine Negative (Negative); Blood,Urine Negative (Negative); Clarity,Urine Clear (Clear); Color,Urine Light-Yellow (Yellow); Glucose,Urine (UA) 30 mg/dL (Normal); Ketones,Urine Negative (Negative); Leukocyte Esterase,Urine Negative (Negative); Mucus,Urine Few per lpf (None-Few); Nitrite,Urine Negative (Negative); Protein,Urine 50 mg/dL (Neg-Trace); RBC,Urine 0-3 per hpf (0-3); Specific Gravity,Urine 1.016 (1.010-1.025); Urobilinogen,Urine Normal (Normal); WBC,Urine 0-3 per hpf (0-3)
[2020-04-13 06:12] LABS: Protein/Creatinine Ratio,Urine 0.74 mg/mg (0.00-0.20); Sodium, Urine 21.5 mEq/L
[2020-04-13] MEDS: Isosorbide MONOnitrate (24 HR) 30 MG TAB.ER.24H PO SCH (08:05)
[2020-04-13] MEDS: Famotidine 20 MG TABLET PO SCH (08:05)
[2020-04-13] MEDS: Furosemide 40 MG TABLET PO SCH (08:06)
[2020-04-13] MEDS: Folic Acid 1 MG TABLET PO SCH ×2 (08:06→22:12)
[2020-04-13] MEDS: carvediloL 25 MG TABLET PO SCH ×2 (08:06→17:20)
[2020-04-13] MEDS: Lactulose Oral Soln 20 GM/30 ML UDC PO SCH ×2 (08:13→22:13)
[2020-04-13] MEDS: Insulin LISPRO 300 UNITS/3 ML VIAL SUBQ SCH ×3 (08:17→17:10)
[2020-04-13] MEDS ORDERED: predniSONE 20 MG TABLET PO SCH (09:00)
[2020-04-13] MEDS ORDERED: Furosemide 40 MG TABLET PO SCH (09:00)
[2020-04-13] MEDS ORDERED: Vancomycin 1,250 MG/262.5 ML IV.SOLN IVPB SCH (10:00)
[2020-04-13 13:28] LABS: RBC,Pleural Fluid 141000 RBC/mcL
[2020-04-13 13:33] LABS: Appearance of Pleural Fl Cloudy (Clear)
[2020-04-13] MEDS: levoFLOXacin 750 MG/150 ML 750 MG/150 ML BAG IVPB SCH (17:23)
[2020-04-13] MEDS ORDERED: Insulin DETEMIR 100 UNIT/ML X5UNITS SUBQ SCH (21:00)
[2020-04-13] MEDS: Sucralfate 1 GM TABLET PO SCH (22:12)
[2020-04-14 02:13] LABS: Basophils % 0.1 %; Hematocrit 24.7 % (37.5-50.1); Hemoglobin 7.3 g/dL (12.9-16.9); Immature Granulocytes % 1.4 % (0-4); Lymphocytes # 0.3 K/mcL (0.6-4.6); Lymphocytes % 3.4 %; Mean Corpuscular HGB Conc 29.6 g/dL (31.6-35.5); Mean Corpuscular Hemoglobin 26.7 pg (28.0-33.3); Mean Corpuscular Volume 90.5 fL (83.0-100.0); Mean Platelet Volume 10.8 fL (9.4-12.4); Monocytes # 0.6 K/mcL (0.0-1.3); Monocytes % 6.1 %; Neutrophils # 8.7 K/mcL (1.6-8.9); Nucleated Red Blood Cells 0.7 /100 WBC (0); Platelet Count 171 K/mcL (140-400); Red Blood Count 2.73 M/mcL (4.19-5.50); Red Cell Distribution Width 15.2 % (11.5-14.5); White Blood Count 9.8 K/mcL (4.3-11.1)
[2020-04-14 02:26] LABS: Potassium 4.5 mEq/L (3.5-5.1)
[2020-04-14] MEDS: Ipratropium/Albuterol Neb 3 ML IH SCH ×5 (03:47→20:32)
[2020-04-14 09:28] LABS: Troponin I 0.2 ng/mL (< 0.04)
[2020-04-14] MEDS: Famotidine 20 MG TABLET PO SCH (09:38)
[2020-04-14] MEDS: carvediloL 25 MG TABLET PO SCH (09:39)
[2020-04-14] MEDS: Furosemide 40 MG TABLET PO SCH (09:39)
[2020-04-14] MEDS: Isosorbide MONOnitrate (24 HR) 30 MG TAB.ER.24H PO SCH (09:39)
[2020-04-14] MEDS: predniSONE 20 MG TABLET PO SCH (09:39)
[2020-04-14] MEDS: Folic Acid 1 MG TABLET PO SCH ×2 (09:39→20:40)
[2020-04-14] MEDS: Lactulose Oral Soln 20 GM/30 ML UDC PO SCH ×2 (09:40→20:46)
[2020-04-14 10:22] LABS: Magnesium 1.9 mg/dL (1.6-2.6)
[2020-04-14] MEDS ORDERED: Aspirin 81 MG TAB.CHEW PO SCH (10:30)
[2020-04-14] MEDS ORDERED: Aspirin 81 MG TAB.CHEW PO ONE (10:41)
[2020-04-14] MEDS ORDERED: Magnesium Sulfate 1 GM/102 ML PIGGYBACK IVPB ONE (10:47)
[2020-04-14] MEDS ORDERED: D5% in Water 1,000 ML IVC PRN (11:33)
[2020-04-14] MEDS ORDERED: *HR* Dextrose 50 % in Water (Vial) 50 ML VIAL IVP PRN (11:33)
[2020-04-14] MEDS: Insulin LISPRO 300 UNITS/3 ML VIAL SUBQ SCH ×3 (12:09→20:45)
[2020-04-14 14:13] LABS: HSV Source BAL
[2020-04-14] MEDS: Ringers Solution, Lactated 1,000 ML IVC SCH (17:50)
[2020-04-14] MEDS: Insulin DETEMIR 100 UNIT/ML X5UNITS SUBQ SCH (20:40)
[2020-04-14] MEDS: Sucralfate 1 GM TABLET PO SCH (20:40)
[2020-04-14] MEDS: Metoprolol XL (24 HR) Succ 50 MG TAB.ER.24H PO SCH (20:40)
[2020-04-14] MEDS ORDERED: Insulin LISPRO 300 UNITS/3 ML VIAL SUBQ SCH ×2 (20:49)
[2020-04-15] MEDS: Ipratropium/Albuterol Neb 3 ML IH SCH ×7 (00:02→23:34)
[2020-04-15 05:13] LABS: Eosinophils % 0.1 %; Hematocrit 25.4 % (37.5-50.1); Hemoglobin 7.7 g/dL (12.9-16.9); Immature Granulocytes % 0.7 % (0-4); Lymphocytes # 0.8 K/mcL (0.6-4.6); Lymphocytes % 8.6 %; Mean Corpuscular HGB Conc 30.3 g/dL (31.6-35.5); Mean Corpuscular Hemoglobin 27.2 pg (28.0-33.3); Mean Corpuscular Volume 89.8 fL (83.0-100.0); Mean Platelet Volume 11.1 fL (9.4-12.4); Monocytes # 0.8 K/mcL (0.0-1.3); Monocytes % 8.5 %; Nucleated Red Blood Cells 0.3 /100 WBC (0); Platelet Count 173 K/mcL (140-400); Red Blood Count 2.83 M/mcL (4.19-5.50); Red Cell Distribution Width 15.3 % (11.5-14.5); Segmented Neutrophils % 82.1 %; White Blood Count 9.7 K/mcL (4.3-11.1)
[2020-04-15 05:28] LABS: Calcium 8.4 mg/dL (8.6-10.3)
[2020-04-15] MEDS ORDERED: Ergocalciferol (VIT D2) 50,000 UNIT (1.25MG) CAP PO SCH (07:15)
[2020-04-15] MEDS: Insulin LISPRO 300 UNITS/3 ML VIAL SUBQ SCH ×4 (08:24→19:54)
[2020-04-15] MEDS: Famotidine 20 MG TABLET PO SCH (09:27)
[2020-04-15] MEDS: Isosorbide MONOnitrate (24 HR) 30 MG TAB.ER.24H PO SCH (09:28)
[2020-04-15] MEDS: Furosemide 40 MG TABLET PO SCH (09:28)
[2020-04-15] MEDS: Metoprolol XL (24 HR) Succ 50 MG TAB.ER.24H PO SCH ×2 (09:28→19:53)
[2020-04-15] MEDS: predniSONE 20 MG TABLET PO SCH (09:28)
[2020-04-15] MEDS: Folic Acid 1 MG TABLET PO SCH ×2 (09:28→19:53)
[2020-04-15] MEDS: Lactulose Oral Soln 20 GM/30 ML UDC PO SCH ×2 (11:50→19:53)
[2020-04-15] MEDS ORDERED: *HR* LORazepam 0.5 MG TABLET PO ONE (12:21)
[2020-04-15] MEDS ORDERED: Furosemide 40 MG/4 ML VIAL IVP ONE (13:30)
[2020-04-15] MEDS ORDERED: Vancomycin 1,250 MG/262.5 ML IV.SOLN IVPB SCH (16:00)
[2020-04-15] MEDS: Cyanocobalamin (B-12) 1,000 MCG TABLET PO SCH (16:05)
[2020-04-15] MEDS ORDERED: levoFLOXacin 750 MG TABLET PO SCH (18:00)
[2020-04-15] MEDS ORDERED: Melatonin 3 MG TABLET PO PRN (18:24)
[2020-04-15] MEDS: Sucralfate 1 GM TABLET PO SCH (19:53)
[2020-04-15] MEDS: Insulin DETEMIR 100 UNIT/ML X5UNITS SUBQ SCH (20:29)
[2020-04-16 03:02] LABS: Urine Collection Volume RANDOM mL
[2020-04-16] MEDS: Ipratropium/Albuterol Neb 3 ML IH SCH ×4 (03:32→15:48)
[2020-04-16 05:29] LABS: Eosinophils % 0.3 %; Hematocrit 24.2 % (37.5-50.1); Hemoglobin 7.3 g/dL (12.9-16.9); Immature Granulocytes % 0.8 % (0-4); Lymphocytes # 0.7 K/mcL (0.6-4.6); Lymphocytes % 8.8 %; Mean Corpuscular HGB Conc 30.2 g/dL (31.6-35.5); Mean Corpuscular Volume 89.6 fL (83.0-100.0); Mean Platelet Volume 10.8 fL (9.4-12.4); Monocytes # 0.7 K/mcL (0.0-1.3); Monocytes % 9.3 %; Neutrophils # 6.4 K/mcL (1.6-8.9); Platelet Count 153 K/mcL (140-400); Red Cell Distribution Width 15.4 % (11.5-14.5); Segmented Neutrophils % 80.8 %; White Blood Count 7.9 K/mcL (4.3-11.1)
[2020-04-16 05:47] LABS: Calcium 8.1 mg/dL (8.6-10.3); Potassium 3.9 mEq/L (3.5-5.1)
[2020-04-16] MEDS: Famotidine 20 MG TABLET PO SCH (07:54)
[2020-04-16] MEDS: Insulin LISPRO 300 UNITS/3 ML VIAL SUBQ SCH ×2 (07:54→12:10)
[2020-04-16] MEDS: Isosorbide MONOnitrate (24 HR) 30 MG TAB.ER.24H PO SCH (07:54)
[2020-04-16] MEDS: Folic Acid 1 MG TABLET PO SCH (07:55)
[2020-04-16] MEDS: Metoprolol XL (24 HR) Succ 50 MG TAB.ER.24H PO SCH (07:55)
[2020-04-16] MEDS: predniSONE 20 MG TABLET PO SCH (07:55)
[2020-04-16] MEDS: Lactulose Oral Soln 20 GM/30 ML UDC PO SCH (07:56)
[2020-04-16] MEDS ORDERED: Furosemide 40 MG/4 ML VIAL IVP SCH (09:00)
[2020-04-16 10:49] VITALS: BP 147/67
[2020-04-16] MEDS ORDERED: Pregabalin 50 MG CAPSULE PO SCH (21:00)
[2020-04-16] MEDS ORDERED: Linezolid 600 MG TABLET PO SCH (21:00)
[2020-04-17] MEDS ORDERED: levoFLOXacin 500 MG TABLET PO SCH (09:00)
== END 2020-04-16 15:54 | disposition home or self-care (01) | DRG 871 ==
LOC: EMEROOARM 14:52 → 2NNU 14:52 → SUATTDRO 18:37 → 2NNU 20:50 → CDU 04-11 12:09 → 2ANU 04-12 17:05
PROVIDERS: ADMIT Internal Medicine; ATTEND General Practice

== ENCOUNTER 2020-05-30 08:02 | Inpatient (IN) ==
[2020-05-30 08:59] LABS: Basophils % 0.8 %; Lymphocytes % 8.6 %; Mean Corpuscular Hemoglobin 26.5 pg (28.0-33.3); Red Cell Distribution Width 19.7 % (11.5-14.5)
[2020-05-30 09:01] LABS: Basophils # 0.1 K/mcL (0.0-0.2); Eosinophils # 0.3 K/mcL (0.0-0.6); Eosinophils % 4.6 %; Hematocrit 34.8 % (37.5-50.1); Immature Granulocytes % 0.3 % (0-4); Immature Platelets 6.5 % (1.1-6.1); Lymphocytes # 0.6 K/mcL (0.6-4.6); Mean Corpuscular HGB Conc 28.7 g/dL (31.6-35.5); Mean Corpuscular Volume 92.1 fL (83.0-100.0); Mean Platelet Volume 11.7 fL (9.4-12.4); Monocytes # 0.3 K/mcL (0.0-1.3); Neutrophils # 5.3 K/mcL (1.6-8.9); Platelet Count 102 K/mcL (140-400); Red Blood Count 3.78 M/mcL (4.19-5.50); Segmented Neutrophils % 80.7 %; White Blood Count 6.6 K/mcL (4.3-11.1)
[2020-05-30 09:16] LABS: Calcium 8.2 mg/dL (8.6-10.3); Potassium 4.6 mEq/L (3.5-5.1)
[2020-05-30] MEDS ORDERED: Furosemide 40 MG/4 ML VIAL IVP ONE (09:34)
[2020-05-30 09:35] LABS: Anisocytosis 1+ (Not Present); Hypochromasia Present (Not Present); Large Platelets Present (Not Present); Ovalocytes 1+ (Not Present)
[2020-05-30] MEDS ORDERED: Furosemide 40 MG/4 ML VIAL ONE (09:59)
[2020-05-30] MEDS ORDERED: Naloxone 0.4 MG/ML INJ IVP PRN (10:53)
[2020-05-30] MEDS ORDERED: D5% in Water 1,000 ML IVC PRN (12:54)
[2020-05-30] MEDS ORDERED: Dextrose Gel 15 GM/37.5 ML TUBE PO PRN ×2 (12:54)
[2020-05-30] MEDS ORDERED: *HR* Dextrose 50 % in Water (Vial) 50 ML VIAL IVP PRN (12:54)
[2020-05-30 14:55] LABS: RBC,Pleural Fluid 39000 RBC/mcL
[2020-05-30 14:58] LABS: Appearance of Pleural Fl Hazy (Clear)
[2020-05-30] MEDS: Insulin LISPRO 300 UNITS/3 ML VIAL SUBQ SCH ×2 (15:01→17:41)
[2020-05-30 15:37] LABS: Glucose,Pleural Fluid 151 mg/dL (No Ref Range); LDH,Pleural Fluid 62 Units/L (No Ref Range); Total Protein,Pleural Fluid < 2.0 g/dL
[2020-05-30 15:48] LABS: Eosinophils,Pleural Fluid 0 %
[2020-05-30] MEDS: *HR* Heparin 5,000 UNIT/ML VIAL SQ SCH (17:42)
[2020-05-30] MEDS ORDERED: Insulin LISPRO 300 UNITS/3 ML VIAL SUBQ SCH (21:00)
[2020-05-30] MEDS: Furosemide 40 MG/4 ML VIAL IVP SCH (21:05)
[2020-05-31 03:58] LABS: Basophils # 0.1 K/mcL (0.0-0.2); Basophils % 0.9 %; Eosinophils # 0.4 K/mcL (0.0-0.6); Eosinophils % 5.8 %; Hematocrit 34.1 % (37.5-50.1); Hemoglobin 9.7 g/dL (12.9-16.9); Immature Granulocytes % 0.6 % (0-4); Lymphocytes # 0.8 K/mcL (0.6-4.6); Lymphocytes % 11.9 %; Mean Corpuscular HGB Conc 28.4 g/dL (31.6-35.5); Mean Corpuscular Hemoglobin 26.5 pg (28.0-33.3); Mean Corpuscular Volume 93.2 fL (83.0-100.0); Mean Platelet Volume 12.5 fL (9.4-12.4); Monocytes # 0.4 K/mcL (0.0-1.3); Monocytes % 6.1 %; Platelet Count 119 K/mcL (140-400); Red Blood Count 3.66 M/mcL (4.19-5.50); Red Cell Distribution Width 19.9 % (11.5-14.5); Segmented Neutrophils % 74.7 %; White Blood Count 6.9 K/mcL (4.3-11.1)
[2020-05-31 04:00] LABS: Neutrophils # 5.2 K/mcL (1.6-8.9)
[2020-05-31 04:18] LABS: Calcium 8.6 mg/dL (8.6-10.3); Magnesium 1.9 mg/dL (1.6-2.6); Phosphorous 4.9 mg/dL (2.7-4.5); Potassium 3.8 mEq/L (3.5-5.1)
[2020-05-31 04:42] LABS: Estimated Average Glucose 126 mg/dl
[2020-05-31 05:07] LABS: Anisocytosis 1+ (Not Present); Hypochromasia Present (Not Present); Platelet Estimate Slight Decrease (Normal); Poikilocytosis 1+ (Not Present)
[2020-05-31] MEDS: *HR* Heparin 5,000 UNIT/ML VIAL SQ SCH (05:30)
[2020-05-31] MEDS: Insulin LISPRO 300 UNITS/3 ML VIAL SUBQ SCH (08:58)
[2020-05-31] MEDS ORDERED: Cyanocobalamin (B-12) 1,000 MCG TABLET PO SCH (09:00)
[2020-05-31] MEDS: Furosemide 40 MG/4 ML VIAL IVP SCH (09:08)
[2020-05-31] MEDS ORDERED: Isosorbide MONOnitrate (24 HR) 30 MG TAB.ER.24H PO SCH (09:45)
[2020-05-31] MEDS ORDERED: Metoprolol XL (24 HR) Succ 50 MG TAB.ER.24H PO SCH (09:45)
[2020-05-31] MEDS ORDERED: Pregabalin 50 MG CAPSULE PO SCH (10:15)
[2020-05-31] MEDS ORDERED: Insulin LISPRO 300 UNITS/3 ML VIAL SUBQ SCH ×2 (11:30→21:00)
[2020-05-31 14:19] VITALS: BP 123/65
[2020-05-31] MEDS ORDERED: Furosemide 40 MG TABLET PO SCH (17:00)
[2020-05-31] MEDS ORDERED: Famotidine 20 MG TABLET PO SCH (21:00)
[2020-05-31] MEDS ORDERED: Insulin DETEMIR 100 UNIT/ML X5UNITS SUBQ SCH (21:00)
[2020-06-01] MEDS ORDERED: Folic Acid 1 MG TABLET PO SCH (09:00)
== END 2020-05-31 16:27 | disposition left against medical advice (07) | DRG 291 ==
LOC: 3ANU 08:02 → EMEROOARM 08:02 → 3ANU 11:29
PROVIDERS: ADMIT Internal Medicine; ATTEND Internal Medicine
PROC: ENDOAPI (2020-05-30 12:00)

== ENCOUNTER 2021-06-09 11:45 | Inpatient (IN) ==
[2021-06-09 12:40] LABS: Immature Granulocytes % 0.2 % (0-4); Red Blood Count 3.14 M/mcL (4.19-5.50)
[2021-06-09 12:41] LABS: Basophils % 0.5 %; Eosinophils # 0.1 K/mcL (0.0-0.6); Eosinophils % 2.4 %; Hematocrit 31.8 % (37.5-50.1); Hemoglobin 9.3 g/dL (12.9-16.9); Immature Platelets 3.2 % (1.1-6.1); Lymphocytes # 0.5 K/mcL (0.6-4.6); Lymphocytes % 11.4 %; Mean Corpuscular HGB Conc 29.2 g/dL (31.6-35.5); Mean Corpuscular Hemoglobin 29.6 pg (28.0-33.3); Mean Corpuscular Volume 101.3 fL (83.0-100.0); Mean Platelet Volume 10.6 fL (9.4-12.4); Monocytes # 0.4 K/mcL (0.0-1.3); Monocytes % 9.2 %; Red Cell Distribution Width 15.8 % (11.5-14.5); Segmented Neutrophils % 76.3 %; White Blood Count 4.1 K/mcL (4.3-11.1)
[2021-06-09 12:42] LABS: Neutrophils # 3.1 K/mcL (1.6-8.9); Platelet Count 93 K/mcL (140-400)
[2021-06-09 12:55] LABS: INR 1.3; Prothrombin Time 14.3 Seconds (9.4-12.1)
[2021-06-09 12:57] LABS: Activated Partial Thrombo Time 40.5 Seconds (26.0-36.0)
[2021-06-09 13:26] LABS: Albumin/Globulin Ratio 0.8 (1.1-2.2); Bilirubin,Direct 0.3 mg/dL (0.0-0.2); Bilirubin,Indirect 0.4 mg/dL (0.0-1.0); Bilirubin,Total 0.7 mg/dL (0.3-1.0); Calcium 8.4 mg/dL (8.6-10.3); Globulin 3.9 g/dL (2.4-3.5); Potassium 4.9 mEq/L (3.5-5.1); Total Protein 6.9 g/dL (6.4-8.9); Troponin I 0.03 ng/mL (< 0.04)
[2021-06-09] MEDS ORDERED: Furosemide 40 MG/4 ML VIAL IVP ONE (14:12)
[2021-06-09] MEDS ORDERED: Naloxone 0.4 MG/ML INJ IVP PRN (14:56)
[2021-06-09] MEDS ORDERED: Ondansetron 4 MG/2 ML VIAL IVP PRN (14:56)
[2021-06-09] MEDS ORDERED: Ondansetron ODT 4 MG TAB.RAPDIS SL PRN (14:58)
[2021-06-09] MEDS ORDERED: Famotidine 20 MG TABLET PO PRN ×2 (14:58→15:43)
[2021-06-09] MEDS ORDERED: Perflutren Lipid Microsphere 1.3 ML in 0.9 % Sodium Chloride 8.7 ML IVP PRN (15:04)
[2021-06-09 15:44] LABS: Influenza A PCR Negative (Negative); Influenza B PCR Negative (Negative); Resp. Syncytial Virus PCR Negative (Negative); SARS-CoV-2 by PCR (In House) Negative (Negative)
[2021-06-09] MEDS ORDERED: *HR* Dextrose 50 % in Water (Syg) 50 ML SYRINGE IVP PRN (15:50)
[2021-06-09] MEDS ORDERED: Dextrose 4 GM Chewable Tablets PO PRN (15:50)
[2021-06-09] MEDS ORDERED: D5% in Water 1,000 ML IVC PRN (15:50)
[2021-06-09] MEDS: Insulin LISPRO 300 UNITS/3 ML VIAL SUBQ SCH ×2 (16:41→20:39)
[2021-06-09] MEDS: Calcium Acetate 667 MG CAPSULE PO SCH (17:17)
[2021-06-09] MEDS: Furosemide 40 MG/4 ML VIAL IVP SCH (17:20)
[2021-06-09] MEDS: Budesonide/Formoterol 160/4.5 1 PUFF INH IH SCH (20:16)
[2021-06-09] MEDS: Folic Acid 1 MG TABLET PO SCH (20:33)
[2021-06-09] MEDS: rifAMPin 150 MG CAPSULE PO SCH (20:33)
[2021-06-09] MEDS: Metoprolol XL (24 HR) Succ 50 MG TAB.ER.24H PO SCH (20:34)
[2021-06-10 03:40] LABS: Basophils % 0.7 %
[2021-06-10 03:42] LABS: Eosinophils # 0.1 K/mcL (0.0-0.6); Eosinophils % 3.3 %; Hematocrit 30.8 % (37.5-50.1); Immature Granulocytes % 0.2 % (0-4); Immature Platelets 3.7 % (1.1-6.1); Lymphocytes # 0.4 K/mcL (0.6-4.6); Lymphocytes % 9.6 %; Mean Corpuscular HGB Conc 29.2 g/dL (31.6-35.5); Mean Corpuscular Hemoglobin 28.8 pg (28.0-33.3); Mean Corpuscular Volume 98.7 fL (83.0-100.0); Mean Platelet Volume 10.7 fL (9.4-12.4); Monocytes # 0.5 K/mcL (0.0-1.3); Neutrophils # 3.2 K/mcL (1.6-8.9); Red Blood Count 3.12 M/mcL (4.19-5.50); Red Cell Distribution Width 15.4 % (11.5-14.5); Segmented Neutrophils % 74.2 %; White Blood Count 4.3 K/mcL (4.3-11.1)
[2021-06-10 03:48] LABS: Platelet Count 91 K/mcL (140-400)
[2021-06-10 04:01] LABS: Calcium 8.2 mg/dL (8.6-10.3); Magnesium 2.1 mg/dL (1.6-2.6); Phosphorous 4.5 mg/dL (2.7-4.5); Potassium 5.3 mEq/L (3.5-5.1)
[2021-06-10] MEDS: Budesonide/Formoterol 160/4.5 1 PUFF INH IH SCH ×2 (07:23→20:35)
[2021-06-10] MEDS: Furosemide 40 MG/4 ML VIAL IVP SCH ×2 (07:54→16:25)
[2021-06-10] MEDS: rifAMPin 150 MG CAPSULE PO SCH ×2 (07:56→21:07)
[2021-06-10] MEDS: Cholecalciferol (D-3) 1,000 UNIT (25MCG) TABLET PO SCH (07:56)
[2021-06-10] MEDS: Insulin LISPRO 300 UNITS/3 ML VIAL SUBQ SCH ×4 (07:56→21:04)
[2021-06-10] MEDS: Calcium Acetate 667 MG CAPSULE PO SCH ×4 (07:56→16:26)
[2021-06-10] MEDS: Folic Acid 1 MG TABLET PO SCH ×2 (07:57→21:08)
[2021-06-10] MEDS: Metoprolol XL (24 HR) Succ 50 MG TAB.ER.24H PO SCH ×2 (07:57→21:07)
[2021-06-10] MEDS: Isosorbide MONOnitrate (24 HR) 30 MG TAB.ER.24H PO SCH (07:57)
[2021-06-10] MEDS ORDERED: lisinopriL 5 MG TABLET PO SCH (09:00)
[2021-06-11 05:43] LABS: Bilirubin,Urine Negative (Negative); Blood,Urine Negative (Negative); Clarity,Urine Clear (Clear); Color,Urine Yellow (Yellow); Glucose,Urine (UA) Normal (Normal); Hyaline Casts,Urine Few per lpf (None Seen); Ketones,Urine Negative (Negative); Leukocyte Esterase,Urine Negative (Negative); Mucus,Urine Few per lpf (None-Few); Nitrite,Urine Negative (Negative); PH,Urine 5.5 pH Units (5.0-8.0); Protein,Urine 100 mg/dL (Neg-Trace); RBC,Urine 0-3 per hpf (0-3); Specific Gravity,Urine 1.016 (1.010-1.025); Urobilinogen,Urine Normal (Normal); WBC,Urine 0-3 per hpf (0-3)
[2021-06-11 05:46] LABS: Basophils % 0.3 %; Hemoglobin 9.1 g/dL (12.9-16.9)
[2021-06-11 05:48] LABS: Eosinophils # 0.1 K/mcL (0.0-0.6); Eosinophils % 1.9 %; Hematocrit 31.1 % (37.5-50.1); Immature Granulocytes % 0.5 % (0-4); Lymphocytes # 0.4 K/mcL (0.6-4.6); Lymphocytes % 10.4 %; Mean Corpuscular HGB Conc 29.3 g/dL (31.6-35.5); Mean Corpuscular Hemoglobin 29.9 pg (28.0-33.3); Mean Corpuscular Volume 102.3 fL (83.0-100.0); Mean Platelet Volume 10.5 fL (9.4-12.4); Monocytes # 0.5 K/mcL (0.0-1.3); Monocytes % 13.5 %; Red Blood Count 3.04 M/mcL (4.19-5.50); Red Cell Distribution Width 15.3 % (11.5-14.5); Segmented Neutrophils % 73.4 %; White Blood Count 3.6 K/mcL (4.3-11.1)
[2021-06-11 05:59] LABS: Neutrophils # 2.6 K/mcL (1.6-8.9); Platelet Count 90 K/mcL (140-400)
[2021-06-11 06:00] LABS: Sodium, Urine 35.7 mEq/L
[2021-06-11 06:55] LABS: Calcium 8.1 mg/dL (8.6-10.3); Potassium 5.8 mEq/L (3.5-5.1)
[2021-06-11] MEDS: Budesonide/Formoterol 160/4.5 1 PUFF INH IH SCH ×2 (07:48→20:28)
[2021-06-11] MEDS: Isosorbide MONOnitrate (24 HR) 30 MG TAB.ER.24H PO SCH (08:46)
[2021-06-11] MEDS: Folic Acid 1 MG TABLET PO SCH ×2 (08:46→20:30)
[2021-06-11] MEDS: Metoprolol XL (24 HR) Succ 50 MG TAB.ER.24H PO SCH ×2 (08:46→20:30)
[2021-06-11] MEDS: Calcium Acetate 667 MG CAPSULE PO SCH ×3 (08:46→17:11)
[2021-06-11] MEDS: SODIUM ZIRCONIUM CYCLOSILICATE 5 GM POWD.PACK PO SCH ×3 (08:47→20:31)
[2021-06-11] MEDS: rifAMPin 150 MG CAPSULE PO SCH ×2 (08:47→20:30)
[2021-06-11] MEDS: Cholecalciferol (D-3) 1,000 UNIT (25MCG) TABLET PO SCH (08:47)
[2021-06-11] MEDS: Furosemide 40 MG/4 ML VIAL IVP SCH ×2 (09:02→18:21)
[2021-06-11 09:13] LABS: Calcium 8.3 mg/dL (8.6-10.3); Potassium 6.4 mEq/L (3.5-5.1)
[2021-06-11] MEDS ORDERED: Calcium Gluconate 1gm/50mL 1 GM/50 ML BAG IVPB ONE (09:45)
[2021-06-11] MEDS ORDERED: 0.9 % Sodium Chloride 250 ML IVC PRN (09:55)
[2021-06-11] MEDS ORDERED: 0.9 % Sodium Chloride 1,000 ML PRIME SCH (10:00)
[2021-06-11] MEDS ORDERED: *HR* Heparin 5,000 UNIT/ML VIAL ONE (10:15)
[2021-06-11] MEDS ORDERED: Heparin 1,000 UNITS/500 mL 500 ML ONE (10:32)
[2021-06-11] MEDS ORDERED: Lidocaine/EPI 1:100k 1% 50 ML VIAL ONE (10:32)
[2021-06-11] MEDS: Albuterol 2.5 MG/3 ML NEBULIZER IH ONE ×2 (11:07→11:49)
[2021-06-11] MEDS: Insulin LISPRO 300 UNITS/3 ML VIAL SUBQ SCH ×4 (13:15→20:53)
[2021-06-11] MEDS ORDERED: *HR* Heparin 10,000 UNIT/10 ML VIAL IV PRN (13:54)
[2021-06-12 03:29] LABS: Basophils % 0.6 %; Immature Granulocytes % 0.6 % (0-4)
[2021-06-12 03:31] LABS: Eosinophils # 0.1 K/mcL (0.0-0.6); Eosinophils % 3.2 %; Hematocrit 31.6 % (37.5-50.1); Hemoglobin 8.7 g/dL (12.9-16.9); Immature Platelets 3.3 % (1.1-6.1); Lymphocytes # 0.4 K/mcL (0.6-4.6); Lymphocytes % 10.5 %; Mean Corpuscular HGB Conc 27.5 g/dL (31.6-35.5); Mean Corpuscular Volume 105.3 fL (83.0-100.0); Mean Platelet Volume 10.4 fL (9.4-12.4); Monocytes # 0.4 K/mcL (0.0-1.3); Monocytes % 11.3 %; Neutrophils # 2.5 K/mcL (1.6-8.9); Segmented Neutrophils % 73.8 %; White Blood Count 3.4 K/mcL (4.3-11.1)
[2021-06-12 03:35] LABS: Platelet Count 78 K/mcL (140-400)
[2021-06-12 03:58] LABS: Basophilic Stippling 1+ (Not Present); Hypochromasia Present (Not Present); Platelet Estimate Decreased (Normal)
[2021-06-12 04:19] LABS: Calcium 7.9 mg/dL (8.6-10.3); Magnesium 1.9 mg/dL (1.6-2.6); Phosphorous 4.7 mg/dL (2.7-4.5); Potassium 4.5 mEq/L (3.5-5.1)
[2021-06-12] MEDS: Budesonide/Formoterol 160/4.5 1 PUFF INH IH SCH ×2 (07:55→21:12)
[2021-06-12] MEDS ORDERED: 0.9 % Sodium Chloride 250 ML IVC PRN (07:56)
[2021-06-12] MEDS ORDERED: 0.9 % Sodium Chloride 1,000 ML PRIME SCH (08:00)
[2021-06-12] MEDS ORDERED: *HR* Heparin 10,000 UNIT/10 ML VIAL IV PRN (08:13)
[2021-06-12] MEDS: Insulin LISPRO 300 UNITS/3 ML VIAL SUBQ SCH ×4 (09:04→21:02)
[2021-06-12] MEDS: Calcium Acetate 667 MG CAPSULE PO SCH ×3 (10:12→18:44)
[2021-06-12] MEDS: rifAMPin 150 MG CAPSULE PO SCH ×2 (10:12→20:32)
[2021-06-12] MEDS: Folic Acid 1 MG TABLET PO SCH ×2 (10:12→20:32)
[2021-06-12] MEDS: Cholecalciferol (D-3) 1,000 UNIT (25MCG) TABLET PO SCH (10:12)
[2021-06-12] MEDS: Isosorbide MONOnitrate (24 HR) 30 MG TAB.ER.24H PO SCH (11:40)
[2021-06-12] MEDS: Furosemide 40 MG/4 ML VIAL IVP SCH ×2 (11:40→18:43)
[2021-06-12] MEDS: Metoprolol XL (24 HR) Succ 50 MG TAB.ER.24H PO SCH ×2 (11:40→20:32)
[2021-06-13 05:29] LABS: Red Cell Distribution Width 15.2 % (11.5-14.5)
[2021-06-13 05:31] LABS: Basophils % 0.3 %; Eosinophils # 0.1 K/mcL (0.0-0.6); Eosinophils % 2.5 %; Hematocrit 28.7 % (37.5-50.1); Hemoglobin 8.6 g/dL (12.9-16.9); Immature Granulocytes % 0.5 % (0-4); Lymphocytes # 0.4 K/mcL (0.6-4.6); Lymphocytes % 10.1 %; Mean Corpuscular Hemoglobin 30.1 pg (28.0-33.3); Mean Corpuscular Volume 100.3 fL (83.0-100.0); Mean Platelet Volume 11.1 fL (9.4-12.4); Monocytes # 0.5 K/mcL (0.0-1.3); Monocytes % 13.4 %; Neutrophils # 2.9 K/mcL (1.6-8.9); Red Blood Count 2.86 M/mcL (4.19-5.50); Segmented Neutrophils % 73.2 %
[2021-06-13 05:43] LABS: Platelet Count 73 K/mcL (140-400)
[2021-06-13 05:59] LABS: Calcium 7.7 mg/dL (8.6-10.3); Magnesium 1.9 mg/dL (1.6-2.6); Potassium 4.2 mEq/L (3.5-5.1)
[2021-06-13] MEDS ORDERED: 0.9 % Sodium Chloride 250 ML IVC PRN (07:43)
[2021-06-13] MEDS ORDERED: *HR* Heparin 10,000 UNIT/10 ML VIAL IV PRN (07:59)
[2021-06-13] MEDS: Budesonide/Formoterol 160/4.5 1 PUFF INH IH SCH ×2 (08:02→19:35)
[2021-06-13] MEDS: Folic Acid 1 MG TABLET PO SCH ×2 (08:46→21:08)
[2021-06-13] MEDS: Calcium Acetate 667 MG CAPSULE PO SCH ×3 (08:46→17:34)
[2021-06-13] MEDS: Insulin LISPRO 300 UNITS/3 ML VIAL SUBQ SCH ×4 (08:46→21:00)
[2021-06-13] MEDS: Furosemide 40 MG/4 ML VIAL IVP SCH ×2 (08:46→17:34)
[2021-06-13] MEDS: Cholecalciferol (D-3) 1,000 UNIT (25MCG) TABLET PO SCH (08:46)
[2021-06-13] MEDS: Metoprolol XL (24 HR) Succ 50 MG TAB.ER.24H PO SCH ×2 (08:46→21:09)
[2021-06-13] MEDS: Isosorbide MONOnitrate (24 HR) 30 MG TAB.ER.24H PO SCH (08:47)
[2021-06-13] MEDS: rifAMPin 150 MG CAPSULE PO SCH ×2 (08:50→21:09)
[2021-06-13 17:01] LABS: Hepatitis B Surface Antibody 176.08 mIU/mL
[2021-06-13 17:11] LABS: Hepatitis B Surface Antigen Nonreactive (Nonreactive)
[2021-06-14 02:54] LABS: Immature Granulocytes % 0.2 % (0-4)
[2021-06-14 02:56] LABS: Basophils % 0.7 %; Eosinophils # 0.1 K/mcL (0.0-0.6); Hematocrit 26.6 % (37.5-50.1); Immature Platelets 3.5 % (1.1-6.1); Lymphocytes # 0.5 K/mcL (0.6-4.6); Lymphocytes % 10.9 %; Mean Corpuscular HGB Conc 30.1 g/dL (31.6-35.5); Mean Corpuscular Hemoglobin 30.3 pg (28.0-33.3); Mean Corpuscular Volume 100.8 fL (83.0-100.0); Mean Platelet Volume 10.9 fL (9.4-12.4); Monocytes # 0.7 K/mcL (0.0-1.3); Monocytes % 14.4 %; Neutrophils # 3.3 K/mcL (1.6-8.9); Red Blood Count 2.64 M/mcL (4.19-5.50); Red Cell Distribution Width 15.1 % (11.5-14.5); Segmented Neutrophils % 71.8 %; White Blood Count 4.6 K/mcL (4.3-11.1)
[2021-06-14 02:57] LABS: Platelet Count 74 K/mcL (140-400)
[2021-06-14 03:06] LABS: Calcium 7.8 mg/dL (8.6-10.3); Magnesium 1.7 mg/dL (1.6-2.6); Potassium 3.8 mEq/L (3.5-5.1)
[2021-06-14] MEDS: Budesonide/Formoterol 160/4.5 1 PUFF INH IH SCH ×2 (07:48→20:20)
[2021-06-14] MEDS: Insulin LISPRO 300 UNITS/3 ML VIAL SUBQ SCH ×3 (08:06→16:46)
[2021-06-14] MEDS: Furosemide 40 MG/4 ML VIAL IVP SCH ×2 (08:06→16:45)
[2021-06-14] MEDS: Isosorbide MONOnitrate (24 HR) 30 MG TAB.ER.24H PO SCH (08:07)
[2021-06-14] MEDS: Calcium Acetate 667 MG CAPSULE PO SCH ×3 (08:07→16:46)
[2021-06-14] MEDS: rifAMPin 150 MG CAPSULE PO SCH ×2 (08:07→20:30)
[2021-06-14] MEDS: Metoprolol XL (24 HR) Succ 50 MG TAB.ER.24H PO SCH ×2 (08:07→20:30)
[2021-06-14] MEDS: Cholecalciferol (D-3) 1,000 UNIT (25MCG) TABLET PO SCH (08:07)
[2021-06-14] MEDS: Folic Acid 1 MG TABLET PO SCH ×2 (08:07→20:30)
[2021-06-14 11:13] LABS: Adenovirus Not Detected (Not Detect); Bordetella Pertussis Not Detected (Not Detect); Chlamydophila pneumoniae Not Detected (Not Detect); Coronavirus 229E Not Detected (Not Detect); Coronavirus HKU1 Not Detected (Not Detect); Coronavirus NL63 Not Detected (Not Detect); Coronavirus OC43 Not Detected (Not Detect); Human Metapneumovirus Not Detected (Not Detect); Human Rhinovirus/Enterovirus Not Detected (Not Detect); Influenza A Subtype 2009 H1 Not Detected (Not Detect); Influenza B Not Detected (Not Detect); Mycoplasma pneumoniae Not Detected (Not Detect); Parainfluenza Virus 1 Not Detected (Not Detect); Parainfluenza Virus 2 Not Detected (Not Detect); Parainfluenza Virus 3 Not Detected (Not Detect); Parainfluenza Virus 4 Not Detected (Not Detect); Respiratory Syncytial Virus Not Detected (Not Detect); SARS-CoV-2 Not Detected (Not Detect)
[2021-06-14] MEDS: Piperacillin/Tazobactam 3.375 GM in 0.9 % Sodium Chloride Mini Bag 100 ML IVPB SCH ×2 (12:37→20:30)
[2021-06-14] MEDS: Levalbuterol Neb 0.63 MG/3 ML IH SCH ×3 (15:47→20:21)
[2021-06-14 18:44] LABS: Bilirubin,Urine Negative (Negative); Blood,Urine Negative (Negative); Clarity,Urine Clear (Clear); Color,Urine Yellow (Yellow); Glucose,Urine (UA) Normal (Normal); Hyaline Casts,Urine Few per lpf (None Seen); Ketones,Urine Negative (Negative); Leukocyte Esterase,Urine Negative (Negative); Mucus,Urine Few per lpf (None-Few); Nitrite,Urine Negative (Negative); Protein,Urine 50 mg/dL (Neg-Trace); RBC,Urine 0-3 per hpf (0-3); Specific Gravity,Urine 1.012 (1.010-1.025); Transitional Epi Cells,Urine Few per hpf (None-Few); Urobilinogen,Urine Normal (Normal); WBC,Urine 0-3 per hpf (0-3)
[2021-06-14] MEDS: Dextrose 4 GM Chewable Tablets PO PRN (23:50)
[2021-06-15 03:11] LABS: Hemoglobin 8.1 g/dL (12.9-16.9); Immature Granulocytes % 0.2 % (0-4)
[2021-06-15 03:13] LABS: Basophils % 0.4 %; Eosinophils # 0.1 K/mcL (0.0-0.6); Eosinophils % 1.9 %; Immature Platelets 3.6 % (1.1-6.1); Lymphocytes # 0.4 K/mcL (0.6-4.6); Lymphocytes % 7.4 %; Mean Corpuscular HGB Conc 28.9 g/dL (31.6-35.5); Mean Corpuscular Volume 100.4 fL (83.0-100.0); Mean Platelet Volume 10.2 fL (9.4-12.4); Monocytes # 0.7 K/mcL (0.0-1.3); Monocytes % 13.6 %; Neutrophils # 3.9 K/mcL (1.6-8.9); Red Blood Count 2.79 M/mcL (4.19-5.50); Red Cell Distribution Width 15.1 % (11.5-14.5); Segmented Neutrophils % 76.5 %; White Blood Count 5.1 K/mcL (4.3-11.1)
[2021-06-15 03:15] LABS: Platelet Count 78 K/mcL (140-400)
[2021-06-15 03:30] LABS: Calcium 7.7 mg/dL (8.6-10.3)
[2021-06-15] MEDS: Levalbuterol Neb 0.63 MG/3 ML IH SCH ×4 (03:35→21:05)
[2021-06-15] MEDS: Piperacillin/Tazobactam 3.375 GM in 0.9 % Sodium Chloride Mini Bag 100 ML IVPB SCH ×3 (06:06→20:33)
[2021-06-15] MEDS: Budesonide/Formoterol 160/4.5 1 PUFF INH IH SCH ×2 (07:44→21:04)
[2021-06-15] MEDS: Dextrose 4 GM Chewable Tablets PO PRN (07:49)
[2021-06-15] MEDS: Furosemide 40 MG/4 ML VIAL IVP SCH ×2 (07:51→17:29)
[2021-06-15] MEDS: Cholecalciferol (D-3) 1,000 UNIT (25MCG) TABLET PO SCH (07:52)
[2021-06-15] MEDS: Metoprolol XL (24 HR) Succ 50 MG TAB.ER.24H PO SCH ×2 (07:52→20:32)
[2021-06-15] MEDS: Isosorbide MONOnitrate (24 HR) 30 MG TAB.ER.24H PO SCH (07:52)
[2021-06-15] MEDS: Calcium Acetate 667 MG CAPSULE PO SCH ×3 (07:52→17:31)
[2021-06-15] MEDS: Folic Acid 1 MG TABLET PO SCH ×2 (07:52→20:32)
[2021-06-15] MEDS: rifAMPin 150 MG CAPSULE PO SCH ×2 (07:52→20:32)
[2021-06-15] MEDS: Insulin LISPRO 300 UNITS/3 ML VIAL SUBQ SCH ×3 (10:06→20:33)
[2021-06-15] MEDS: Acetylcysteine 10% 2 ML INHSOL IH SCH ×2 (16:27→21:04)
[2021-06-16 02:27] LABS: Basophils % 0.4 %; Immature Granulocytes % 0.2 % (0-4); Mean Corpuscular HGB Conc 29.5 g/dL (31.6-35.5); Red Cell Distribution Width 15.1 % (11.5-14.5)
[2021-06-16 02:28] LABS: Eosinophils # 0.1 K/mcL (0.0-0.6); Eosinophils % 1.9 %; Hematocrit 25.8 % (37.5-50.1); Hemoglobin 7.6 g/dL (12.9-16.9); Immature Platelets 3.3 % (1.1-6.1); Lymphocytes # 0.4 K/mcL (0.6-4.6); Lymphocytes % 6.9 %; Mean Corpuscular Hemoglobin 29.6 pg (28.0-33.3); Mean Corpuscular Volume 100.4 fL (83.0-100.0); Mean Platelet Volume 10.2 fL (9.4-12.4); Monocytes # 0.6 K/mcL (0.0-1.3); Monocytes % 11.9 %; Neutrophils # 4.1 K/mcL (1.6-8.9); Red Blood Count 2.57 M/mcL (4.19-5.50); Segmented Neutrophils % 78.7 %; White Blood Count 5.2 K/mcL (4.3-11.1)
[2021-06-16 02:29] LABS: Platelet Count 77 K/mcL (140-400)
[2021-06-16 02:46] LABS: Phosphorous 2.5 mg/dL (2.7-4.5); Potassium 4.2 mEq/L (3.5-5.1)
[2021-06-16] MEDS: Piperacillin/Tazobactam 3.375 GM in 0.9 % Sodium Chloride Mini Bag 100 ML IVPB SCH ×3 (03:50→22:28)
[2021-06-16] MEDS: Levalbuterol Neb 0.63 MG/3 ML IH SCH ×4 (05:12→19:54)
[2021-06-16] MEDS: Insulin LISPRO 300 UNITS/3 ML VIAL SUBQ SCH ×4 (08:21→22:29)
[2021-06-16] MEDS: Calcium Acetate 667 MG CAPSULE PO SCH (08:29)
[2021-06-16] MEDS: rifAMPin 150 MG CAPSULE PO SCH ×2 (08:29→22:29)
[2021-06-16] MEDS ORDERED: *HR* Propofol 200 MG/20 ML VIAL IVP ONE (09:05)
[2021-06-16] MEDS ORDERED: *HR* FentaNYL (PF) 100 MCG/2 ML VIAL ONE (09:05)
[2021-06-16] MEDS ORDERED: Lidocaine Viscous Oral Soln 15 ML SOLUTION ONE (09:13)
[2021-06-16] MEDS ORDERED: *HR* EPINEPHrine 1 MG/10 ML SYRINGE INTRATRACH PRN (09:21)
[2021-06-16] MEDS ORDERED: *HR* EPINEPHrine 1 MG/10 ML SYRINGE ONE (09:25)
[2021-06-16] MEDS ORDERED: Lidocaine -MPF 4% 5 ML AMPUL ONE (09:31)
[2021-06-16] MEDS: Furosemide 40 MG/4 ML VIAL IVP SCH ×2 (10:58→16:39)
[2021-06-16] MEDS: Acetylcysteine 10% 2 ML INHSOL IH SCH (11:16)
[2021-06-16] MEDS: Budesonide/Formoterol 160/4.5 1 PUFF INH IH SCH ×2 (11:16→19:55)
[2021-06-16] MEDS: Folic Acid 1 MG TABLET PO SCH ×2 (11:30→22:29)
[2021-06-16] MEDS: Isosorbide MONOnitrate (24 HR) 30 MG TAB.ER.24H PO SCH (11:30)
[2021-06-16] MEDS: Cholecalciferol (D-3) 1,000 UNIT (25MCG) TABLET PO SCH (11:30)
[2021-06-16] MEDS: Metoprolol XL (24 HR) Succ 50 MG TAB.ER.24H PO SCH ×2 (11:31→22:29)
[2021-06-16 12:03] LABS: Appearance of Body Fluid Hazy (Clear); Volume of Body Fluid 14 mL
[2021-06-16 12:05] LABS: Hemoglobin 7.4 g/dL (12.9-16.9)
[2021-06-16] MEDS ORDERED: 0.9 % Sodium Chloride 250 ML IVC SCH ×2 (15:45→23:30)
[2021-06-16] MEDS ORDERED: Albumin 25% 12.5gm/50mL 12.5 GM/50 ML IV.SOLN IVPB SCH ×2 (16:00)
[2021-06-16 16:54] LABS: Adenovirus F 40/41 PCR Not detected (Not detect); Astrovirus PCR Not detected (Not detect); C.difficile Toxin A/B Gene PCR Not detected (Not detect); Campylobacter by PCR Not detected (Not detect); Cryptosporidium by PCR Not detected (Not detect); Cyclospora cayetanensis PCR Not detected (Not detect); Entamoeba histolytica PCR Not detected (Not detect); Enteroaggregative E.coli(EAEC) Not detected (Not detect); Enteropathogenic E.coli(EPEC) Not detected (Not detect); Enterotoxigenic E.coli (ETEC) Not detected (Not detect); Giardia lamblia PCR Not detected (Not detect); Norovirus GI/GII PCR Not detected (Not detect); Plesiomonas shigelloides PCR Not detected (Not detect); Rotavirus A PCR Not detected (Not detect); Salmonella PCR Not detected (Not detect); Sapovirus PCR Not detected (Not detect); Shig/EnteroinvasiveE coli EIEC Not detected (Not detect); Shigalike tox-prod E coli STEC Not detected (Not detect); Vibrio PCR Not detected (Not detect); Vibrio cholerae PCR Not detected (Not detect); Yersinia enterocolitica PCR Not detected (Not detect)
[2021-06-16] MEDS: Albumin 25% 12.5gm/50mL 12.5 GM/50 ML IV.SOLN IVPB SCH (20:56)
[2021-06-16 23:04] LABS: Hematocrit 24.8 % (37.5-50.1); Hemoglobin 7.4 g/dL (12.9-16.9)
[2021-06-17] MEDS ORDERED: 0.9 % Sodium Chloride 250 ML ONE (01:01)
[2021-06-17] MEDS: Albumin 25% 12.5gm/50mL 12.5 GM/50 ML IV.SOLN IVPB SCH ×3 (04:21→20:25)
[2021-06-17] MEDS: Piperacillin/Tazobactam 3.375 GM in 0.9 % Sodium Chloride Mini Bag 100 ML IVPB SCH ×3 (04:21→20:20)
[2021-06-17] MEDS: Levalbuterol Neb 0.63 MG/3 ML IH SCH ×4 (04:31→20:17)
[2021-06-17 04:39] LABS: Eosinophils % 2.6 %; Immature Granulocytes % 0.4 % (0-4); Mean Corpuscular Volume 97.4 fL (83.0-100.0); Red Cell Distribution Width 15.8 % (11.5-14.5)
[2021-06-17 04:42] LABS: Basophils % 0.2 %; Eosinophils # 0.1 K/mcL (0.0-0.6); Hematocrit 26.4 % (37.5-50.1); Hemoglobin 7.8 g/dL (12.9-16.9); Immature Platelets 3.3 % (1.1-6.1); Lymphocytes # 0.4 K/mcL (0.6-4.6); Lymphocytes % 8.1 %; Mean Corpuscular HGB Conc 29.5 g/dL (31.6-35.5); Mean Corpuscular Hemoglobin 28.8 pg (28.0-33.3); Mean Platelet Volume 10.3 fL (9.4-12.4); Monocytes # 0.7 K/mcL (0.0-1.3); Monocytes % 12.6 %; Red Blood Count 2.71 M/mcL (4.19-5.50); Segmented Neutrophils % 76.1 %; White Blood Count 5.3 K/mcL (4.3-11.1)
[2021-06-17 04:57] LABS: Platelet Count 79 K/mcL (140-400)
[2021-06-17 05:06] LABS: Potassium 4.4 mEq/L (3.5-5.1)
[2021-06-17] MEDS: Furosemide 40 MG/4 ML VIAL IVP SCH ×2 (08:26→20:20)
[2021-06-17] MEDS: Metoprolol XL (24 HR) Succ 50 MG TAB.ER.24H PO SCH ×2 (08:26→20:21)
[2021-06-17] MEDS: Folic Acid 1 MG TABLET PO SCH ×2 (08:26→20:21)
[2021-06-17] MEDS: rifAMPin 150 MG CAPSULE PO SCH ×2 (08:26→20:21)
[2021-06-17] MEDS: Lactobacillus 1 EACH CAP.SPRINK PO SCH ×2 (08:27→20:21)
[2021-06-17] MEDS: Isosorbide MONOnitrate (24 HR) 30 MG TAB.ER.24H PO SCH (08:27)
[2021-06-17] MEDS: Cholecalciferol (D-3) 1,000 UNIT (25MCG) TABLET PO SCH (08:27)
[2021-06-17] MEDS: Insulin LISPRO 300 UNITS/3 ML VIAL SUBQ SCH ×4 (09:47→20:22)
[2021-06-17] MEDS: Budesonide/Formoterol 160/4.5 1 PUFF INH IH SCH ×2 (10:49→20:17)
[2021-06-17 12:29] LABS: Hematocrit 24.5 % (37.5-50.1); Hemoglobin 7.4 g/dL (12.9-16.9)
[2021-06-17] MEDS ORDERED: 0.9 % Sodium Chloride 250 ML IVC SCH (15:00)
[2021-06-17 20:15] LABS: Hematocrit 27.1 % (37.5-50.1); Hemoglobin 8.6 g/dL (12.9-16.9)
[2021-06-18] MEDS: Piperacillin/Tazobactam 3.375 GM in 0.9 % Sodium Chloride Mini Bag 100 ML IVPB SCH ×3 (03:56→19:00)
[2021-06-18] MEDS: Albumin 25% 12.5gm/50mL 12.5 GM/50 ML IV.SOLN IVPB SCH ×3 (03:58→20:43)
[2021-06-18] MEDS: Levalbuterol Neb 0.63 MG/3 ML IH SCH ×4 (04:16→20:06)
[2021-06-18 06:06] LABS: Hemoglobin 7.5 g/dL (12.9-16.9); Immature Granulocytes % 0.4 % (0-4); Red Cell Distribution Width 15.3 % (11.5-14.5)
[2021-06-18 06:08] LABS: Basophils % 0.4 %; Eosinophils # 0.2 K/mcL (0.0-0.6); Eosinophils % 4.4 %; Hematocrit 24.4 % (37.5-50.1); Immature Platelets 2.7 % (1.1-6.1); Lymphocytes # 0.4 K/mcL (0.6-4.6); Lymphocytes % 7.4 %; Mean Corpuscular HGB Conc 30.7 g/dL (31.6-35.5); Mean Corpuscular Hemoglobin 29.9 pg (28.0-33.3); Mean Corpuscular Volume 97.2 fL (83.0-100.0); Mean Platelet Volume 10.6 fL (9.4-12.4); Monocytes # 0.5 K/mcL (0.0-1.3); Monocytes % 9.7 %; Neutrophils # 3.7 K/mcL (1.6-8.9); Red Blood Count 2.51 M/mcL (4.19-5.50); Segmented Neutrophils % 77.7 %; White Blood Count 4.7 K/mcL (4.3-11.1)
[2021-06-18 06:14] LABS: Platelet Count 79 K/mcL (140-400)
[2021-06-18 06:25] LABS: Calcium 8.5 mg/dL (8.6-10.3); Potassium 4.2 mEq/L (3.5-5.1)
[2021-06-18] MEDS: Furosemide 40 MG/4 ML VIAL IVP SCH (08:46)
[2021-06-18] MEDS: Cholecalciferol (D-3) 1,000 UNIT (25MCG) TABLET PO SCH (08:47)
[2021-06-18] MEDS: Insulin LISPRO 300 UNITS/3 ML VIAL SUBQ SCH ×4 (08:47→20:41)
[2021-06-18] MEDS: Metoprolol XL (24 HR) Succ 50 MG TAB.ER.24H PO SCH ×2 (08:47→20:43)
[2021-06-18] MEDS: Lactobacillus 1 EACH CAP.SPRINK PO SCH ×2 (08:47→20:43)
[2021-06-18] MEDS: rifAMPin 150 MG CAPSULE PO SCH ×2 (08:47→20:43)
[2021-06-18] MEDS: Isosorbide MONOnitrate (24 HR) 30 MG TAB.ER.24H PO SCH (08:48)
[2021-06-18] MEDS: Folic Acid 1 MG TABLET PO SCH ×2 (08:48→20:43)
[2021-06-18] MEDS: Budesonide/Formoterol 160/4.5 1 PUFF INH IH SCH ×2 (09:27→20:06)
[2021-06-18 13:02] LABS: Hemoglobin 7.6 g/dL (12.9-16.9)
[2021-06-18 13:04] LABS: Hematocrit 24.5 % (37.5-50.1)
[2021-06-18] MEDS: Furosemide 40 MG TABLET PO SCH (17:00)
[2021-06-19] MEDS: Levalbuterol Neb 0.63 MG/3 ML IH SCH ×4 (03:42→20:11)
[2021-06-19] MEDS: Piperacillin/Tazobactam 3.375 GM in 0.9 % Sodium Chloride Mini Bag 100 ML IVPB SCH ×3 (04:14→23:00)
[2021-06-19] MEDS: Albumin 25% 12.5gm/50mL 12.5 GM/50 ML IV.SOLN IVPB SCH ×3 (04:15→23:00)
[2021-06-19 06:02] LABS: Basophils % 0.2 %
[2021-06-19 06:04] LABS: Eosinophils # 0.2 K/mcL (0.0-0.6); Eosinophils % 3.8 %; Hematocrit 20.6 % (37.5-50.1); Hemoglobin 6.3 g/dL (12.9-16.9); Immature Granulocytes % 0.4 % (0-4); Immature Platelets 3.8 % (1.1-6.1); Lymphocytes # 0.4 K/mcL (0.6-4.6); Lymphocytes % 9.6 %; Mean Corpuscular HGB Conc 30.6 g/dL (31.6-35.5); Mean Corpuscular Hemoglobin 30.1 pg (28.0-33.3); Mean Corpuscular Volume 98.6 fL (83.0-100.0); Mean Platelet Volume 10.8 fL (9.4-12.4); Monocytes # 0.5 K/mcL (0.0-1.3); Monocytes % 10.5 %; Neutrophils # 3.4 K/mcL (1.6-8.9); Red Blood Count 2.09 M/mcL (4.19-5.50); Red Cell Distribution Width 15.1 % (11.5-14.5); Segmented Neutrophils % 75.5 %; White Blood Count 4.5 K/mcL (4.3-11.1)
[2021-06-19 06:11] LABS: Platelet Count 91 K/mcL (140-400)
[2021-06-19 06:15] LABS: Albumin 2.8 g/dL (3.5-5.7); Bilirubin,Total 0.5 mg/dL (0.3-1.0); Calcium 8.5 mg/dL (8.6-10.3); Globulin 2.8 g/dL (2.4-3.5); Potassium 4.5 mEq/L (3.5-5.1); Total Protein 5.6 g/dL (6.4-8.9)
[2021-06-19] MEDS: Budesonide/Formoterol 160/4.5 1 PUFF INH IH SCH ×2 (07:26→20:10)
[2021-06-19] MEDS: Lactobacillus 1 EACH CAP.SPRINK PO SCH ×2 (08:37→23:00)
[2021-06-19] MEDS: Furosemide 40 MG TABLET PO SCH ×2 (08:37→16:43)
[2021-06-19] MEDS: rifAMPin 150 MG CAPSULE PO SCH ×2 (08:37→23:00)
[2021-06-19] MEDS: Isosorbide MONOnitrate (24 HR) 30 MG TAB.ER.24H PO SCH (08:37)
[2021-06-19] MEDS: Cholecalciferol (D-3) 1,000 UNIT (25MCG) TABLET PO SCH (08:37)
[2021-06-19] MEDS: Folic Acid 1 MG TABLET PO SCH ×2 (08:37→23:00)
[2021-06-19] MEDS: Metoprolol XL (24 HR) Succ 50 MG TAB.ER.24H PO SCH ×2 (08:37→23:00)
[2021-06-19] MEDS: Insulin LISPRO 300 UNITS/3 ML VIAL SUBQ SCH ×3 (13:25→16:40)
[2021-06-19] MEDS: Pantoprazole 40 MG VIAL IVP SCH (16:44)
[2021-06-19 18:11] LABS: Hematocrit 22.7 % (37.5-50.1)
[2021-06-20] MEDS: Insulin LISPRO 300 UNITS/3 ML VIAL SUBQ SCH ×5 (00:09→21:15)
[2021-06-20] MEDS: Levalbuterol Neb 0.63 MG/3 ML IH SCH ×4 (04:12→20:08)
[2021-06-20 05:39] LABS: Basophils % 0.5 %; Eosinophils # 0.2 K/mcL (0.0-0.6); Eosinophils % 4.1 %; Hemoglobin 6.4 g/dL (12.9-16.9); Immature Granulocytes % 0.5 % (0-4); Lymphocytes # 0.4 K/mcL (0.6-4.6); Lymphocytes % 8.1 %; Mean Corpuscular HGB Conc 30.5 g/dL (31.6-35.5); Mean Corpuscular Hemoglobin 29.8 pg (28.0-33.3); Mean Corpuscular Volume 97.7 fL (83.0-100.0); Mean Platelet Volume 10.5 fL (9.4-12.4); Monocytes # 0.4 K/mcL (0.0-1.3); Monocytes % 8.8 %; Neutrophils # 3.4 K/mcL (1.6-8.9); Red Blood Count 2.15 M/mcL (4.19-5.50); Red Cell Distribution Width 15.1 % (11.5-14.5); White Blood Count 4.3 K/mcL (4.3-11.1)
[2021-06-20 05:40] LABS: Platelet Count 88 K/mcL (140-400)
[2021-06-20 05:54] LABS: Calcium 8.7 mg/dL (8.6-10.3); Potassium 4.2 mEq/L (3.5-5.1)
[2021-06-20] MEDS: Piperacillin/Tazobactam 3.375 GM in 0.9 % Sodium Chloride Mini Bag 100 ML IVPB SCH ×3 (06:27→22:21)
[2021-06-20] MEDS: Pantoprazole 40 MG VIAL IVP SCH ×2 (06:28→18:17)
[2021-06-20] MEDS ORDERED: Albumin 25% 12.5gm/50mL 12.5 GM/50 ML IV.SOLN IVPB SCH (07:00)
[2021-06-20] MEDS: Lactobacillus 1 EACH CAP.SPRINK PO SCH ×2 (09:00→21:15)
[2021-06-20] MEDS: Folic Acid 1 MG TABLET PO SCH ×2 (09:00→21:15)
[2021-06-20] MEDS: Furosemide 40 MG TABLET PO SCH ×2 (09:00→18:04)
[2021-06-20] MEDS: Isosorbide MONOnitrate (24 HR) 30 MG TAB.ER.24H PO SCH (09:01)
[2021-06-20] MEDS: Metoprolol XL (24 HR) Succ 50 MG TAB.ER.24H PO SCH ×2 (09:01→21:16)
[2021-06-20] MEDS: Cholecalciferol (D-3) 1,000 UNIT (25MCG) TABLET PO SCH (09:01)
[2021-06-20] MEDS: rifAMPin 150 MG CAPSULE PO SCH ×2 (09:01→21:16)
[2021-06-20] MEDS ORDERED: *HR* Propofol 200 MG/20 ML VIAL IVP ONE (09:51)
[2021-06-20] MEDS ORDERED: Lidocaine -MPF 2% 5 ML VIAL ONE (09:51)
[2021-06-20] MEDS ORDERED: Lidocaine -MPF 4% 5 ML AMPUL ONE (09:52)
[2021-06-20] MEDS: Budesonide/Formoterol 160/4.5 1 PUFF INH IH SCH ×2 (10:49→20:07)
[2021-06-20] MEDS: Albumin 25% 12.5gm/50mL 12.5 GM/50 ML IV.SOLN IVPB SCH ×2 (12:24→21:19)
[2021-06-20 13:16] LABS: Hematocrit 25.5 % (37.5-50.1); Immature Platelets 3.2 % (1.1-6.1); Mean Corpuscular HGB Conc 31.4 g/dL (31.6-35.5); Mean Corpuscular Hemoglobin 29.9 pg (28.0-33.3); Mean Corpuscular Volume 95.1 fL (83.0-100.0); Mean Platelet Volume 10.6 fL (9.4-12.4); Red Blood Count 2.68 M/mcL (4.19-5.50); Red Cell Distribution Width 15.1 % (11.5-14.5); White Blood Count 5.1 K/mcL (4.3-11.1)
[2021-06-20] MEDS ORDERED: Piperacillin/Tazobactam 3.375 GM VIAL ONE (13:46)
[2021-06-21] MEDS: Albumin 25% 12.5gm/50mL 12.5 GM/50 ML IV.SOLN IVPB SCH ×3 (02:23→19:49)
[2021-06-21] MEDS: Levalbuterol Neb 0.63 MG/3 ML IH SCH ×5 (03:36→20:05)
[2021-06-21] MEDS: Piperacillin/Tazobactam 3.375 GM in 0.9 % Sodium Chloride Mini Bag 100 ML IVPB SCH (04:31)
[2021-06-21 04:57] LABS: Basophils % 0.6 %; Mean Corpuscular Volume 95.9 fL (83.0-100.0); Red Cell Distribution Width 15.4 % (11.5-14.5); White Blood Count 5.4 K/mcL (4.3-11.1)
[2021-06-21 04:59] LABS: Eosinophils # 0.1 K/mcL (0.0-0.6); Eosinophils % 2.2 %; Hematocrit 25.5 % (37.5-50.1); Hemoglobin 8.2 g/dL (12.9-16.9); Immature Granulocytes % 0.9 % (0-4); Immature Platelets 3.6 % (1.1-6.1); Lymphocytes # 0.4 K/mcL (0.6-4.6); Lymphocytes % 7.9 %; Mean Corpuscular HGB Conc 32.2 g/dL (31.6-35.5); Mean Corpuscular Hemoglobin 30.8 pg (28.0-33.3); Mean Platelet Volume 10.3 fL (9.4-12.4); Monocytes # 0.5 K/mcL (0.0-1.3); Monocytes % 8.8 %; Neutrophils # 4.3 K/mcL (1.6-8.9); Platelet Count 110 K/mcL (140-400); Red Blood Count 2.66 M/mcL (4.19-5.50); Segmented Neutrophils % 79.6 %
[2021-06-21 05:13] LABS: Albumin 3.4 g/dL (3.5-5.7); Albumin/Globulin Ratio 1.1 (1.1-2.2); Bilirubin,Total 0.7 mg/dL (0.3-1.0); Globulin 3.1 g/dL (2.4-3.5); Potassium 4.2 mEq/L (3.5-5.1); Total Protein 6.5 g/dL (6.4-8.9)
[2021-06-21] MEDS: Pantoprazole 40 MG VIAL IVP SCH ×2 (05:31→17:37)
[2021-06-21] MEDS: Budesonide/Formoterol 160/4.5 1 PUFF INH IH SCH ×2 (07:44→20:04)
[2021-06-21] MEDS: Cholecalciferol (D-3) 1,000 UNIT (25MCG) TABLET PO SCH (09:20)
[2021-06-21] MEDS: Metoprolol XL (24 HR) Succ 50 MG TAB.ER.24H PO SCH ×2 (09:20→20:52)
[2021-06-21] MEDS: Furosemide 40 MG TABLET PO SCH ×2 (09:24→17:37)
[2021-06-21] MEDS: Lactobacillus 1 EACH CAP.SPRINK PO SCH ×2 (09:24→20:52)
[2021-06-21] MEDS: rifAMPin 150 MG CAPSULE PO SCH ×2 (09:24→20:52)
[2021-06-21] MEDS: Isosorbide MONOnitrate (24 HR) 30 MG TAB.ER.24H PO SCH (09:24)
[2021-06-21] MEDS: Folic Acid 1 MG TABLET PO SCH ×2 (09:25→20:52)
[2021-06-21] MEDS: Insulin LISPRO 300 UNITS/3 ML VIAL SUBQ SCH ×2 (14:03→20:53)
[2021-06-21 14:22] LABS: Hemoglobin 7.5 g/dL (12.9-16.9)
[2021-06-22] MEDS: Levalbuterol Neb 0.63 MG/3 ML IH SCH ×4 (03:35→20:49)
[2021-06-22] MEDS: Albumin 25% 12.5gm/50mL 12.5 GM/50 ML IV.SOLN IVPB SCH ×3 (03:41→19:44)
[2021-06-22] MEDS: Pantoprazole 40 MG VIAL IVP SCH ×2 (04:53→18:57)
[2021-06-22 05:36] LABS: Basophils % 0.2 %; Eosinophils # 0.2 K/mcL (0.0-0.6); Eosinophils % 3.5 %; Hematocrit 22.1 % (37.5-50.1); Immature Granulocytes % 0.9 % (0-4); Lymphocytes # 0.4 K/mcL (0.6-4.6); Lymphocytes % 8.6 %; Mean Corpuscular HGB Conc 31.7 g/dL (31.6-35.5); Mean Corpuscular Hemoglobin 30.3 pg (28.0-33.3); Mean Corpuscular Volume 95.7 fL (83.0-100.0); Mean Platelet Volume 10.5 fL (9.4-12.4); Monocytes # 0.4 K/mcL (0.0-1.3); Monocytes % 9.7 %; Neutrophils # 3.3 K/mcL (1.6-8.9); Platelet Count 111 K/mcL (140-400); Red Blood Count 2.31 M/mcL (4.19-5.50); Red Cell Distribution Width 15.6 % (11.5-14.5); Segmented Neutrophils % 77.1 %; White Blood Count 4.3 K/mcL (4.3-11.1)
[2021-06-22 06:40] LABS: Albumin 3.4 g/dL (3.5-5.7); Albumin/Globulin Ratio 1.3 (1.1-2.2); Bilirubin,Total 0.6 mg/dL (0.3-1.0); Calcium 8.7 mg/dL (8.6-10.3); Globulin 2.7 g/dL (2.4-3.5); Potassium 4.2 mEq/L (3.5-5.1); Total Protein 6.1 g/dL (6.4-8.9)
[2021-06-22] MEDS: Budesonide/Formoterol 160/4.5 1 PUFF INH IH SCH ×2 (07:43→20:51)
[2021-06-22] MEDS: Metoprolol XL (24 HR) Succ 50 MG TAB.ER.24H PO SCH ×2 (08:37→20:38)
[2021-06-22] MEDS: Isosorbide MONOnitrate (24 HR) 30 MG TAB.ER.24H PO SCH (08:37)
[2021-06-22] MEDS: Lactobacillus 1 EACH CAP.SPRINK PO SCH ×2 (08:37→20:38)
[2021-06-22] MEDS: Furosemide 40 MG TABLET PO SCH (08:37)
[2021-06-22] MEDS: Folic Acid 1 MG TABLET PO SCH ×2 (08:38→20:38)
[2021-06-22] MEDS: rifAMPin 150 MG CAPSULE PO SCH ×2 (08:38→20:38)
[2021-06-22] MEDS: Cholecalciferol (D-3) 1,000 UNIT (25MCG) TABLET PO SCH (08:38)
[2021-06-22] MEDS: Insulin LISPRO 300 UNITS/3 ML VIAL SUBQ SCH ×3 (08:40→20:38)
[2021-06-22 10:08] LABS: Hematocrit 22.9 % (37.5-50.1); Hemoglobin 7.4 g/dL (12.9-16.9)
[2021-06-22] MEDS ORDERED: Furosemide 40 MG TABLET PO SCH (17:00)
[2021-06-23 01:24] LABS: Hemoglobin 7.4 g/dL (12.9-16.9)
[2021-06-23 01:50] LABS: Albumin 3.3 g/dL (3.5-5.7); Albumin/Globulin Ratio 1.1 (1.1-2.2); Bilirubin,Total 0.7 mg/dL (0.3-1.0); Calcium 8.7 mg/dL (8.6-10.3); Potassium 4.2 mEq/L (3.5-5.1); Total Protein 6.3 g/dL (6.4-8.9)
[2021-06-23] MEDS: Albumin 25% 12.5gm/50mL 12.5 GM/50 ML IV.SOLN IVPB SCH ×2 (02:35→11:32)
[2021-06-23] MEDS: Levalbuterol Neb 0.63 MG/3 ML IH SCH ×2 (03:46→07:41)
[2021-06-23 03:49] VITALS: O2SAT 93
[2021-06-23] MEDS: Pantoprazole 40 MG VIAL IVP SCH (05:20)
[2021-06-23] MEDS: Budesonide/Formoterol 160/4.5 1 PUFF INH IH SCH (07:42)
[2021-06-23] MEDS: Insulin LISPRO 300 UNITS/3 ML VIAL SUBQ SCH ×3 (10:57→11:35)
[2021-06-23 11:04] VITALS: BP 139/59; PULSE 72; TEMP 97.7
== END 2021-06-23 13:10 | disposition hospice, home (50) | DRG 432 ==
LOC: EMEROOARM 11:45 → 3NENU 15:04 → SUATTDRO 15:04 → 3NENU 16:03
PROVIDERS: ADMIT Student in an Organized Health Care Education/Training Program; ATTEND Family Medicine